=== PATIENT | female | born 1940 | race Caucasian/White ===

== ENCOUNTER → 2018-04-28 14:23 | Outpatient (CLI) | payer MEDICARE, OTHER, SELFPAY ==
[2018-04-28 14:47] LABS: Appearance Urine UA SL CLOUDY; Bilirubin Urine UA NEGATIVE (NEGATIVE); Color Urine UA YELLOW; Glucose Urine UA TRACE g/dL (Normal); Ketones Urine UA TRACE (NEGATIVE); Leukocyte Esterase Urine UA NEGATIVE (NEGATIVE); Nitrite Urine UA Negative (Negative); Occult Blood Urine UA NEGATIVE (Negative); Protein Urine UA NEGATIVE (Negative); Specific Gravity Urine UA 1.025 (1.000-1.035); Urobilinogen Urine UA 0.2 E.U./dL (0.2)
== END ==
PROVIDERS: PCP Family Medicine; Visit Provider Family Medicine
DX: R30.0 Dysuria (principal)
CPT/HCPCS: 81003

== ENCOUNTER → 2018-08-02 07:48 | Outpatient (CLI) | payer MEDICARE, OTHER, SELFPAY ==
[2018-08-02 08:56] LABS: Add Manual Diff / Slide Review NO; Basophils Percent Auto 0.6 % (0-2); Eosinophils Percent Auto 3.1 % (2-4); Hematocrit 37.8 % (36-46); Hemoglobin 12.5 g/dL (12.0-16.0); Lymphocytes Percent Auto 33.2 % (25-40); Mean Corpuscular Hemoglobin 28.1 PG (26-34); Mean Corpuscular Volume 85.1 fL (80-100); Monocytes Percent Auto 11.8 % (3-14); Neutrophils Absolute Auto 3000 /uL (1500-7000); Neutrophils Percent Auto 51.3 % (50-75); Platelet Count 242 X10^3/uL (150-400); Red Blood Cell Count 4.44 X10^6/uL (4.0-5.2); White Blood Cell Count 5.8 X10^3/uL (4.5-11.0)
[2018-08-02 09:06] LABS: Alanine Aminotransferase 23 IU/L (9-52); Albumin 4.1 g/dL (3.5-5.0); Albumin Globulin Ratio 1.4 (1.0-2.8); Alkaline Phosphatase 49 U/L (38-126); Aspartate Aminotransferase 19 IU/L (14-36); BUN Creatinine Ratio 24.3 (6-22); Bilirubin Total 0.5 mg/dL (0.2-1.3); Blood Urea Nitrogen 17 mg/dL (7-17); Calcium 9.8 mg/dL (8.4-10.2); Carbon Dioxide 26 mmol/L (22-32); Chloride 106 mmol/L (98-107); Cholesterol 139 mg/dL (140-199); Estimated Glomerular Filt Rate > 60.0 mL/min (>60); Glucose 128 mg/dL (80-110); HDL Cholesterol 55 mg/dL (40-60); HEMOLYSIS < 15 (0-50); LDL Cholesterol Calculated 70 mg/dL (<100); Sodium 141 mmol/L (137-145); Total Protein 7.1 g/dL (6.3-8.2); Triglycerides 71 mg/dL (35-150)
[2018-08-02 09:40] LABS: TSH w/ Reflex to FT4 4.67 uIU/mL (0.47-4.68)
[2018-08-05 08:57] LABS: Hemoglobin A1C% w Est Avg Glu 7.1 % (4.0-6.0)
== END ==
PROVIDERS: Family Provider Family Medicine; PCP Family Medicine; Visit Provider Family Medicine
DX: E11.9 Type 2 diabetes mellitus without complications (principal); E78.2 Mixed hyperlipidemia; I10 Essential (primary) hypertension
CPT/HCPCS: 36415; 80053; 80061; 83036; 84443; 85025

== ENCOUNTER → 2019-04-04 16:21 | Outpatient (CLI) | payer MEDICARE, OTHER, SELFPAY ==
--- NOTE | 2019-04-04 16:25 | DI.RAD.S_ITS ---
PROCEDURE: XR CHEST 2V INDICATIONS: back pain TECHNIQUE: 2 views of the chest were acquired. COMPARISON: [facility], , XR LUMBAR SPINE 2-3V, 04/04/2019, 16:23. [facility], , CHEST 2 VIEW, 03/19/2012, 19:27. [facility], , L-SPINE 2-3 VIEWS, 09/28/2017, 14:16. [facility], , CHEST 1 VIEW, 07/07/2014, 8:19. FINDINGS: Surgical changes and devices: Cholecystectomy clips. Lungs and pleura: Lungs are clear. No pleural effusions or pneumothorax. Mediastinum: Mediastinal contours are normal. Heart size is normal. Bones and chest wall: No suspicious bony abnormalities. Soft tissues appear unremarkable. Bones are diffusely osteopenic. Lower thoracic vertebral bodies at the level of T9 and T10 are felt to be suboptimally evaluated secondary to osteopenia and overlying soft tissues. IMPRESSION: T9/T10 are suboptimally evaluated secondary to patient body habitus and osteopenia. Compression fracture cannot be excluded. Matthews views of this region is recommended if clinically indicated or CT for further evaluation. Dictated by: Lianna Williamson M.D. on 04/04/2019 at 17:26 Approved by: Lianna Williamson M.D. on 04/04/2019 at 17:29
--- NOTE | 2019-04-04 16:25 | DI.RAD.S_ITS ---
PROCEDURE: XR LUMBAR SPINE 2-3V INDICATIONS: back pain TECHNIQUE: 3 views of the lumbar spine were acquired. COMPARISON: [facility], , L-SPINE 2-3 VIEWS, 09/28/2017, 14:16. FINDINGS: Bones: 5 [id number] vertebrae are present. There is normal bony alignment. No vertebral body compression fractures. No suspicious bony lesions. Vertebral bodies T10-L5 tendon strain no visualized compression fracture. T9 is only partially visualized. Multilevel degenerative disc space narrowing is present most severe at L5-S1. Moderate to severe foraminal narrowing is also noted L5-S1. Soft tissues: Overlying bowel gas pattern is normal. No suspicious soft tissue calcifications. IMPRESSION: Degenerative changes most severe at L5-S1. Dictated by: Lianna Williamson M.D. on 04/04/2019 at 17:29 Approved by: Lianna Williamson M.D. on 04/04/2019 at 17:31
== END ==
PROVIDERS: Family Provider Family Medicine; PCP Family Medicine; Visit Provider Family Medicine
DX: R05 Cough (principal); M54.5 Low back pain; M85.88 Other specified disorders of bone density and structure, other site; M47.817 Spondylosis without myelopathy or radiculopathy, lumbosacral region
CPT/HCPCS: 71046; 72100

== ENCOUNTER → 2019-04-26 13:32 | Outpatient (CLI) | payer MEDICARE, OTHER, SELFPAY | PROVIDERS: PCP Family Medicine; Visit Provider Family Medicine | DX: M85.852 Other specified disorders of bone density and structure, left thigh (principal); Z78.0 Asymptomatic menopausal state; E11.9 Type 2 diabetes mellitus without complications; Z90.722 Acquired absence of ovaries, bilateral; Z82.62 Family history of osteoporosis | CPT/HCPCS: 36415; 77080; 83036 ==

== ENCOUNTER → 2019-10-07 11:57 | Outpatient (CLI) | payer MEDICARE, OTHER, SELFPAY ==
[2019-10-07 12:03] LABS: RBC Urine None Seen (0-5/HPF)
[2019-10-07 12:31] LABS: Appearance Urine UA CLOUDY; Bilirubin Urine UA NEGATIVE (NEGATIVE); Color Urine UA YELLOW; Glucose Urine UA TRACE g/dL (Negative); Ketones Urine UA NEGATIVE (NEGATIVE); Leukocyte Esterase Urine UA 3+ (NEGATIVE); Nitrite Urine UA NEGATIVE (Negative); Occult Blood Urine UA TRACE-INTACT (Negative); Protein Urine UA 1+ (Negative); Specific Gravity Urine UA 1.025 (1.000-1.035); Urobilinogen Urine UA 0.2 E.U./dL (0.2)
[2019-10-07 12:39] LABS: Bacteria Urine Many (>30); Culture Indicated Urine Cult Not Indicated; Squamous Epithelial Cell Urine >30 /HPF (0-5/HPF); WBC Urine >100/HPF (0-5/HPF)
== END ==
PROVIDERS: Family Medicine; PCP Family Medicine; Referring Provider Family Medicine; Visit Provider Family Medicine
DX: R30.0 Dysuria (principal); R35.0 Frequency of micturition
CPT/HCPCS: 81001

== ENCOUNTER → 2020-03-13 08:58 | Outpatient (CLI) | payer MEDICARE, OTHER, SELFPAY ==
[2020-03-13 09:58] LABS: Hemoglobin A1C% w Est Avg Glu 7.7 % (4.0-6.0)
[2020-03-13 09:59] LABS: Blood Urea Nitrogen 24 mg/dL (7-17); Calcium 9.7 mg/dL (8.4-10.2); Carbon Dioxide 26 mmol/L (22-32); Chloride 104 mmol/L (98-107); Estimated Glomerular Filt Rate 56.2 mL/min (>60); Glucose 240 mg/dL (80-110); HEMOLYSIS < 15 (0-50); Potassium 4.7 mmol/L (3.4-5.1); Sodium 138 mmol/L (137-145)
[2020-03-13 11:18] LABS: Appearance Urine UA SL CLOUDY; Bilirubin Urine UA NEGATIVE (NEGATIVE); Color Urine UA YELLOW; Glucose Urine UA 1+ g/dL (Negative); Ketones Urine UA NEGATIVE (NEGATIVE); Leukocyte Esterase Urine UA 3+ (NEGATIVE); Nitrite Urine UA NEGATIVE (Negative); Occult Blood Urine UA 1+ (Negative); Protein Urine UA NEGATIVE (Negative); Specific Gravity Urine UA <=1.005 (1.000-1.035); Urobilinogen Urine UA 0.2 E.U./dL (0.2); pH Urine UA 5.5 (4.5-8.0)
[2020-03-13 11:25] LABS: Bacteria Urine Moderate (10-30); Culture Indicated Urine Cult Not Indicated; RBC Urine 5-10/HPF (0-5/HPF); Squamous Epithelial Cell Urine 5-10 /HPF (0-5/HPF); WBC Urine 10-30/HPF (0-5/HPF)
== END ==
PROVIDERS: PCP Family Medicine; Referring Provider Family Medicine; Visit Provider Family Medicine
DX: M81.0 Age-related osteoporosis without current pathological fracture (principal); S22.000A Wedge compression fracture of unspecified thoracic vertebra, initial encounter for closed fracture; E11.9 Type 2 diabetes mellitus without complications; R30.0 Dysuria; R35.0 Frequency of micturition; R39.15 Urgency of urination; R82.90 Unspecified abnormal findings in urine
CPT/HCPCS: 80048; 81001; 82565; 83036; 84520; 87077; 87086

== ENCOUNTER → 2020-10-05 14:22 | Outpatient (CLI) | payer MEDICARE, OTHER, SELFPAY ==
[2020-10-05 15:37] LABS: Add Manual Diff / Slide Review NO; Basophils Absolute Auto 0 /uL (0-100); Basophils Percent Auto 0.7 % (0-2); Eosinophils Absolute Auto 100 /uL (0-450); Eosinophils Percent Auto 2.3 % (2-4); Hemoglobin 11.9 g/dL (12.0-16.0); Lymphocytes Absolute Auto 2000 /uL (1100-4500); Lymphocytes Percent Auto 36.5 % (25-40); Mean Corpuscular HGB Conc 32.1 % (30-36); Mean Corpuscular Hemoglobin 27.5 PG (26-34); Mean Corpuscular Volume 85.7 fL (80-100); Monocytes Absolute Auto 600 /uL (0-900); Monocytes Percent Auto 11.2 % (3-14); Neutrophils Absolute Auto 2800 /uL (1500-7000); Neutrophils Percent Auto 49.3 % (50-75); Platelet Count 224 X10^3/uL (150-400); Red Blood Cell Count 4.32 X10^6/uL (4.0-5.2); Red Cell Distribution Width 14.7 % (11.6-14.8); White Blood Cell Count 5.6 X10^3/uL (4.5-11.0)
[2020-10-05 15:47] LABS: Hemoglobin A1C% w Est Avg Glu 7.9 % (4.0-6.0)
[2020-10-05 15:53] LABS: Alanine Aminotransferase 16 IU/L (<35); Albumin 4.1 g/dL (3.5-5.0); Albumin Globulin Ratio 1.3 (1.0-2.8); Alkaline Phosphatase 53 U/L (38-126); Aspartate Aminotransferase 23 IU/L (14-36); BUN Creatinine Ratio 21.3 (6-22); Bilirubin Total 0.2 mg/dL (0.2-1.3); Blood Urea Nitrogen 17 mg/dL (7-17); Calcium 9.6 mg/dL (8.4-10.2); Carbon Dioxide 26 mmol/L (22-32); Chloride 105 mmol/L (98-107); Cholesterol 158 mg/dL (140-199); Estimated Glomerular Filt Rate > 60.0 mL/min (>60); Globulin 3.1 g/dL (1.7-4.1); Glucose 186 mg/dL (80-110); HDL Cholesterol 51 mg/dL (40-60); HEMOLYSIS < 15 (0-50); LDL Cholesterol Calculated 75 mg/dL (<100); Sodium 139 mmol/L (137-145); Total Protein 7.2 g/dL (6.3-8.2); Triglycerides 159 mg/dL (35-150)
[2020-10-05 15:54] LABS: Creatinine Urine Random 105.8 mg/dL
[2020-10-05 16:04] LABS: Microalbumin Urine Random < 0.6 mg/dL (0-1.6)
[2020-10-05 16:23] LABS: TSH w/ Reflex to FT4 2.43 uIU/mL (0.47-4.68)
== END ==
PROVIDERS: PCP Family Medicine; Referring Provider Family Medicine; Visit Provider Family Medicine
DX: E11.9 Type 2 diabetes mellitus without complications (principal); E78.2 Mixed hyperlipidemia; I10 Essential (primary) hypertension
CPT/HCPCS: 36415; 80053; 80061; 82043; 82570; 83036; 84443; 85025

== ENCOUNTER → 2020-11-07 15:31 | Outpatient (CLI) | payer MEDICARE, OTHER, SELFPAY ==
[2020-11-07] MEDS: COVID-19 VACC #1, MRNA(MOD) 100 MCG/0.5 ML VIAL IM (15:44)
== END ==
PROVIDERS: PCP Family Medicine; Visit Provider Internal Medicine
DX: Z23 Encounter for immunization (principal)
CPT/HCPCS: 0011A; 91301

== ENCOUNTER → 2020-12-05 10:08 | Outpatient (CLI) | payer MEDICARE, OTHER, SELFPAY ==
[2020-12-05] MEDS: COVID-19 VACC #2, MRNA(MOD) 100 MCG/0.5 ML VIAL IM (10:29)
== END ==
PROVIDERS: PCP Family Medicine; Visit Provider Internal Medicine
DX: Z23 Encounter for immunization (principal)
CPT/HCPCS: 0012A; 91301

== ENCOUNTER → 2021-05-06 10:39 | Outpatient (CLI) | payer MEDICARE, OTHER, SELFPAY ==
[2021-05-06 11:06] LABS: Add Manual Diff / Slide Review NO; Basophils Absolute Auto 0 /uL (0-100); Basophils Percent Auto 0.7 % (0-2); Eosinophils Absolute Auto 100 /uL (0-450); Eosinophils Percent Auto 2.4 % (2-4); Hematocrit 35.5 % (36-46); Hemoglobin 11.5 g/dL (12.0-16.0); Lymphocytes Absolute Auto 2100 /uL (1100-4500); Mean Corpuscular HGB Conc 32.4 % (30-36); Mean Corpuscular Hemoglobin 27.6 PG (26-34); Monocytes Absolute Auto 600 /uL (0-900); Monocytes Percent Auto 10.9 % (3-14); Neutrophils Absolute Auto 3000 /uL (1500-7000); Platelet Count 244 X10^3/uL (150-400); Red Blood Cell Count 4.17 X10^6/uL (4.0-5.2); Red Cell Distribution Width 15.1 % (11.6-14.8); White Blood Cell Count 5.9 X10^3/uL (4.5-11.0)
[2021-05-06 11:24] LABS: Hemoglobin A1C% w Est Avg Glu 7.3 % (4.0-6.0)
[2021-05-06 11:44] LABS: Alanine Aminotransferase 17 IU/L (<35); Albumin Globulin Ratio 1.3 (1.0-2.8); Alkaline Phosphatase 52 U/L (38-126); Aspartate Aminotransferase 24 IU/L (14-36); Bilirubin Total 0.6 mg/dL (0.2-1.3); Blood Urea Nitrogen 20 mg/dL (7-17); Calcium 10.1 mg/dL (8.4-10.2); Carbon Dioxide 27 mmol/L (22-32); Chloride 105 mmol/L (98-107); Cholesterol 137 mg/dL (140-199); Estimated Glomerular Filt Rate > 60.0 mL/min (>60); Glucose 152 mg/dL (80-110); HDL Cholesterol 63 mg/dL (40-60); HEMOLYSIS < 15 (0-50); LDL Cholesterol Calculated 55 mg/dL (<100); Potassium 5.1 mmol/L (3.4-5.1); Sodium 141 mmol/L (137-145); Triglycerides 97 mg/dL (35-150)
== END ==
PROVIDERS: PCP Family Medicine; Referring Provider Family Medicine; Visit Provider Family Medicine
DX: I10 Essential (primary) hypertension (principal); E11.9 Type 2 diabetes mellitus without complications; E78.00 Pure hypercholesterolemia, unspecified
CPT/HCPCS: 36415; 80053; 80061; 83036; 85025

== ENCOUNTER 2021-12-25 14:21 | Inpatient (IN) | payer MEDICARE, OTHER, SELFPAY ==
[2021-12-25] VITALS (14 sets, daily range): BP systolic 111–151; BP diastolic 58–65; PULSE 68–108; RESP 16–25; TEMP 36.3–38.1; O2SAT 95–98; BMI 30.9
--- NOTE | 2021-12-25 14:29 | DI.RAD.S_ITS ---
PROCEDURE: XR CHEST 1V INDICATIONS: suspected sepsis TECHNIQUE: One view of the chest was acquired. COMPARISON: [facility], CR, XR CHEST 2V, 04/04/2019, 16:23. FINDINGS: Surgical changes and devices: None. Lungs and pleura: Lungs are clear. No pleural effusions or pneumothorax. Mediastinum: Mediastinal contours appear normal. Heart size is normal. Bones and chest wall: No suspicious bony lesions. Overlying soft tissues appear unremarkable. IMPRESSION: No acute cardiopulmonary pathology. Dictated by: Rikki Chen M.D. on 12/25/2021 at 15:02 Approved by: Rikki Chen M.D. on 12/25/2021 at 15:02
[2021-12-25 14:38] LABS: Prothrombin Time 11.5 SECONDS (10.1-12.7)
[2021-12-25 14:41] LABS: PTT Partial Thromboplastin Tim 28 SECONDS (26.4-36.2)
[2021-12-25 14:43] LABS: Add Manual Diff / Slide Review NO; Alanine Aminotransferase 18 IU/L (<35); Albumin 4.2 g/dL (3.5-5.0); Albumin Globulin Ratio 1.1 (1.0-2.8); Alkaline Phosphatase 62 U/L (38-126); Aspartate Aminotransferase 24 IU/L (14-36); BUN Creatinine Ratio 20.9 (6-22); Basophils Absolute Auto 0 /uL (0-100); Basophils Percent Auto 0.4 % (0-2); Bilirubin Total 0.5 mg/dL (0.2-1.3); Blood Urea Nitrogen 18 mg/dL (7-17); Calcium 9.4 mg/dL (8.4-10.2); Carbon Dioxide 20 mmol/L (22-32); Chloride 107 mmol/L (98-107); Eosinophils Absolute Auto 0 /uL (0-450); Eosinophils Percent Auto 0.3 % (2-4); Estimated Glomerular Filt Rate > 60 mL/min (>60); Globulin 3.8 g/dL (1.7-4.1); Glucose 212 mg/dL (80-110); HEMOLYSIS < 15 (0-50); Hematocrit 35.7 % (36-46); Hemoglobin 11.8 g/dL (12.0-16.0); Lactate (Lactic Acid) 3.2 mmol/L (0.7-2.1); Lipase 131 U/L (23-300); Lymphocytes Absolute Auto 1100 /uL (1100-4500); Mean Corpuscular HGB Conc 33.1 % (30-36); Mean Corpuscular Hemoglobin 27.7 PG (26-34); Mean Corpuscular Volume 83.8 fL (80-100); Monocytes Absolute Auto 800 /uL (0-900); Monocytes Percent Auto 10.6 % (3-14); Neutrophils Absolute Auto 6000 /uL (1500-7000); Neutrophils Percent Auto 74.7 % (50-75); Platelet Count 258 X10^3/uL (150-400); Potassium 4.2 mmol/L (3.4-5.1); Red Blood Cell Count 4.26 X10^6/uL (4.0-5.2); Red Cell Distribution Width 15.6 % (11.6-14.8); Sodium 138 mmol/L (137-145)
[2021-12-25] MEDS: SODIUM CHLORIDE 0.9% 1,000 ML 1000 ML IV (14:55)
[2021-12-25 14:59] LABS: Procalcitonin 0.08 ng/mL (<0.5)
[2021-12-25 15:08] LABS: COVID19 -Nasal RAPID POSITIVE (Negative)
[2021-12-25] MEDS: ACETAMINOPHEN 325 MG TABLET 650 MG PO (15:19)
[2021-12-25 15:49] LABS: Lactate (Lactic Acid) 2.5 mmol/L (0.7-2.1)
[2021-12-25 16:33] LABS: Reflexed Lactate in 2 Hours Y
--- NOTE | 2021-12-25 17:22 | ED_ITS ---
HPI - Neuro Symptoms/Deficit General Chief Complaint: Neuro Symptoms/Deficit Stated Complaint: Altered mental status Time Seen by Provider: 12/25/21 14:59 Source: patient Mode of arrival: EMS Limitations: no limitations History of Present Illness HPI Narrative: This is an 81-year-old female with history of diabetes, hypertension and dyslipidemia. Has been feeling unwell for the past several days and her describes her as being quite weak and having difficulty even ambulating to the bathroom. Patient has a fever here in the department. She has had some nasal congestion and cough. She denies chest pain or pressure, no shortness of breath, she denies any vomiting but has been nauseated. She denies abdominal pain, no dysuria, urgency or frequency. Denies any issues with diarrhea constipation. No rash or skin changes. Patient has not passed out. She has had prior kidney stones and lithotripsy, prior total hysterectomy, cholecystectomy appendectomy. Her primary care physician is Dr. Crook. She normally lives independently with her and ambulates with a walker. Related Data Home Medications Medication Instructions Recorded Confirmed MULTIVITAMIN (One Daily 1 tab PO Q DAY #0 11/13/11 10/10/21 Multivitamin) Previous Rx's Medication Instructions Recorded DISABLED PARKING PERMIT #1 each 02/28/20 insulin NPH isoph U-100 human 100 35 unit (0.35 mL) SUBCUT QDAY #10 03/29/20 unit/mL subcutaneous suspension ml (Novolin N NPH U-100 Insulin isophane) estradiol 0.5 mg tablet 0.5 mg PO QDAY #90 tab 10/11/20 lisinopril 10 mg tablet 10 mg PO QDAY #90 tab 03/04/21 metformin 1,000 mg tablet 1,000 mg PO BID #180 tab 03/04/21 simvastatin 20 mg tablet See Rx Instructions .ROUTE 04/02/21 .COMPLEX #90 tab valacyclovir 1 gram tablet 2,000 mg PO BID #30 tab 05/14/21 blood sugar diagnostic (Contour See Rx Instructions .ROUTE 12/25/21 Test Strips) .COMPLEX #200 ea Allergies Allergy/AdvReac Type Severity Reaction Status Date / Time No Known Drug Allergies Allergy Verified 12/25/21 14:30 Review of Systems Review of Systems ROS Unobtainable: All systems reviewed & are unremarkable except as noted in HPI and below Patient History Medical History (Updated 12/25/21 @ 18:52 by Margot Tran DO) Anemia Chicken pox Chronic cough Diabetes mellitus Fibroids Frequent UTI Headache Heart failure Heavy menstrual period History of recurrent ear infection History of urinary incontinence Hyperlipidemia Hypertension Hypothyroidism Irregular menstrual cycle Kidney disease Kidney stones Migraines Mumps Rheumatic fever Sarcoidosis Surgical History Anesthesia History of lithotripsy Status post appendectomy Status post cholecystectomy Status post hysterectomy with oophorectomy Status post tubal ligation Family History Brother Diabetes mellitus Father Heart disease Mother Heart disease Social History marital status: Smoking Status: Never smoker alcohol intake: never substance use type: does not use Smoking Status: Never smoker Substance Use Type: does not use Exam Narrative Exam Narrative: GENERAL: Alert and oriented, elderly female in mild distress. HEENT: Head normocephalic, atraumatic, EOMI, pupils reactive, face symmetric, moist mucous membranes, no facial droop. NECK: Supple, full range of motion CARDIOVASCULAR: Regular rate and rhythm without murmurs, rubs or gallops. No JVD or edema. RESPIRATORY: Breath sounds equal bilaterally, no wheezes rales or rhonchi. No tachypnea or accessory muscle use. ABDOMEN: Soft, nontender. Normoactive bowel sounds all 4 quadrants. No guarding or rebound, rigidity, no mass : No CVA tenderness EXTREMITIES: Normal range of motion, no clubbing or edema. Neurovascularly intact. NEUROLOGICAL: Cranial nerves II through XII grossly intact. Moving all extremities. Patient has significant difficulty standing attempting to ambulate. SKIN: Warm, dry, no petechiae, no rashes or lesions. Initial Vital Signs Initial Vital Signs: Vital Signs Pulse Rate 105 H 12/25/21 14:28 Pulse Oximetry 97 12/25/21 14:28 Course Orders Ordered: ED Orders 12/25/21 14:24 COVID19 -Nasal RAPID/Pre-Proc Stat 12/25/21 14:29 XR chest 1V Stat EKG-12 Lead Stat RT Consult Eval and Treat NOW 12/25/21 14:33 Complete Blood Count AUTO DIFF Stat Comprehensive Metabolic Panel Stat Lactate (Lactic Acid) Stat Lipase Stat Partial Thromboplastin Time Stat Procalcitonin Stat Prothrombin Time INR Stat 12/25/21 14:42 Blood Culture Stat Lactate (Lactic Acid) Stat 12/25/21 18:13 Urinalysis and Microscopic Stat Sodium Chloride (Normal Saline 0.9%) 1,000 mls @ 150 mls/hr IV CONT SANGEETHA Discontinued Medications Acetaminophen (Acetaminophen 325 Mg Tablet) 650 mg PO NOW ONE Stop: 12/25/21 15:02 Last Admin: 12/25/21 15:19 Dose: 650 mg Documented by: NATALYA Sodium Chloride (Normal Saline 0.9%) 1,000 mls @ 1,000 mls/hr IV BOLUS ONE Stop: 12/25/21 15:28 Last Infusion: 12/25/21 17:50 Dose: 0 mls/hr Documented by: Admin: 12/25/21 14:55 Dose: 1,000 mls/hr Documented by: SANDI Sodium Chloride (Normal Saline 0.9%) 1,503 mls @ 501 mls/hr 30 ml/kg infuse over 3 hr (1503 ml) IV NOW ONE Stop: 12/25/21 18:00 Last Admin: 12/25/21 17:45 Dose: 501 mls/hr Documented by: SANDI Ondansetron HCl (Ondansetron 4 Mg/2 Ml Inj) 4 mg IV NOW ONE Stop: 12/25/21 17:24 Last Admin: 12/25/21 17:47 Dose: 4 mg Documented by: SANDI Consultations Consultation #1: Dr. Wesley, reviewed patient's findings today. Patient accepted for observation. Time: 18:50 Vital Signs Vital signs: Vital Signs - 8 hr 12/25/21 14:28 12/25/21 14:30 12/25/21 15:00 Temperature 100.5 F H Pulse Rate 105 H 105 H 104 H Respiratory Rate 16 25 H Blood Pressure 140/63 136/63 Pulse Oximetry 97 96 95 12/25/21 15:30 12/25/21 16:00 12/25/21 16:30 Temperature 98.2 F Pulse Rate 104 H 101 H 100 H Respiratory Rate 23 21 23 Blood Pressure 135/61 146/65 H 129/61 Pulse Oximetry 97 98 98 12/25/21 17:00 12/25/21 17:30 12/25/21 18:00 Temperature 98.8 F Pulse Rate 98 H 95 H 101 H Respiratory Rate 20 19 20 Blood Pressure 128/60 112/58 L Pulse Oximetry 98 98 95 MDM - Neuro Symptoms/Deficit Lab Data Result diagrams: 12/25/21 14:33 12/25/21 14:33 Labs: Lab Results 12/25/21 12/25/21 12/25/21 Range/Units 14:24 14:33 14:33 WBC 8.0 (4.5-11.0) X10^3/uL RBC 4.26 (4.0-5.2) X10^6/uL Hgb 11.8 L (12.0-16.0) g/dL Hct 35.7 L (36-46) % MCV 83.8 (80-100) fL MCH 27.7 (26-34) PG MCHC 33.1 (30-36) % RDW 15.6 H (11.6-14.8) % Plt Count 258 (150-400) X10^3/uL Neut % (Auto) 74.7 (50-75) % Lymph % (Auto) 14.0 L (25-40) % [place] % (Auto) 10.6 (3-14) % Eos % (Auto) 0.3 L (2-4) % Baso % (Auto) 0.4 (0-2) % Neut # (Auto) 6000 (3677-4174) /uL Lymph # (Auto) 1100 (9160-8400) /uL [place] # (Auto) 800 (0-900) /uL Eos # (Auto) 0 (0-450) /uL Baso # (Auto) 0 (0-100) /uL PT 11.5 (10.1-12.7) SECONDS INR 1.0 (0.9-1.3) APTT 28 (26.4-36.2) SECONDS Sodium (137-145) mmol/L Potassium (3.4-5.1) mmol/L Chloride (98-107) mmol/L Carbon Dioxide (22-32) mmol/L BUN (7-17) mg/dL Creatinine (0.52-1.04) mg/dL Estimated GFR (>60) mL/min BUN/Creatinine Ratio (6-22) Glucose (80-110) mg/dL Lactate (0.7-2.1) mmol/L Calcium (8.4-10.2) mg/dL Total Bilirubin (0.2-1.3) mg/dL AST (14-36) IU/L ALT (<35) IU/L Alkaline Phosphatase (38-126) U/L Total Protein (6.3-8.2) g/dL Albumin (3.5-5.0) g/dL Globulin (1.7-4.1) g/dL Albumin/Globulin Ratio (1.0-2.8) Lipase (23-300) U/L Procalcitonin (<0.5) ng/mL SARS-CoV-2 (PCR) Positive H (Negative) 12/25/21 12/25/21 12/25/21 Range/Units 14:33 14:33 14:42 WBC (4.5-11.0) X10^3/uL RBC (4.0-5.2) X10^6/uL Hgb (12.0-16.0) g/dL Hct (36-46) % MCV (80-100) fL MCH (26-34) PG MCHC (30-36) % RDW (11.6-14.8) % Plt Count (150-400) X10^3/uL Neut % (Auto) (50-75) % Lymph % (Auto) (25-40) % [place] % (Auto) (3-14) % Eos % (Auto) (2-4) % Baso % (Auto) (0-2) % Neut # (Auto) (3697-4214) /uL Lymph # (Auto) (1826-8754) /uL [place] # (Auto) (0-900) /uL Eos # (Auto) (0-450) /uL Baso # (Auto) (0-100) /uL PT (10.1-12.7) SECONDS INR (0.9-1.3) APTT (26.4-36.2) SECONDS Sodium 138 (137-145) mmol/L Potassium 4.2 (3.4-5.1) mmol/L Chloride 107 (98-107) mmol/L Carbon Dioxide 20 L (22-32) mmol/L BUN 18 H (7-17) mg/dL Creatinine 0.86 (0.52-1.04) mg/dL Estimated GFR > 60 (>60) mL/min BUN/Creatinine Ratio 20.9 (6-22) Glucose 212 H (80-110) mg/dL Lactate 3.2 H 2.5 H (0.7-2.1) mmol/L Calcium 9.4 (8.4-10.2) mg/dL Total Bilirubin 0.5 (0.2-1.3) mg/dL AST 24 (14-36) IU/L ALT 18 (<35) IU/L Alkaline Phosphatase 62 (38-126) U/L Total Protein 8.0 (6.3-8.2) g/dL Albumin 4.2 (3.5-5.0) g/dL Globulin 3.8 (1.7-4.1) g/dL Albumin/Globulin Ratio 1.1 (1.0-2.8) Lipase 131 (23-300) U/L Procalcitonin 0.08 (<0.5) ng/mL SARS-CoV-2 (PCR) (Negative) Imaging Data Chest x-ray: Radiologist's Impression: [place] [address] XRay Report Signed Patient: Netta Mahmood MR#: [id number] : 1940 Acct:[id number] Age/Sex: 81 / F Date of Service: 12/25/21 Loc: Accession Number: [id number] ?? Procedure: XR chest 1V Ordering Provider: Margot Tran D.O. PROCEDURE:? XR CHEST 1V ? INDICATIONS:? suspected sepsis ? TECHNIQUE:? One view of the chest was acquired.? ? COMPARISON:? [facility], , XR CHEST 2V, 04/04/2019, 16:23. ? FINDINGS:? ? Surgical changes and devices:? None.? ? Lungs and pleura:? Lungs are clear.? No pleural effusions or pneumothorax.? ? Mediastinum:? Mediastinal contours appear normal.? Heart size is normal.? ? Bones and chest wall:? No suspicious bony lesions.? Overlying soft tissues appear unremarkable.? ? IMPRESSION:? No acute cardiopulmonary pathology. ? ? Dictated by: Rikki Chen M.D. on 12/25/2021 at 15:02 ? ? Approved by: Rikki Chen M.D. on 12/25/2021 at 15:02?? ECG Data Attestation: I personally reviewed and interpreted this ECG as follows: Interpretation: Sinus tachycardia rate of 104 [place] 166 QRS of [address] No acute [address] elevation depression noted. MDM Narrative Medical decision making narrative: Reviewed patient's findings today, she is COVID positive, her lactate is elevated at 3.2 trending down to 2.5 but not completely normalized.? Her glucose is 212 with a BUN 18.? Cultures were obtained, patient had 30 cc/kilos fluid bolus tachycardia improved.? Patient would potentially be a candidate for paxlovid but requires hospitalization for weakness.? She is not a candidate for dexamethasone or remdesivir she has not been hypoxic at any point.??Spoke with her primary care team who accepts for observation. Urine sample is pending. Discharge Plan Departure Patient Disposition: Admitted as Observation Clinical Impression: COVID-19 virus infection, Weakness Admit Date/Time: 12/25/21 18:23 Admit Provider: Billie Wesley
[2021-12-25 17:40] LABS: Reflexed Lactate in 2 Hours Y
[2021-12-25] MEDS: SODIUM CHLORIDE 0.9% 1,503 ML 501 ML IV (17:45)
[2021-12-25] MEDS: ONDANSETRON 4 MG/2 ML INJ IV (17:47)
--- NOTE | 2021-12-25 18:15 | PC.NURSE ---
straight cath urine for sample 450 cc obtained cloudy urine
[2021-12-25 18:38] LABS: Appearance Urine UA CLEAR; Bilirubin Urine UA NEGATIVE (NEGATIVE); Color Urine UA YELLOW; Glucose Urine UA TRACE g/dL (Negative); Ketones Urine UA TRACE (NEGATIVE); Leukocyte Esterase Urine UA NEGATIVE (NEGATIVE); Nitrite Urine UA NEGATIVE (Negative); Occult Blood Urine UA NEGATIVE (Negative); Protein Urine UA NEGATIVE (Negative); Specific Gravity Urine UA 1.025 (1.000-1.035); Urobilinogen Urine UA 0.2 E.U./dL (0.2)
[2021-12-25 18:53] LABS: RBC Urine None Seen (0-5/HPF); Squamous Epithelial Cell Urine None Seen (0-5/HPF); WBC Urine None Seen (0-5/HPF)
[2021-12-25 18:54] LABS: Bacteria Urine Many (>30); Culture Indicated Urine Cult Not Indicated
--- NOTE | 2021-12-25 19:12 | PC.NURSE ---
shi merchant to call for report once able and done with report he is currently in report on other patients and not yet aware he is getting a patient.
[2021-12-25] MEDS: valACYclovir 500 MG TABLET 2000 MG PO (21:51)
[2021-12-25] MEDS: ATORVASTATIN 20 MG TABLET 10 MG PO (21:51)
[2021-12-26 04:16] VITALS: BP 125/63; PULSE 83; RESP 16; TEMP 36.7; O2SAT 95
--- NOTE | 2021-12-26 07:13 | P.HP_ITS ---
History of Present Illness History of Present Illness Date Patient Seen: 12/26/21 Time Patient Seen: 07:27 Chief complaint: Altered mental status Narrative: 81-year-old female with a past medical history of diabetes hypertension hyperlipidemia osteoporosis and anxiety is admitted to the hospital with weakness and not feeling well who is COVID positive. Patient is seen And evaluated this morning. Patient states she is not feeling well. Patient states symptoms started on . Where she fell increasing week. Patient has a general history of weakness. In addition to feeling weak she has had progressive symptoms of a fever. She has had headache she has had a cough she has not had shortness of breath. She has had some mild abdominal pain and nausea. She does not complain of loss of sense of taste and smell. Patient states that as she is having normal bowel movements. Normal urination. Patient states she is hungry this morning and would like a cup of coffee. Patient states he just does not feel well. She knows she is here at [facility]. She lives at home with her . And is generally fairly independent despite her limitations due to her generalized weakness. Patient History Medical History Anemia Chicken pox Chronic cough Diabetes mellitus Fibroids Frequent UTI Headache Heart failure Heavy menstrual period History of recurrent ear infection History of urinary incontinence Hyperlipidemia Hypertension Hypothyroidism Irregular menstrual cycle Kidney disease Kidney stones Migraines Mumps Rheumatic fever Sarcoidosis Surgical History Anesthesia History of lithotripsy Status post appendectomy Status post cholecystectomy Status post hysterectomy with oophorectomy Status post tubal ligation Family & Social History Family History Brother Diabetes mellitus Father Heart disease Mother Heart disease Safety & Behavioral: Feels Safe in Current Yes Environment Been Physically Hurt or No Threatened By a Person Tobacco & Substance use: Smoking Status Never smoker alcohol intake never Substance Use Type does not use Meds Home Medications and Allergies Home Medications Medication Instructions Recorded Confirmed Type MULTIVITAMIN (One Daily 1 tab PO Q DAY #0 11/13/11 10/10/21 History Multivitamin) DISABLED PARKING PERMIT #1 each 02/28/20 10/10/21 Rx insulin NPH isoph U-100 human 100 35 unit (0.35 mL) SUBCUT QDAY #10 03/29/20 10/10/21 Rx unit/mL subcutaneous suspension ml (Novolin N NPH U-100 Insulin isophane) estradiol 0.5 mg tablet 0.5 mg PO QDAY #90 tab 10/11/20 10/10/21 Rx lisinopril 10 mg tablet 10 mg PO QDAY #90 tab 03/04/21 10/10/21 Rx metformin 1,000 mg tablet 1,000 mg PO BID #180 tab 03/04/21 10/10/21 Rx simvastatin 20 mg tablet See Rx Instructions .ROUTE 04/02/21 10/10/21 Rx .COMPLEX #90 tab valacyclovir 1 gram tablet 2,000 mg PO BID #30 tab 05/14/21 10/10/21 Rx blood sugar diagnostic (Contour See Rx Instructions .ROUTE 12/25/21 Rx Test Strips) .COMPLEX #200 ea Allergies Allergy/AdvReac Type Severity Reaction Status Date / Time No Known Drug Allergies Allergy Verified 12/25/21 14:30 Exam Vital Signs (past 8 hours): - 12/26/21 04:16 Temperature 98.1 F Pulse Rate 83 Respiratory Rate 16 Blood Pressure 125/63 Pulse Oximetry 95 Oxygen Delivery Method Room Air Oxygen Flow Rate 0 Narrative Exam Narrative: Gen.: Alert oriented to person place and time says she is not feeling well HEENT: Pupils equal round and reactive or mucosa is moist neck is supple Cardio: S1-S2 regular rate and rhythm Respiratory: Lungs are clear no wheezes or crackles normal respiratory effort Abdomen: Soft obese no distention rebound or guarding Extremities: Warm dry perfused. Full range of motion Neurologic: No neurological deficits Objective Labs Result Diagrams: 12/25/21 14:33 12/25/21 14:33 Labs: Laboratory Results - last 24 hr 12/25/21 12/25/21 12/25/21 14:24 14:33 14:33 WBC 8.0 RBC 4.26 Hgb 11.8 L Hct 35.7 L MCV 83.8 MCH 27.7 MCHC 33.1 RDW 15.6 H Plt Count 258 Neut % (Auto) 74.7 Lymph % (Auto) 14.0 L Daniels % (Auto) 10.6 Eos % (Auto) 0.3 L Baso % (Auto) 0.4 Neut # (Auto) 6000 Lymph # (Auto) 1100 Daniels # (Auto) 800 Eos # (Auto) 0 Baso # (Auto) 0 PT 11.5 INR 1.0 APTT 28 Sodium Potassium Chloride Carbon Dioxide BUN Creatinine Estimated GFR BUN/Creatinine Ratio Glucose Lactate Calcium Total Bilirubin AST ALT Alkaline Phosphatase Total Protein Albumin Globulin Albumin/Globulin Ratio Lipase Procalcitonin Urine Color Urine Appearance Urine pH Ur Specific [place] Urine Protein Urine Glucose (UA) Urine Ketones Urine Occult Blood Urine Nitrate Urine Bilirubin Urine Urobilinogen Ur Leukocyte Esterase Urine RBC Urine WBC Ur Squamous Epith Cells Urine Bacteria Ur Culture Indicated? SARS-CoV-2 (PCR) Positive H 12/25/21 12/25/21 12/25/21 14:33 14:33 14:42 WBC RBC Hgb Hct MCV MCH MCHC RDW Plt Count Neut % (Auto) Lymph % (Auto) Daniels % (Auto) Eos % (Auto) Baso % (Auto) Neut # (Auto) Lymph # (Auto) Daniels # (Auto) Eos # (Auto) Baso # (Auto) PT INR APTT Sodium 138 Potassium 4.2 Chloride 107 Carbon Dioxide 20 L BUN 18 H Creatinine 0.86 Estimated GFR > 60 BUN/Creatinine Ratio 20.9 Glucose 212 H Lactate 3.2 H 2.5 H Calcium 9.4 Total Bilirubin 0.5 AST 24 ALT 18 Alkaline Phosphatase 62 Total Protein 8.0 Albumin 4.2 Globulin 3.8 Albumin/Globulin Ratio 1.1 Lipase 131 Procalcitonin 0.08 Urine Color Urine Appearance Urine pH Ur Specific [place] Urine Protein Urine Glucose (UA) Urine Ketones Urine Occult Blood Urine Nitrate Urine Bilirubin Urine Urobilinogen Ur Leukocyte Esterase Urine RBC Urine WBC Ur Squamous Epith Cells Urine Bacteria Ur Culture Indicated? SARS-CoV-2 (PCR) 12/25/21 18:00 WBC RBC Hgb Hct MCV MCH MCHC RDW Plt Count Neut % (Auto) Lymph % (Auto) Daniels % (Auto) Eos % (Auto) Baso % (Auto) Neut # (Auto) Lymph # (Auto) Daniels # (Auto) Eos # (Auto) Baso # (Auto) PT INR APTT Sodium Potassium Chloride Carbon Dioxide BUN Creatinine Estimated GFR BUN/Creatinine Ratio Glucose Lactate Calcium Total Bilirubin AST ALT Alkaline Phosphatase Total Protein Albumin Globulin Albumin/Globulin Ratio Lipase Procalcitonin Urine Color Yellow Urine Appearance Clear Urine pH 5.0 Ur Specific [place] 1.025 Urine Protein Negative Urine Glucose (UA) Trace H Urine Ketones Trace H Urine Occult Blood Negative Urine Nitrate Negative Urine Bilirubin Negative Urine Urobilinogen 0.2 Ur Leukocyte Esterase Negative Urine RBC None seen Urine WBC None seen Ur Squamous Epith Cells None seen Urine Bacteria Many (>30) H Ur Culture Indicated? Cult not indicated SARS-CoV-2 (PCR) Assessment & Plan Assessment and plan (1) COVID-19 virus infection: Status: Acute (2) Weakness: Status: Acute Plan COVID-19 patient of into the hospital with a symptomatic significant weakness and viral symptoms due to COVID-19. She has clear lung exam and a normal x-ray. No signs or symptoms of significant pneumonia she is not hypoxic. Patient was febrile little bit tachycardic. She received fluid res[facility] room and over night received fluids as well will go ahead and stop those this morning. Based on the most recent recommendations of COVID-19 treatment for a hospitalized patient without hypoxia the recommendations are for remdesivir based on up-to-date. We will go ahead and start that this morning. They do not recommend steroids. Reviewed this with the patient. Will continue with the frequent vital signs. Ambulate with help with physical therapy. Start remdesivir monitor vital signs and provide diet as tolerated will have a physical therapy evaluation. The patient will hopefully be stable enough to discharge within 24-48 hours. Monitoring closely for worsening signs of symptoms of pneumonia and respiratory distress. Insulin-dependent diabetes. Patient has diabetes will go ahead and place her on her home insulin dosing with insulin sliding scale coverage and blood sugar ch ecks per protocol. Patient will have a diabetic diet. Hypertension. Patient's blood pressure will be monitored. She has normal renal function blood pressure looks good today and will be continued on her antihypertensive medication Hyperlipidemia. Patient will be continued on her statin medication. Disposition and plan. PT evaluation. Monitor with hospitalization because of significant weakness due to COVID. Hopefully we can improve that over the next 24-48 hours and patient can be stable for discharge home Assessment & Plan narrative: For most hospitalized patients who do not need oxygen supplementation, our approach to management depends on whether they have clinical ) or laboratory risk factors associated with progression to more severe disease and the reason for hospitalization.For those with risk factors for severe disease who were hospitalized for COVID-19, we suggest?remdesivir Trial data suggest that remdesivir may improve time to recovery in such patients, although the magnitude of effect is uncertain ]. We suggest not using?dexamethasone , which may be associated with worse outcomes in such patients Time Spent With Patient Critical Care time: I spent a total of [] minutes of critical care time on this patient's care today; this time is exclusive of procedural time.
[2021-12-26 08:07] VITALS: O2SAT 95
[2021-12-26] MEDS: REMDESIVIR 200 MG in SODIUM CHLORIDE 0.9% 210 ML 250 MG IV (09:40)
[2021-12-26] MEDS: valACYclovir 500 MG TABLET 2000 MG PO ×2 (09:55→21:23)
[2021-12-26] MEDS: ENOXAPARIN 40 MG/0.4 ML SYRINGE SUBCUT (09:55)
[2021-12-26] MEDS: lisinopriL 10 MG TABLET PO (09:55)
[2021-12-26] MEDS: estradioL 1 MG TABLET 0.5 MG PO (09:56)
[2021-12-26 10:00] VITALS: BP 116/60; PULSE 112; RESP 20; TEMP 37.9; O2SAT 94
[2021-12-26] MEDS: INSULIN NPH 100 UNIT/ML VIAL 35 UNIT SUBCUT (10:07)
[2021-12-26] MEDS: INSULIN LISPRO 100 UNIT/ML 3ML VIAL SUBCUT ×3 (10:08→17:34)
--- NOTE | 2021-12-26 11:40 | PT.IIE ---
Current Diagnoses Weakness (12/25/21) COVID-19 (12/25/21) Surgical History (Last Reviewed 12/26/21 @ 07:29 by Cruz Crook MD) Anesthesia History of lithotripsy Status post appendectomy Status post cholecystectomy Status post hysterectomy with oophorectomy Status post tubal ligation Medical History (Last Reviewed 12/26/21 @ 07:29 by Cruz Crook MD) Anemia Chicken pox Chronic cough Diabetes mellitus Fibroids Frequent UTI Headache Heart failure Heavy menstrual period History of recurrent ear infection History of urinary incontinence Hyperlipidemia Hypertension Hypothyroidism Irregular menstrual cycle Kidney disease Kidney stones Migraines Mumps Rheumatic fever Sarcoidosis Physical Therapy Inpatient Evaluation/Re-Eval M1 PT/OT-IP Prior Functional Status Start: 12/26/21 13:22 Freq: NEEDED Status: Active Protocol: Document 12/26/21 11:40 AB (Rec: 12/26/21 13:33 AB [email or web address]) Medical Review Prior Functional Status Medical History Reviewed Yes Communication with confusion; able to follow and answer questions inconsistently Mobility and Gait pt stated that she is modified independent with all mobilities and ambulation using FWW Social History Household Members spouse Number of Floors (Floors) Two Floors Number of Stairs To Enter/Railing? pt stays on main level of the house 6 steps to enter 1 rail Home Environment Standard Height Toilet,Walk in Shower Home Equipment Front Wheel Walker,Shower Seat without Backrest,Hand Held Shower,Grab Bars In Shower M2 PT-IP Current Condition Start: 12/26/21 13:22 Freq: NEEDED Status: Active Protocol: Document 12/26/21 11:40 AB (Rec: 12/26/21 13:33 AB [email or web address]) Physical Therapy Current Condition Current Condition Evaluation Date 12/26/21 Treatment Diagnosis Covid; difficulty in walking Onset Date 12/25/21 M3 PT-IP Subjective Start: 12/26/21 13:22 Freq: NEEDED Status: Active Protocol: Document 12/26/21 11:40 AB (Rec: 12/26/21 13:33 AB [email or web address]) Subjective Physical Therapy Visit Type Type Initial Evaluation Visit Start Time 11:40 Visit Stop Time 12:25 Total Visit Minutes 45 Number of GAS CONTROLLER Visits 0 Physical Therapy Visit Comments Patient Comments agreed to do PT M4 PT-IP Mobility and Gait Start: 12/26/21 13:22 Freq: NEEDED Status: Active Protocol: Document 12/26/21 11:40 AB (Rec: 12/26/21 13:33 AB [email or web address]) PT-Bed Mobility Assessment Supine to Sit Supine to Sit Maximum Assistance,2 Person Assistance,Head of Bed Elevated,Bedrails Sit to Supine Sit to Supine Maximum Assistance,Total Assistance,2 Person Assistance PT-Transfer Assessment Sit to and From Stand Sit to and from Stand Maximum Assistance,Total Assistance,2 Person Assistance ,Use of Upper Extremities Equipment Transfer Assistive Device Gait Belt,Front Wheeled Walker Orthotic/Prosthetic Devices or Brace: No Comments Mobility Comments completed supine to sit max A x 2 with 3 attempts to sit up. pt with increase posterior pushing during supine to sit with cervical and trunk rigidity noted. pt with confusion and has difficulty following directions. mod to max A for sitting on EOB. completed sit to stand x2 max A x 2 to total A x 2 with pt leaning against the bed with her LE. required several attempts before able to stand up. pt unable to move LE to transfer to chair. assisted back to bed max A x 2 to total A x 2. positioned pt in bed total A x 2 and max cues. call light and table placed within reach. Gait Assessment Comments Gait Comments unable PT-Balance Assessment Sitting Balance and Reactions Static Sitting Balance Ability Poor Dynamic Sitting Balance Ability Poor Standing Balance and Reactions Static Standing Balance Ability Poor Dynamic Standing Balance Ability Poor Device Used FWW M5 PT-IP Objective Assessments Start: 12/26/21 13:22 Freq: NEEDED Status: Active Protocol: Document 12/26/21 11:40 AB (Rec: 12/26/21 13:33 AB [email or web address]) Orientation Orientation/Cognition Level of Alertness Confusional State Orientation Name Safety Awareness Decreased Safety Awareness Memory Description Short Term Impaired,Desizing Machine Operator Impaired Gross Range of Motion Lower Extremity ROM Assessment Within Functional Limits Strength Lower Extremity Strength Assessment Bilaterally Impaired Comments Strength Comments LLE: 4-/5 RLE 3+/5 M6 PT-IP Treatment Start: 12/26/21 13:22 Freq: NEEDED Status: Active Protocol: Document 12/26/21 11:40 AB (Rec: 12/26/21 13:33 AB [email or web address]) Physical Therapy Treatment Education Education Provided Safety M7 PT-IP Assessment and Plan Start: 12/26/21 13:22 Freq: NEEDED Status: Active Protocol: Document 12/26/21 11:40 AB (Rec: 12/26/21 13:33 AB [id number]) PT Summary Assessment and Plan Potential Rehabilitation Potential Fair Status of Condition at Evaluation Evolving Summary Impairments Pain,ROM,Strength,Balance, Coordination,Sensation,Tone, Cognition,Bed Mobility, Transfers,Gait,Activity Tolerance Assessment Summary Pt requiring max A x 2 to total A x 2 and unable to complete transfer to chair despite max A x 2 provided. pt with increase posterior leaning and trunk rigidity during mobility. pt also has confusion affecting direction following and safety awareness . at this time, pt will require SNF rehab but will continue to assess progress for continued safe d/c planning. Goals Bed Mobility Goal Minimal Assistance Transfer Goal Minimal Assistance,Front Wheeled Walker Gait Goal Minimal Assistance,Front Wheel Walker Gait Distance 50 Other Goals improve bed mobility and transfers using FWW SBA improve ambulation using FWW 100 ft SBA up/down 6 steps 1 rail CGA Days to Meet Goals 10 Frequency of Treatment Frequency Of Treatment Once a Day Treatment Plan Physical Therapy Treatment Plan Bed Mobility Training,Transfer Training,Gait Training, Therapeutic Exercise,Balance Retraining,Discharge Planning, Hot or Cold Pack,Neuromuscular Re-ed,Coordination Retraining ,Manual Therapy Recommendations To Nursing Amount of Assist Needed Mechanical Lift Discharge Recommendations PT Discharge Recommendations SNF Rehab Transportation Needs at Discharge Wheelchair/Cabulance,Stretcher /Ambulance
[2021-12-26 12:35] VITALS: BP 105/55; PULSE 93; RESP 20; TEMP 37.3; O2SAT 95
[2021-12-26] MEDS: ACETAMINOPHEN 325 MG TABLET 650 MG PO ×2 (13:13→17:37)
--- NOTE | 2021-12-26 13:58 | CM.DANOTE ---
Initial DCP Assessment Note Pt is an 81yo female, resident [facility], arrives with altered mental status, weakness, C19+ PCP: Cruz Crook Payer: KRISHAN/Giov[employer] Reviewed chart, pt discussed w/Delisa PT who currently is recommending SNF; patient remains confused today, PT recommendation may change depending on progression and mental status clearing In general; there are limited- no available SNFs that will consider someone that is COVID+. Plan: DC likely home w/spouse and HH once medically cleared; mental status improvement and additional sessions w/PT Will plan to discuss DCP options w/spouse and will remain available to address DC planning questions and concerns that might arise [place] [facility] Discharge Planning/Care Management CM Discharge Assessment Start: 12/26/21 13:54 Freq: Status: Active Protocol: Document 12/26/21 13:55 XIMENA (Rec: 12/26/21 13:58 XIMENA [id number]) Discharge Planning Assessment Assigned Glazing Machine Operator [place] DPOA/Assigned Designee Name Gilson Mahmood, spouse Contact Information [phone] Advance Directives? No History Provided By Medical Record Prior Living Arrangements House Household Members spouse Type of transporation used prior to Relies on Others admit Independent with ADL's Yes: Mod Indp w/FWW Is patient alert and oriented? No: Confusion today per record Needs Assistance With Bathing,Home Chores / Shopping Patient/Family Preference Home with Home Health Barriers to Discharge Yes Comment C19+, weakness Discharge Plan Home with Home Health Transportation Arrangement Family Referrals Initiated Home Health Additional Comment Will need new HH referral if patient and spouse ar agreeable
[2021-12-26 16:50] VITALS: BP 104/55; PULSE 81; RESP 20; TEMP 36.5; O2SAT 95
--- NOTE | 2021-12-26 17:12 | PC.NURSE ---
Day shift: After phone conversation with Pt's Daughter (Pt's Hx of being hospitalized in the past) Dr Crook was called and asked about an anti-anxiety medication. Per Dr Crook: At this point we will just wait.
[2021-12-26 21:00] VITALS: BP 96/49; PULSE 75; RESP 14; TEMP 36.7; O2SAT 95
[2021-12-26] MEDS: ATORVASTATIN 20 MG TABLET 10 MG PO (21:23)
[2021-12-27 01:45] VITALS: BP 120/60; PULSE 73; RESP 16; TEMP 36.9; O2SAT 97
[2021-12-27 06:49] LABS: Hematocrit 29.8 % (36-46); Mean Corpuscular HGB Conc 33.7 % (30-36); Mean Corpuscular Hemoglobin 27.9 PG (26-34); Mean Corpuscular Volume 82.8 fL (80-100); Platelet Count 149 X10^3/uL (150-400); Red Cell Distribution Width 15.4 % (11.6-14.8); White Blood Cell Count 4.3 X10^3/uL (4.5-11.0)
[2021-12-27 06:52] LABS: Add Manual Diff / Slide Review YES; Alanine Aminotransferase 25 IU/L (<35); Alkaline Phosphatase 45 U/L (38-126); Aspartate Aminotransferase 61 IU/L (14-36); BUN Creatinine Ratio 21.3 (6-22); Bilirubin Total 0.2 mg/dL (0.2-1.3); Blood Urea Nitrogen 19 mg/dL (7-17); Calcium 7.9 mg/dL (8.4-10.2); Carbon Dioxide 23 mmol/L (22-32); Chloride 110 mmol/L (98-107); Estimated Glomerular Filt Rate > 60 mL/min (>60); Glucose 128 mg/dL (80-110); HEMOLYSIS < 15 (0-50); Potassium 3.7 mmol/L (3.4-5.1); Sodium 138 mmol/L (137-145)
[2021-12-27 07:36] LABS: Neutrophils Absolute Manual 2064 /uL (3000-5900); Total Cells Counted 100
[2021-12-27 07:38] LABS: Poikilocytosis 1+
[2021-12-27 08:00] VITALS: BP 125/71; PULSE 73; RESP 20; O2SAT 96
--- NOTE | 2021-12-27 08:37 | PM.PN.1 ---
Subjective Subjective Date Patient Seen: 12/27/21 Time Patient Seen: 08:37 Interval history: Patient seen and evaluated this morning. Patient will anxious and tearful. She says she is doing well still feeling quite ill. Very weak yesterday difficult time getting out of bed. Complaining of cough muscle aches headache patient afebrile for the last 12 hours. Patient doing okay with appetite eating. Bowel movements urination stable. No significant symptoms of shortness of breath or chest pain. Reviewed care with nursing staff. Exam Vital Signs (past 8 hours): - 12/27/21 01:45 Temperature 98.5 F Pulse Rate 73 Respiratory Rate 16 Blood Pressure 120/60 Pulse Oximetry 97 Oxygen Delivery Method Room Air Oxygen Flow Rate 0 Narrative Exam Narrative: Gen.: Alert no apparent distress oriented to person place and time. Good historian HEENT: Pupils equal round and reactive neck is supple oral mucosa is moist Cardio: Regular rate and rhythm no systolic murmur appreciated. Respiratory: Lungs are clear normal respiratory effort no wheezes or crackles Abdomen: Soft nontender obese no guarding Extremities: Full range of motion warm dry perfused Neurologic: Grossly intact. Objective Labs Result Diagrams: 12/27/21 06:14 12/27/21 06:14 Labs: Laboratory Results - last 24 hr 12/27/21 12/27/21 06:14 06:14 WBC 4.3 L RBC 3.60 L Hgb 10.0 L Hct 29.8 L MCV 82.8 MCH 27.9 MCHC 33.7 RDW 15.4 H Plt Count 149 L Neut % (Auto) Not Reportable Lymph % (Auto) Not Reportable [place] % (Auto) Not Reportable Eos % (Auto) Not Reportable Baso % (Auto) Not Reportable Lymph # (Auto) Not Reportable [place] # (Auto) Not Reportable Baso # (Auto) Not Reportable Total Counted 100 Seg Neutrophils % 42.0 Band Neutrophils % 6.0 Lymphocytes % (Manual) 33.0 Monocytes % (Manual) 17.0 H Eosinophils % (Manual) 2.0 Neutrophils # (Manual) 2064 L RBC Morphology See below Poikilocytosis 1+ H Sodium 138 Potassium 3.7 Chloride 110 H Carbon Dioxide 23 BUN 19 H Creatinine 0.89 Estimated GFR > 60 BUN/Creatinine Ratio 21.3 Glucose 128 H Calcium 7.9 L Total Bilirubin 0.2 AST 61 H ALT 25 Alkaline Phosphatase 45 Total Protein 6.0 L Albumin 3.0 L Globulin 3.0 Albumin/Globulin Ratio 1.0 PFSH Medical History Anemia Chicken pox Chronic cough Diabetes mellitus Fibroids Frequent UTI Headache Heart failure Heavy menstrual period History of recurrent ear infection History of urinary incontinence Hyperlipidemia Hypertension Hypothyroidism Irregular menstrual cycle Kidney disease Kidney stones Migraines Mumps Rheumatic fever Sarcoidosis Surgical History Anesthesia History of lithotripsy Status post appendectomy Status post cholecystectomy Status post hysterectomy with oophorectomy Status post tubal ligation Family History Brother Diabetes mellitus Father Heart disease Mother Heart disease Social History marital status: household members: spouse Smoking Status: Never smoker alcohol intake: never substance use type: does not use Assessment & Plan Assessment and plan (1) COVID-19 virus infection: Status: Acute (2) Weakness: Status: Acute Plan COVID-19 infection. Patient vaccinated x2 not boost heard. Main symptoms at this point or weakness. Blood counts stable laboratories good patient is afebrile for 24 hours still weak. No signs of respiratory distress or hypoxia. Patient was unable to ambulate yesterday. Patient will work with physical therapy today. Patient would love to go home. If we can arrange for safe discharge home she does have a walker and a wheelchair available and a and a daughter who can help take care of her. She has had 1 dose of remdesivir today yesterday and 1 dose today. When discharged she will not need further medication. She is on appropriate DVT prophylaxis at this point. Insulin-dependent diabetes.? Patient on insulin here in the hospital. Getting long-acting and short-acting insulin blood sugars have been reasonably well controlled. She is doing well with her diet although she says food does not taste well. Hypertension.? Patient's blood pressure will be monitored.? Home antihypertensives are started. Blood pressure stable at this point. Hyperlipidemia.? Patient will be continued on her statin medication.? Anxiety. Patient little bit tearful and anxious. Disposition and plan.? PT evaluation today. With PT evaluation is good patient can ambulate patient will be discharged home with home health. Discussed discharge plan with patient today. If she is not as strong enough to be able to ambulate then discharge tomorrow home. Time Spent With Patient Critical Care time: I spent a total of [] minutes of critical care time on this patient's care today; this time is exclusive of procedural time.
[2021-12-27 08:56] VITALS: O2SAT 97
[2021-12-27] MEDS: INSULIN NPH 100 UNIT/ML VIAL 35 UNIT SUBCUT (09:10)
[2021-12-27] MEDS: INSULIN LISPRO 100 UNIT/ML 3ML VIAL SUBCUT ×3 (09:11→21:46)
[2021-12-27] MEDS: estradioL 1 MG TABLET 0.5 MG PO (09:12)
[2021-12-27] MEDS: lisinopriL 10 MG TABLET PO (09:19)
[2021-12-27] MEDS: valACYclovir 500 MG TABLET 2000 MG PO (09:20)
[2021-12-27] MEDS: ENOXAPARIN 40 MG/0.4 ML SYRINGE SUBCUT (09:20)
[2021-12-27] MEDS: REMDESIVIR 100 MG in SODIUM CHLORIDE 0.9% 230 ML 250 MG IV (09:23)
[2021-12-27] MEDS: ACETAMINOPHEN 325 MG TABLET 650 MG PO ×3 (09:35→17:25)
--- NOTE | 2021-12-27 09:35 | PT.IPTN ---
Current Diagnoses Weakness (12/25/21) COVID-19 (12/25/21) Physical Therapy Treatment Note M2 PT-IP Current Condition Start: 12/26/21 13:22 Freq: NEEDED Status: Active Protocol: Document 12/26/21 11:40 AB (Rec: 12/26/21 13:33 AB [id number]) Physical Therapy Current Condition Current Condition Evaluation Date 12/26/21 Treatment Diagnosis Covid; difficulty in walking Onset Date 12/25/21 M3 PT-IP Subjective Start: 12/26/21 13:22 Freq: NEEDED Status: Active Protocol: Document 12/27/21 09:35 AB (Rec: 12/27/21 11:21 AB [id number]) Subjective Physical Therapy Visit Type Type Treatment Note Visit Start Time 09:35 Visit Stop Time 10:00 Total Visit Minutes 25 Number of DISPOSAL WORKER Visits 0 Physical Therapy Visit Comments Patient Comments agreeable to do PT Therapy Pain Assessment Pain When Pain Assessed At Rest Pain Present Pain Present Pain Reported Location Back Scale Used pain scale not stated Pain Behaviors Crying,Facial Grimacing, Guarding,Wincing Pain Management Techniques Distraction,Modification of Treatment,Re-positioning, Timing of Activity with Medications M4 PT-IP Mobility and Gait Start: 12/26/21 13:22 Freq: NEEDED Status: Active Protocol: Document 12/27/21 09:35 AB (Rec: 12/27/21 11:21 AB [id number]) PT-Bed Mobility Assessment Supine to Sit Supine to Sit Maximum Assistance,1 Person Assistance,Head of Bed Elevated,Bedrails PT-Transfer Assessment Sit to and From Stand Sit to and from Stand Moderate Assistance,Maximum Assistance,1 Person Assistance ,Use of Upper Extremities Equipment Transfer Assistive Device Gait Belt,Front Wheeled Walker Orthotic/Prosthetic Devices or Brace: No Transfers Transfer Destination Chair Transfer Technique Stand Step Pivot Transfer Ability Level of Assist Moderate Assistance,1 Person Assistance,Use of Upper Extremities Comments Mobility Comments completed supine to sit max A and cues with HOB elevated and used bed rail. pt with c/o back pain. instructed to do log roll bed mobility. pt able to sit on EOB CGA. completed sit to stand mod to max a and max cues and step transfer to chair using FWW mod A. pt rested. completed sit to stand from the chair mod to max A and ambulated ~ 8 ft using FWW mod A. chair follow needed. pt rested again. pt completed sit to stand from the chair mod to max A and step transfer to bedside commode mod A. Left pt with OT. Gait Assessment Gait Gait Assistance Required: Moderate Assistance Distance (Feet) 8 Able to Maintain Weight Bearing Status No During Gait Assistive Devices Assistive Device Gait Belt,Front Wheeled Walker Orthotic/Prosthetic Devices or Brace: No Gait Deviations General Gait Pattern Decreased Stride Length, Decreased Feet Clearance,Step- to Gait Factors Limiting Gait Function Factors Limiting Gait Function Decreased Activity Tolerance, Decreased Strength,Difficulty Following Directions,Pain,Poor Balance,Poor Safety Awareness M5 PT-IP Objective Assessments Start: 12/26/21 13:22 Freq: NEEDED Status: Active Protocol: Document 12/26/21 11:40 AB (Rec: 12/26/21 13:33 AB [email or web address]) Orientation Orientation/Cognition Level of Alertness Confusional State Orientation Name Safety Awareness Decreased Safety Awareness Memory Description Short Term Impaired,Residential Impaired Gross Range of Motion Lower Extremity ROM Assessment Within Functional Limits Strength Lower Extremity Strength Assessment Bilaterally Impaired Comments Strength Comments LLE: 4-/5 RLE 3+/5 M6 PT-IP Treatment Start: 12/26/21 13:22 Freq: NEEDED Status: Active Protocol: Document 12/27/21 09:35 AB (Rec: 12/27/21 11:21 AB [email or web address]) Physical Therapy Treatment Education Education Provided Safety M7 PT-IP Assessment and Plan Start: 12/26/21 13:22 Freq: NEEDED Status: Active Protocol: Document 12/27/21 09:35 AB (Rec: 12/27/21 11:21 AB [id number]) PT Summary Assessment and Plan Potential Rehabilitation Potential Fair Summary Impairments Pain,ROM,Strength,Balance, Coordination,Sensation,Tone, Cognition,Bed Mobility, Transfers,Gait,Activity Tolerance Progress Towards Goals Slow Progress due to Pain,Slow Progress due to Medical Issues,Slow Progress due to Activity Tolerance Assessment Summary pt improving slowly with mobility but continues to require mod to max A and max cues and has decrease activity tolerance requiring frequent rest breaks in between activities. d/c plan depending on progress but at this time still requires SNF rehab. will continue to assess. Goals Bed Mobility Goal Minimal Assistance Transfer Goal Minimal Assistance,Front Wheeled Walker Gait Goal Minimal Assistance,Front Wheel Walker Gait Distance 50 Other Goals improve bed mobility and transfers using FWW SBA improve ambulation using FWW 100 ft SBA up/down 6 steps 1 rail CGA Days to Meet Goals 10 Frequency of Treatment Frequency Of Treatment Once a Day Treatment Plan Physical Therapy Treatment Plan Bed Mobility Training,Transfer Training,Gait Training, Therapeutic Exercise,Balance Retraining,Discharge Planning, Hot or Cold Pack,Neuromuscular Re-ed,Coordination Retraining ,Manual Therapy Precautions Other Precautions falls Recommendations To Nursing Amount of Assist Needed 1 Person Assist Discharge Recommendations PT Discharge Recommendations Home with 16/02 Assist Available,Home Health,SNF Rehab,Home vs SNF Transportation Needs at Discharge Private Vehicle,Wheelchair/ Cabulance
--- NOTE | 2021-12-27 10:11 | OT.IP.EVAL ---
Current Diagnoses Weakness (12/25/21) COVID-19 (12/25/21) Past Medical History (Last Reviewed 12/26/21 @ 07:29 by Cruz Crook MD) Anemia Chicken pox Chronic cough Diabetes mellitus Fibroids Frequent UTI Headache Heart failure Heavy menstrual period History of recurrent ear infection History of urinary incontinence Hyperlipidemia Hypertension Hypothyroidism Irregular menstrual cycle Kidney disease Kidney stones Migraines Mumps Rheumatic fever Sarcoidosis Surgical History (Last Reviewed 12/26/21 @ 07:29 by Cruz Crook MD) Anesthesia History of lithotripsy Status post appendectomy Status post cholecystectomy Status post hysterectomy with oophorectomy Status post tubal ligation Occupational Therapy Inpatient Evaluation/Re-Eval M1 PT/OT-IP Prior Functional Status Start: 12/26/21 13:22 Freq: NEEDED Status: Active Protocol: Document 12/27/21 09:35 [facility] (Rec: 12/27/21 12:49 [facility] [id number]) Medical Review Prior Functional Status Medical History Reviewed Yes Communication with confusion; able to follow and answer questions inconsistently Mobility and Gait pt stated that she is modified independent with all mobilities and ambulation using FWW Activities of Daily Living and IADL's Pt states that she just wears gown and underwear at home and barefooted in the house. Pt states her usually assist with whatever she needs . Pt states prior only able to stand for 10 minutes at a time before having to sit. Social History Household Members spouse Living Arrangements House Number of Floors (Floors) Two Floors Number of Stairs To Enter/Railing? pt stays on main level of the house 6 steps to enter 1 rail Home Environment Standard Height Toilet,Walk in Shower Home Equipment Front Wheel Walker,Manual Wheelchair,Shower Seat without Backrest,Hand Held Shower, Lift Recliner,Grab Bars In Shower M2 OT-IP Current Condition Start: 12/27/21 12:30 Freq: Status: Active Protocol: Document 12/27/21 09:35 [facility] (Rec: 12/27/21 12:49 [facility] [id number]) Occupational Therapy Current Condition Current Condition Evaluation Date 12/27/21 Treatment Diagnosis COVID +, weakness Diagnosis Onset Date 12/25/21 M3 OT- IP Subjective and Pain Start: 12/27/21 12:30 Freq: Status: Active Protocol: Document 12/27/21 09:35 [facility] (Rec: 12/27/21 12:49 [facility] [id number]) OT- Subjective Occupational Therapy Visit Comments Patient Comments Pt agreed to get up and wanting to use the BSC. Patient/Caregiver Goals To go home. OT Pain Assessment Pain When Pain Assessed At Rest Pain Present Pain Present Pain Reported Location Back Pain Behaviors Facial Grimacing,Holding Area M4 OT- IP ADL's Start: 12/27/21 12:30 Freq: Status: Active Protocol: Document 12/27/21 09:35 [facility] (Rec: 12/27/21 12:49 [facility] [id number]) OT [id number] Comments OT Self-Feeding Comments NOt at meal time. OT ADL-Grooming Comments OT Grooming Comments NOt performed. OT ADL-Dressing General Eval Lower Body Dressing Ability Maximum Assistance Comments OT Dressing Comments Assist to kaden socks and for brief change. OT ADL-Toileting General Evaluation Toileting Ability Maximum Assistance Areas Needing Assistance Manage Clothing,Perform Perineal Hygiene Devices Toileting Assistive Devices Commode Comments OT Toileting Comments After MIN/MODA to stand. Pt able to stand with one person assist CGA with FWW and nursing aid assist for hygiene needs. Suggested pt get a BSC for home use. Pt states will just transfer to her wc and then roll down to her bathroom which is 50ft away at home. OT ADL-Bathing Comments OT Bathing Comments Sponge bath more appropriate at this time due to decreased balance and activity tolerance . M5 OT- IP IADL's Start: 12/27/21 12:30 Freq: Status: Active Protocol: Document 12/27/21 09:35 [facility] (Rec: 12/27/21 12:49 [facility] [id number]) OT-Instrumental Activities of Daily Living Home Safety Awareness Awareness of Need for Assistance at Home Good Awareness Money Management Money Management Caregiver Provides Assistance Meal Preparation Meal Preparation Caregiver Provides Assist Internal Revenue Agent Internal Revenue Agent Caregiver Provides Assist M6 OT- IP Functional Cognition Start: 12/27/21 12:30 Freq: Status: Active Protocol: Document 12/27/21 09:35 [facility] (Rec: 12/27/21 12:49 [facility] [id number]) Cognitive Factors Limiting Selfcare Function Cognitive Ability Level of Alertness Alert Patient Orientation Name,Place,Situation Attention Span Ability Capable of Focused Attention, Capable of Sustained Attention Ability to Follow Commands Able to Follow One Step Commands Cognitive Comments Cognitive Assessment Comments Pt needing lots of encouragement and cues for hand placement and FWW safety . OT- Vision and Hearing OT- Hearing Assessment OT- Hearing Assessment WFL M7 OT- IP Mobility and Balance Start: 12/27/21 12:30 Freq: Status: Active Protocol: Document 12/27/21 09:35 [facility] (Rec: 12/27/21 12:49 [facility] [id number]) OT- Bed Mobility Assessment Supine to Sit Supine to Sit Assist Maximum Assistance OT-Transfer Assessment Sit to and From Stand Sit to and from Stand Moderate Assistance,Maximum Assistance,1 Person Assistance Transfers Transfer Ability Minimal Assistance,Moderate Assistance,1 Person Assistance Technique Transfer Destination Bed,Bedside Commode,Chair Transfer Technique Stand Step Pivot Devices Transfer Assistive Devices Gait Belt,Front Wheeled Walker Comments Mobility Comments Pt MAXA to help get out of the bed, to clarify with pt if she sleep in her recliner or sleeps in a bed at home. MODA/ MAX AX to stand to FWW , and from the higher surface of BSC needing MIN/MOD to stand and ADRIANA for transfer with FWW. As pt tires needs MODA with FWW. OT- Balance Assessment Sitting Balance and Reactions Static Sitting Balance Ability Good Dynamic Sitting Balance Ability Fair Standing Balance and Reactions Static Standing Balance Ability Fair M8 OT- IP Objective Assessments Start: 12/27/21 12:30 Freq: Status: Active Protocol: Document 12/27/21 09:35 [facility] (Rec: 12/27/21 12:49 [facility] [id number]) OT Gross Range of Motion Upper Extremity Range of Motion Assessment Bilaterally Impaired OT Strength Comments Strength Comments WFL for elbow to distal BUE strength. OT-Muscle Tone Assessment Muscle Tone WNL Yes M9 OT- IP Assessment and Plan Start: 12/27/21 12:30 Freq: Status: Active Protocol: Document 12/27/21 09:35 [facility] (Rec: 12/27/21 12:49 [facility] [id number]) OT Summary Assessment and Plan Potential Rehabilitation Potential Good Analytic Complexity at Evaluation Moderate Summary OT Impairments Pain,Balance,Functional Mobility,Grooming,Dressing, Toileting,Bathing,Toilet Transfers,Shower Transfers, Activity Tolerance Progress Towards Goals Slow Progress due to Medical Issues,Slow Progress due to Activity Tolerance Assessment Summary Pt MOD complexity and needing assist for all ADl and mobility needs due to decreased balance and endurance. Pt states has a supportive at home to assist with her needs. Pt would benefit from skilled rehab versus home with 24/7 assist and home health. Suggested pt get a BSC as per pt having to walk 50ft to get to the bathroom, at this time pt getting tired and only able to walk around 8 ft. Pt hopefully to go home with 24/7 assist and home health when medically stable. Goals Grooming Goal Independent Dressing Goal Minimal Assistance Toileting Goal Minimal Assistance Bathing Goal Moderate Assistance Toilet Transfer Goal Minimal Assistance Shower Transfer Goal Minimal Assistance Days to Meet Goals 5 Frequency of Treatment Frequency Of Treatment Once a Day Treatment Plan OT Treatment Plan ADL Training,Functional Mobility,Patient/Family Education,Discharge Planning Other Treatment Recommendations and Next stand with FWW for grooming Treatment Focus needs while at the sink Discharge Recommendations OT Discharge Recommendations Home with Assistance,Home with 24/7 Assist Available,SNF Rehab,Home vs SNF Other Discharge Recommendations Mostly likely pt will improve so able to go home with 24/7 assist and home health Home Equipment Needs BSC Transportation Needs at Discharge Private Vehicle,Wheelchair/ Cabulance
--- NOTE | 2021-12-27 13:47 | PC.NURSE ---
Day shift: Pt more energy and stronger today. Able to feed herself and take medication without issue. She was able to stand and pivot to BSC when working w/ PT/OT. 2 person assist at this time. She is calm and cooperative. RA 96% with an intermittent cough. Does endorse back back at times. Tylenol per SEP. She is also more sharp and answered questions with ease today. Uses call light proper. Bed alarm is on and fall precautions in place. Door would be open but Covid19 precautions prevent this intervention. Pt checks about evry 15 minutes. She is not confused or impulsive. Per discussion with Dr Crook this AM the discharge was d/c'd after Pt seen by PT/OT and not safe to go home yet. Will continue with plan of care.
--- NOTE | 2021-12-27 14:43 | PC.NURSE ---
Day shift: Spoke with Dr Crook via telephone and he was updated on Pt at this time.
[2021-12-27 19:55] VITALS: O2SAT 96
[2021-12-27 19:57] VITALS: BP 116/75; PULSE 96; RESP 18; O2SAT 96
[2021-12-27] MEDS: ATORVASTATIN 20 MG TABLET 10 MG PO (21:43)
[2021-12-27] MEDS: SODIUM CHLORIDE 0.9% FLUSH 10 ML IV (21:47)
[2021-12-28] MEDS: ACETAMINOPHEN 325 MG TABLET 650 MG PO (00:38)
[2021-12-28 08:39] VITALS: BP 128/64; PULSE 74; RESP 16; TEMP 36.2; O2SAT 93
[2021-12-28] MEDS: ENOXAPARIN 40 MG/0.4 ML SYRINGE SUBCUT (09:33)
[2021-12-28 09:34] VITALS: BP 128/64; PULSE 74
[2021-12-28] MEDS: lisinopriL 10 MG TABLET PO (09:34)
[2021-12-28] MEDS: REMDESIVIR 100 MG in SODIUM CHLORIDE 0.9% 230 ML 250 MG IV (09:34)
[2021-12-28] MEDS: estradioL 1 MG TABLET 0.5 MG PO (09:35)
[2021-12-28] MEDS: INSULIN NPH 100 UNIT/ML VIAL 35 UNIT SUBCUT (09:36)
[2021-12-28 11:23] VITALS: O2SAT 93
--- NOTE | 2021-12-28 11:23 | OT.IP.TRT ---
Current Diagnoses Weakness (12/25/21) COVID-19 (12/25/21) Occupational Therapy Treatment Note M2 OT-IP Current Condition Start: 12/27/21 12:30 Freq: Status: Active Protocol: Document 12/27/21 09:35 [facility] (Rec: 12/27/21 12:49 [facility] [id number]) Occupational Therapy Current Condition Current Condition Evaluation Date 12/27/21 Treatment Diagnosis COVID +, weakness Diagnosis Onset Date 12/25/21 M3 OT- IP Subjective and Pain Start: 12/27/21 12:30 Freq: Status: Active Protocol: Document 12/28/21 10:55 [facility] (Rec: 12/28/21 12:47 [facility] [id number]) OT- Subjective Occupational Therapy Visit Type Type Treatment Note Visit Start Time 10:55 Visit Stop Time 11:23 Total Visit Minutes 28 Occupational Therapy Visit Comments Patient Comments Pt wanting to use the bathroom . Patient/Caregiver Goals To go home. OT Pain Assessment Pain When Pain Assessed At Rest Pain Present Pain Present Denied Pain M4 OT- IP ADL's Start: 12/27/21 12:30 Freq: Status: Active Protocol: Document 12/28/21 10:55 [facility] (Rec: 12/28/21 12:47 [facility] [id number]) OT [id number] Comments OT Self-Feeding Comments NOt at meal time. OT ADL-Grooming General Evaluation Grooming Ability Standby Assistance Comments OT Grooming Comments while seated OT ADL-Oral Care General Eval Oral Care Ability Standby Assistance OT ADL-Dressing General Eval Lower Body Dressing Ability Moderate Assistance Comments OT Dressing Comments Assist to kaden brief over her feet and assist to help pull up over her hips. OT ADL-Toileting General Evaluation Toileting Ability Moderate Assistance Areas Needing Assistance Manage Clothing,Perform Perineal Hygiene Devices Toileting Assistive Devices Grab Bars Comments OT Toileting Comments Pt able to walk in to the bathroom with CGA and FWW. Pt needing assist for brief and hygiene for completeness. OT ADL-Bathing Comments OT Bathing Comments Sponge bath more appropriate at this time due to activity tolerance. M5 OT- IP IADL's Start: 12/27/21 12:30 Freq: Status: Active Protocol: Document 12/27/21 09:35 [facility] (Rec: 12/27/21 12:49 [facility] [id number]) OT-Instrumental Activities of Daily Living Home Safety Awareness Awareness of Need for Assistance at Home Good Awareness Money Management Money Management Caregiver Provides Assistance Meal Preparation Meal Preparation Caregiver Provides Assist Planning Supervisor Planning Supervisor Caregiver Provides Assist M6 OT- IP Functional Cognition Start: 12/27/21 12:30 Freq: Status: Active Protocol: Document 12/28/21 10:55 [facility] (Rec: 12/28/21 12:47 [facility] [id number]) Cognitive Factors Limiting Selfcare Function Cognitive Ability Level of Alertness Alert Patient Orientation Name,Place,Situation Attention Span Ability Capable of Focused Attention, Capable of Sustained Attention Ability to Follow Commands Able to Follow One Step Commands Cognitive Comments Cognitive Assessment Comments Pt still needing encouragement and vc to keep her hands on the FWW as pt tends to reach out to the grab bars or support. M7 OT- IP Mobility and Balance Start: 12/27/21 12:30 Freq: Status: Active Protocol: Document 12/28/21 10:55 [facility] (Rec: 12/28/21 12:47 [facility] [id number]) OT-Transfer Assessment Sit to and From Stand Sit to and from Stand Minimal Assistance,1 Person Assistance Transfers Transfer Ability Contact Guard Assistance,1 Person Assistance Technique Transfer Destination Chair,Toilet Transfer Technique Stand Step Pivot Devices Transfer Assistive Devices Gait Belt,Front Wheeled Walker Comments Mobility Comments Pt ADRIANA to stand and CGA to ADRIANA with FWW as she tires needing more assist. OT- Balance Assessment Sitting Balance and Reactions Static Sitting Balance Ability Good Dynamic Sitting Balance Ability Good Standing Balance and Reactions Static Standing Balance Ability Fair M8 OT- IP Objective Assessments Start: 12/27/21 12:30 Freq: Status: Active Protocol: Document 12/27/21 09:35 [facility] (Rec: 12/27/21 12:49 [facility] [id number]) OT Gross Range of Motion Upper Extremity Range of Motion Assessment Bilaterally Impaired OT Strength Comments Strength Comments WFL for elbow to distal BUE strength. OT-Muscle Tone Assessment Muscle Tone WNL Yes M9 OT- IP Assessment and Plan Start: 12/27/21 12:30 Freq: Status: Active Protocol: Document 12/28/21 10:55 [facility] (Rec: 12/28/21 12:47 [facility] [id number]) OT Summary Assessment and Plan Potential Rehabilitation Potential Good Analytic Complexity at Evaluation Moderate Summary OT Impairments Pain,Balance,Functional Mobility,Grooming,Dressing, Toileting,Bathing,Toilet Transfers,Shower Transfers, Activity Tolerance Progress Towards Goals Progressing Toward Goals,Slow Progress due to Activity Tolerance Assessment Summary Pt able to tolerate walking to and from the bathroom today however feels much better. Pt doing much better but will still need assist from her at home for ADl and mobility needs. Pt to go home when medically stable. Pt would benefit from home health . Goals Grooming Goal Independent Dressing Goal Minimal Assistance Toileting Goal Minimal Assistance Bathing Goal Moderate Assistance Toilet Transfer Goal Standby Assistance Shower Transfer Goal Standby Assistance Days to Meet Goals 2 Frequency of Treatment Frequency Of Treatment Once a Day Treatment Plan OT Treatment Plan ADL Training,Functional Mobility,Patient/Family Education,Discharge Planning Other Treatment Recommendations and Next shower if still here Treatment Focus Discharge Recommendations OT Discharge Recommendations Home with 16/02 Assist Available,Home Health Transportation Needs at Discharge Private Vehicle
[2021-12-28] MEDS: INSULIN LISPRO 100 UNIT/ML 3ML VIAL SUBCUT (11:40)
[2021-12-28] MEDS: SODIUM CHLORIDE 0.9% FLUSH 10 ML IV (11:42)
--- NOTE | 2021-12-28 12:49 | P.DS_ITS ---
History of Present Illness History of Present Illness Date Patient Seen: 12/28/21 Time Patient Seen: 12:49 Chief complaint: Altered mental status Narrative: Patient admitted due to COVID-19 illness with severe weakness and inability to perform activities of daily living. Patient was treated with from demonstrate air for approximately 3 days and is in improved condition. She is ambulating and able to toilet and move without assistance other than standby assistance. She is anxious to go home. Discharge Providers Provider Date of admission: 12/25/21 18:23 Discharge Date: 12/28/21 Primary care physician: Cruz Crook MD Consults: 12/25/21 20:36 Consult to Physical Therapy Evaluate & Treat Comment: Physician Instructions: Evaluate and Treat 12/26/21 14:11 Consult to Occupational Therapy Evaluate & Treat Comment: Physician Instructions: Evaluate and treat 12/26/21 17:03 Consult to Pastoral Services Routine Comment: Would like to pray with netsuite developer if possible Discharge provider: Rae Brunner MD Summary Hospital Course Discharge Diagnosis: COVID-19 illness, stable on room air without significant respiratory difficulties Weakness and dehydration improved with hospitalization and physical therapy Insulin-dependent diabetes, sugars well controlled during hospitalization Hypertension well controlled Hyperlipidemia Hospital Course: Patient admitted due to COVID-19 illness with severe weakness and inability to perform activities of daily living. Patient was treated with from demonstrate air for approximately 3 days and is in improved condition. She is ambulating and able to toilet and move without assistance other than standby assistance. She is anxious to go home. There up no other changes to her outpatient care plan during the hospitalization. Patient is discharged home in improved condition. She will continue on her outpatient medications and follow up with her primary care provider, Dr. Vila in 2 weeks. Status at Discharge Cognitive/behavioral status at discharge: oriented Functional status at discharge: uses cane/walker Overall status at discharge: patient is progressing back to baseline Exam Vital Signs (past 8 hours): - 12/28/21 08:39 12/28/21 09:34 12/28/21 11:23 Temperature 97.2 F L Pulse Rate 74 74 Respiratory Rate 16 Blood Pressure 128/64 128/64 Pulse Oximetry 93 93 Oxygen Delivery Method Room Air Oxygen Flow Rate 0 Narrative Exam Narrative: Patient is afebrile, vital signs are stable. O2 sats are normal on room air. Patient is standing at bedside when I 1st went in the room. She is alert and oriented x3 in no apparent distress Neck: Supple Chest: Clear to auscultation without wheezes rhonchi or crackles. She is seizing several times while I am in the room. Cor: Regular rate and rhythm without a murmur, distant S1-S2 Abdomen: Obese, positive bowel sounds, soft, nontender, nondistended Extremities: No edema, pulses intact Neurologic exam nonfocal Psych: Slightly anxious Objective Labs Result Diagrams: 12/27/21 06:14 12/27/21 06:14 [facility] Medical History Anemia Chicken pox Chronic cough Diabetes mellitus Fibroids Frequent UTI Headache Heart failure Heavy menstrual period History of recurrent ear infection History of urinary incontinence Hyperlipidemia Hypertension Hypothyroidism Irregular menstrual cycle Kidney disease Kidney stones Migraines Mumps Rheumatic fever Sarcoidosis Surgical History Anesthesia History of lithotripsy Status post appendectomy Status post cholecystectomy Status post hysterectomy with oophorectomy Status post tubal ligation Family History Brother Diabetes mellitus Father Heart disease Mother Heart disease Social History marital status: household members: spouse Smoking Status: Never smoker alcohol intake: never substance use type: does not use Discharge Assessment & Plan Assessment and Plan Assessment: COVID-19 illness, stable on room air without significant respiratory difficulties Weakness and dehydration improved with hospitalization and physical therapy Insulin-dependent diabetes, sugars well controlled during hospitalization Hypertension well controlled Hyperlipidemia Plan of Treatment: Discharge home with home health And his same outpatient medications, including insulin Follow-up with Dr. Crook in 2 weeks Discharge Plan Discharge Plan Patient Disposition: Home Discharge orders & Medications Prescriptions: Continued Novolin N NPH U-100 Insulin 100 unit/mL suspension 35 unit SUBCUT QDAY Qty: 10 0RF MULTIVITAMIN (One Daily Multivitamin) 1 tab PO Q DAY Qty: 0 0RF (DME) DISABLED PARKING PERMIT See Rx Instructions .ROUTE .MEDSUPPLY Qty: 1 0RF Rx Instructions: I find this patient to be medically disabled and qualified for disabled parking as indicated, and signed, on the accompanying Disabled Parking Application for Individuals. estradiol 0.5 mg tablet 0.5 mg PO QDAY Qty: 90 3RF lisinopril 10 mg tablet 10 mg PO QDAY Qty: 90 3RF metformin 1,000 mg tablet 1,000 mg PO BID Qty: 180 3RF Rx Instructions: Please call for an appointment with simvastatin 20 mg tablet See Rx Instructions .ROUTE .COMPLEX Qty: 90 2RF Dose Instruction: TAKE 1 TABLET BY MOUTH AT BEDTIME Rx Instructions: TAKE 1 TABLET BY MOUTH AT BEDTIME Contour Test Strips Strip See Rx Instructions .ROUTE .COMPLEX Qty: 200 3RF Dose Instruction: USE 1 STRIP TO CHECK GLUCOSE TWICE DAILY (E11.9) Rx Instructions: USE 1 STRIP TO CHECK GLUCOSE TWICE DAILY (E11.9) Follow up/Referrals: Cruz Crook MD [Primary Care Provider] - Discharge Health Status Multidrug resistant organism: No MDRO Diet/Activity/Treatments Diet: Carb-consistent/Diabetic Skin/Wound/Dressing Care Report to your healthcare provider any signs of infection, such as:: chills, fever, night sweats, increased pain, unusual drainage and unusual redness Discharge Data Primary Care Provider: Cruz Crook
--- NOTE | 2021-12-28 13:35 | PC.NURSE ---
Pt independent in room Continues w/ cough Received D/C orders, HL discontinued intact. Home instructions given w/understanding. Pt escorted by staff via W/C to waiting vehicle D/C in stable condition,
--- NOTE | 2021-12-28 14:47 | CM.DPNOTE ---
DC Note DC home w/family today and [facility] RN/PT/OT/DIE REPAIRER FORGING per spouse's request Faxed new referral to [facility] to include HH order, completed and signed F2F, H+P and DC Summary JW
== END 2021-12-28 13:37 | disposition home health service (06) | DRG 179 ==
LOC: ED 15:37 → AC 18:52
PROVIDERS: Nurse Practitioner Critical Care Medicine; Admitting Provider Family Medicine; Emergency Provider Emergency Medicine; PCP Family Medicine; Referring Provider Emergency Medicine; Visit Provider Family Medicine
DX: U07.1 COVID-19 (principal); R53.1 Weakness; E86.0 Dehydration; E11.9 Type 2 diabetes mellitus without complications; I10 Essential (primary) hypertension; E78.5 Hyperlipidemia, unspecified; Z79.4 Long term (current) use of insulin; Z79.84 Long term (current) use of oral hypoglycemic drugs
CPT/HCPCS: 36415; 51701; 71045; 80053; 81001; 82962; 83605; 83690; 84145; 85007; 85025; 85610; 85730; 87040; 87635; 93005; 94762; 96361; 96374; 97162; 97166; 97530; 97535; 99223; 99232; 99284; 99285; C9803; J1650; J1815; J2405

== ENCOUNTER → 2022-01-30 12:45 | Outpatient (CLI) | payer MEDICARE, OTHER, SELFPAY ==
[2021-12-25 19:36] VITALS: BMI 30.9
[2022-01-30 13:30] LABS: Add Manual Diff / Slide Review NO; Basophils Absolute Auto 0 /uL (0-100); Basophils Percent Auto 0.8 % (0-2); Eosinophils Absolute Auto 200 /uL (0-450); Eosinophils Percent Auto 3.2 % (2-4); Hematocrit 35.1 % (36-46); Hemoglobin 11.6 g/dL (12.0-16.0); Lymphocytes Absolute Auto 2100 /uL (1100-4500); Lymphocytes Percent Auto 36.4 % (25-40); Mean Corpuscular Hemoglobin 27.6 PG (26-34); Mean Corpuscular Volume 83.6 fL (80-100); Monocytes Absolute Auto 700 /uL (0-900); Monocytes Percent Auto 12.7 % (3-14); Neutrophils Absolute Auto 2700 /uL (1500-7000); Neutrophils Percent Auto 46.9 % (50-75); Platelet Count 278 X10^3/uL (150-400); Red Cell Distribution Width 16.2 % (11.6-14.8); White Blood Cell Count 5.7 X10^3/uL (4.5-11.0)
[2022-01-30 13:53] LABS: HEMOLYSIS < 15 (0-50); Iron 59 ug/dL (37-170)
[2022-01-30 14:03] LABS: Percent Iron Saturation 17 % (15-50); Total Iron Binding Capacity 340 ug/dL (265-497); Transferrin 255 mg/dL (206-381)
[2022-01-31 04:08] LABS: Folate > 20.0 ng/mL (2.76-20.0); Vitamin B12 300 pg/mL (239-931)
[2022-01-31 08:01] LABS: Ferritin 7 ng/mL (11-264)
== END ==
PROVIDERS: PCP Family Medicine; Referring Provider Family Medicine; Visit Provider Family Medicine
DX: D64.9 Anemia, unspecified (principal)
CPT/HCPCS: 36415; 82607; 82728; 82746; 83540; 83550; 85025

== ENCOUNTER 2022-12-05 15:44 | Emergency (ER) | payer MEDICARE, OTHER, SELFPAY ==
[2021-12-25 19:36] VITALS: BMI 30.9
[2022-12-05] VITALS (7 sets, daily range): BP systolic 132–152; BP diastolic 61–70; PULSE 80–86; RESP 16–22; TEMP 36.6; O2SAT 96–98; BMI 29.0
--- NOTE | 2022-12-05 16:09 | DI.RAD.S_ITS ---
PROCEDURE: XR CHEST 1V INDICATIONS: Shortness of breath TECHNIQUE: One view of the chest was acquired. COMPARISON: [facility], , CHEST 2 VIEW, 05/24/2008, 12:14. [facility], , XR CHEST 1V, 12/25/2021, 14:38. [facility], , XR CHEST 2V, 04/04/2019, 16:23. FINDINGS: Surgical changes and devices: None. Lungs and pleura: Lungs are clear except for a small chronic calcified granuloma right lower lobe just above the diaphragm with associated inferior right hilar calcified nodes. No pleural effusions or pneumothorax. Mediastinum: Mediastinal contours appear normal. Heart size is normal. Calcified subcarinal lymph nodes noted. Bones and chest wall: No suspicious bony lesions. Overlying soft tissues appear unremarkable. IMPRESSION: Reduced inspiratory volume, no definite acute disease. Calcified granuloma right lower lobe, inferior right hilar calcified lymph nodes and also subcarinal lymph nodes have been previously present. Dictated by: Hill Wills M.D. on 12/05/2022 at 16:32 Approved by: Hill Wills M.D. on 12/05/2022 at 16:34
[2022-12-05 16:32] LABS: Add Manual Diff / Slide Review NO; Basophils Absolute Auto 100 /uL (0-100); Basophils Percent Auto 1.1 % (0-2); Eosinophils Absolute Auto 200 /uL (0-450); Eosinophils Percent Auto 2.9 % (2-4); Hematocrit 39.3 % (36-46); Hemoglobin 13.6 g/dL (12.0-16.0); Lymphocytes Absolute Auto 2600 /uL (1100-4500); Lymphocytes Percent Auto 40.9 % (25-40); Mean Corpuscular HGB Conc 34.6 % (30-36); Mean Corpuscular Hemoglobin 31.9 PG (26-34); Mean Corpuscular Volume 92.3 fL (80-100); Monocytes Absolute Auto 700 /uL (0-900); Monocytes Percent Auto 11.6 % (3-14); Neutrophils Absolute Auto 2700 /uL (1500-7000); Neutrophils Percent Auto 43.5 % (50-75); Platelet Count 220 X10^3/uL (150-400); Red Blood Cell Count 4.26 X10^6/uL (4.0-5.2); White Blood Cell Count 6.3 X10^3/uL (4.5-11.0)
[2022-12-05 16:38] LABS: INR 1.1 (0.9-1.3); Prothrombin Time 12.3 SECONDS (10.1-12.7)
[2022-12-05 16:41] LABS: Alanine Aminotransferase 20 IU/L (<35); Albumin 3.8 g/dL (3.5-5.0); Albumin Globulin Ratio 1.2 (1.0-2.8); Alkaline Phosphatase 50 U/L (38-126); Aspartate Aminotransferase 22 IU/L (14-36); BUN Creatinine Ratio 21.3 (6-22); Bilirubin Total 0.6 mg/dL (0.2-1.3); Blood Urea Nitrogen 16 mg/dL (7-17); Calcium 9.4 mg/dL (8.4-10.2); Carbon Dioxide 24 mmol/L (22-32); Chloride 106 mmol/L (98-107); Creatine Kinase 51 U/L (30-135); Estimated Glomerular Filt Rate > 60 mL/min (>60); Globulin 3.3 g/dL (1.7-4.1); Glucose 151 mg/dL (80-110); HEMOLYSIS 15 (0-50); Potassium 4.2 mmol/L (3.4-5.1); Sodium 139 mmol/L (137-145); Total Protein 7.1 g/dL (6.3-8.2)
[2022-12-05 16:42] LABS: Lactate (Lactic Acid) 2.9 mmol/L (0.7-2.1)
[2022-12-05 16:53] LABS: NT-proBNP (BNP-Adult 18+) 29 pg/mL (<450); Troponin I < 0.012 ng/mL (0.01-0.034)
[2022-12-05 16:59] LABS: COVID19 -Nasal RAPID Negative (Negative)
--- NOTE | 2022-12-05 18:24 | ED_ITS ---
HPI - Arrhythmia/Palpitations General Chief Complaint: Shortness of Breath/Dyspnea Stated Complaint: Heart problem, Arrhythmia Time Seen by Provider: 12/05/22 17:59 Source: patient Mode of arrival: Ambulatory History of Present Illness HPI narrative: Patient 82-year-old female history of insulin-dependent diabetes hypertension presents today with episodes of bradycardia at. She reports that throughout the week she has been monitoring her heart rate pulse oximeter. She reports heart rate ranging from 30s to 80s. She says that when is in a 30 she feels dizzy lightheaded generally fatigued and weak. She never passes out or loses co nsciousness. Today it went as low as 27 in his high as 86. She currently is in a sinus rhythm with a heart rate of 82 on a monitor. She is not on any beta- sheridan or calcium channel sheridan she takes lisinopril daily. She says this has never happened to her previously. No nausea vomiting abdominal pain chest pain shortness of breath or other symptoms. Related Data Home Medications Medication Instructions Recorded Confirmed MULTIVITAMIN (One Daily 1 tab PO Q DAY ##0 11/13/11 01/30/22 Multivitamin) Previous Rx's Medication Instructions Recorded DISABLED PARKING PERMIT #1 ea 02/28/20 insulin NPH isoph U-100 human 100 35 unit (0.35 mL) SUBCUT QDAY #10 03/29/20 unit/mL subcutaneous suspension mL (Novolin N NPH U-100 Insulin isophane) simvastatin 20 mg tablet See Rx Instructions .Route 04/02/21 .COMPLEX #90 tabs blood sugar diagnostic (Contour See Rx Instructions .Route 01/08/22 Test Strips) .COMPLEX #200 ea lisinopril 10 mg tablet See Rx Instructions .Route 03/17/22 .COMPLEX #90 tabs metformin 1,000 mg tablet See Rx Instructions .Route 03/17/22 .COMPLEX #180 tabs estradiol 0.5 mg tablet See Rx Instructions .Route 06/23/22 .COMPLEX #90 tabs Allergies Allergy/AdvReac Type Severity Reaction Status Date / Time No Known Drug Allergies Allergy Verified 12/05/22 16:06 Review of Systems Review of Systems ROS Unobtainable: All systems reviewed & are unremarkable except as noted in HPI and below Patient History Medical History (Updated 12/05/22 @ 19:13 by Kelli Tran DO) Anemia Chicken pox Chronic cough Diabetes mellitus Fibroids Frequent UTI Headache Heart failure Heavy menstrual period History of recurrent ear infection History of urinary incontinence Hyperlipidemia Hypertension Hypothyroidism Irregular menstrual cycle Kidney disease Kidney stones Migraines Mumps Rheumatic fever Sarcoidosis Surgical History Anesthesia History of lithotripsy Status post appendectomy Status post cholecystectomy Status post hysterectomy with oophorectomy Status post tubal ligation Family History Brother Diabetes mellitus Father Heart disease Mother Heart disease Social History marital status: household members: spouse Smoking Status: Never smoker alcohol intake: never substance use type: does not use Smoking Status: Never smoker Substance Use Type: does not use Exam Initial Vital Signs Initial Vital Signs: Vital Signs Temperature 98 F 12/05/22 16:03 Pulse Rate 86 12/05/22 16:03 Respiratory Rate 18 12/05/22 16:03 Blood Pressure 150/70 H 12/05/22 16:03 Pulse Oximetry 97 12/05/22 16:03 Oxygen Delivery Method Room Air 12/05/22 16:03 GENERAL: Alert pleasant well-appearing 82-year-old female HEENT: Head atraumatic,EOMI, pupils reactive, face symmetric, moist mucous membranes CARDIOVASCULAR: Regular rate and rhythm without murmurs, rubs or gallops. RESPIRATORY: Breath sounds equal bilaterally, no wheezes rales or rhonchi. ABDOMEN: Soft, nontender. Normoactive bowel sounds all 4 quadrants. No gua rding or rebound. EXTREMITIES: Normal range of motion, no clubbing or edema. Neurovascularly intact NEUROLOGICAL: Alert and oriented x4. SKIN: Warm, dry, no laceration, no petechiae, no rashes or lesions. Course Orders Ordered: ED Orders 12/05/22 21:10 Lactate (Lactic Acid) Stat Discontinued Medications Sodium Chloride (Normal Saline 0.9%) 1,000 mls @ 1,000 mls/hr IV BOLUS ONE Stop: 12/05/22 20:22 Last Infusion: 12/05/22 20:28 Dose: 0 mls/hr Documented By: Admin: 12/05/22 19:36 Dose: 1,000 mls/hr Documented By: SB Vital Signs Vital signs: Vital Signs - 8 hr 12/05/22 22:20 Pulse Rate 86 Respiratory Rate 18 Blood Pressure 136/64 Pulse Oximetry 96 Oxygen Delivery Method Room Air MDM - Arrhythmia/Palpitations Lab Data 12/05/22 16:20 12/05/22 16:20 Labs: Lab Results 12/05/22 12/05/22 12/05/22 Range/Units 16:10 16:20 16:20 WBC 6.3 (4.5-11.0) X10^3/uL RBC 4.26 (4.0-5.2) X10^6/uL Hgb 13.6 (12.0-16.0) g/dL Hct 39.3 (36-46) % MCV 92.3 (80-100) fL MCH 31.9 (26-34) PG MCHC 34.6 (30-36) % RDW 13.0 (11.6-14.8) % Plt Count 220 (150-400) X10^3/uL Neut % (Auto) 43.5 L (50-75) % Lymph % (Auto) 40.9 H (25-40) % Desha % (Auto) 11.6 (3-14) % Eos % (Auto) 2.9 (2-4) % Baso % (Auto) 1.1 (0-2) % Neut # (Auto) 2700 (9162-1159) /uL Lymph # (Auto) 2600 (4280-0981) /uL Desha # (Auto) 700 (0-900) /uL Eos # (Auto) 200 (0-450) /uL Baso # (Auto) 100 (0-100) /uL PT 12.3 (10.1-12.7) SECONDS INR 1.1 (0.9-1.3) Sodium (137-145) mmol/L Potassium (3.4-5.1) mmol/L Chloride (98-107) mmol/L Carbon Dioxide (22-32) mmol/L BUN (7-17) mg/dL Creatinine (0.52-1.04) mg/dL Estimated GFR (>60) mL/min BUN/Creatinine Ratio (6-22) Glucose (80-110) mg/dL Lactate (0.7-2.1) mmol/L Calcium (8.4-10.2) mg/dL Total Bilirubin (0.2-1.3) mg/dL AST (14-36) IU/L ALT (<35) IU/L Alkaline Phosphatase (38-126) U/L Total Creatine Kinase (30-135) U/L CK-MB (CK-2) CK-MB (CK-2) Rel Index Troponin I (0.01-0.034) ng/mL NT-Pro-B Natriuret Pep (<450) pg/mL Total Protein (6.3-8.2) g/dL Albumin (3.5-5.0) g/dL Globulin (1.7-4.1) g/dL Albumin/Globulin Ratio (1.0-2.8) Procalcitonin (<0.5) ng/mL SARS-CoV-2 (PCR) Negative (Negative) 12/05/22 12/05/22 12/05/22 Range/Units 16:20 16:20 16:20 WBC (4.5-11.0) X10^3/uL RBC (4.0-5.2) X10^6/uL Hgb (12.0-16.0) g/dL Hct (36-46) % MCV (80-100) fL MCH (26-34) PG MCHC (30-36) % RDW (11.6-14.8) % Plt Count (150-400) X10^3/uL Neut % (Auto) (50-75) % Lymph % (Auto) (25-40) % Desha % (Auto) (3-14) % Eos % (Auto) (2-4) % Baso % (Auto) (0-2) % Neut # (Auto) (2306-1973) /uL Lymph # (Auto) (5695-5445) /uL Desha # (Auto) (0-900) /uL Eos # (Auto) (0-450) /uL Baso # (Auto) (0-100) /uL PT (10.1-12.7) SECONDS INR (0.9-1.3) Sodium 139 (137-145) mmol/L Potassium 4.2 (3.4-5.1) mmol/L Chloride 106 (98-107) mmol/L Carbon Dioxide 24 (22-32) mmol/L BUN 16 (7-17) mg/dL Creatinine 0.75 (0.52-1.04) mg/dL Estimated GFR > 60 (>60) mL/min BUN/Creatinine Ratio 21.3 (6-22) Glucose 151 H (80-110) mg/dL Lactate 2.9 H (0.7-2.1) mmol/L Calcium 9.4 (8.4-10.2) mg/dL Total Bilirubin 0.6 (0.2-1.3) mg/dL AST 22 (14-36) IU/L ALT 20 (<35) IU/L Alkaline Phosphatase 50 (38-126) U/L Total Creatine Kinase 51 (30-135) U/L CK-MB (CK-2) TNP CK-MB (CK-2) Rel Index TNP Troponin I < 0.012 (0.01-0.034) ng/mL NT-Pro-B Natriuret Pep 29 (<450) pg/mL Total Protein 7.1 (6.3-8.2) g/dL Albumin 3.8 (3.5-5.0) g/dL Globulin 3.3 (1.7-4.1) g/dL Albumin/Globulin Ratio 1.2 (1.0-2.8) Procalcitonin 0.05 (<0.5) ng/mL SARS-CoV-2 (PCR) (Negative) 12/05/22 12/05/22 Range/Units 18:53 21:10 WBC (4.5-11.0) X10^3/uL RBC (4.0-5.2) X10^6/uL Hgb (12.0-16.0) g/dL Hct (36-46) % MCV (80-100) fL MCH (26-34) PG MCHC (30-36) % RDW (11.6-14.8) % Plt Count (150-400) X10^3/uL Neut % (Auto) (50-75) % Lymph % (Auto) (25-40) % Desha % (Auto) (3-14) % Eos % (Auto) (2-4) % Baso % (Auto) (0-2) % Neut # (Auto) (7711-0535) /uL Lymph # (Auto) (2228-3736) /uL Desha # (Auto) (0-900) /uL Eos # (Auto) (0-450) /uL Baso # (Auto) (0-100) /uL PT (10.1-12.7) SECONDS INR (0.9-1.3) Sodium (137-145) mmol/L Potassium (3.4-5.1) mmol/L Chloride (98-107) mmol/L Carbon Dioxide (22-32) mmol/L BUN (7-17) mg/dL Creatinine (0.52-1.04) mg/dL Estimated GFR (>60) mL/min BUN/Creatinine Ratio (6-22) Glucose (80-110) mg/dL Lactate 3.2 H 2.9 H (0.7-2.1) mmol/L Calcium (8.4-10.2) mg/dL Total Bilirubin (0.2-1.3) mg/dL AST (14-36) IU/L ALT (<35) IU/L Alkaline Phosphatase (38-126) U/L Total Creatine Kinase (30-135) U/L CK-MB (CK-2) CK-MB (CK-2) Rel Index Troponin I (0.01-0.034) ng/mL NT-Pro-B Natriuret Pep (<450) pg/mL Total Protein (6.3-8.2) g/dL Albumin (3.5-5.0) g/dL Globulin (1.7-4.1) g/dL Albumin/Globulin Ratio (1.0-2.8) Procalcitonin (<0.5) ng/mL SARS-CoV-2 (PCR) (Negative) Imaging Data Chest x-ray: Radiologist's Impresson: PROCEDURE:? XR CHEST 1V ? INDICATIONS:? Shortness of breath ? TECHNIQUE:? One view of the chest was acquired.? ? COMPARISON:? [facility], CHEST 2 VIEW, 05/24/2008, 12:14.? [facility], XR CHEST 1V, 12/25/2021, 14:38.? [facility], XR CHEST 2V, 04/04/2019, 16:23. ? FINDINGS:? ? Surgical changes and devices:? None.? ? Lungs and pleura:? Lungs are clear except for a small chronic calcified granul juan right lower lobe just above the diaphragm with associated inferior right hilar calcified nodes. ?No pleural effusions or pneumothorax.? ? Mediastinum:? Mediastinal contours appear normal.? Heart size is normal.? Calcified subcarinal lymph nodes noted. ? Bones and chest wall:? No suspicious bony lesions.? Overlying soft tissues appear unremarkable.? ? IMPRESSION:? Reduced inspiratory volume, no definite acute disease.? Calcified granuloma right lower lobe, inferior right hilar calcified lymph nodes and also subcarinal lymph nodes have been previously present. ? ? Dictated by: Hill Wills M.D. on 12/05/2022 at 16:32 ? ? ECG Data Interpretation: Sinus rhythm rate 85 MA interval 166 QRS [address] changes or T-wave inversions MDM Narrative Medical decision making narrative: 82-year-old female history of insulin-dependent diabetes hypertension presenting with episodes of bradycardia at home without actual syncope. In the emergency department on a monitor for about 3 hours heart rate remains in the 80s and no episodes of bradycardia. She is not on any beta-sheridan calcium channel sheridan. Definitely needs a Holter monitor and to return if symptoms continue. At this time no evidence of leukocytosis anemia, electrolyte abnormality no evidence of DKA. Lactate is noted to be 2.9 with out sepsis symptoms vitals. Repeat lactate increase to 3.2 she was given a L fluid and then it went back down to 2.9. She has previously had a mildly elevated lactate. Possibly due bradycardia/hypotension but Re time lactate has been checked it has been elevated and this is within a normal range for her. Again no evidence or signs or symptoms of an infection. She is monitored in the ER for about 6 hours on the monitor no sign of bradycardia. I feel this is very reasonable to discharge home with an outpatient Holter monitor. Both she and understand to return if she passes the must return. Chest x-ray does have calcified granuloma in the right lower lobe. Discharge Plan Departure Patient Disposition: Home Clinical Impression: Bradycardia Instructions: DI for Sick Sinus Syndrome, DI for Bradycardia Activity Restrictions/Additional Instructions: *You have been diagnosed with bradycardia *What to do: At this time you definitely need further workup and monitoring. A emailed Dr. Crook for further evaluation. You will need a Holter monitor possibly cardiology consultation. However at this time in the emergency department your heart rate has been in the 80s. Please stay hydrated *Continue to take medications as directed *Follow up with your primary care provider in 2-3 days or call [phone] *Return to ER if you should have passing out persistent low heart rate, dizziness lightheadedness [or] any new, worsening or concerning symptoms Prescriptions: No Action Novolin N NPH U-100 Insulin 100 unit/mL suspension 35 unit SUBCUT QDAY Qty: 10 0RF MULTIVITAMIN (One Daily Multivitamin) 1 tab PO Q DAY Qty: 0 (DME) DISABLED PARKING PERMIT See Rx Instructions .ROUTE .MEDSUPPLY Qty: 1 0RF Rx Instructions: I find this patient to be medically disabled and qualified for disabled parking as indicated, and signed, on the accompanying Disabled Parking Application for Individuals. simvastatin 20 mg tablet See Rx Instructions .ROUTE .COMPLEX Qty: 90 2RF Dose Instruction: TAKE 1 TABLET BY MOUTH AT BEDTIME Rx Instructions: TAKE 1 TABLET BY MOUTH AT BEDTIME Contour Test Strips Strip See Rx Instructions .ROUTE .COMPLEX Qty: 200 3RF Dose Instruction: USE 1 STRIP TO CHECK GLUCOSE TWICE DAILY (E11.9) Rx Instructions: USE 1 STRIP TO CHECK GLUCOSE TWICE DAILY (E11.9) metformin 1,000 mg tablet See Rx Instructions .ROUTE .COMPLEX Qty: 180 3RF Dose Instruction: TAKE 1 TABLET TWICE DAILY (NEED MD APPOINTMENT) Rx Instructions: TAKE 1 TABLET TWICE DAILY lisinopril 10 mg tablet See Rx Instructions .ROUTE .COMPLEX Qty: 90 3RF Dose Instruction: TAKE 1 TABLET EVERY DAY Rx Instructions: TAKE 1 TABLET EVERY DAY estradiol 0.5 mg tablet See Rx Instructions .ROUTE .COMPLEX Qty: 90 0RF Dose Instruction: TAKE 1 TABLET (0.5 MG) DAILY Rx Instructions: TAKE 1 TABLET (0.5 MG) DAILY Referrals: Cruz Crook MD [Primary Care Provider] - Stand Alone Forms: Patient Portal/API
[2022-12-05 18:25] LABS: Reflexed Lactate in 2 Hours Y
[2022-12-05 19:13] LABS: Lactate 2HR (Lactic Acid Rflx) 3.2 mmol/L (0.7-2.1)
[2022-12-05] MEDS: SODIUM CHLORIDE 0.9% 1,000 ML 1000 ML IV (19:36)
[2022-12-05 21:08] LABS: Procalcitonin 0.05 ng/mL (<0.5)
[2022-12-05 21:40] LABS: Lactate (Lactic Acid) 2.9 mmol/L (0.7-2.1)
[2022-12-05 23:15] LABS: Reflexed Lactate in 2 Hours Y
== END 2022-12-05 22:19 | disposition home or self-care (01) ==
PROVIDERS: Emergency Medicine; Emergency Provider Emergency Medicine; PCP Family Medicine
DX: R00.1 Bradycardia, unspecified (principal); R06.02 Shortness of breath; Z79.899 Other long term (current) drug therapy; Z20.822 Contact with and (suspected) exposure to COVID-19
CPT/HCPCS: 36415; 71045; 80053; 82550; 83605; 83880; 84145; 84484; 85025; 85610; 87635; 93005; 99284; C9803

== ENCOUNTER → 2022-12-17 14:55 | Outpatient (CLI) | payer MEDICARE, OTHER, SELFPAY ==
[2021-12-25 19:36] VITALS: BMI 30.9
== END ==
PROVIDERS: PCP Family Medicine; Referring Provider Family Medicine; Visit Provider Family Medicine
DX: R00.1 Bradycardia, unspecified (principal)
CPT/HCPCS: 93246

== ENCOUNTER → 2023-03-13 10:17 | Outpatient (CLI) | payer MEDICARE, OTHER, SELFPAY ==
[2021-12-25 19:36] VITALS: BMI 30.9
[2023-03-13 10:39] LABS: Add Manual Diff / Slide Review NO; Basophils Absolute Auto 0 /uL (0-100); Basophils Percent Auto 0.7 % (0-2); Eosinophils Absolute Auto 200 /uL (0-450); Eosinophils Percent Auto 3.8 % (2-4); Hematocrit 40.1 % (36-46); Hemoglobin 13.8 g/dL (12.0-16.0); Lymphocytes Absolute Auto 2100 /uL (1100-4500); Lymphocytes Percent Auto 35.1 % (25-40); Mean Corpuscular HGB Conc 34.4 % (30-36); Mean Corpuscular Hemoglobin 31.5 PG (26-34); Mean Corpuscular Volume 91.7 fL (80-100); Monocytes Absolute Auto 600 /uL (0-900); Monocytes Percent Auto 10.6 % (3-14); Neutrophils Absolute Auto 3000 /uL (1500-7000); Neutrophils Percent Auto 49.8 % (50-75); Platelet Count 222 X10^3/uL (150-400); Red Blood Cell Count 4.38 X10^6/uL (4.0-5.2); Red Cell Distribution Width 12.9 % (11.6-14.8); White Blood Cell Count 5.9 X10^3/uL (4.5-11.0)
[2023-03-13 10:55] LABS: Hemoglobin A1C% w Est Avg Glu 7.2 % (4.0-6.0)
[2023-03-13 10:59] LABS: Alanine Aminotransferase 17 IU/L (<35); Albumin 3.8 g/dL (3.5-5.0); Albumin Globulin Ratio 1.2 (1.0-2.8); Alkaline Phosphatase 55 U/L (38-126); Aspartate Aminotransferase 22 IU/L (14-36); BUN Creatinine Ratio 24.3 (6-22); Bilirubin Total 0.7 mg/dL (0.2-1.3); Blood Urea Nitrogen 18 mg/dL (7-17); Calcium 9.2 mg/dL (8.4-10.2); Carbon Dioxide 19 mmol/L (22-32); Chloride 109 mmol/L (98-107); Estimated Glomerular Filt Rate > 60 mL/min (>60); Globulin 3.1 g/dL (1.7-4.1); Glucose 238 mg/dL (80-110); HEMOLYSIS < 15 (0-50); Potassium 4.3 mmol/L (3.4-5.1); Sodium 139 mmol/L (137-145); Total Protein 6.9 g/dL (6.3-8.2)
[2023-03-13 11:14] LABS: Creatinine Urine Random 140.4 mg/dL
[2023-03-13 11:19] LABS: Microalbumi Creatinin Ratio Ur 4.9 ug/mg CR (<30); Microalbumin Urine Random 0.7 mg/dL (0-1.6)
== END ==
PROVIDERS: PCP Family Medicine; Referring Provider Family Medicine; Visit Provider Family Medicine
DX: D50.9 Iron deficiency anemia, unspecified (principal); E11.9 Type 2 diabetes mellitus without complications; E78.2 Mixed hyperlipidemia; I10 Essential (primary) hypertension
CPT/HCPCS: 36415; 80053; 82043; 82570; 83036; 85025

== ENCOUNTER → 2023-08-05 11:27 | Outpatient (CLI) | payer MEDICARE, OTHER, SELFPAY ==
[2023-03-19 09:16] VITALS: BMI 30.9
--- NOTE | 2023-08-05 11:28 | DI.RAD.S_ITS ---
PROCEDURE: XR HIP W PEL IF DONE CARO MIN 4V INDICATIONS: Fall; severe L hip pain; concern for fx TECHNIQUE: AP pelvis with lateral view(s) of the bilateral hip(s). COMPARISON: [facility], , [id number] W PEL IF PERFORMED, 08/26/2017, 13:54. FINDINGS: Bones: No fractures or dislocations. Pelvic ring appears intact. No suspicious bony lesions. Soft tissues: The visualized bowel gas pattern is normal. No suspicious soft tissue calcifications. IMPRESSION: No acute bony abnormality. If pain persists, followup imaging in 5-7 days is recommended to exclude occult fracture. Dictated by: Nanette Banegas M.D. on 08/05/2023 at 13:01 Approved by: Nanette Banegas M.D. on 08/05/2023 at 13:02
--- NOTE | 2023-08-05 11:28 | DI.RAD.S_ITS ---
PROCEDURE: XR LUMBAR SPINE 2-3V INDICATIONS: Fall; severe L hip pain possible fracture TECHNIQUE: 3 views of the lumbar spine were acquired. COMPARISON: [facility], , XR LUMBAR SPINE 2-3V, 04/04/2019, 16:23. FINDINGS: Bones: 5 [id number] vertebrae are present. There is normal bony alignment. No vertebral body compression fractures. No suspicious bony lesions. Degenerative changes are present including diffuse intervertebral disc space narrowing, endplate sclerosis and osteophytosis. The degree of degenerative changes is increased at L1-2 and L3-4 when compared with the study dated April 04, 2019. Soft tissues: Overlying bowel gas pattern is normal. No suspicious soft tissue calcifications. IMPRESSION: Degenerative change, increased from the prior study. No compression deformities. Dictated by: Nanette Banegas M.D. on 08/05/2023 at 13:02 Approved by: Nanette Banegas M.D. on 08/05/2023 at 13:03
== END ==
PROVIDERS: PCP Family Medicine; Referring Provider Physician Assistant; Visit Provider Physician Assistant
DX: M25.552 Pain in left hip (principal); M81.0 Age-related osteoporosis without current pathological fracture
CPT/HCPCS: 72100; 73522

== ENCOUNTER → 2023-08-06 10:07 | Outpatient (CLI) | payer MEDICARE, OTHER, SELFPAY ==
[2023-03-19 09:16] VITALS: BMI 30.9
--- NOTE | 2023-08-06 10:08 | DI.CT.S_ITS ---
PROCEDURE: CT HIP LEFT WITHOUT CON INDICATIONS: severe left hip pain TECHNIQUE: Noncontrast 3 mm axial sections acquired through the bony pelvis. Additional 3 mm axial sections acquired through the symptomatic hip joint, with coronal and sagittal reformats. COMPARISON: [facility], CR, XR HIP W PEL IF DONE CARO 3TO4V, 08/05/2023, 11:56. FINDINGS: Image quality: Excellent. Bones: Pelvic ring is intact. No acute pelvic or hip fracture. No hip dislocation. [id number] bilateral hip joint osteoarthritic changes are seen. Osteoarthritic changes also noted in bilateral sacroiliac joints and symphysis pubis. No evidence of avascular necrosis of femoral head. No suspicious bony lesions. The visualized lower lumbar spine shows no acute compression fracture. Soft tissues: There is no gross soft tissue mass or drainable fluid collection. No significant left hip joint effusion. No abnormal soft tissue calcifications. There is no pelvic free fluid or free air. Bladder wall thickness is normal. Bowel wall thickness is normal. IMPRESSION: 1. Osteoarthritic changes throughout bony pelvis. No acute fracture or dislocation. No evidence of avascular necrosis of femoral head. No suspicious bony lesions. 2. No gross pelvic soft tissue abnormalities. No soft tissue mass or drainable fluid collection. No pelvic free fluid or free air. No abnormal soft tissue calcifications. Dictated by: iRkki Chen M.D. on 08/06/2023 at 16:14 Approved by: Rikki Chen M.D. on 08/06/2023 at 16:17
== END ==
LOC: CT 10:08
PROVIDERS: PCP Family Medicine; Referring Provider Physician Assistant; Visit Provider Physician Assistant
DX: M25.552 Pain in left hip (principal)
CPT/HCPCS: 73700

== ENCOUNTER 2024-02-22 20:12 | Emergency (ER) | payer MEDICARE, OTHER, SELFPAY ==
[2023-03-19 09:16] VITALS: BMI 30.9
[2024-02-22 20:16] VITALS: BP 162/85; PULSE 106; O2SAT 94
[2024-02-22 20:24] VITALS: BP 162/85; PULSE 106; RESP 16; TEMP 37; O2SAT 95; BMI 27.6
[2024-02-22 20:30] VITALS: BP 156/74; PULSE 104; O2SAT 95
[2024-02-22 21:00] VITALS: BP 146/65; PULSE 102; O2SAT 96
[2024-02-22] MEDS: HYDROMORPHONE 0.5 MG INJ IV (21:08)
[2024-02-22 21:30] VITALS: BP 162/79; PULSE 106; O2SAT 96
[2024-02-22 22:00] VITALS: BP 167/79; PULSE 106; O2SAT 96
--- NOTE | 2024-02-22 22:14 | DI.CT.S_ITS ---
PROCEDURE: CT LUMBAR SPINE WO CON INDICATIONS: acute on chronic pain TECHNIQUE: Noncontrast 3 mm thick sections acquired from the T12 level to the sacrum. Sagittal and coronal reformats were constructed. For radiation dose reduction, the following was used: automated exposure control. COMPARISON: [facility], CR, XR LUMBAR SPINE 2-3V, 08/05/2023, 11:56. FINDINGS: Image quality: Excellent. Bones: There is mild dextroconvex curvature of the lumbar spine. No acute vertebral body compression fractures. No suspicious lytic or blastic bony lesions. No pars defects. Degenerative changes are seen at the sacroiliac joints bilaterally. T12-L1: No significant spinal canal stenosis or neural foraminal narrowing. L1-L2: Loss of disc space height with circumferential disc bulging. Findings result in mild narrowing of the spinal canal as well as ekqn-kz-[id number] right and mild left neural foraminal narrowing. L2-L3: Loss of disc space height with circumferential disc bulging, mild facet hypertrophy, and buckling of the ligamentum flavum. Findings result in mild to moderate narrowing of the spinal canal and [id number]-[id number] bilateral neural foraminal narrowing. L3-L4: Loss of disc space height with circumferential disc bulging, bilateral facet hypertrophy, buckling of the ligamentum flavum. Findings result in moderate narrowing of the spinal canal as well as moderate left and espq-xo-qluvwtrj right neural foraminal narrowing. L4-L5: Loss of disc space height with circumferential disc bulging, bilateral facet hypertrophy, buckling of the ligamentum flavum. Findings result in moderate narrowing of the spinal canal with effacement of the lateral recesses that appears to be greater on the right as well as moderate right and xeia-vn-voplftnw left neural foraminal narrowing. L5-S1: Loss of disc space height with circumferential disc bulging as well as bilateral facet hypertrophy and mild buckling of the ligamentum flavum. Findings result in mild narrowing of the spinal canal as well as moderate to severe left and moderate right neural foraminal narrowing. Soft tissues: No retroperitoneal masses or hematomas. Visualized aorta is normal in caliber. Multiple coarse calcifications in the spleen are likely the sequela of prior granulomatous disease. Status post cholecystectomy. IMPRESSION: 1. No acute osseous fracture. 2. Moderate multilevel degenerative disc disease and facet hypertrophy as described in detail in the body report. No high-grade spinal canal stenosis. 3. Moderate to severe neural foraminal narrowing at the L5-S1 level on the left. No additional high-grade neural foraminal narrowing is seen. 1. Approved by: Teodoro Abraham M.D. on 02/22/2024 at 23:01
[2024-02-22 22:26] LABS: Add Manual Diff / Slide Review NO; Basophils Absolute Auto 0 /uL (0-100); Basophils Percent Auto 0.5 % (0-2); Eosinophils Absolute Auto 100 /uL (0-450); Eosinophils Percent Auto 1.1 % (2-4); Hematocrit 41.7 % (36-46); Hemoglobin 14.3 g/dL (12.0-16.0); Lymphocytes Absolute Auto 1800 /uL (1100-4500); Lymphocytes Percent Auto 26.5 % (25-40); Mean Corpuscular HGB Conc 34.3 % (30-36); Mean Corpuscular Hemoglobin 32.5 PG (26-34); Mean Corpuscular Volume 94.6 fL (80-100); Monocytes Absolute Auto 900 /uL (0-900); Monocytes Percent Auto 12.8 % (3-14); Neutrophils Absolute Auto 4100 /uL (1500-7000); Neutrophils Percent Auto 59.1 % (50-75); Platelet Count 232 X10^3/uL (150-400)
--- NOTE | 2024-02-22 22:29 | ED_ITS ---
HPI - Back Pain/Injury General Chief Complaint: Back Pain/Injury Stated Complaint: Back pain Time Seen by Provider: 02/22/24 22:01 Source: patient and EMS History of Present Illness HPI Narrative: Patient is 83-year-old female history of diabetes, frequent UTIs, heart failure chronic back pain presenting today with worsening back pain. He denies any falls or injury. She normally takes Tylenol for her back pain however it was not working today. She required EMS transport she was given fentanyl in route which did help some. She reports she would chronically as urinary incontinence she has no new weakness. No fevers or chills. Although both her and her has been report that she has been quite fatigued and just not feeling quite right she denies any chest pain or cough. Related Data Home Medications Medication Instructions Recorded Confirmed MULTIVITAMIN (One Daily 1 tab PO Q DAY ##0 11/13/11 09/17/23 Multivitamin) insulin NPH isoph U-100 human 100 25 unit SUBCUT QDAY 03/19/23 09/17/23 unit/mL subcutaneous suspension (Novolin N NPH U-100 Insulin isophane) Previous Rx's Medication Instructions Recorded hydrocodone 5 mg-acetaminophen 325 1 tab PO Q6HP PRN pain #30 tabs 08/27/17 mg tablet DISABLED PARKING PERMIT #1 ea 02/28/20 simvastatin 20 mg tablet See Rx Instructions .Route 04/02/21 .COMPLEX #90 tabs lisinopril 10 mg tablet 10 mg PO DAILY #90 tabs 04/06/23 metformin 1,000 mg tablet 1,000 mg PO BID #180 tabs 04/06/23 estradiol 0.5 mg tablet 0.5 mg PO DAILY #90 tabs 05/21/23 blood sugar diagnostic (Contour See Rx Instructions .Route 08/19/23 Test Strips) .COMPLEX #200 ea sertraline 25 mg tablet 25 mg PO DAILY #90 tabs 09/29/23 hydrocodone 5 mg-acetaminophen 325 1 tab PO Q6H PRN pain #10 tabs 02/22/24 mg tablet Allergies Allergy/AdvReac Type Severity Reaction Status Date / Time No Known Drug Allergies Allergy Verified 09/17/23 10:08 Patient History Medical History (Updated 02/22/24 @ 23:13 by Kelli Tran DO) Anemia Weakness COVID-19 virus infection Sarcoidosis Chronic cough Migraines Headache Rheumatic fever Mumps Chicken pox Anemia History of recurrent ear infection Irregular menstrual cycle Heavy menstrual period Fibroids History of urinary incontinence Kidney stones Kidney disease Frequent UTI Hypothyroidism Diabetes mellitus Hypertension Hyperlipidemia Heart failure Surgical History Anesthesia Status post tubal ligation History of lithotripsy Status post hysterectomy with oophorectomy Status post cholecystectomy Status post appendectomy Family History Brother Diabetes mellitus Father Heart disease Mother Heart disease Social History marital status: household members: spouse Smoking Status: Never smoker alcohol intake: never substance use type: does not use Smoking Status: Never smoker Substance Use Type: does not use Exam Initial Vital Signs Initial Vital Signs: Vital Signs Pulse Rate 106 H 02/22/24 20:16 Blood Pressure 162/85 H 02/22/24 20:16 Pulse Oximetry 94 02/22/24 20:16 GENERAL: Patient 83-year-old female appears uncomfortable HEENT: Head atraumatic,EOMI, pupils reactive, face symmetric, moist mucous membranes CARDIOVASCULAR: Regular rate and rhythm without murmurs, rubs or gallops. RESPIRATORY: Breath sounds equal bilaterally, no wheezes rales or rhonchi. ABDOMEN: Soft, nontender. Normoactive bowel sounds all 4 quadrants. No guarding or rebound. BACK: Lower lumbar pain L 3/4 area EXTREMITIES: Normal range of motion, no clubbing or edema. Neurovascularly intact NEUROLOGICAL: Alert and oriented x4. French Edge Operator strength equal bilaterally lower extremity weakness left leg greater than right leg SKIN: Warm, dry, no laceration, no petechiae, no rashes or lesions. Course Orders Ordered: ED Orders 02/22/24 22:00 CBC Auto Diff [Complete Blood Count AUTO DIFF] Stat CMP [Comprehensive Metabolic Panel] Stat 02/22/24 22:14 CT lumbar spine wo con Stat 02/22/24 22:31 Ictotest Urine Stat Urinalysis and Microscopic Stat Discontinued Medications Hydrocodone Bitart/Acetaminophen (Hydrocodone/Acet 5/325 Prepack) 1 bottle MISC DIRECTED ONE Stop: 02/22/24 23:25 Last Admin: 02/22/24 23:35 Dose: 1 bottle Documented By: AB Hydromorphone HCl (Hydromorphone 0.5 Mg Inj) 0.5 mg IV NOW ONE Stop: 02/22/24 20:57 Last Admin: 02/22/24 21:08 Dose: 0.5 mg Documented By: GLORIA Vital Signs Vital signs: Vital Signs - 8 hr 02/22/24 20:16 02/22/24 20:16 02/22/24 20:24 Temperature 98.6 F Pulse Rate 106 H 106 H Respiratory Rate 16 Blood Pressure 162/85 H 162/85 H Pulse Oximetry 94 95 Oxygen Delivery Method Room Air 02/22/24 20:30 02/22/24 20:30 02/22/24 21:00 Temperature Pulse Rate 104 H 102 H Respiratory Rate Blood Pressure 156/74 H Pulse Oximetry 95 96 Oxygen Delivery Method 02/22/24 21:00 02/22/24 21:30 02/22/24 21:30 Temperature Pulse Rate 106 H Respiratory Rate Blood Pressure 146/65 H 162/79 H Pulse Oximetry 96 Oxygen Delivery Method 02/22/24 22:00 02/22/24 22:00 Temperature Pulse Rate 106 H Respiratory Rate Blood Pressure 167/79 H Pulse Oximetry 96 Oxygen Delivery Method MDM - Back Pain/Injury Lab Data 02/22/24 22:00 02/22/24 22:00 Labs: Lab Results 02/22/24 02/22/24 Range/Units 22:00 22:31 WBC 7.0 (4.5-11.0) X10^3/uL RBC 4.40 (4.0-5.2) X10^6/uL Hgb 14.3 (12.0-16.0) g/dL Hct 41.7 (36-46) % MCV 94.6 (80-100) fL MCH 32.5 (26-34) PG MCHC 34.3 (30-36) % RDW 13.0 (11.6-14.8) % Plt Count 232 (150-400) X10^3/uL Neut % (Auto) 59.1 (50-75) % Lymph % (Auto) 26.5 (25-40) % [place] % (Auto) 12.8 (3-14) % Eos % (Auto) 1.1 L (2-4) % Baso % (Auto) 0.5 (0-2) % Neut # (Auto) 4100 (9780-1525) /uL Lymph # (Auto) 1800 (2260-2901) /uL [place] # (Auto) 900 (0-900) /uL Eos # (Auto) 100 (0-450) /uL Baso # (Auto) 0 (0-100) /uL Sodium 139 (137-145) mmol/L Potassium 3.9 (3.4-5.1) mmol/L Chloride 110 H (98-107) mmol/L Carbon Dioxide 21 L (22-32) mmol/L BUN 16 (7-17) mg/dL Creatinine 0.65 (0.52-1.04) mg/dL Estimated GFR > 60 (>60) mL/min BUN/Creatinine Ratio 24.6 H (6-22) Glucose 186 H (80-110) mg/dL Calcium 9.4 (8.4-10.2) mg/dL Total Bilirubin 0.5 (0.2-1.3) mg/dL AST 41 H (14-36) IU/L ALT 19 (<35) IU/L Alkaline Phosphatase 71 (38-126) U/L Total Protein 7.4 (6.3-8.2) g/dL Albumin 3.9 (3.5-5.0) g/dL Globulin 3.5 (1.7-4.1) g/dL Albumin/Globulin Ratio 1.1 (1.0-2.8) Urine Color Yellow Urine Appearance Clear Urine pH 5.5 (4.5-8.0) Ur Specific Grants >=1.030 H (1.000-1.035) Urine Protein Negative (Negative) Urine Glucose (UA) Trace H (Negative) g/dL Urine Ketones Trace H (NEGATIVE) Urine Occult Blood Negative (Negative) Urine Nitrate Negative (Negative) Urine Bilirubin Negative (NEGATIVE) Ur Bilirubin Confirm Negative (Negative) Urine Urobilinogen 1.0 (0.2) E.U./dL Ur Leukocyte Esterase Negative (NEGATIVE) Urine RBC None seen (0-5/HPF) Urine WBC None seen (0-5/HPF) Ur Squamous Epith Cells 10-30 /hpf H D (0-5/HPF) Urine Bacteria Moderate (10-30) H (None) Urine Mucus 1+ H (Negative) Ur Culture Indicated? Cult not indicated Vol Urine Centrifuged 10ml (spun) Urine Dip Bedside Urine Glucose 100 mg/dl Bedside Urine Bilirubin + 1 Bedside Urine Ketone - Negative Urine Specific [place] 1.025 Bedside Urine Occult Blood - Negative Bedside Urine pH 5.0 Bedside Urine Protein - Negative Bedside Urine Urobilinogen - Negative Bedside Urine Nitrite - Negative Bedside Urine Leukocytes - Negative Esterase Imaging Data CT lumbar: Radiologist's Impression: PROCEDURE: CT LUMBAR SPINE WO CON INDICATIONS: acute on chronic pain TECHNIQUE: Noncontrast 3 mm thick sections acquired from the T12 level to the sacrum. Sagittal and coronal reformats were constructed. For radiation dose reduction, the following was used: automated exposure control. COMPARISON: [facility], CR, XR LUMBAR SPINE 2-3V, 08/05/2023, 11:56. FINDINGS: Image quality: Excellent. Bones: There is mild dextroconvex curvature of the lumbar spine. No acute vertebral body compression fractures. No suspicious lytic or blastic bony lesions. No pars defects. Degenerative changes are seen at the sacroiliac joints bilaterally. T12-L1: No significant spinal canal stenosis or neural foraminal narrowing. L1-L2: Loss of disc space height with circumferential disc bulging. Findings result in mild narrowing of the spinal canal as well as [id number] right and mild left neural foraminal narrowing. L2-L3: Loss of disc space height with circumferential disc bulging, mild facet hypertrophy, and buckling of the ligamentum flavum. Findings result in mild to moderate narrowing of the spinal canal and [id number] bilateral neural foraminal narrowing. L3-L4: Loss of disc space height with circumferential disc bulging, bilateral facet hypertrophy, buckling of the ligamentum flavum. Findings result in moderate narrowing of the spinal canal as well as moderate left and [id number] right neural foraminal narrowing. L4-L5: Loss of disc space height with circumferential disc bulging, bilateral facet hypertrophy, buckling of the ligamentum flavum. Findings result in moderate narrowing of the spinal canal with effacement of the lateral recesses that appears to be greater on the right as well as moderate right and [id number] left neural foraminal narrowing. L5-S1: Loss of disc space height with circumferential disc bulging as well as bilateral facet hypertrophy and mild buckling of the ligamentum flavum. Findings result in mild narrowing of the spinal canal as well as moderate to severe left and moderate right neural foraminal narrowing. Soft tissues: No retroperitoneal masses or hematomas. Visualized aorta is normal in caliber. Multiple coarse calcifications in the spleen are likely the sequela of prior granulomatous disease. Status post cholecystectomy. IMPRESSION: 1. No acute osseous fracture. 2. Moderate multilevel degenerative disc disease and facet hypertrophy as described in detail in the body report. No high-grade spinal canal stenosis. 3. Moderate to severe neural foraminal narrowing at the L5-S1 level on the left. No additional high-grade neural foraminal narrowing is seen. 1. Approved by: Teodoro Abraham M.D. on 02/22/2024 at 23:01 [facility] Narrative Medical decision making narrative: Patient 83-year-old female with history of chronic back pain presenting today with acute back pain. No injury. She does have significant left leg lower extremity weakness. She is chronic urinary incontinence. She is complaining of some worsening fatigue. Blood work has been reviewed she has no significant abnormalities no leukocytosis anemia or electrolyte abnormality no UTI CT imaging does not show any acute fracture finding but does show significant stenosis Patient was given Dilaudid here in the ED which did seem to help quite a bit. She does get around by wheelchair and walker home. I suspect this is just acute on chronic back pain. No concern for cauda equina at this time chronic urinary incontinence. He is given prepack of Vancleave and prescription for Vancleave here in the ED overall feeling better she and her felt ready able to go home Discharge Plan Departure Patient Disposition: Home Clinical Impression: Acute on chronic back pain Instructions: DI for Back Strain or Sprain Activity Restrictions/Additional Instructions: *You have been diagnosed with acute on chronic back pain *What to do: At this time blood work is overall reassuring no evidence of bladder infection CT does not show any broken bones. May air further MRI *Continue to take medications as directed Vancleave 1 tablet every 6 hours if needed for severe pain *Follow up with your primary care provider in 2-3 days or call [phone] *Return to ER if you should have increasing pain weakness or any new, worsening or concerning symptoms CONTROLLED SUBSTANCE DISCHARGE (Narcotoic/benzodiazepine/Flexeril/Phenergan) 1. You have been prescribed narcotic medications, it does have acetaminophen/Tylenol/paracetamol in it, DO NOT TAKE MORE THAN 4,00mg in 24 hours of Tylenol. TRAMADOL DOES NOT CONTAIN TYLENOL 2. Please understand that we cannot provide further refills of narcotics, benzodiazepines or controlled substances through the ED and her pain management will need to be through your provider. 3. While on these medications you cannot drive or operate heavy machinery. 4. You cannot sign legal documents or perform any duties such as this. 5. As long as you're taking opiate pain medications he should also be taking a stool softener such as Colace, Dulcolax, MiraLAX or prune juice, to help avoid constipation. Prescriptions: New hydrocodone-acetaminophen 5-325 mg tablet 1 tab PO Q6H PRN (Reason: pain) Qty: 10 0RF No Action Novolin N NPH U-100 Insulin 100 unit/mL suspension 25 unit SUBCUT QDAY MULTIVITAMIN (One Daily Multivitamin) 1 tab PO Q DAY Qty: 0 (DME) DISABLED PARKING PERMIT See Rx Instructions .ROUTE .MEDSUPPLY Qty: 1 0RF Rx Instructions: I find this patient to be medically disabled and qualified for disabled parking as indicated, and signed, on the accompanying Disabled Parking Application for Individuals. simvastatin 20 mg tablet See Rx Instructions .ROUTE .COMPLEX Qty: 90 2RF Dose Instruction: TAKE 1 TABLET BY MOUTH AT BEDTIME Rx Instructions: TAKE 1 TABLET BY MOUTH AT BEDTIME metformin 1,000 mg tablet 1,000 mg PO BID Qty: 180 3RF lisinopril 10 mg tablet 10 mg PO DAILY Qty: 90 3RF estradiol 0.5 mg tablet 0.5 mg PO DAILY Qty: 90 3RF Contour Test Strips Strip See Rx Instructions .ROUTE .COMPLEX Qty: 200 3RF Dose Instruction: USE 1 STRIP TO CHECK GLUCOSE TWICE DAILY (E11.9) Rx Instructions: USE 1 STRIP TO CHECK GLUCOSE TWICE DAILY (E11.9) sertraline 25 mg tablet 25 mg PO DAILY Qty: 90 1RF hydrocodone-acetaminophen 5-325 mg tablet 1 tab PO Q6HP PRN (Reason: pain) Qty: 30 0RF Referrals: Cruz Crook MD [Primary Care Provider] - Stand Alone Forms: Patient Portal/API
[2024-02-22 22:34] LABS: Alanine Aminotransferase 19 IU/L (<35); Albumin 3.9 g/dL (3.5-5.0); Albumin Globulin Ratio 1.1 (1.0-2.8); Alkaline Phosphatase 71 U/L (38-126); Aspartate Aminotransferase 41 IU/L (14-36); BUN Creatinine Ratio 24.6 (6-22); Bilirubin Total 0.5 mg/dL (0.2-1.3); Blood Urea Nitrogen 16 mg/dL (7-17); Calcium 9.4 mg/dL (8.4-10.2); Carbon Dioxide 21 mmol/L (22-32); Chloride 110 mmol/L (98-107); Estimated Glomerular Filt Rate > 60 mL/min (>60); Globulin 3.5 g/dL (1.7-4.1); Glucose 186 mg/dL (80-110); HEMOLYSIS 24 (0-50); Potassium 3.9 mmol/L (3.4-5.1); Sodium 139 mmol/L (137-145); Total Protein 7.4 g/dL (6.3-8.2)
[2024-02-22 22:52] LABS: Appearance Urine UA CLEAR; Bilirubin Urine UA NEGATIVE (NEGATIVE); Color Urine UA YELLOW; Glucose Urine UA TRACE g/dL (Negative); Ketones Urine UA TRACE (NEGATIVE); Leukocyte Esterase Urine UA NEGATIVE (NEGATIVE); Nitrite Urine UA NEGATIVE (Negative); Occult Blood Urine UA NEGATIVE (Negative); Protein Urine UA NEGATIVE (Negative); Specific Gravity Urine UA >=1.030 (1.000-1.035)
[2024-02-22 22:57] LABS: pH Urine UA 5.5 (4.5-8.0)
[2024-02-22 23:06] LABS: Bacteria Urine Moderate (10-30); Ictotest Urine Negative (Negative); RBC Urine None Seen (0-5/HPF); Squamous Epithelial Cell Urine 10-30 /HPF (0-5/HPF); Urine Volume 10mL (spun); WBC Urine None Seen (0-5/HPF)
[2024-02-22 23:07] LABS: Culture Indicated Urine Cult Not Indicated; Mucus Urine 1+ (Negative)
[2024-02-22] MEDS: HYDROCODONE/ACET 5/325 PREPACK 1 BOTTLE MISC (23:35)
== END 2024-02-22 23:53 | disposition home or self-care (01) ==
PROVIDERS: Emergency Provider Emergency Medicine; PCP Family Medicine
DX: M54.9 Dorsalgia, unspecified (principal); G89.29 Other chronic pain
CPT/HCPCS: 72131; 80053; 81001; 81003; 85025; 99283; J1170

== ENCOUNTER 2024-02-23 00:57 | Observation (INO) | payer MEDICARE, OTHER, SELFPAY ==
[2023-03-19 09:16] VITALS: BMI 30.9
[2024-02-23] VITALS (7 sets, daily range): BP systolic 116–138; BP diastolic 55–64; PULSE 71–108; RESP 16–18; TEMP 36.6–36.9; O2SAT 95–96; BMI 26.5
--- NOTE | 2024-02-23 01:13 | ED.BACK ---
HPI - Back Pain/Injury <Margot Perez MD - Last Filed: 02/23/24 20:16> General Chief Complaint: Extremity Problem,Nontraumatic Stated Complaint: can't walk was seen earlier Time Seen by Provider: 02/23/24 00:59 History of Present Illness HPI Narrative: 83-year-old female with history of diabetes, heart failure, chronic lumbar back and left hip pain presents for back pain, inability to walk due to her pain. Patient is seen just a few hours prior, she was discharged after undergoing CT lumbar spine and CT hip that showed only degenerative changes. states that he drove the patient to the house, but was unable to take the patient more than 4 steps from the car. She was unable to ambulate even with assistance and so put her back in the car and brought her back to the ER. states that he is unable to care for the patient at home and is requesting admission for observation and possible rehab placement. Record review shows that patient has had ongoing left-sided hip pain and mobility issues since at least July of this year. Related Data Home Medications Medication Instructions Recorded Confirmed insulin NPH isoph U-100 human 100 25 unit SUBCUT QDAY 03/19/23 02/23/24 unit/mL subcutaneous suspension (Novolin N NPH U-100 Insulin isophane) estradiol 0.5 mg tablet 0.5 mg PO DAILY 02/23/24 02/23/24 lisinopril 10 mg tablet 10 mg PO DAILY 02/23/24 02/23/24 metformin 1,000 mg tablet 1,000 mg PO BID 02/23/24 02/23/24 Previous Rx's Medication Instructions Recorded DISABLED PARKING PERMIT #1 ea 02/28/20 sertraline 25 mg tablet 25 mg PO DAILY #90 tabs 09/29/23 Allergies Allergy/AdvReac Type Severity Reaction Status Date / Time No Known Drug Allergies Allergy Verified 09/17/23 10:08 Patient History <Margot Perez MD - Last Filed: 02/23/24 20:16> Medical History (Updated 02/23/24 @ 14:57 by Margot Tran DO) Anemia Weakness COVID-19 virus infection Sarcoidosis Chronic cough Migraines Headache Rheumatic fever Mumps Chicken pox Anemia History of recurrent ear infection Irregular menstrual cycle Heavy menstrual period Fibroids History of urinary incontinence Kidney stones Kidney disease Frequent UTI Hypothyroidism Diabetes mellitus Hypertension Hyperlipidemia Heart failure Surgical History Anesthesia Status post tubal ligation History of lithotripsy Status post hysterectomy with oophorectomy Status post cholecystectomy Status post appendectomy Family History Brother Diabetes mellitus Father Heart disease Mother Heart disease Social History marital status: household members: spouse Smoking Status: Never smoker alcohol intake: never substance use type: does not use Smoking Status: Never smoker Substance Use Type: does not use Exam <Margot Perez MD - Last Filed: 02/23/24 20:16> Initial Vital Signs Initial Vital Signs: Vital Signs Temperature 98.4 F 02/23/24 01:10 Pulse Rate 108 H 02/23/24 01:10 Respiratory Rate 18 02/23/24 01:10 Blood Pressure 136/63 02/23/24 01:10 Pulse Oximetry 96 02/23/24 01:10 Oxygen Delivery Method Room Air 02/23/24 01:10 <Margot Tran DO - Last Filed: 02/23/24 14:57> Initial Vital Signs Initial Vital Signs: Vital Signs Temperature 98.4 F 02/23/24 01:10 Pulse Rate 108 H 02/23/24 01:10 Respiratory Rate 18 02/23/24 01:10 Blood Pressure 136/63 02/23/24 01:10 Pulse Oximetry 96 02/23/24 01:10 Oxygen Delivery Method Room Air 02/23/24 01:10 Course <Margot Perez MD - Last Filed: 02/23/24 20:16> Orders Ordered: ED Orders 02/23/24 12:25 XR hip w pel if done RT 2V Stat Acetaminophen (Acetaminophen 325 Mg Tablet) 650 mg PO Q6H PRN PRN Reason: Fever/Mild Pain (1-3) Hydrocodone Bitart/Acetaminophen (Hydrocodone/Acet 5/325 Tablet) 1 tab PO Q4H PRN PRN Reason: Pain, Moderate (4-6) Enoxaparin Sodium (Enoxaparin 40 Mg/0.4 Ml Syringe) 40 mg SUBCUT DAILY [facility] Hydromorphone HCl (Hydromorphone 0.5 Mg Inj) 0.5 mg IV Q2H PRN PRN Reason: Pain, Severe (7-10) Dextrose (D10w) 100 mls @ 999 mls/hr IV PRN PRN PRN Reason: Hypoglycemia Sodium Chloride (Normal Saline 0.9%) 500 mls @ 21 mls/hr IV CONT [facility] Last Admin: 02/23/24 16:53 Dose: 21 mls/hr Documented By: LDV Insulin Human Lispro (Insulin Lispro 100 Unit/Ml 3ml Vial) 0 unit SUBCUT ACHS [facility]; Protocol Last Admin: 02/23/24 17:19 Dose: Not Given Documented By: LDV Insulin Human NPH (Insulin Nph 100 Unit/Ml 10ml Vial) 25 unit SUBCUT DAILY [facility] Lisinopril (Lisinopril 10 Mg Tablet) 10 mg PO DAILY [facility] Magnesium Hydroxide (Magnesium Hydroxide 30 Ml Udc) 30 ml PO DAILY PRN PRN Reason: Constipation Naloxone HCl (Naloxone 0.4 Mg/Ml Vial) 0.2 mg IV Q2MIN PRN PRN Reason: Opiate Reversal Sertraline HCl (Sertraline 50 Mg Tablet) 25 mg PO DAILY [facility] Discontinued Medications Acetaminophen (Acetaminophen 325 Mg Tablet) 975 mg PO Q8H [facility] Last Admin: 02/23/24 10:58 Dose: 975 mg Documented By: Insulin Human NPH (Insulin Nph 100 Unit/Ml 10ml Vial) 25 unit SUBCUT NOW ONE Stop: 02/23/24 10:04 Last Admin: 02/23/24 11:03 Dose: 25 unit Documented By: Co-signed By: ES Oxycodone HCl (Oxycodone Ir 5 Mg Tablet) 10 mg PO NOW ONE Stop: 02/23/24 10:16 Last Admin: 02/23/24 10:58 Dose: 10 mg Documented By: Vital Signs Vital signs: Vital Signs - 8 hr 02/23/24 13:16 Temperature 97.9 F Pulse Rate 77 Respiratory Rate 16 Blood Pressure 126/60 Pulse Oximetry 95 Oxygen Delivery Method Room Air <Margot Tran, - Last Filed: 02/23/24 14:57> Orders Ordered: ED Orders 02/23/24 12:25 XR hip w pel if done RT 2V Stat Acetaminophen (Acetaminophen 325 Mg Tablet) 650 mg PO Q6H PRN PRN Reason: Fever/Mild Pain (1-3) Hydrocodone Bitart/Acetaminophen (Hydrocodone/Acet 5/325 Tablet) 1 tab PO Q4H PRN PRN Reason: Pain, Moderate (4-6) Enoxaparin Sodium (Enoxaparin 40 Mg/0.4 Ml Syringe) 40 mg SUBCUT DAILY [facility] Hydromorphone HCl (Hydromorphone 0.5 Mg Inj) 0.5 mg IV Q2H PRN PRN Reason: Pain, Severe (7-10) Dextrose (D10w) 100 mls @ 999 mls/hr IV PRN PRN PRN Reason: Hypoglycemia Sodium Chloride (Normal Saline 0.9%) 500 mls @ 21 mls/hr IV [facility] Last Admin: 02/23/24 16:53 Dose: 21 mls/hr Documented By: LDV Insulin Human Lispro (Insulin Lispro 100 Unit/Ml 3ml Vial) 0 unit SUBCUT [facility]; Protocol Last Admin: 02/23/24 17:19 Dose: Not Given Documented By: LDV Insulin Human NPH (Insulin Nph 100 Unit/Ml 10ml Vial) 25 unit SUBCUT DAILY [facility] Lisinopril (Lisinopril 10 Mg Tablet) 10 mg PO DAILY [facility] Magnesium Hydroxide (Magnesium Hydroxide 30 Ml Udc) 30 ml PO DAILY PRN PRN Reason: Constipation Naloxone HCl (Naloxone 0.4 Mg/Ml Vial) 0.2 mg IV Q2MIN PRN PRN Reason: Opiate Reversal Sertraline HCl (Sertraline 50 Mg Tablet) 25 mg PO DAILY [facility] Discontinued Medications Acetaminophen (Acetaminophen 325 Mg Tablet) 975 mg PO Q8H [facility] Last Admin: 02/23/24 10:58 Dose: 975 mg Documented By: Insulin Human NPH (Insulin Nph 100 Unit/Ml 10ml Vial) 25 unit SUBCUT NOW ONE Stop: 02/23/24 10:04 Last Admin: 02/23/24 11:03 Dose: 25 unit Documented By: Co-signed By: ES Oxycodone HCl (Oxycodone Ir 5 Mg Tablet) 10 mg PO NOW ONE Stop: 02/23/24 10:16 Last Admin: 02/23/24 10:58 Dose: 10 mg Documented By: Vital Signs Vital signs: Vital Signs - 8 hr 02/23/24 13:16 Temperature 97.9 F Pulse Rate 77 Respiratory Rate 16 Blood Pressure 126/60 Pulse Oximetry 95 Oxygen Delivery Method Room Air MDM - Back Pain/Injury <Margot Perez MD - Last Filed: 02/23/24 20:16> Lab Data Labs: Point of Care Testing Glucose POC 227 [facility] Narrative Medical decision making narrative: Dr. Perez -patient returning due to inability to ambulate due to pain. Recent workup that was unremarkable for any acute findings. Patient had laboratory work done less than 2 hours prior, we will not repeat at this time. Imaging from previous stay reviewed. PT and OUTSIDE MACHINIST consult ordered for the morning. 02/23/2024: Dr. Tran. Patient signed out to myself by Dr. Perez. Patient seen and evaluated by myself. Patient was here with complaint of hip and back pain acute on chronic with a history of chronic urinary incontinence no new weakness. No fevers or chills. Patient notes she has had chronic back pain, it seems to be little bit more located on the left did not posterior. She states it does not radiate down her leg she has pain with movement of her leg. She was walking up and down the stairs regularly because she likes to so in the basement but no traumas falls or injuries otherwise. States it just sort of flared. Until this point she was taking Tylenol regularly for pain management twice daily. Patient does have weakness when she tries to lift her leg but some of this maybe related to pain she does have normal dorsiflexion plantar flexion no foot drop. She has pain with passive range of motion in her back when I lift. Reviewed all patient's findings with her from earlier. She miss her morning insulin dose so this was ordered as well as regular Tylenol and some oral narcotic pain medication. Patient had CT L-spine shows no acute osseous fracture multilevel degenerative disc disease and facet hydro for PE no high-grade canal spinal stenosis. Moderate to severe foraminal narrowing L5-S1 no additional high-grade neural foraminal narrowing. Patient tender over hip but does have pain when I flex. Hip x-ray ordered and shows Patient had labs proximally 12 hours ago which showed a normal CBC, chemistries showed chloride of 110 CO2 of 21 normal renal function glucose of 186, AST was 41 but otherwise appropriate. UA showed trace glucose and ketones, 10-30 squamous moderate bacteria 1+ mucus. Patient does not appear to have any other acute medical changes they are requesting assistance with placement for rehab patient was discharged home able to walk a few steps but was too painful they felt they could not care for her at home. PT and OUTSIDE MACHINIST consults are in place. Patient met with PT, recommends SNF. OUTSIDE MACHINIST met with patient and family patient would much prefer to return home but has been states he has not able to care for her at this time. Patient did have Tylenol scheduled regularly with some p.o. oxycodone somewhat helpful but still had quite a bit of difficulty. Spoke with Dr. Crook who kindly accepts for admission with goal for placement with the acute on chronic back pain. <Margot Tran, - Last Filed: 02/23/24 14:57> Lab Data Labs: Point of Care Testing Glucose POC 227 Imaging Data Extremity x-ray #1: Radiologist's Impression: [address] [address] XRay Report Signed Patient: Netta Mahmood MR#: [id number] : 1940 Acct:[id number] Age/Sex: 83 / F Date of Service: 02/23/24 Loc: ED Accession Number: [id number] Procedure: XR hip w pel if done RT 2V Ordering Provider: Margot Tran D.O. PROCEDURE: XR HIP W PEL IF DONE RT 2V INDICATIONS: right back/hip pain TECHNIQUE: AP pelvis with lateral view(s) of the right hip(s). COMPARISON: [facility], EN, XR HIP W PEL IF DONE CARO 3TO4V, 08/05/2023, 11:56. FINDINGS: Bones: No fractures or dislocations. Pelvic ring appears intact. No suspicious bony lesions. Soft tissues: Allowing for differences in obliquity, no change in soft tissue radiodensity adjacent to the greater trochanter of the right proximal femur. The visualized bowel gas pattern is normal. No suspicious soft tissue calcifications. IMPRESSION: No acute fracture. No osseous lesion. If symptoms and/or clinical suspicion for pathology persist, further assessment with repeat, or advanced imaging (e.g., CT, MRI, or bone scan) may be helpful for further assessment Dictated by: Paulina Cotto M.D. on 02/23/2024 at 13:54 Approved by: Paulina Cotto M.D. on 02/23/2024 at 13:55 [facility] Narrative Medical decision making narrative: 02/23/2024: Dr. Tran. Patient signed out to myself by Dr. Perez. Patient seen and evaluated by myself. Patient was here with complaint of hip and back pain acute on chronic with a history of chronic urinary incontinence no new weakness. No fevers or chills. Patient notes she has had chronic back pain, it seems to be little bit more located on the left did not posterior. She states it does not radiate down her leg she has pain with movement of her leg. She was walking up and down the stairs regularly because she likes to so in the basement but no traumas falls or injuries otherwise. States it just sort of flared. Until this point she was taking Tylenol regularly for pain management twice daily. Patient does have weakness when she tries to lift her leg but some of this maybe related to pain she does have normal dorsiflexion plantar flexion no foot drop. She has pain with passive range of motion in her back when I lift. Reviewed all patient's findings with her from earlier. She miss her morning insulin dose so this was ordered as well as regular Tylenol and some oral narcotic pain medication. Patient had CT L-spine shows no acute osseous fracture multilevel degenerative disc disease and facet hydro for PE no high-grade canal spinal stenosis. Moderate to severe foraminal narrowing L5-S1 no additional high-grade neural foraminal narrowing. Patient tender over hip but does have pain when I flex. Hip x-ray ordered and shows Patient had labs proximally 12 hours ago which showed a normal CBC, chemistries showed chloride of 110 CO2 of 21 normal renal function glucose of 186, AST was 41 but otherwise appropriate. UA showed trace glucose and ketones, 10-30 squamous moderate bacteria 1+ mucus. Patient does not appear to have any other acute medical changes they are requesting assistance with placement for rehab patient was discharged home able to walk a few steps but was too painful they felt they could not care for her at home. PT and OUTSIDE MACHINIST consults are in place. Patient met with PT, recommends SNF. OUTSIDE MACHINIST met with patient and family patient would much prefer to return home but has been states he has not able to care for her at this time. Patient did have Tylenol scheduled regularly with some p.o. oxycodone somewhat helpful but still had quite a bit of difficulty. Spoke with Dr. Crook who kindly accepts for admission with goal for placement with the acute on chronic back pain. Discharge Plan Departure Patient Disposition: Admitted As Inpatient Clinical Impression: Acute exacerbation of chronic low back pain Admit Date/Time: 02/23/24 14:31 Admit Provider: Cruz Crook
--- NOTE | 2024-02-23 05:59 | PC.NURSE ---
Allowed pt to sleep. Completing hourly checks until pt wakes. Call light within reach.
--- NOTE | 2024-02-23 08:25 | PC.NURSE ---
This RN attempted to turn on lights after breakfast to promote a day schedule. Pt declined and would prefer to continue to sleep at this time.
[2024-02-23] MEDS: ACETAMINOPHEN 325 MG TABLET 975 MG PO (10:58)
[2024-02-23] MEDS: OXYCODONE IR 5 MG TABLET 10 MG PO (10:58)
[2024-02-23] MEDS: INSULIN NPH 100 UNIT/ML 10ML VIAL 25 UNIT SUBCUT (11:03)
--- NOTE | 2024-02-23 11:40 | PT.IIE ---
Surgical History (Last Reviewed 12/05/22 @ 18:38 by Kelli Tran DO) Anesthesia History of lithotripsy Status post appendectomy Status post cholecystectomy Status post hysterectomy with oophorectomy Status post tubal ligation Medical History (Last Updated 03/19/23 @ 13:30 by Matthew Robison) Anemia Anemia Chicken pox Chronic cough COVID-19 virus infection Diabetes mellitus Fibroids Frequent UTI Headache Heart failure Heavy menstrual period History of recurrent ear infection History of urinary incontinence Hyperlipidemia Hypertension Hypothyroidism Irregular menstrual cycle Kidney disease Kidney stones Migraines Mumps Rheumatic fever Sarcoidosis Weakness Physical Therapy Inpatient Evaluation/Re-Eval M1 PT/OT-IP Prior Functional Status Start: 02/23/24 13:20 Freq: Status: Active Protocol: Document 02/23/24 11:40 AB (Rec: 02/23/24 13:37 AB [id number]) Medical Review Prior Functional Status Medical History Reviewed Yes Communication able to make needs known Mobility and Gait spouse in room and provided most of pt's PLOF and home set up spouse stated that he has been assisting pt for a long time: bed mobility assist, sit<> stand assist and ambulation using FWW but stated that one pt is up, pt is was able to walk using a FWW without much assistance but only inside the house/short distances due to back pain. stated that he provided PATROL OFFICER to pt for ambulation in tight spaces: toilet. pt also uses a manual w/c for outdoor mobility Social History Household Members spouse Living Arrangements House Number of Floors (Floors) Two Floors Number of Stairs To Enter/Railing? 3 steps L rail to enter: spouse stated that he positioned a few grab bars as well for more support has 16 steps descending L rail to get to basement level where pt does her quilting Home Environment Standard Height Toilet,Walk in Shower Home Equipment Front Wheel Walker,Straight Cane,Manual Wheelchair,Hand Held Shower,Grab Bars Near Toilet,Grab Bars In Shower Additional Social History Comment pt stated that she has a shower chair but does not like it and does not want to use it M2 PT-IP Current Condition Start: 02/23/24 13:20 Freq: Status: Active Protocol: Document 02/23/24 11:40 AB (Rec: 02/23/24 13:37 AB [id number]) Physical Therapy Current Condition Current Condition Evaluation Date 02/23/24 Treatment Diagnosis back pain; difficulty in walking Onset Date 02/23/24 M3 PT-IP Subjective Start: 02/23/24 13:20 Freq: Status: Active Protocol: Document 02/23/24 11:40 AB (Rec: 02/23/24 13:37 AB [id number]) Subjective Physical Therapy Visit Type Type Initial Evaluation Visit Start Time 11:40 Visit Stop Time 12:25 Number of SUPERVISOR CARTOGRAPHY Visits 0 Physical Therapy Visit Comments Patient Comments needs encouragement to move Therapy Pain Assessment Pain When Pain Assessed At Rest Pain Present Pain Present Pain Reported Location Left Hip Intensity 6 Scale Used Numeric (0 - 10) Pain Management Techniques Distraction,Modification of Treatment,Re-positioning, Timing of Activity with Medications Back Intensity 6 Scale Used Numeric (0 - 10) Pain Management Techniques Distraction,Modification of Treatment,Re-positioning, Timing of Activity with Medications M4 PT-IP Mobility and Gait Start: 02/23/24 13:20 Freq: Status: Active Protocol: Document 02/23/24 11:40 AB (Rec: 02/23/24 13:37 AB [id number]) PT-Bed Mobility Assessment Rolling Type of Rolling Log Rolling Level of Assist Maximal Assistance,1 Person Assistance,2 Person Assistance Supine to Sit Supine to Sit Maximum Assistance,1 Person Assistance,2 Person Assistance Sit to Supine Sit to Supine Maximum Assistance,1 Person Assistance,2 Person Assistance PT-Transfer Assessment Sit to and From Stand Sit to and from Stand Maximum Assistance,1 Person Assistance,2 Person Assistance ,Use of Upper Extremities Equipment Transfer Assistive Device Gait Belt,Front Wheeled Walker Orthotic/Prosthetic Devices or Brace: No Comments Mobility Comments pt supine in bed and spouse in room. obtained PLOF and home set up. spouse provided most of the info. pt completed log roll supine to sit max A x 1- 2 and max cues. increase posterior leaning in sitting on EOB requiring mod A but able to sit CGA after repositioning. pt requires max cues for all tasks. pt with increase fear of falling and increase guarding during movement. pt needs encouragement to move and will say I can't even before trying. completed sit to tand max A x 1-2 and max cues. increase LE pushing against bed for support. max A and max cues for repositioning to upright posture as pt unable to reposition. increase overall trunk tightness. instructed to march in place and pt only able to complete 1x with max A x 1-2 and needing max A for standing balance and weight shifting. pt sat back on EOB. completed sit to supine max A x 1-2 and max cues. positioned pt in bed. call light and table placed within reach. Gait Assessment Comments Gait Comments unable at this time PT-Balance Assessment Sitting Balance and Reactions Static Sitting Balance Ability Fair Dynamic Sitting Balance Ability Poor Standing Balance and Reactions Static Standing Balance Ability Poor Dynamic Standing Balance Ability Poor Device Used FWW M5 PT-IP Objective Assessments Start: 02/23/24 13:20 Freq: Status: Active Protocol: Document 02/23/24 11:40 AB (Rec: 02/23/24 13:37 AB [id number]) Orientation Orientation/Cognition Level of Alertness Confusional State Orientation Name Safety Awareness Decreased Safety Awareness Memory Description Short Term Impaired,[facility] Impaired Strength Lower Extremity Strength Assessment Bilaterally Impaired Comments Strength Comments LLE: 3-/5 RLE 3+/5 M6 PT-IP Treatment Start: 02/23/24 13:20 Freq: Status: Active Protocol: Document 02/23/24 11:40 AB (Rec: 02/23/24 13:37 AB [id number]) Physical Therapy Treatment Exercises Exercises Heel Slides Education Education Provided Safety M7 PT-IP Assessment and Plan Start: 02/23/24 13:20 Freq: Status: Active Protocol: Document 02/23/24 11:40 AB (Rec: 02/23/24 13:37 AB [id number]) PT Summary Assessment and Plan Potential Rehabilitation Potential Fair Status of Condition at Evaluation Evolving Summary Impairments Pain,ROM,Strength,Balance, Coordination,Sensation,Tone, Cognition,Bed Mobility, Transfers,Gait,Activity Tolerance Assessment Summary pt is an 83 y/o F who has chronic back pain. pt presented to the ED due to back pain and imaging is negative for fx. pt was sent home but pt unable to get up and walk to the house and went back to the ED. pt requiring max A x 1-2 and max cues with mobility and unable to ambulate at this time. pt will require SNF rehab to improve overall strength and function. purchasing manager/sales informed regarding pt's mobility level and SNF recommendation. Goals Bed Mobility Goal Minimal Assistance Transfer Goal Minimal Assistance,Front Wheeled Walker Gait Goal Minimal Assistance,Front Wheel Walker Gait Distance 25 Other Goals improve bed mobility, transfers, ambulation using FWW CGA 50 ft up/down 3 steps L rail ascending CGA Days to Meet Goals 10 Frequency of Treatment Frequency Of Treatment Once a Day Treatment Plan Physical Therapy Treatment Plan Bed Mobility Training,Transfer Training,Gait Training, Therapeutic Exercise,Balance Retraining,Discharge Planning, Hot or Cold Pack,Neuromuscular Re-ed,Coordination Retraining ,Manual Therapy Precautions Lumbar Precautions Log Roll,No Twisting,Limit Bending,Lifting Restriction of 10 lbs Recommendations To Nursing Amount of Assist Needed Mechanical Lift Discharge Recommendations PT Discharge Recommendations SNF Rehab Transportation Needs at Discharge Wheelchair/Cabulance,Stretcher /Ambulance
--- NOTE | 2024-02-23 12:25 | DI.RAD.S_ITS ---
PROCEDURE: XR HIP W PEL IF DONE RT 2V INDICATIONS: right back/hip pain TECHNIQUE: AP pelvis with lateral view(s) of the right hip(s). COMPARISON: Located Within [facility], , XR HIP W PEL IF DONE CARO 3TO4V, 08/05/2023, 11:56. FINDINGS: Bones: No fractures or dislocations. Pelvic ring appears intact. No suspicious bony lesions. Soft tissues: Allowing for differences in obliquity, no change in soft tissue radiodensity adjacent to the greater trochanter of the right proximal femur. The visualized bowel gas pattern is normal. No suspicious soft tissue calcifications. IMPRESSION: No acute fracture. No osseous lesion. If symptoms and/or clinical suspicion for pathology persist, further assessment with repeat, or advanced imaging (e.g., CT, MRI, or bone scan) may be helpful for further assessment Dictated by: Paulina Cotto M.D. on 02/23/2024 at 13:54 Approved by: Paulina Cotto M.D. on 02/23/2024 at 13:55
--- NOTE | 2024-02-23 15:44 | CM.IDA ---
Initial DCP Assessment Note Patient is 83 y/o female who presents to ED for the second time in 12 hours due to concern for back and hip pain and inability to walk. Patient's spouse states that she could only walk four steps upon initial d/c from ED yesterday so he brought her back to the ED. Patient's PCP is Dr. Cruz Crook, Patient has [employer] [facility] and [facility] insurance. Patient has hx of Type 2 Diabetes, Acute exacerbation of chronic low back pain, essential hypertension, mixed hyperlididemia, ANNA, thoracic compression fracture and hx of falls. PT evaluates patient and recommends SNF rehab as patient is requiring max assist 1-2 and max cues, unable to ambulate currently. OFFSET PRINTING OPERATOR enters room to meet with patient, present in room is patient's spouse. Patient presents as A/Ox4. It is reported that patient's spouse has been assisting her with ADLs but patient's increase in recent back pain has been a barrier to ambulation and managing ADLs. Patient was previously able to ambulate at home with FWW with some assistance. Patient resides with spouse in [place], daughter lives in [place]. Patient states she can cook but her spouse typically assists with most of her ADLs, assisting with getting her in and out of bed, patient has had recent difficulty getting to the bathroom in time and showers with grab bars present. Patient states she stopped driving four years ago and her spouse drives. Patient endorses preference for home with Home health and caregiver, patient's spouse and family preference is SNF rehab. Patient is agreeable to SNF rehab if it is close by so her spouse can visit regularly. OFFSET PRINTING OPERATOR provides spouse with Senior resource guide, list of Private pay caregivers and Medicare list of SNF rehabs to review. If patient discharges to home, patient denies HH preference and denies hx of HH. Per EMR, patient has hx of referral with [facility] from 2021. OFFSET PRINTING OPERATOR calls Jaylene at [facility] for review based on patient's [employer] insurance and location, OFFSET PRINTING OPERATOR faxes clinicals for review. ED provider informs OFFSET PRINTING OPERATOR that after speaking with PCP Dr. Crook he would like to admit patient due to concern for acute exacerbation of chronic low back pain with plan to pursue SNF rehab for patient. Plan: patient admitted to acute care, DCP to f/u with PT, f/u with SNF referrals at [facility]. Plan A: SNF rehab, plan B: Home with HH and caregivers. PIERO Lama Discharge Planning/Care Management CM Discharge Assessment Start: 02/23/24 14:42 Freq: Status: Active Protocol: Document 02/23/24 14:42 LN (Rec: 02/23/24 14:52 LN [id number]) Discharge Planning Assessment Assigned Automotive Starter Repairer PIERO Isbell DPOA/Assigned Designee Name Gilson Mahmood, Spouse Contact Information [phone] Advance Directives? No Advance Directives on File No History Provided By Patient,Significant Other, Medical Record Has Patient been admitted in last 30 No days? Prior Living Arrangements House Household Members spouse Type of transporation used prior to Relies on Others admit Independent with ADL's No Needs Assistance With Bathing,Grooming,Toileting, Home Chores / Shopping DME Already Rented / Owned Bath Bench,Wheelchair,FWW / Walker,Cane,Other Comment Patient has grab bars near toilet and grab bars in shower , patient has shower chair but does not use it. Comment Spouse and family preference is SNF rehab, patient preference is Home with Home Health Comment weakness Referrals Initiated Prison Medicare Choice List Provided Yes SNF/HH Preference Closet to home is family and patient preference. Unfortunately [facility] does not take [employer] Contact Name/Phone Jaylene at [facility] contacted and referral faxed Has Agency SNF been contacted Yes Review Status In Process Please Provide Date Initial DC 02/23/24 Assessment Was Performed
--- NOTE | 2024-02-23 16:18 | PM.HP.1 ---
History of Present Illness History of Present Illness Date Patient Seen: 02/23/24 Time Patient Seen: 16:18 Chief complaint: Back and hip pain Narrative: 83-year-old female with a past medical history of sarcoidosis migraine headaches frequent urinary tract infections with urinary incontinence diabetes hypertension hyperlipidemia. Patient lives at home with her here in [place]. She has had decreasing mobility over the last year or so. She has known history of arthritis arthritis particularly in her spine and it in her hip. She gets along well with a walker and a cane in her house. She does have a wheelchair on occasion she uses this when she goes outside of the home. She has had increasing difficulty with back pain. In last 48 hours she has had significant hip pain. She denies any recent injury to the area or falls. She says she can stand up but the pain is severe. She feels like she is going to lose her balance. And she has now not mobile because of the syrup beer pain in her hip. Patient was brought to the emergency department yesterday for similar complaints of back and hip pain. Patient received IV pain medication was discharged back home after thorough evaluation. Patient comes in today brought in again by her because of pain and unable to ambulate. Patient had laboratory tests x-ray imaging done. Patient also had a social services coordinator evaluation consultation to discuss best next steps as far as care goes. She was admitted to the hospital for observation for further evaluation diagnosis and help with next steps as far as care goes. [facility] Medical History (Updated 02/23/24 @ 14:57 by Margot Tran DO) Anemia Weakness COVID-19 virus infection Sarcoidosis Chronic cough Migraines Headache Rheumatic fever Mumps Chicken pox Anemia History of recurrent ear infection Irregular menstrual cycle Heavy menstrual period Fibroids History of urinary incontinence Kidney stones Kidney disease Frequent UTI Hypothyroidism Diabetes mellitus Hypertension Hyperlipidemia Heart failure Surgical History Anesthesia Status post tubal ligation History of lithotripsy Status post hysterectomy with oophorectomy Status post cholecystectomy Status post appendectomy Family History Brother Diabetes mellitus Father Heart disease Mother Heart disease Social History marital status: household members: spouse Smoking Status: Never smoker alcohol intake: never substance use type: does not use Meds Home Medications and Allergies Home Medications Medication Instructions Recorded Confirmed Type DISABLED PARKING PERMIT #1 ea 02/28/20 09/17/23 Rx insulin NPH isoph U-100 human 100 25 unit SUBCUT QDAY 03/19/23 02/23/24 History unit/mL subcutaneous suspension (Novolin N NPH U-100 Insulin isophane) sertraline 25 mg tablet 25 mg PO DAILY #90 tabs 09/29/23 02/23/24 Rx estradiol 0.5 mg tablet 0.5 mg PO DAILY 02/23/24 02/23/24 History lisinopril 10 mg tablet 10 mg PO DAILY 02/23/24 02/23/24 History metformin 1,000 mg tablet 1,000 mg PO BID 02/23/24 02/23/24 History Allergies Allergy/AdvReac Type Severity Reaction Status Date / Time No Known Drug Allergies Allergy Verified 09/17/23 10:08 Exam Vital Signs (past 8 hours): - 02/23/24 13:16 02/23/24 16:07 Temperature 97.9 F 98.3 F Pulse Rate 77 71 Respiratory Rate 16 18 Blood Pressure 126/60 129/55 L Pulse Oximetry 95 96 Oxygen Delivery Method Room Air Oxygen Delivery Method Room Air Narrative Exam Narrative: Gen.: Alert oriented good historian HEENT: Pupils equal round and reactive or mucosa is moist neck is supple Cardio: S1-S2 regular rate and rhythm Respiratory: Normal respiratory effort lungs are clear Abdomen: Soft nontender Extremities: Warm dry perfused generalized weakness some trace edema in the lower extremitiees. Assessment & Plan Assessment and plan (1) Acute exacerbation of chronic low back pain: Status: Acute (2) Acute on chronic back pain: Status: Acute Plan Degenerative disc disease of lumbar spine with severe neuroforaminal narrowing at L5-S1 consistent with spinal stenosis. Patient having moderate to severe back pain. With difficulty with ambulating. No acute neurological symptoms such as fevers or chills on CT no signs of osteomyelitis no signs of cauda equina. Concerning ongoing chronic spinal stenosis symptoms. But it 83 with her current health problems spinal decompression seems like a bad idea at this point. Will try to optimize pain control and improve mobility with physical therapy. Will meet with social services coordinator and evaluate for physical therapy and rehabilitation with retirement facility. Would consider evaluation with Interventional pain for better control of back and hip pain. No signs of acute fracture or osseous lesion Osteoarthritis of hip. Patient with hip osteoarthritis. She is complaining of hip pain. Which maybe concomitant from back and hip pain. Patient should benefit from exercise with physical therapy. Think mainly her hip pain is coming from her back. I do not think a corticosteroid injection in the hip will be helpful. No signs of acute fracture or osseous lesion. Type 2 diabetes insulin dependent. Patient will be placed back on her insulin. She will have insulin sliding scale her metformin will be held. Hypertension. Patient will be started back on her lisinopril. We will monitor her blood pressure and adjust medication as needed. Generalized anxiety disorder. Patient is on sertraline 25 mg a day we will continue with this Hyperlipidemia. Patient known to have elevated LDL cholesterol. In the past patient states that she can not take statin medications because of myalgias. DVT prophylaxis with Lovenox Impression and plan physical therapy social services coordinator evaluation pain management for her back pain. Appropriately monitoring her blood sugars a with a diabetic diet. Discuss placement options with patient and Time-Based Coding :: [TOTAL MINUTES] spent with patient and on the chart (including review of chart, obtaining history, exam, reviewing outside data, placing orders, documenting exam and treatment plan, and counseling patient) on [DATE]. Quality VTE Deep Vein Thrombosis/Pulmonary Embolism Present on Admission: No
[2024-02-23] MEDS: SODIUM CHLORIDE 0.9% 500 ML 21 ML IV (16:53)
[2024-02-23] MEDS: INSULIN LISPRO 100 UNIT/ML 3ML VIAL SUBCUT (21:25)
[2024-02-23] MEDS: ACETAMINOPHEN 325 MG TABLET 650 MG PO (21:32)
[2024-02-24] MEDS: HYDROCODONE/ACET 5/325 TABLET 1 TAB PO ×3 (01:11→21:01)
[2024-02-24 02:00] VITALS: BP 150/62; PULSE 75; RESP 19; TEMP 37.6; O2SAT 97
[2024-02-24 04:24] LABS: Add Manual Diff / Slide Review NO; Basophils Absolute Auto 0 /uL (0-100); Basophils Percent Auto 0.9 % (0-2); Eosinophils Absolute Auto 0 /uL (0-450); Eosinophils Percent Auto 0.7 % (2-4); Hematocrit 37.1 % (36-46); Hemoglobin 12.8 g/dL (12.0-16.0); Lymphocytes Absolute Auto 1000 /uL (1100-4500); Lymphocytes Percent Auto 23.1 % (25-40); Mean Corpuscular HGB Conc 34.4 % (30-36); Mean Corpuscular Hemoglobin 32.3 PG (26-34); Mean Corpuscular Volume 93.9 fL (80-100); Monocytes Absolute Auto 500 /uL (0-900); Monocytes Percent Auto 12.8 % (3-14); Neutrophils Absolute Auto 2700 /uL (1500-7000); Neutrophils Percent Auto 62.5 % (50-75); Platelet Count 156 X10^3/uL (150-400); Red Blood Cell Count 3.96 X10^6/uL (4.0-5.2); White Blood Cell Count 4.2 X10^3/uL (4.5-11.0)
[2024-02-24 05:03] LABS: Blood Urea Nitrogen 19 mg/dL (7-17); Calcium 8.4 mg/dL (8.4-10.2); Carbon Dioxide 25 mmol/L (22-32); Chloride 106 mmol/L (98-107); Estimated Glomerular Filt Rate > 60 mL/min (>60); Glucose 169 mg/dL (80-110); HEMOLYSIS < 15 (0-50); Potassium 3.8 mmol/L (3.4-5.1); Sodium 135 mmol/L (137-145)
[2024-02-24] MEDS: INSULIN NPH 100 UNIT/ML 10ML VIAL 25 UNIT SUBCUT (08:26)
[2024-02-24] MEDS: ENOXAPARIN 40 MG/0.4 ML SYRINGE SUBCUT (08:26)
[2024-02-24] MEDS: INSULIN LISPRO 100 UNIT/ML 3ML VIAL SUBCUT ×3 (08:26→16:53)
[2024-02-24 08:27] VITALS: BP 126/62; PULSE 82
[2024-02-24] MEDS: lisinopriL 10 MG TABLET PO (08:27)
[2024-02-24] MEDS: SERTRALINE 50 MG TABLET 25 MG PO (08:28)
[2024-02-24 08:48] VITALS: BP 126/62; PULSE 87; TEMP 36.8; O2SAT 94
--- NOTE | 2024-02-24 09:28 | P.PN_ITS ---
Subjective Subjective Date Patient Seen: 02/24/24 Time Patient Seen: 09:28 Interval history: Patient seen and evaluated this morning. Patient says she did not sleep well last night still having some back pain. Pain medication was helpful. Vital signs were stable. Blood sugar was initially in the 200s this morning 160. She is getting insulin. Two person assist for standing walking and toileting. Patient complaining of back and hip pain. Exam Vital Signs (past 8 hours): - 02/24/24 02:00 02/24/24 08:27 02/24/24 08:48 Temperature 99.6 F 98.3 F Pulse Rate 75 82 87 Respiratory Rate 19 Blood Pressure 150/62 H 126/62 126/62 Pulse Oximetry 97 94 Oxygen Flow Rate 0 Oxygen Delivery Method Room Air Oxygen Flow Rate 0 Narrative Exam Narrative: Gen.: Alert complaining of back hip pain HEENT: Pupils equal round and reactive or mucosa is moist Cardio: Regular rate and rhythm Respiratory: Normal respiratory effort Abdomen: Soft nontender Extremities: Trace edema Objective Labs 02/24/24 04:15 02/24/24 04:15 Labs: Laboratory Results - last 24 hr 02/24/24 04:15 WBC 4.2 L RBC 3.96 L Hgb 12.8 Hct 37.1 MCV 93.9 MCH 32.3 MCHC 34.4 RDW 13.0 Plt Count 156 Neut % (Auto) 62.5 Lymph % (Auto) 23.1 L [place] % (Auto) 12.8 Eos % (Auto) 0.7 L Baso % (Auto) 0.9 Neut # (Auto) 2700 Lymph # (Auto) 1000 L [place] # (Auto) 500 Eos # (Auto) 0 Baso # (Auto) 0 Sodium 135 L Potassium 3.8 Chloride 106 Carbon Dioxide 25 BUN 19 H Creatinine 0.76 Estimated GFR > 60 BUN/Creatinine Ratio 25.0 H Glucose 169 H Calcium 8.4 PFSH Medical History (Updated 02/23/24 @ 14:57 by Margot Tran DO) Anemia Weakness COVID-19 virus infection Sarcoidosis Chronic cough Migraines Headache Rheumatic fever Mumps Chicken pox Anemia History of recurrent ear infection Irregular menstrual cycle Heavy menstrual period Fibroids History of urinary incontinence Kidney stones Kidney disease Frequent UTI Hypothyroidism Diabetes mellitus Hypertension Hyperlipidemia Heart failure Surgical History Anesthesia Status post tubal ligation History of lithotripsy Status post hysterectomy with oophorectomy Status post cholecystectomy Status post appendectomy Family History Brother Diabetes mellitus Father Heart disease Mother Heart disease Social History marital status: household members: spouse Smoking Status: Never smoker alcohol intake: never substance use type: does not use Assessment & Plan Assessment and plan (1) Acute on chronic back pain: Status: Acute Plan Degenerative disc disease of lumbar spine with severe neuroforaminal narrowing at L5-S1 consistent with spinal stenosis. Patient is still having a lot of pain which is precluding safe ambulation. Continue with pain medication working with physical therapy with ambulation. Pain regimen with scheduled Tylenol. And as needed hydrocodone. Patient would be a good candidate for shelter facility although she may not meet inpatient criteria and long term may not be covered by insurance. Osteoarthritis of hip. Patient with hip osteoarthritis. Hip pain with hip arthritis. Think more likely referred pain from her back. Continue with pain management. Type 2 diabetes insulin dependent. Patient on insulin 25 units last night. Will increase to 35 units. Continue with insulin sliding scale coverage. Diabetic diet. Hypertension. Blood pressure looks good continue with lisinopril. Generalized anxiety disorder. Patient on sertraline Hyperlipidemia. DVT prophylaxis no Lovenox Physical therapy pain control. Working with discharge planning on safe discharge plan. Time-Based Coding :: [TOTAL MINUTES] spent with patient and on the chart (including review of chart, obtaining history, exam, reviewing outside data, placing orders, documenting exam and treatment plan, and counseling patient) on [DATE]. Quality VTE Deep Vein Thrombosis/Pulmonary Embolism Present on Admission: No PROFEE Charge codes Subsequent inpatient/observation care: 29419
--- NOTE | 2024-02-24 11:20 | PT.IPTN ---
Current Diagnoses Other chronic pain (02/23/24) Low back pain, unspecified (02/23/24) Dorsalgia, unspecified (02/23/24) Physical Therapy Treatment Note M2 PT-IP Current Condition Start: 02/23/24 13:20 Freq: Status: Active Protocol: Document 02/23/24 11:40 AB (Rec: 02/23/24 13:37 AB [id number]) Physical Therapy Current Condition Current Condition Evaluation Date 02/23/24 Treatment Diagnosis back pain; difficulty in walking Onset Date 02/23/24 M3 PT-IP Subjective Start: 02/23/24 13:20 Freq: Status: Active Protocol: Document 02/24/24 12:29 TS (Rec: 02/24/24 12:36 TS [id number]) Subjective Physical Therapy Visit Type Type Treatment Note Visit Start Time 11:20 Visit Stop Time 11:58 Number of SPECIAL PROGRAMS DIRECTOR Visits 1 Physical Therapy Visit Comments Patient Comments Pt found resting in bed, fearful to move, she is agreeable to PT. Son-in-law reports family may potentially pay privately for a SNF. Therapy Pain Assessment Pain When Pain Assessed At Rest Pain Present Pain Present Pain Reported M4 PT-IP Mobility and Gait Start: 02/23/24 13:20 Freq: Status: Active Protocol: Document 02/24/24 12:29 TS (Rec: 02/24/24 12:36 TS [id number]) PT-Bed Mobility Assessment Rolling Type of Rolling Log Rolling Level of Assist Maximal Assistance,1 Person Assistance Supine to Sit Supine to Sit Maximum Assistance,1 Person Assistance Sit to Supine Sit to Supine Maximum Assistance,2 Person Assistance Scooting Scooting to Edge of Bed Maximum Assistance Scooting Up and Down in Bed Maximum Assistance PT-Transfer Assessment Sit to and From Stand Sit to and from Stand Maximum Assistance,1 Person Assistance Equipment Transfer Assistive Device Gait Belt,Front Wheeled Walker Orthotic/Prosthetic Devices or Brace: No Comments Mobility Comments Logroll to L side MaxA with max cues for sequencing. Supine to sit MaxA and max cues for BUE support, pt is fearful to move. STS from bed x2 MaxA with FWW. Pt attempted to take a step but could not clear feet from ground. Pt requested back to bed. Sit to supine MaxA x2 with nursing. Pt was left in bed, all needs met. Gait Assessment Comments Gait Comments unable at this time PT-Balance Assessment Sitting Balance and Reactions Static Sitting Balance Ability Fair Dynamic Sitting Balance Ability Poor Standing Balance and Reactions Static Standing Balance Ability Poor Dynamic Standing Balance Ability Poor Device Used FWW M5 PT-IP Objective Assessments Start: 02/23/24 13:20 Freq: Status: Active Protocol: Document 02/23/24 11:40 AB (Rec: 02/23/24 13:37 AB [id number]) Orientation Orientation/Cognition Level of Alertness Confusional State Orientation Name Safety Awareness Decreased Safety Awareness Memory Description Short Term Impaired,Prison Impaired Strength Lower Extremity Strength Assessment Bilaterally Impaired Comments Strength Comments LLE: 3-/5 RLE 3+/5 M6 PT-IP Treatment Start: 02/23/24 13:20 Freq: Status: Active Protocol: Document 02/24/24 12:29 TS (Rec: 02/24/24 12:36 TS [id number]) Physical Therapy Treatment Education Education Provided Safety M7 PT-IP Assessment and Plan Start: 02/23/24 13:20 Freq: Status: Active Protocol: Document 02/24/24 12:29 TS (Rec: 02/24/24 12:36 TS [id number]) PT Summary Assessment and Plan Potential Rehabilitation Potential Fair Summary Impairments Pain,ROM,Strength,Balance, Coordination,Sensation,Tone, Cognition,Bed Mobility, Transfers,Gait,Activity Tolerance Progress Towards Goals Slow Progress due to Pain Assessment Summary Pt continues to make slow progress with her mobility. She is MaxA for all bed mobility 1-2PA. She performed STS x2 with FWW MaxA, she has poor balance in standing. She did not progress to taking a step today. She remains fearful to move and to fall. PT continues to recommend SNF. Goals Bed Mobility Goal Minimal Assistance Transfer Goal Minimal Assistance,Front Wheeled Walker Gait Goal Minimal Assistance,Front Wheel Walker Gait Distance 25 Other Goals improve bed mobility, transfers, ambulation using FWW CGA 50 ft up/down 3 steps L rail ascending CGA Days to Meet Goals 10 Frequency of Treatment Frequency Of Treatment Once a Day Treatment Plan Physical Therapy Treatment Plan Bed Mobility Training,Transfer Training,Gait Training, Therapeutic Exercise,Balance Retraining,Discharge Planning, Hot or Cold Pack,Neuromuscular Re-ed,Coordination Retraining ,Manual Therapy Precautions Lumbar Precautions Log Roll,No Twisting,Limit Bending,Lifting Restriction of 10 lbs Recommendations To Nursing Amount of Assist Needed Mechanical Lift Discharge Recommendations PT Discharge Recommendations SNF Rehab Transportation Needs at Discharge Wheelchair/Cabulance,Stretcher /Ambulance
--- NOTE | 2024-02-24 11:23 | CM.DPNOTE ---
Addendum entered by Stacy Gonzáles [place] 02/24/24 16:33: Per Stanley at [facility], able to accept. Per Samia at , able to accept PP. Someone from family/pt would have to call front office to sign ppwk/pay over phone prior to admission. Attempted to review plan with pt, pt sleeping soundly. allowed to rest. PASRR needed P: anticipate dc tomorrow to [facility]. CM team will continue to follow closely Addendum entered by Stacy Gonzáles MOLASSES PREPARER 02/24/24 12:12: Per NURSE EXECUTIVE Felix, family in room and interested in discussing PP for SNF placement. MOLASSES PREPARER met with EMILY Hoff ([phone]) and pt in room. EMILY and Dtr Zunilda ([phone]) interested in helping pay privately for SNF rehab. Agreeable to $462/day cost, acknowledge 30 days up front required and will be reimbursed if uses less days. EMILY reports himself and Dtr will be very involved in formulating LTC plan whether that be increased CGs at home or transition to [facility]/LTC facility. Pt in agreement with plan. EMILY nad Pt interested in [facility] in home after dc from SNF if able to take pt home. MOLASSES PREPARER lvm with Samia from and emailed her with current details of the situation. Acceptance pending. P: hopeful for SNF dc to tomorrow PP acceptance pending. CM team will continue to follow closely Stacy Gonzáles [place] Original Note: DCP note MOLASSES PREPARER reviewed EMR. Currently pt under OBS status at this time. Per chart, pt has straight Medicare as primary and [employer] supplemental. no fractures identified from x-rays. With current medical need and ins criteria, pt will not qualify to have SNF rehab payed for by ins. MOLASSES PREPARER called Jaylene at [facility]. Cancelled referral. Appreciative of update. MOLASSES PREPARER met with Dr. Crook. Reviewed currently dcp options. Likely dc tomorrow with HH and spouse support/hired CGs with increased equipt. MOLASSES PREPARER met with pt in room. Reviewed current barriers to SNF placement. Pt does not wish to pay privately for SNF. Pt reports they are working on hiring CG in home for two days a week at this moment. Agreeable to HH, no preference. Hopeful for RN/PT/OT/SPRAYER AUTOMATIC SPRAY MACHINE/MOLASSES PREPARER. Spouse is working on getting more equipt from [employer]. Report already having a walker/wheelchair/cane. Trying to get hospital bed and bedside commode. MOLASSES PREPARER placed referral with [facility] based on rotating vendor calendar. Stanley kindly agreed to review for RN/PT/OT/SPRAYER AUTOMATIC SPRAY MACHINE/MOLASSES PREPARER. MOLASSES PREPARER completed f2f and order. MOLASSES PREPARER reviewed dcp with [facility] [place], will continue to treat and will arrange CG training for spouse, P: anticipate DC home tomorrow with [facility] to follow pending acceptance, spouse support, increased equip from [employer], and PP CG support. CM team will continue to follow closely. [place] Griffith
[2024-02-24 12:00] VITALS: BP 125/55; PULSE 77; RESP 18; TEMP 36.6; O2SAT 95
[2024-02-24 18:00] VITALS: BP 127/57; PULSE 75; TEMP 37.1; O2SAT 97
[2024-02-24 20:00] VITALS: BP 135/66; PULSE 95; RESP 17; TEMP 36.7; O2SAT 96
[2024-02-25 02:00] VITALS: BP 132/54; PULSE 67; RESP 16; TEMP 36.9; O2SAT 96
[2024-02-25 08:00] VITALS: BP 140/73; PULSE 90; RESP 18; TEMP 37; O2SAT 96
[2024-02-25] MEDS: lisinopriL 10 MG TABLET PO (08:14)
[2024-02-25] MEDS: SERTRALINE 50 MG TABLET 25 MG PO (08:14)
[2024-02-25] MEDS: ENOXAPARIN 40 MG/0.4 ML SYRINGE SUBCUT (08:14)
[2024-02-25] MEDS: INSULIN LISPRO 100 UNIT/ML 3ML VIAL SUBCUT ×2 (08:14→12:17)
[2024-02-25] MEDS: INSULIN NPH 100 UNIT/ML 10ML VIAL 35 UNIT SUBCUT (08:16)
--- NOTE | 2024-02-25 08:25 | PM.DS.1 ---
History of Present Illness History of Present Illness Chief complaint: Back and hip pain Narrative: 83-year-old female with a past medical history of sarcoidosis migraine headaches frequent urinary tract infections with urinary incontinence diabetes hypertension hyperlipidemia. Patient lives at home with her here in [place]. She has had decreasing mobility over the last year or so. She has known history of arthritis arthritis particularly in her spine and it in her hip. She gets along well with a walker and a cane in her house. She does have a wheelchair on occasion she uses this when she goes outside of the home. She has had increasing difficulty with back pain. In last 48 hours she has had significant hip pain. She denies any recent injury to the area or falls. She says she can stand up but the pain is severe. She feels like she is going to lose her balance. And she has now not mobile because of the syrup beer pain in her hip. Patient was brought to the emergency department yesterday for similar complaints of back and hip pain. Patient received IV pain medication was discharged back home after thorough evaluation. Patient comes in today brought in again by her because of pain and unable to ambulate. Patient had laboratory tests x-ray imaging done. Patient also had a social group worker evaluation consultation to discuss best next steps as far as care goes. She was admitted to the hospital for observation for further evaluation diagnosis and help with next steps as far as care goes. Discharge Providers Provider Date of admission: 02/23/24 14:31 Discharge Date: 02/25/24 Primary care physician: Cruz Crook MD Consults: 02/23/24 01:12 Consult to FOAM CUTTING SUPERVISOR - Field Crops Harvest Machine Operator Stat Comment: Field Crops Harvest Machine Operator Consult needed for:: Unable to care for self Comment: Can't walk due to back/hip pain. CT shows arthritis/degenerative changes only. unable to care for at home, interested in rehab? Consult to Physical Therapy Evaluate & Treat Comment: Physician Instructions: Evaluate and Treat 02/23/24 16:29 Consult to Discharge Planning Routine Comment: Consult to Physical Therapy Evaluate & Treat Comment: Physician Instructions: Evaluate and Treat 02/24/24 11:38 Consult to Home Health Routine Comment: Reason For Exam: RN/PT/OT/HEALTH RECORDS TECHNOLOGY TEACHER/FOAM CUTTING SUPERVISOR Discharge provider: Cruz Crook MD Summary Hospital Course Discharge Diagnosis: Intractable back pain due to degenerative disc disease of lumbar spine with spinal stenosis with patient unable to ambulate Osteoarthritis of lumbar spine number Osteoarthritis of hip Insulin-dependent diabetes Hypertension Generalized anxiety disorder Hyperlipidemia Hospital Course: Degenerative disc disease of lumbar spine with severe neuroforaminal narrowing at L5-S1 consistent with spinal stenosis. Patient was in the emergency room twice. For back pain. Patient unable to go home due to difficulty with ambulating. Her who is frail and elderly could no longer move the patient. Patient was admitted for further pain management and social group worker evaluation for safe discharge plan. Ultimately patient was deemed adequate pain control. She had limited success with physical therapy. Plan will be [facility]. Osteoarthritis of hip. Patient was given Tylenol and hydrocodone for pain. Type 2 diabetes insulin dependent. Patient's blood sugars were managed with insulin Hypertension. Blood pressure looks good continue with lisinopril. Generalized anxiety disorder. Patient on sertraline Hyperlipidemia. DVT prophylaxis no Lovenox Exam Vital Signs (past 8 hours): - 02/25/24 02:00 Temperature 98.5 F Pulse Rate 67 Respiratory Rate 16 Blood Pressure 132/54 L Pulse Oximetry 96 Oxygen Flow Rate 0 Oxygen Delivery Method Room Air Oxygen Flow Rate 0 Objective Labs 02/24/24 04:15 02/24/24 04:15 [facility] Medical History (Updated 02/23/24 @ 14:57 by Margot Tran DO) Anemia Weakness COVID-19 virus infection Sarcoidosis Chronic cough Migraines Headache Rheumatic fever Mumps Chicken pox Anemia History of recurrent ear infection Irregular menstrual cycle Heavy menstrual period Fibroids History of urinary incontinence Kidney stones Kidney disease Frequent UTI Hypothyroidism Diabetes mellitus Hypertension Hyperlipidemia Heart failure Surgical History Anesthesia Status post tubal ligation History of lithotripsy Status post hysterectomy with oophorectomy Status post cholecystectomy Status post appendectomy Family History Brother Diabetes mellitus Father Heart disease Mother Heart disease Social History marital status: household members: spouse Smoking Status: Never smoker alcohol intake: never substance use type: does not use Discharge Plan Discharge Plan Patient Disposition: Home Transfer to: [facility] Provider Discharge Comment: For skilled rehabilitation Discharge orders & Medications Prescriptions: New hydrocodone-acetaminophen 5-325 mg Tablet 1 tab PO BID Qty: 30 0RF acetaminophen 325 mg Tablet 650 mg PO Q6H PRN (Reason: Fever/Mild Pain (1-3)) Qty: 30 0RF Continued Novolin N NPH U-100 Insulin 100 unit/mL suspension 25 unit SUBCUT QDAY (DME) DISABLED PARKING PERMIT See Rx Instructions .ROUTE .MEDSUPPLY Qty: 1 0RF Rx Instructions: I find this patient to be medically disabled and qualified for disabled parking as indicated, and signed, on the accompanying Disabled Parking Application for Individuals. sertraline 25 mg tablet 25 mg PO DAILY Qty: 90 1RF Rx Instructions: takes at 1400 metformin 1,000 mg tablet 1,000 mg PO BID Rx Instructions: takes at 1400 and 1800 lisinopril 10 mg tablet 10 mg PO DAILY estradiol 0.5 mg tablet 0.5 mg PO DAILY Follow up/Referrals: Cruz Crook MD [Primary Care Provider] - Visit Report/Discharge Packet Stand Alone Forms: Patient Portal/API, Stroke Signs & Symptoms Discharge Data Primary Care Provider: Cruz Crook Attending Provider: Cruz Crook Admit Date/Time: 02/23/24 14:31 Quality VTE Deep Vein Thrombosis/Pulmonary Embolism Present on Admission: No IH PROFEE Charge Codes Discharge inpatient/observation: [id number]
--- NOTE | 2024-02-25 11:11 | CM.DPNOTE ---
DCP Note CHEESE COOK reviewed EMR. Per Armaan, pt cleared to dc to SNF today. CHEESE COOK completed PASRR. CHEESE COOK gave PASRR/signed med list to CC Serena, who kindly agreed to send to [facility] with remaining dc information. Per Marylou at , need family to come sign paperwork and pay for services prior to being able to accept. Can p/u pt between 2-2:30pm. CHEESE COOK updated RN/FACILITY SECURITY OFFICER/gave RN report number. CHEESE COOK met with pt and spouse in room. Remain in agreement with plan. Acknowledge it will be private pay and is in agreement to pay 30 day cost up front. Spouse reports he went to their office and already completed paperwork and payment. CHEESE COOK emailed [facility] with updated plan to dc to . [facility] appreciates update. P: dc today to [facility] between 2-2:30pm. CM team will continue to follow as needed CLEVELAND Griffith
--- NOTE | 2024-02-25 11:41 | PT.IPTN ---
Current Diagnoses Other chronic pain (02/23/24) Low back pain, unspecified (02/23/24) Dorsalgia, unspecified (02/23/24) Physical Therapy Treatment Note M2 PT-IP Current Condition Start: 02/23/24 13:20 Freq: Status: Active Protocol: Document 02/23/24 11:40 AB (Rec: 02/23/24 13:37 AB [id number]) Physical Therapy Current Condition Current Condition Evaluation Date 02/23/24 Treatment Diagnosis back pain; difficulty in walking Onset Date 02/23/24 M3 PT-IP Subjective Start: 02/23/24 13:20 Freq: Status: Active Protocol: Document 02/25/24 12:19 TS (Rec: 02/25/24 12:31 TS [id number]) Subjective Physical Therapy Visit Type Type Treatment Note Visit Start Time 11:41 Visit Stop Time 12:07 Number of CERTIFIED TOWER CLIMBER Visits 2 Physical Therapy Visit Comments Patient Comments Pt found resting in bed, reports she's been sleeping most of the day, feels her pain might be a little better. She is agreeable to PT. Therapy Pain Assessment Pain When Pain Assessed At Rest Pain Present Pain Present Pain Reported Location Left Hip Intensity 4 Scale Used Numeric (0 - 10) Back Intensity 6 Scale Used Numeric (0 - 10) Description Aching Pain Management Techniques Distraction,Modification of Treatment,Re-positioning, Timing of Activity with Medications M4 PT-IP Mobility and Gait Start: 02/23/24 13:20 Freq: Status: Active Protocol: Document 02/25/24 12:19 TS (Rec: 02/25/24 12:31 TS [id number]) PT-Bed Mobility Assessment Rolling Type of Rolling Log Rolling Level of Assist Maximal Assistance,1 Person Assistance Supine to Sit Supine to Sit Maximum Assistance,1 Person Assistance Scooting Scooting to Edge of Bed Maximum Assistance PT-Transfer Assessment Sit to and From Stand Sit to and from Stand Minimal Assistance,1 Person Assistance Equipment Transfer Assistive Device Gait Belt,Front Wheeled Walker Orthotic/Prosthetic Devices or Brace: No Transfers Transfer Destination Chair Transfer Technique Stand Step Pivot Transfer Ability Level of Assist Moderate Assistance,1 Person Assistance Comments Mobility Comments Supine to sit MaxA with cues for sequencing and logroll technique. STS from bed Malissa with FWW, pt reports pain wbering on LLE. She performs stand step pivot to chair with small shuffling steps and use of FWW, she requries extra time to complete transfer. Pt was left in chair, all needs met. Gait Assessment Comments Gait Comments Stand step pivot to chair PT-Balance Assessment Sitting Balance and Reactions Static Sitting Balance Ability Fair Dynamic Sitting Balance Ability Poor Standing Balance and Reactions Static Standing Balance Ability Fair Dynamic Standing Balance Ability Poor Comments Other Balance Tests/Deviations/Treatment Has a posterior lean sitting : EOB at times and requires use of handrails to maintain balance. M5 PT-IP Objective Assessments Start: 02/23/24 13:20 Freq: Status: Active Protocol: Document 02/23/24 11:40 AB (Rec: 02/23/24 13:37 AB [id number]) Orientation Orientation/Cognition Level of Alertness Confusional State Orientation Name Safety Awareness Decreased Safety Awareness Memory Description Short Term Impaired,Snf Impaired Strength Lower Extremity Strength Assessment Bilaterally Impaired Comments Strength Comments LLE: 3-/5 RLE 3+/5 M6 PT-IP Treatment Start: 02/23/24 13:20 Freq: Status: Active Protocol: Document 02/25/24 12:19 TS (Rec: 02/25/24 12:31 TS [id number]) Physical Therapy Treatment Education Education Provided Safety M7 PT-IP Assessment and Plan Start: 02/23/24 13:20 Freq: Status: Active Protocol: Document 02/25/24 12:19 TS (Rec: 02/25/24 12:31 TS [id number]) PT Summary Assessment and Plan Potential Rehabilitation Potential Fair Summary Impairments Pain,ROM,Strength,Balance, Coordination,Sensation,Tone, Cognition,Bed Mobility, Transfers,Gait,Activity Tolerance Progress Towards Goals Slow Progress due to Pain Assessment Summary Netta continues to make slow progress with her mobility. She continues to require MaxA with max cues for bed mobility. She completed a stand step pivot transfer to the chair ModA. Pain in her back and L hip continue to be her biggest limitations. She is also fearful to move. PT continues to recommend SNF. Goals Bed Mobility Goal Minimal Assistance Transfer Goal Minimal Assistance,Front Wheeled Walker Gait Goal Minimal Assistance,Front Wheel Walker Gait Distance 25 Other Goals improve bed mobility, transfers, ambulation using FWW CGA 50 ft up/down 3 steps L rail ascending CGA Days to Meet Goals 10 Frequency of Treatment Frequency Of Treatment Once a Day Treatment Plan Physical Therapy Treatment Plan Bed Mobility Training,Transfer Training,Gait Training, Therapeutic Exercise,Balance Retraining,Discharge Planning, Hot or Cold Pack,Neuromuscular Re-ed,Coordination Retraining ,Manual Therapy Precautions Lumbar Precautions Log Roll,No Twisting,Limit Bending,Lifting Restriction of 10 lbs Recommendations To Nursing Amount of Assist Needed 2 Person Assist Discharge Recommendations PT Discharge Recommendations SNF Rehab Transportation Needs at Discharge Wheelchair/Cabulance
[2024-02-25 12:00] VITALS: BP 113/63; PULSE 82; RESP 18; O2SAT 95
== END 2024-02-25 14:19 ==
LOC: ED 07:23 → AC 14:56
PROVIDERS: Admitting Provider Family Medicine; Emergency Provider Emergency Medicine; PCP Family Medicine; Referring Provider Emergency Medicine; Visit Provider Family Medicine
DX: M16.11 Unilateral primary osteoarthritis, right hip (principal); M54.50 Low back pain, unspecified; G89.29 Other chronic pain; E11.9 Type 2 diabetes mellitus without complications; I10 Essential (primary) hypertension; F41.9 Anxiety disorder, unspecified; E78.5 Hyperlipidemia, unspecified; Z79.4 Long term (current) use of insulin
CPT/HCPCS: 36415; 72131; 73502; 80048; 80053; 81001; 81003; 82962; 85025; 96372; 96374; 97163; 97530; 99283; 99284; G0378; J1170; J1650; J1815

== ENCOUNTER → 2024-09-23 10:29 | Outpatient (CLI) | payer MEDICARE, OTHER, SELFPAY ==
[2024-02-23 14:41] VITALS: BMI 26.5
[2024-09-23 12:06] LABS: Add Manual Diff / Slide Review NO; Basophils Absolute Auto 0 /uL (0-100); Basophils Percent Auto 0.7 % (0-2); Eosinophils Absolute Auto 100 /uL (0-450); Eosinophils Percent Auto 2.3 % (2-4); Hemoglobin 13.1 g/dL (12.0-16.0); Lymphocytes Absolute Auto 1800 /uL (1100-4500); Lymphocytes Percent Auto 32.8 % (25-40); Mean Corpuscular HGB Conc 33.6 % (30-36); Mean Corpuscular Hemoglobin 31.9 PG (26-34); Mean Corpuscular Volume 94.8 fL (80-100); Monocytes Absolute Auto 600 /uL (0-900); Monocytes Percent Auto 11.3 % (3-14); Neutrophils Absolute Auto 2900 /uL (1500-7000); Neutrophils Percent Auto 52.9 % (50-75); Platelet Count 237 X10^3/uL (150-400); Red Blood Cell Count 4.12 X10^6/uL (4.0-5.2); White Blood Cell Count 5.4 X10^3/uL (4.5-11.0)
[2024-09-23 12:33] LABS: Alanine Aminotransferase 18 IU/L (<35); Albumin 3.8 g/dL (3.5-5.0); Albumin Globulin Ratio 1.4 (1.0-2.8); Alkaline Phosphatase 54 U/L (38-126); Aspartate Aminotransferase 23 IU/L (14-36); BUN Creatinine Ratio 24.7 (6-22); Bilirubin Total 0.6 mg/dL (0.2-1.3); Blood Urea Nitrogen 19 mg/dL (7-17); Calcium 9.4 mg/dL (8.4-10.2); Carbon Dioxide 23 mmol/L (22-32); Chloride 105 mmol/L (98-107); Estimated Glomerular Filt Rate > 60 mL/min (>60); Globulin 2.8 g/dL (1.7-4.1); Glucose 192 mg/dL (80-110); HEMOLYSIS 15 (0-50); Potassium 4.6 mmol/L (3.4-5.1); Sodium 137 mmol/L (137-145); Total Protein 6.6 g/dL (6.3-8.2)
[2024-09-23 12:35] LABS: Hemoglobin A1C% w Est Avg Glu 6.4 % (4.0-6.0)
[2024-09-23 13:02] LABS: TSH w/ Reflex to FT4 1.59 uIU/mL (0.47-4.68)
== END ==
PROVIDERS: PCP Family Medicine; Referring Provider Family Medicine; Visit Provider Family Medicine
DX: E11.9 Type 2 diabetes mellitus without complications (principal); I10 Essential (primary) hypertension; E78.2 Mixed hyperlipidemia
CPT/HCPCS: 36415; 80053; 83036; 84443; 85025

== ENCOUNTER 2024-09-27 11:16 | Inpatient (IN) | payer MEDICARE, OTHER, SELFPAY ==
[2024-02-23 14:41] VITALS: BMI 26.5
[2024-09-27] VITALS (13 sets, daily range): BP systolic 132–177; BP diastolic 61–84; PULSE 98–114; RESP 14–20; TEMP 36.8–37.6; O2SAT 92–97; BMI 28.1
--- NOTE | 2024-09-27 11:21 | DI.RAD.S_ITS ---
PROCEDURE: XR CHEST 1V INDICATIONS: preop TECHNIQUE: One view of the chest was acquired. COMPARISON: [facility], CR, XR CHEST 1V, 12/05/2022, 16:16. FINDINGS: Surgical changes and devices: Cholecystectomy clips. Lungs and pleura: Lungs are clear. Stable right basilar calcified granuloma. No pleural effusions or pneumothorax. Mediastinum: Mediastinal contours appear normal. Heart size is normal. Bones and chest wall: No suspicious bony lesions. Overlying soft tissues appear unremarkable. IMPRESSION: No acute cardiopulmonary abnormality is seen. Dictated by: Lucia Lentz MD, PhD on 09/27/2024 at 11:57 Approved by: Lucia Lentz MD, PhD on 09/27/2024 at 11:58
--- NOTE | 2024-09-27 11:21 | DI.RAD.S_ITS ---
PROCEDURE: XR HIP W PEL IF DONE RT 2V INDICATIONS: hip fracture suspected TECHNIQUE: AP pelvis with lateral view(s) of the right hip(s). COMPARISON: [facility], CR, XR HIP W PEL IF DONE RT 2V, 02/23/2024, 13:00. FINDINGS: Bones: Comminuted, displaced, angulated right femur intertrochanteric fracture. Soft tissues: The visualized bowel gas pattern is normal. No suspicious soft tissue calcifications. IMPRESSION: Right femur intertrochanteric fracture. Dictated by: Lucia Lentz MD, PhD on 09/27/2024 at 11:57 Approved by: Lucia Lentz MD, PhD on 09/27/2024 at 11:57
[2024-09-27] MEDS: ONDANSETRON 4 MG/2 ML INJ IV (11:26)
[2024-09-27] MEDS: HYDROMORPHONE 0.5 MG INJ IV ×2 (11:27→12:56)
--- NOTE | 2024-09-27 11:38 | EKG_ITS ---
[address] [address] Test Date: 2024-09-27 Pat Name: Netta Mahmood Department: [facility] Room: Gender: Female Hotel Engineer: MICKY : 1940 Requested By: Order Number: [id number] Reading MD: Sixto Felix Measurements Intervals [place] Rate: 108 P: 40 IN: 156 QRS: 3 QRSD: 62 T: 8 QT: 354 QTc: 474 Interpretive Statements Sinus tachycardia Possible Inferior infarct , age undetermined Electronically Signed On 09-27-2024 18:29:16 PST by Sixto Felix
[2024-09-27 12:04] LABS: Add Manual Diff / Slide Review NO; Basophils Absolute Auto 0 /uL (0-100); Basophils Percent Auto 0.3 % (0-2); Eosinophils Absolute Auto 200 /uL (0-450); Eosinophils Percent Auto 2.8 % (2-4); Hematocrit 37.6 % (36-46); Lymphocytes Absolute Auto 2000 /uL (1100-4500); Lymphocytes Percent Auto 29.8 % (25-40); Mean Corpuscular HGB Conc 34.6 % (30-36); Mean Corpuscular Hemoglobin 32.3 PG (26-34); Mean Corpuscular Volume 93.3 fL (80-100); Monocytes Absolute Auto 600 /uL (0-900); Monocytes Percent Auto 9.6 % (3-14); Neutrophils Absolute Auto 3800 /uL (1500-7000); Neutrophils Percent Auto 57.5 % (50-75); Platelet Count 239 X10^3/uL (150-400); Red Blood Cell Count 4.03 X10^6/uL (4.0-5.2); White Blood Cell Count 6.7 X10^3/uL (4.5-11.0)
[2024-09-27 12:10] LABS: INR 1.1 (0.9-1.3); Prothrombin Time 12.3 SECONDS (9.4-12.5)
[2024-09-27 12:17] LABS: Alanine Aminotransferase 20 IU/L (<35); Albumin 3.9 g/dL (3.5-5.0); Albumin Globulin Ratio 1.3 (1.0-2.8); Alkaline Phosphatase 65 U/L (38-126); Aspartate Aminotransferase 27 IU/L (14-36); BUN Creatinine Ratio 28.8 (6-22); Bilirubin Total 0.7 mg/dL (0.2-1.3); Blood Urea Nitrogen 19 mg/dL (7-17); Calcium 8.6 mg/dL (8.4-10.2); Carbon Dioxide 19 mmol/L (22-32); Chloride 107 mmol/L (98-107); Estimated Glomerular Filt Rate > 60 mL/min (>60); Globulin 3.1 g/dL (1.7-4.1); Glucose 213 mg/dL (80-110); HEMOLYSIS 27 (0-50); Potassium 4.5 mmol/L (3.4-5.1); Sodium 139 mmol/L (137-145)
--- NOTE | 2024-09-27 12:35 | ED.FALL ---
HPI - Fall General Chief Complaint: Fall Stated Complaint: GLF with potential R hip fx Time Seen by Provider: 09/27/24 11:21 Mode of arrival: EMS History of Present Illness HPI Narrative: this is an 84-year-old female with a history of type 2 diabetes brought in by ambulance after a ground level fall. Patient was seen for right hip pain with clinical findings to suggest hip fracture. States that she was in her normal state of health before this happened. Denies fevers chest pain shortness of breath. Related Data Home Medications Medication Instructions Recorded Confirmed insulin NPH isoph U-100 human 100 24 unit SUBCUT QDAY 03/19/23 09/27/24 unit/mL subcutaneous suspension (Novolin N NPH U-100 Insulin isophane) Previous Rx's Medication Instructions Recorded acetaminophen 325 mg tablet 650 mg (2 x 325 mg) PO Q6H PRN 02/25/24 Fever/Mild Pain (1-3) #30 tabs hydrocodone 5 mg-acetaminophen 325 1 tab PO BID #30 tabs 02/25/24 mg tablet lisinopril 10 mg tablet 10 mg PO DAILY #90 tabs 04/06/24 metformin 1,000 mg tablet 1,000 mg PO BID #180 tabs 04/06/24 estradiol 0.5 mg tablet 0.5 mg PO DAILY #90 tabs 05/23/24 valacyclovir 1 gram tablet 2,000 mg (2 x 1 gram) PO BID PRN 09/15/24 cold sores #30 tabs sertraline 25 mg tablet 25 mg PO DAILY #90 tabs 09/20/24 Allergies Allergy/AdvReac Type Severity Reaction Status Date / Time No Known Drug Allergies Allergy Verified 09/27/24 11:23 Patient History Medical History Anemia Weakness COVID-19 virus infection Sarcoidosis Chronic cough Migraines Headache Rheumatic fever Mumps Chicken pox Anemia History of recurrent ear infection Irregular menstrual cycle Heavy menstrual period Fibroids History of urinary incontinence Kidney stones Kidney disease Frequent UTI Hypothyroidism Diabetes mellitus Hypertension Hyperlipidemia Heart failure Surgical History Anesthesia Status post tubal ligation History of lithotripsy Status post hysterectomy with oophorectomy Status post cholecystectomy Status post appendectomy Family History Brother Diabetes mellitus Father Heart disease Mother Heart disease Social History marital status: household members: spouse Smoking Status: Never smoker alcohol intake: never substance use type: does not use Smoking Status: Never smoker Exam Initial Vital Signs Initial Vital Signs: Vital Signs Temperature 98.2 F 09/27/24 11:16 Pulse Rate 104 H 09/27/24 11:16 Respiratory Rate 14 09/27/24 11:16 Blood Pressure 173/74 H 09/27/24 11:16 Pulse Oximetry 95 09/27/24 11:16 Oxygen Delivery Method Room Air 09/27/24 11:16 Const General: cooperative and No acute distress HENMT Head: normocephalic and atraumatic Mouth: moist mucous membranes Eyes Pupils: PERRL EOM: EOM intact bilaterally Neck Neck: supple Chest Chest: normal inspection of the chest Resp Effort & Inspection: normal respiratory effort Auscultation: clear to auscultation bilaterally Cardio Rate: regular rate Rhythm: regular rhythm Heart Sounds: no murmurs Back/Spine/Pelvis Back: normal to inspection Skin General: no rashes or lesions noted and warm Neuro General: patient alert, patient oriented x3 and moves all extremities Speech: speech normal Extrem Other: Tender over the right hip. Call this is stable. Shortening and rotation of the right lower extremity she has intact light touch sensation capillary refill in the right foot dorsalis pedis pulses present Course Orders Ordered: ED Orders 09/27/24 11:21 Chest [XR chest 1V] Stat XR hip w pel if done RT 2V Stat EKG-12 Lead Stat 09/27/24 11:54 CBC Auto Diff [Complete Blood Count AUTO DIFF] Stat CMP [Comprehensive Metabolic Panel] Stat PT [Prothrombin Time INR] Stat Estradiol (Estradiol 1 Mg Tablet) 0.5 mg PO DAILY SANGEETHA Hydromorphone HCl (Hydromorphone 0.5 Mg Inj) 0.5 mg IV Q2H PRN PRN Reason: Pain, Severe (7-10) Dextrose (D10w) 100 mls @ 999 mls/hr IV PRN PRN PRN Reason: Hypoglycemia Insulin Human Lispro (Insulin Lispro 100 Unit/Ml 3ml Vial) 0 unit SUBCUT ACHS SANGEETHA; Protocol Last Admin: 09/27/24 17:20 Dose: 3 unit Documented By: SHASTA Co-signed By: HERON Insulin Human NPH (Insulin Nph 100 Unit/Ml 10ml Vial) 12 unit SUBCUT DAILY [facility] Lisinopril (Lisinopril 10 Mg Tablet) 10 mg PO DAILY [facility] Metformin HCl (Metformin Hcl 500 Mg Tablet) 1,000 mg PO BID [facility] Naloxone HCl (Naloxone 0.4 Mg/Ml Vial) 0.2 mg IV Q2MIN PRN PRN Reason: Opiate Reversal Ondansetron HCl (Ondansetron 4 Mg Odt) 4 mg PO Q8HR PRN PRN Reason: Nausea And Vomiting Oxycodone HCl (Oxycodone Ir 5 Mg Tablet) 5 mg PO Q3H PRN PRN Reason: Pain, Moderate (4-6) Last Admin: 09/27/24 15:15 Dose: 5 mg Documented By: SHASTA Sennosides (Sennosides 8.6 Mg Tablet) 17.2 mg PO BEDTIME PRN PRN Reason: constipation Sertraline HCl (Sertraline 50 Mg Tablet) 25 mg PO BEDTIME SANGEETHA Discontinued Medications Hydrocodone Bitart/Acetaminophen (Hydrocodone/Acet 5/325 Tablet) 1 tab PO BID [facility] Hydromorphone HCl (Hydromorphone 0.5 Mg Inj) 0.5 mg IV NOW ONE Stop: 09/27/24 11:22 Last Admin: 09/27/24 11:27 Dose: 0.5 mg Documented By: TANIKA Hydromorphone HCl (Hydromorphone 0.5 Mg Inj) 0.5 mg IV NOW ONE Stop: 09/27/24 12:49 Last Admin: 09/27/24 12:56 Dose: 0.5 mg Documented By: GLORIA Ondansetron HCl (Ondansetron 4 Mg/2 Ml Inj) 4 mg IV NOW ONE Stop: 09/27/24 11:22 Last Admin: 09/27/24 11:26 Dose: 4 mg Documented By: TANIKA Consultations Consultation #1: discussed with Orthopedics, Dr. Calvert, will consult, no surgery planned today Consultation #2: discussed with Dr. Bennett, on-call for the patient's primary care provider, accepts admission Vital Signs Vital signs: Vital Signs - 8 hr 09/27/24 11:16 09/27/24 11:22 09/27/24 11:22 Temperature 98.2 F Pulse Rate 104 H 107 H Respiratory Rate 14 Blood Pressure 173/74 H 173/74 H Pulse Oximetry 95 93 Oxygen Delivery Method Room Air 09/27/24 11:30 09/27/24 11:30 09/27/24 11:54 Temperature Pulse Rate 98 H 105 H Respiratory Rate Blood Pressure 163/70 H Pulse Oximetry 96 96 Oxygen Delivery Method Room Air 09/27/24 11:54 09/27/24 12:00 09/27/24 12:00 Temperature Pulse Rate 109 H Respiratory Rate Blood Pressure 177/79 H 176/84 H Pulse Oximetry 97 Oxygen Delivery Method 09/27/24 12:30 09/27/24 12:30 09/27/24 13:00 Temperature Pulse Rate 101 H 107 H Respiratory Rate Blood Pressure 158/70 H Pulse Oximetry 93 94 Oxygen Delivery Method Room Air 09/27/24 13:00 Temperature Pulse Rate Respiratory Rate Blood Pressure 140/62 Pulse Oximetry Oxygen Delivery Method - Fall Lab Data Lab results narrative: CBC with differential is unremarkable, glucose is elevated, CMP is otherwise unremarkable,, INR is normal 09/27/24 11:54 09/27/24 11:54 Labs: Lab Results 09/27/24 Range/Units 11:54 WBC 6.7 (4.5-11.0) X10^3/uL RBC 4.03 (4.0-5.2) X10^6/uL Hgb 13.0 (12.0-16.0) g/dL Hct 37.6 (36-46) % MCV 93.3 (80-100) fL MCH 32.3 (26-34) PG MCHC 34.6 (30-36) % RDW 13.0 (11.6-14.8) % Plt Count 239 (150-400) X10^3/uL Neut % (Auto) 57.5 (50-75) % Lymph % (Auto) 29.8 (25-40) % Murray % (Auto) 9.6 (3-14) % Eos % (Auto) 2.8 (2-4) % Baso % (Auto) 0.3 (0-2) % Neut # (Auto) 3800 (3885-3406) /uL Lymph # (Auto) 2000 (8678-3569) /uL Murray # (Auto) 600 (0-900) /uL Eos # (Auto) 200 (0-450) /uL Baso # (Auto) 0 (0-100) /uL PT 12.3 (9.4-12.5) SECONDS INR 1.1 (0.9-1.3) Sodium 139 (137-145) mmol/L Potassium 4.5 (3.4-5.1) mmol/L Chloride 107 (98-107) mmol/L Carbon Dioxide 19 L (22-32) mmol/L BUN 19 H (7-17) mg/dL Creatinine 0.66 (0.52-1.04) mg/dL Estimated GFR > 60 (>60) mL/min BUN/Creatinine Ratio 28.8 H (6-22) Glucose 213 H (80-110) mg/dL Calcium 8.6 (8.4-10.2) mg/dL Total Bilirubin 0.7 (0.2-1.3) mg/dL AST 27 (14-36) IU/L ALT 20 (<35) IU/L Alkaline Phosphatase 65 (38-126) U/L Total Protein 7.0 (6.3-8.2) g/dL Albumin 3.9 (3.5-5.0) g/dL Globulin 3.1 (1.7-4.1) g/dL Albumin/Globulin Ratio 1.3 (1.0-2.8) Point of Care Testing Glucose POC 193 Imaging Data Extremity x-ray #1: My Impression: Independently reviewed right hip x-ray, there is a intertrochanteric hip fracture Radiologist's Impression: [address] [address] XRay Report Signed Patient: Netta Mahmood MR#: [id number] : 1940 Acct:[id number] Age/Sex: 84 / F Date of Service: 09/27/24 Loc: ED Accession Number: [id number] Procedure: XR hip w pel if done RT 2V Ordering Provider: Andres Church MD PROCEDURE: XR HIP W PEL IF DONE RT 2V INDICATIONS: hip fracture suspected TECHNIQUE: AP pelvis with lateral view(s) of the right hip(s). COMPARISON: [facility], CR, XR HIP W PEL IF DONE RT 2V, 02/23/2024, 13:00. FINDINGS: Bones: Comminuted, displaced, angulated right femur intertrochanteric fracture. Soft tissues: The visualized bowel gas pattern is normal. No suspicious soft tissue calcifications. IMPRESSION: Right femur intertrochanteric fracture. Dictated by: Lucia Lentz MD, PhD on 09/27/2024 at 11:57 Approved by: Lucia Lentz MD, PhD on 09/27/2024 at 11:57 Chest x-ray: My Impression: independently reviewed chest x-ray, no acute findings. Radiologist's Impression: Radiology report reviewed, no acute abnormality ECG Data Interpretation: ECG shows sinus rhythm at 1:[address] segment changes inferior Q-waves MDM Narrative Medical decision making narrative: 84-year-old female with a ground level fall and right hip fracture. No other injuries apparent. Patient is medically stable otherwise. We will be admitted to the hospitalist service with ortho consulting Discharge Plan Departure Patient Disposition: Admitted As Inpatient Clinical Impression: Ground-level fall Closed fracture of right hip Qualifiers: Encounter type: initial encounter Qualified Code(s): S72.001A - Fracture of unspecified part of neck of right femur, initial encounter for closed fracture Admit Date/Time: 09/27/24 13:20 Admit Provider: Billie Wesley
--- NOTE | 2024-09-27 13:24 | PM.HP.IH.1 ---
History of Present Illness History of Present Illness Date Patient Seen: 09/27/24 Time Patient Seen: 14:57 Chief complaint: GLF with potential R hip fx Narrative: Pt is a 84yo woman with HTN, DM type 2 on insulin, anxiety, hyperlipidemia who presented after ground level fall. The pt reports that she missed a step when trying to get to her walker. She fell to the ground, hitting her right hip and elbow. She had instant pain in her right hip. The pt denies any associated chest pain, SOB, urinary incontinence, biting of her tongue. She was feeling well and at baseline prior to the fall. The pt was brought to the ED via ambulance. She had reassuring labs with stable H/H, negative CXR and EKG. Xray showed hip fracture. [facility] Medical History (Updated 09/27/24 @ 12:45 by Andres Church MD) Anemia Weakness COVID-19 virus infection Sarcoidosis Chronic cough Migraines Headache Rheumatic fever Mumps Chicken pox Anemia History of recurrent ear infection Irregular menstrual cycle Heavy menstrual period Fibroids History of urinary incontinence Kidney stones Kidney disease Frequent UTI Hypothyroidism Diabetes mellitus Hypertension Hyperlipidemia Heart failure Surgical History Anesthesia Status post tubal ligation History of lithotripsy Status post hysterectomy with oophorectomy Status post cholecystectomy Status post appendectomy Family History Brother Diabetes mellitus Father Heart disease Mother Heart disease Social History marital status: household members: spouse Smoking Status: Never smoker alcohol intake: never substance use type: does not use Meds Home Medications and Allergies Home Medications Medication Instructions Recorded Confirmed Type DISABLED PARKING PERMIT #1 ea 02/28/20 09/12/24 Rx insulin NPH isoph U-100 human 100 25 unit SUBCUT QDAY 03/19/23 09/12/24 History unit/mL subcutaneous suspension (Novolin N NPH U-100 Insulin isophane) acetaminophen 325 mg tablet 650 mg (2 x 325 mg) PO Q6H PRN 02/25/24 09/12/24 Rx Fever/Mild Pain (1-3) #30 tabs hydrocodone 5 mg-acetaminophen 325 1 tab PO BID #30 tabs 02/25/24 09/12/24 Rx mg tablet lisinopril 10 mg tablet 10 mg PO DAILY #90 tabs 04/06/24 09/12/24 Rx metformin 1,000 mg tablet 1,000 mg PO BID #180 tabs 04/06/24 09/12/24 Rx estradiol 0.5 mg tablet 0.5 mg PO DAILY #90 tabs 05/23/24 09/12/24 Rx blood sugar diagnostic (Blood #50 ea 07/13/24 09/12/24 Rx Glucose Test strips) valacyclovir 1 gram tablet 2,000 mg (2 x 1 gram) PO BID PRN 09/15/24 Rx cold sores #30 tabs sertraline 25 mg tablet 25 mg PO DAILY #90 tabs 09/20/24 Rx Allergies Allergy/AdvReac Type Severity Reaction Status Date / Time No Known Drug Allergies Allergy Verified 09/27/24 11:23 Exam Vital Signs (past 8 hours): - 09/27/24 11:16 09/27/24 11:22 09/27/24 11:22 Temperature 98.2 F Pulse Rate 104 H 107 H Respiratory Rate 14 Blood Pressure 173/74 H 173/74 H Pulse Oximetry 95 93 Oxygen Delivery Method Room Air 09/27/24 11:30 09/27/24 11:30 09/27/24 11:54 Temperature Pulse Rate 98 H 105 H Respiratory Rate Blood Pressure 163/70 H Pulse Oximetry 96 96 Oxygen Delivery Method Room Air 09/27/24 11:54 09/27/24 12:00 09/27/24 12:00 Temperature Pulse Rate 109 H Respiratory Rate Blood Pressure 177/79 H 176/84 H Pulse Oximetry 97 Oxygen Delivery Method 09/27/24 12:30 09/27/24 12:30 09/27/24 13:00 Temperature Pulse Rate 101 H 107 H Respiratory Rate Blood Pressure 158/70 H Pulse Oximetry 93 94 Oxygen Delivery Method Room Air 09/27/24 13:00 Temperature Pulse Rate Respiratory Rate Blood Pressure 140/62 Pulse Oximetry Oxygen Delivery Method Oxygen Delivery Method Room Air Narrative Exam Narrative: Gen: NAD, resting in bed, appears well HEENT: normocephalic, atraumatic Neck: no JVD CV: RRR, no murmurs Resp: clear to auscultation bilaterally Abd: soft, nontender, nondistended Ext: no edema Neuro: no gross deficits Objective Labs 09/27/24 11:54 09/27/24 11:54 Labs: Laboratory Results - last 24 hr 09/27/24 11:54 WBC 6.7 RBC 4.03 Hgb 13.0 Hct 37.6 MCV 93.3 MCH 32.3 MCHC 34.6 RDW 13.0 Plt Count 239 Neut % (Auto) 57.5 Lymph % (Auto) 29.8 [place] % (Auto) 9.6 Eos % (Auto) 2.8 Baso % (Auto) 0.3 Neut # (Auto) 3800 Lymph # (Auto) 2000 [place] # (Auto) 600 Eos # (Auto) 200 Baso # (Auto) 0 PT 12.3 INR 1.1 Sodium 139 Potassium 4.5 Chloride 107 Carbon Dioxide 19 L BUN 19 H Creatinine 0.66 Estimated GFR > 60 BUN/Creatinine Ratio 28.8 H Glucose 213 H Calcium 8.6 Total Bilirubin 0.7 AST 27 ALT 20 Alkaline Phosphatase 65 Total Protein 7.0 Albumin 3.9 Globulin 3.1 Albumin/Globulin Ratio 1.3 Assessment & Plan Assessment & Plan narrative: Pt is a 84yo woman with HTN, DM type 2 on insulin, anxiety, hyperlipidemia who presented after ground level fall. Found to have right femur intertrochanteric fracture. 1) Right femur intertrochanteric fracture: - Ortho consulted, appreciate ongoing care - Plan for operative management tomorrow - Pain management with oxycodone, dilaudid as needed - Stool softeners as needed due to narcotic pain medication 2) HTN: - Continue home Lisinopril 3) DM Type 2: Last A1C 08/2024 6.4, excellent control - 12 units NPH due to NPO status for surgery - Continue Metformin BID - Lispro sliding scale - ACHS glucose checks while eating, q6hr when NPO 4) Anxiety: - Continue home Sertraline 5) Chronic back pain: - Hold home Hydrocodone while on Oxycodone here DVT ppx: Hold Lovenox due to upcoming surgery, SCDs FEN: Carb control diet until NPO at midnight Dispo: Pending surgical intervention, appropriate PT work after. Pt did not have a good experience at [facility] in the past. Time-Based Coding :: [TOTAL MINUTES] spent with patient and on the chart (including review of chart, obtaining history, exam, reviewing outside data, placing orders, documenting exam and treatment plan, and counseling patient) on [DATE]. PROFEE Environmental Monitoring Technician Document charge(s): No Charge Codes Initial inpatient/observation care: 43819
[2024-09-27] MEDS: OXYCODONE IR 5 MG TABLET PO ×2 (15:15→20:42)
[2024-09-27] MEDS: INSULIN LISPRO 100 UNIT/ML 3ML VIAL SUBCUT ×2 (17:20→20:51)
--- NOTE | 2024-09-27 17:25 | PM.CN ---
History of Present Illness Consult details Date Patient Seen: 09/27/24 Time Patient Seen: 17:26 Chief complaint: GLF with potential R hip fx Narrative: 84-year-old female who earlier today tripped and fell landing on her right side sustaining a right proximal femur fracture. Patient states that she pretty much uses a walker all the time when ambulating throughout the house. We will use a wheelchair when she is outside of the house. She is unsure how exactly she fell but denies any loss of consciousness or syncopal episodes. Sounds like she was walking to her walker when she fell. Denies any other significant injuries from the fall. She did complain of some soreness to the right elbow but that has resolved. Meds Home Medications and Allergies Home Medications Medication Instructions Recorded Confirmed Type insulin NPH isoph U-100 human 100 24 unit SUBCUT QDAY 03/19/23 09/27/24 History unit/mL subcutaneous suspension (Novolin N NPH U-100 Insulin isophane) acetaminophen 325 mg tablet 650 mg (2 x 325 mg) PO Q6H PRN 02/25/24 09/27/24 Rx Fever/Mild Pain (1-3) #30 tabs hydrocodone 5 mg-acetaminophen 325 1 tab PO BID #30 tabs 02/25/24 09/27/24 Rx mg tablet lisinopril 10 mg tablet 10 mg PO DAILY #90 tabs 04/06/24 09/27/24 Rx metformin 1,000 mg tablet 1,000 mg PO BID #180 tabs 04/06/24 09/27/24 Rx estradiol 0.5 mg tablet 0.5 mg PO DAILY #90 tabs 05/23/24 09/27/24 Rx valacyclovir 1 gram tablet 2,000 mg (2 x 1 gram) PO BID PRN 09/15/24 09/27/24 Rx cold sores #30 tabs sertraline 25 mg tablet 25 mg PO DAILY #90 tabs 09/20/24 09/27/24 Rx Allergies Allergy/AdvReac Type Severity Reaction Status Date / Time No Known Drug Allergies Allergy Verified 09/27/24 11:23 Exam Vital Signs (past 8 hours): - 09/27/24 11:16 09/27/24 11:22 09/27/24 11:22 Temperature 98.2 F Pulse Rate 104 H 107 H Respiratory Rate 14 Blood Pressure 173/74 H 173/74 H Pulse Oximetry 95 93 Oxygen Delivery Method Room Air Oxygen Flow Rate 09/27/24 11:30 09/27/24 11:30 09/27/24 11:54 Temperature Pulse Rate 98 H 105 H Respiratory Rate Blood Pressure 163/70 H Pulse Oximetry 96 96 Oxygen Delivery Method Room Air Oxygen Flow Rate 09/27/24 11:54 09/27/24 12:00 09/27/24 12:00 Temperature Pulse Rate 109 H Respiratory Rate Blood Pressure 177/79 H 176/84 H Pulse Oximetry 97 Oxygen Delivery Method Oxygen Flow Rate 09/27/24 12:30 09/27/24 12:30 09/27/24 13:00 Temperature Pulse Rate 101 H 107 H Respiratory Rate Blood Pressure 158/70 H Pulse Oximetry 93 94 Oxygen Delivery Method Room Air Oxygen Flow Rate 09/27/24 13:00 09/27/24 13:30 09/27/24 13:30 Temperature Pulse Rate 105 H Respiratory Rate Blood Pressure 140/62 132/64 Pulse Oximetry 92 Oxygen Delivery Method Room Air Oxygen Flow Rate 09/27/24 14:00 09/27/24 14:00 09/27/24 14:30 Temperature Pulse Rate 107 H Respiratory Rate Blood Pressure 135/61 138/63 Pulse Oximetry 92 Oxygen Delivery Method Oxygen Flow Rate 09/27/24 14:30 09/27/24 14:45 09/27/24 16:00 Temperature 98.2 F 98.4 F Pulse Rate 108 H 113 H 109 H Respiratory Rate 16 15 Blood Pressure 147/84 H 139/74 Pulse Oximetry 92 93 93 Oxygen Delivery Method Oxygen Flow Rate 0 0 Oxygen Delivery Method Room Air Oxygen Flow Rate 0 Narrative Exam Narrative: Elderly female who is alert and oriented x3 in no apparent distress. No sign of any obvious injury to the bilateral upper extremities. Normal range of motion of bilateral upper extremities with no pain with range of motion. Compartments are soft. No sign of any instability to the shoulder elbow wrist bilaterally. Right leg is shortened and rotated but compartments are soft. Skin is intact. Able to dorsiflex and plantar flex the toes and ankle. Palpable pedal pulses. Left leg free of any injury. No sign of any shortening or rotation. Compartments are soft and normal range of motion of the toes and ankle. With palpable pedal pulses. Objective Labs 09/27/24 11:54 09/27/24 11:54 Labs: Laboratory Results - last 24 hr 09/27/24 11:54 WBC 6.7 RBC 4.03 Hgb 13.0 Hct 37.6 MCV 93.3 MCH 32.3 MCHC 34.6 RDW 13.0 Plt Count 239 Neut % (Auto) 57.5 Lymph % (Auto) 29.8 [place] % (Auto) 9.6 Eos % (Auto) 2.8 Baso % (Auto) 0.3 Neut # (Auto) 3800 Lymph # (Auto) 2000 [place] # (Auto) 600 Eos # (Auto) 200 Baso # (Auto) 0 PT 12.3 INR 1.1 Sodium 139 Potassium 4.5 Chloride 107 Carbon Dioxide 19 L BUN 19 H Creatinine 0.66 Estimated GFR > 60 BUN/Creatinine Ratio 28.8 H Glucose 213 H Calcium 8.6 Total Bilirubin 0.7 AST 27 ALT 20 Alkaline Phosphatase 65 Total Protein 7.0 Albumin 3.9 Globulin 3.1 Albumin/Globulin Ratio 1.3 PFSH Medical History Anemia Weakness COVID-19 virus infection Sarcoidosis Chronic cough Migraines Headache Rheumatic fever Mumps Chicken pox Anemia History of recurrent ear infection Irregular menstrual cycle Heavy menstrual period Fibroids History of urinary incontinence Kidney stones Kidney disease Frequent UTI Hypothyroidism Diabetes mellitus Hypertension Hyperlipidemia Heart failure Surgical History Anesthesia Status post tubal ligation History of lithotripsy Status post hysterectomy with oophorectomy Status post cholecystectomy Status post appendectomy Family History Brother Diabetes mellitus Father Heart disease Mother Heart disease Social History marital status: household members: spouse Tobacco & Substance Use Smoking Status: Never smoker alcohol intake: never substance use type: does not use Assessment & Plan Assessment & Plan narrative: Patient is status post fall resulting in a intertrochanteric proximal femur fracture on the right side. This will require surgical treatment to stabilize the fracture. We will plan on doing an intramedullary nail in order to stabilize the fracture. Surgery will be tomorrow on the . Patient will need to be NPO after midnight. The risk, benefits, alternatives, possible complications, operative course, and postop outcomes were discussed. Complications including but not limiting to bleeding, infection, fracture, nerve injury, continued pain postoperatively or instability postoperatively were discussed in detail. Medical complications including but not limited to deep venous thrombosis event, anesthesia complications with excessive bleeding, vascular events or cardiac events and other possible complications were discussed in detail. Need for postoperative rehabilitation and anticipated hospital stay and clinical course were discussed in detail. Patient acknowledges understanding and elects to proceed with surgery. Time-Based Coding :: [TOTAL MINUTES] spent with patient and on the chart (including review of chart, obtaining history, exam, reviewing outside data, placing orders, documenting exam and treatment plan, and counseling patient) on [DATE].
[2024-09-27] MEDS: SERTRALINE 50 MG TABLET 25 MG PO (20:45)
[2024-09-27] MEDS: METFORMIN HCL 500 MG TABLET 1000 MG PO (21:25)
[2024-09-28] VITALS (10 sets, daily range): BP systolic 105–145; BP diastolic 57–82; PULSE 88–119; RESP 12–18; TEMP 36.5–37.2; O2SAT 92–100; BMI 28.1
--- NOTE | 2024-09-28 | DI.RAD.S_ITS ---
PROCEDURE: XR HIP W PEL IF DONE RT 2V INDICATIONS: RIGHT HIP IM NAIL TECHNIQUE: Multiple intraoperative views of the hip were acquired. COMPARISON: [facility], EN, XR HIP W PEL IF DONE RT 2V, 09/27/2024, 11:27. [facility], CR, XR HIP W PEL IF DONE RT 2V, 02/23/2024, 13:00. FINDINGS: Bones: Multiple intraoperative views during right intertrochanteric fracture ORIF. Hardware appears appropriately positioned. Alignment is improved. IMPRESSION: Intraoperative views during intertrochanteric fracture ORIF with improved alignment. Dictated by: Brett Valentino M.D. on 09/28/2024 at 13:52 Approved by: Brett Valentino M.D. on 09/28/2024 at 13:52
[2024-09-28] MEDS: HYDROMORPHONE 0.5 MG INJ IV (01:23)
--- NOTE | 2024-09-28 04:40 | PC.NURSE ---
During NOC, pt confused, throwing covers off of self, and calling out for help. When asked what she needed help with, pt replied, I can't get out of bed. When asked the reason for wanting to get OOB, pt replied I do not know. Pt redirected back to bed. Pt then asked several times for her blood glucose to be measured; reported BG to pt, pt satisfied. Pt expressed anxiety about not being able to eat and timing of surgery; educated pt on NPO and unknown time of surgery but for sometime today (3/5). Provided pt with moist mouth swab. Pt resting comfortably, call light within reach, plan of care continues.
--- NOTE | 2024-09-28 08:40 | PM.PREOP ---
Pre-operative Note Interval Note History & Physical reviewed/Exam performed by Physician: Yes Changes to H&P: No H&P completed within 30 days and has changed as indicated here::
[2024-09-28] MEDS: METFORMIN HCL 500 MG TABLET 1000 MG PO (08:43)
[2024-09-28] MEDS: estradioL 1 MG TABLET 0.5 MG PO (08:43)
[2024-09-28] MEDS: OXYCODONE IR 5 MG TABLET PO ×3 (08:44→21:14)
--- NOTE | 2024-09-28 09:29 | PM.PN.IH.1 ---
Subjective Subjective Date Patient Seen: 09/28/24 Time Patient Seen: 09:29 Interval history: Patient seen and evaluated. Patient states she had no K night. She says she got a little bit confused she thought that she was home. She is complaining of hip pain. Pain medication helps. No complaints of chest pain lightheadedness dizziness or breathing concerns. Exam Vital Signs (past 8 hours): - 09/28/24 04:17 Temperature 97.7 F Pulse Rate 95 H Respiratory Rate 16 Blood Pressure 122/71 Pulse Oximetry 94 Oxygen Flow Rate 0 Oxygen Delivery Method Room Air Oxygen Flow Rate 0 Narrative Exam Narrative: Gen.: Alert oriented to person place and time this morning HEENT: Pupils equal round and reactive or mucosa is dry neck is supple Cardio: S1-S2 regular rate and rhythm no murmurs appreciated. Respiratory: Lungs are clear no wheezes or crackles Abdomen: Soft nontender no rebound or guarding no liver spleen enlargement no appreciable hernias Extremities: Warm dry perfused no edema Neurologic: Grossly intact. Objective Labs 09/27/24 11:54 09/27/24 11:54 Labs: Laboratory Results - last 24 hr 09/27/24 11:54 WBC 6.7 RBC 4.03 Hgb 13.0 Hct 37.6 MCV 93.3 MCH 32.3 MCHC 34.6 RDW 13.0 Plt Count 239 Neut % (Auto) 57.5 Lymph % (Auto) 29.8 [place] % (Auto) 9.6 Eos % (Auto) 2.8 Baso % (Auto) 0.3 Neut # (Auto) 3800 Lymph # (Auto) 2000 [place] # (Auto) 600 Eos # (Auto) 200 Baso # (Auto) 0 PT 12.3 INR 1.1 Sodium 139 Potassium 4.5 Chloride 107 Carbon Dioxide 19 L BUN 19 H Creatinine 0.66 Estimated GFR > 60 BUN/Creatinine Ratio 28.8 H Glucose 213 H Calcium 8.6 Total Bilirubin 0.7 AST 27 ALT 20 Alkaline Phosphatase 65 Total Protein 7.0 Albumin 3.9 Globulin 3.1 Albumin/Globulin Ratio 1.3 PFSH Medical History Anemia Weakness COVID-19 virus infection Sarcoidosis Chronic cough Migraines Headache Rheumatic fever Mumps Chicken pox Anemia History of recurrent ear infection Irregular menstrual cycle Heavy menstrual period Fibroids History of urinary incontinence Kidney stones Kidney disease Frequent UTI Hypothyroidism Diabetes mellitus Hypertension Hyperlipidemia Heart failure Surgical History Anesthesia Status post tubal ligation History of lithotripsy Status post hysterectomy with oophorectomy Status post cholecystectomy Status post appendectomy Family History Brother Diabetes mellitus Father Heart disease Mother Heart disease Social History marital status: household members: spouse Smoking Status: Never smoker alcohol intake: never substance use type: does not use Assessment & Plan Assessment and plan (1) Closed fracture of right hip: Qualifiers: Encounter type: initial encounter Qualified Code(s): S72.001A - Fracture of unspecified part of neck of right femur, initial encounter for closed fracture Status: Acute Plan Right hip fracture patient with ground level fall at home. Sustaining a hip fracture. Orthopedic has seen and evaluated patient. Patient has a past medical history of type 2 diabetes hypertension hyperlipidemia anxiety disorder. Patient's laboratory tests show no acute anemia or chronic kidney disease.Chest x-ray is normal. EKG shows mild sinus tachycardia with no acute ST or T-wave changes. Patient's blood pressures been stable. During her hospital stay patient's blood sugars been a little bit elevated. She is on insulin sliding scale and we will start Lantus. Medications are updated. Patient is medically stable for surgical procedure. Type 2 diabetes with oral medication management at home. Will go ahead and stop patient's metformin. Place patient on Lantus insulin at night and insulin sliding scale coverage. Patient's hemoglobin A1c is 6.4. Patient will have blood sugars per protocol. Insulin sliding scale per protocol and diabetic diet. Hypertension. Patient's blood pressures been stable during her hospital stay. She takes lisinopril for her blood pressure. This will be continued. Generalized anxiety disorder. Patient on sertraline she will continue with 25 mg once daily. Osteoarthritis with low back pain. 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 As outpatient will provide bisphosphonate therapy. DVT prophylaxis SCDs Time-Based Coding :: [TOTAL MINUTES] spent with patient and on the chart (including review of chart, obtaining history, exam, reviewing outside data, placing orders, documenting exam and treatment plan, and counseling patient) on [DATE]. PROFEE [employer]s Document charge(s): Yes Charge Codes Subsequent inpatient/observation care: [id number]
[2024-09-28] MEDS: INSULIN NPH 100 UNIT/ML 10ML VIAL 12 UNIT SUBCUT (09:40)
[2024-09-28] MEDS: SODIUM CHLORIDE 0.9% 1,000 ML 84 ML IV (10:46)
[2024-09-28] MEDS: LACTATED RINGERS 1,000 ML 42 ML IV (11:36)
[2024-09-28] MEDS: CEFAZOLIN 2 GM/100 ML PREMIX 100 ML IV ×2 (12:30→21:13)
--- NOTE | 2024-09-28 12:47 | SUR.OPER ---
Supine on padded [place] table with bilateral legs secured in padded positioning boots and suspended in positioning spars, operative leg in traction per surgeon. Head on one pillow. Arm on non-operative side secured on padded armboard <90 degrees abduction. Arm on operative side padded and resting across chest then secured with tape over sheet. Padded perineal post in place per surgeon.
--- NOTE | 2024-09-28 13:00 | CM.DANOTE ---
Initial DCP Assessment Visit Note Reviewed EMR and team rounds for pt's medical status and updates. Met with pt at bedside to introduce self and role, pt was found to be alert/oriented, but distracted by acute pain and NPO restrictions while she waits for surgery, which is scheduled for later this evening. Pt lives modified independently with her in their own home here in [place]. Her will transport her home once she's medically cleared for home d/c, likely another 2-days. Payor: Medicare PCP: Dr. Crook Pt is a 84 year-old F who presented to the ED via EMS yesterday afternoon following a GLF resulting in a R-hip fracture. Plan was made to admit her to the floor and have Ortho consult for hip fixation surgery. DCP will continue to follow and assist with final d/c assistance/resource recommendations. Discharge Planning/Care Management Advanced directive, confirm from FAMILY Start: 09/27/24 15:18 Freq: Q24H Status: Active Protocol: Document 09/27/24 15:18 LW (Rec: 09/27/24 16:23 LW [id number]) Advance Directive, confirm on record Time 16:22 Person contacted pt Copy received No CM Discharge Assessment Start: 09/28/24 12:58 Freq: Status: Active Protocol: Document 09/28/24 12:58 DPL (Rec: 09/28/24 13:00 DPL [id number]) Discharge Planning Assessment Assigned [employer] [place] Advance Directives? Yes Advance Directives on File No History Provided By Patient,Medical Record Has Patient been admitted in last 30 No days? Prior Living Arrangements House Household Members spouse Type of transporation used prior to Drives own vehicle admit Independent with ADL's No: modified independent with a walker Is patient alert and oriented? Yes Comment N/A Caregiver for Another No DME Already Rented / Owned FWW / Walker Comment Patient has grab bars near toilet and grab bars in shower , patient has shower chair but does not use it. Comment Pending PT/OT evals and recommendations after she has surgery. Barriers to Discharge No Discharge Plan Home Transportation Arrangement Family Referrals Initiated Shelter Additional Comment Will need new HH referral if patient and spouse ar agreeable Whiteboard Updated in Patient Room with Yes name and ext. # of [employer] Review Status In Process Please Provide Date Initial DC 09/28/24 Assessment Was Performed
[2024-09-28] MEDS: BUPIVACAINE 0.25% W/ EPI 30 ML VIAL INJ (13:07)
[2024-09-28] MEDS: TRANEXAMIC ACID 1,000 MG VIAL 1000 MG INJ (13:12)
--- NOTE | 2024-09-28 13:58 | P.OP_ITS ---
Operative Date/Time/Diagnoses Date of procedure: 09/28/24 Time of procedure: 12:59 Pre-op diagnosis: Right intertrochanteric hip fracture Post-op diagnosis: same Procedure & Clinicians Procedure: Open reduction internal fixation right intertrochanteric hip fracture with cephalomedullary vandana CPT code 92459 Same procedure as scheduled: Yes Indications: The patient is an 84-year-old female that sustained a ground level fall onto her right side yesterday and was found to have a displaced intertrochanteric hip fracture. She ambulates with a walker at baseline uses a wheelchair out of the home. She was admitted to the hospital and indicated for fixation of her displaced right hip fracture. The risks and benefits of the procedure have been discussed with the patient and given the opportunity to ask questions. The risks of surgery include but are not limited to infection, malunion, nonunion, persistence of pain, damage to nerves and blood vessels, posttraumatic arthritis, DVT, PE, cardiopulmonary complications and . The patient expressed a thorough understanding of the risks and benefits of surgery and has elected to proceed. Consent was signed Surgeon: Aleshia Call Click Yes if Unassisted: Yes Anesthesia Type: General and Local Operative Notes Findings: Displaced intertrochanteric hip fracture Fracture was reduced with traction and rotation on the fracture table. Closure Type: primary Specimen(s): none sent Prosthetic devices, grafts, tissues, transplants, or devices: Gao and nephew tri Gen InterTAN cephalomedullary vandana 10 x 18 125? 95/90 lag screw compression screw and 5 x 32.5 distal interlock screw Estimated Blood Loss (mL): 200 Blood products transfused: none Tourniquet time (min): 0 Procedure in detail: Procedure cephalomedullary nail intertrochanteric hip fracture the CPT code 53298 Side: Right Implant Gao and Nephew 10 x 18 cm cephalomedullary nail intertan Procedure: The patient was seen and the site of surgery was marked in the preoperative area. This was the right hip. Patient was brought to the operating room and placed on the operative table and general anesthesia was administered. The patient was positioned on the fracture table in standard fashion with a well-padded boots and a padded peroneal post. An SCD was on the contralateral leg. A formal time-out was called to confirm the patient's side and site of surgery administration of preoperative antibiotics. All were in agreement. The operative leg was then gently manipulated under fluoroscopic guidance to obtain a closed reduction in near anatomic alignment. At this point the operative extremity was prepped and draped in the standard sterile manner. The starting point was marked out using fluoroscopic guidance and marked on the skin. A guidewire was placed percutaneously and the starting point was obtained. Incision was made over the guidewire. An opening drill was inserted to the level of the lesser trochanter. The opening Reamer and guidewire were then removed. An 18 cm cephalomedullary nail was selected. The 10 x 18 cm nail was then slid into the canal. The nail was advanced to the proper depth and rotation. The guide for the cephalomedullary screw was then inserted into the external handle. An incision was made and the guide was placed down to the bone. A guidewire was placed to the proper depth into the femoral head and this was confirmed on AP and lateral imaging. The tip apex distance was evaluated and appropriate. This was measured. Next the outer cortex was drilled for the interlocking screw and the anti rotation bar was placed. The cephalomedullary screw length was then measured off the drill again. A 95 mm lag screw was selected and the corresponding interlocking compression screw. A guidewire was then over drilled and the lag screw placed. The anti rotation bar was removed and then the locking compression screws were placed and confirmed on biplanar fluoroscopy. The integrated compression screw was tightened. Attention was turned to the distal interlock. This was placed with the guide in the standard technique. AP and lateral images were captured in the or confirming alignment hardware placement. Wounds were irrigated and closed in layers with 0 Vicryl in the deep fascia. 2- 0 in the subcutaneous tissue and nilson in the skin. 0.25% Marcaine with epinephrine was injected into the incision sites for local anesthetic. Sterile dressings were applied. There no immediate complications. Surgical counts were correct. The patient tolerated the procedure well was taken to recovery room for formal radiographs. Postoperative plan. Weightbear as tolerated to the surgical extremity. Work with physical therapy and occupational therapy. Discharge by primary team. Likely senior living. Monitor hemoglobin and hematocrit postoperatively may require transfusion if needed. Encourage incentive spirometry. SCDs and Lovenox for DVT prophylaxis. Recommend Lovenox 4 weeks for hip fracture. Follow-up [facility] in 2 weeks for wound check and repeat x-rays. May shower with Aquacel dressing. May change of saturated. Complications: none Post-operative Condition: stable Disposition: PACU Plan for aftercare: Weightbear as tolerated with the assistive devices. Lovenox subcu x4 weeks postop for DVT prophylaxis. Follow up in [facility] in 2 weeks for staple removal and repeat x-rays.
[2024-09-28] MEDS: INSULIN REGULAR 100 UNIT/ML 3 ML VIAL IV (14:16)
[2024-09-28] MEDS: LACTATED RINGERS 1,000 ML 100 ML IV (16:47)
[2024-09-28] MEDS: INSULIN LISPRO 100 UNIT/ML 3ML VIAL SUBCUT ×2 (16:47→21:20)
--- NOTE | 2024-09-28 16:51 | PT-IP ANOTE ---
PT eval order received. checked on pt and pt asleep but woke up when PT talked to pt. pt refused PT. stated that it is too soon to move. pt dozing back to sleep. informed pt and family that a PT will check back tomorrow. nurse informed.
[2024-09-28] MEDS: SENNOSIDES 8.6 MG TABLET 17.2 MG PO (21:13)
[2024-09-28] MEDS: DOCUSATE 100 MG CAPSULE PO (21:13)
[2024-09-28] MEDS: SERTRALINE 50 MG TABLET 25 MG PO (21:15)
[2024-09-28] MEDS: ACETAMINOPHEN 325 MG TABLET 650 MG PO (21:16)
[2024-09-28] MEDS: BISACODYL 10 MG SUPP PR (21:16)
[2024-09-29] VITALS (7 sets, daily range): BP systolic 103–125; BP diastolic 50–67; PULSE 91–109; RESP 16–20; TEMP 36.6–37.1; O2SAT 93–96
[2024-09-29] MEDS: CEFAZOLIN 2 GM/100 ML PREMIX 100 ML IV (04:51)
[2024-09-29 06:33] LABS: Add Manual Diff / Slide Review NO; Basophils Absolute Auto 0 /uL (0-100); Basophils Percent Auto 0.2 % (0-2); Eosinophils Absolute Auto 0 /uL (0-450); Hematocrit 25.5 % (36-46); Hemoglobin 8.9 g/dL (12.0-16.0); Lymphocytes Absolute Auto 1600 /uL (1100-4500); Lymphocytes Percent Auto 15.9 % (25-40); Mean Corpuscular HGB Conc 34.8 % (30-36); Mean Corpuscular Hemoglobin 32.7 PG (26-34); Mean Corpuscular Volume 94.1 fL (80-100); Monocytes Absolute Auto 1400 /uL (0-900); Monocytes Percent Auto 14.1 % (3-14); Neutrophils Absolute Auto 6900 /uL (1500-7000); Neutrophils Percent Auto 69.8 % (50-75); Platelet Count 178 X10^3/uL (150-400); Red Blood Cell Count 2.71 X10^6/uL (4.0-5.2); Red Cell Distribution Width 13.4 % (11.6-14.8); White Blood Cell Count 9.9 X10^3/uL (4.5-11.0)
[2024-09-29 06:47] LABS: BUN Creatinine Ratio 28.2 (6-22); Blood Urea Nitrogen 31 mg/dL (7-17); Calcium 7.9 mg/dL (8.4-10.2); Carbon Dioxide 24 mmol/L (22-32); Chloride 103 mmol/L (98-107); Estimated Glomerular Filt Rate 50 mL/min (>60); Glucose 235 mg/dL (80-110); HEMOLYSIS < 15 (0-50); Potassium 4.5 mmol/L (3.4-5.1); Sodium 134 mmol/L (137-145)
[2024-09-29] MEDS: OXYCODONE IR 5 MG TABLET PO ×3 (08:38→15:25)
[2024-09-29] MEDS: ACETAMINOPHEN 325 MG TABLET 650 MG PO ×3 (08:39→20:30)
--- NOTE | 2024-09-29 08:39 | PT-IP ANOTE ---
PT reviews chart and checks in on pt who is eating and nsg states they are about ready to give pt pain medications and recommends PT check back. Will con't PT efforts.
[2024-09-29] MEDS: estradioL 1 MG TABLET 0.5 MG PO (08:41)
[2024-09-29] MEDS: DOCUSATE 100 MG CAPSULE PO ×2 (08:41→20:30)
[2024-09-29] MEDS: ENOXAPARIN 40 MG/0.4 ML SYRINGE SUBCUT (08:43)
[2024-09-29] MEDS: polyethylene glycoL 3350 17 GM POWD.PACK PO (08:43)
[2024-09-29] MEDS: INSULIN LISPRO 100 UNIT/ML 3ML VIAL SUBCUT ×4 (08:43→20:38)
[2024-09-29] MEDS: INSULIN NPH 100 UNIT/ML 10ML VIAL 12 UNIT SUBCUT (08:44)
--- NOTE | 2024-09-29 10:22 | PM.PNPO.1 ---
Subjective Subjective Date Patient Seen: 09/29/24 Time Patient Seen: 10:22 Interval history: Netta is sitting up in bed, talking with friends and family. She says she is comfortable. She has not been OOB w/ PT yet. She uses a walker at baseline and was in fact reaching for her walker when she fell. She is aware she will need SNF rehab prior to going home. Exam Vital Signs (past 8 hours): - 09/29/24 03:17 09/29/24 08:00 09/29/24 08:25 Temperature 98.2 F 98.3 F Pulse Rate 98 H 91 H 92 H Respiratory Rate 18 16 Blood Pressure 103/50 L 106/60 Pulse Oximetry 93 96 Oxygen Flow Rate 0 0 Oxygen Delivery Method Room Air Oxygen Flow Rate 0 Narrative Exam Narrative: 0/5 hip flexors, 3/5 quadriceps and hamstrings, 4/5 DF, PF, EHL on right. Sensation to light touch intact throughout RLE. Calf soft and compressible. Objective Labs 09/29/24 05:40 09/29/24 05:40 Labs: Laboratory Results - last 24 hr 09/29/24 05:40 WBC 9.9 RBC 2.71 L Hgb 8.9 L Hct 25.5 L MCV 94.1 MCH 32.7 MCHC 34.8 RDW 13.4 Plt Count 178 Neut % (Auto) 69.8 Lymph % (Auto) 15.9 L Garrett % (Auto) 14.1 H Eos % (Auto) 0.0 L Baso % (Auto) 0.2 Neut # (Auto) 6900 Lymph # (Auto) 1600 Garrett # (Auto) 1400 H Eos # (Auto) 0 Baso # (Auto) 0 Sodium 134 L Potassium 4.5 Chloride 103 Carbon Dioxide 24 BUN 31 H Creatinine 1.10 H Estimated GFR 50 L BUN/Creatinine Ratio 28.2 H Glucose 235 H Calcium 7.9 L PFSH Medical History Anemia Weakness COVID-19 virus infection Sarcoidosis Chronic cough Migraines Headache Rheumatic fever Mumps Chicken pox Anemia History of recurrent ear infection Irregular menstrual cycle Heavy menstrual period Fibroids History of urinary incontinence Kidney stones Kidney disease Frequent UTI Hypothyroidism Diabetes mellitus Hypertension Hyperlipidemia Heart failure Surgical History Anesthesia Status post tubal ligation History of lithotripsy Status post hysterectomy with oophorectomy Status post cholecystectomy Status post appendectomy Family History Brother Diabetes mellitus Father Heart disease Mother Heart disease Social History marital status: household members: spouse Smoking Status: Never smoker alcohol intake: never substance use type: does not use Assessment & Plan Post-op Assessment and plan (1) Fracture, intertrochanteric, right femur: Assessment and Plan narrative: 1) Currently receiving Lovenox 40mg daily for VTE prophylaxis. Continue for 4 weeks postop. 2) WBAT on RLE, should use walker at all times. 3) Pain control, disposition per hospitalist service. 4) F/u w/ [facility] in 2 weeks for wound check. Postoperative Procedures: Procedures Operation Date: 09/28/24 18:00 Actual Procedure Side Surgeon p ORIF Hip/Intramedullary Hip Screw Right Aleshia Call MD Postoperative day: 1
--- NOTE | 2024-09-29 11:34 | PT.IIE ---
Current Diagnoses Pain in left hip (09/27/24) Fracture of unspecified part of neck of right femur, initial encounter for closed fracture (09/27/24) Unspecified trochanteric fracture of right femur, initial encounter for closed fracture (09/27/24) Displaced intertrochanteric fracture of right femur, initial encounter for closed fracture (09/27/24) Surgery Performed Operation Date: 09/28/24 18:00 Actual Procedures p ORIF Hip/Intramedullary Hip Screw(Right) - Aleshia Call MD Surgical History (Last Reviewed 09/27/24 @ 17:27 by Derrick Calvert MD) Anesthesia History of lithotripsy Status post appendectomy Status post cholecystectomy Status post hysterectomy with oophorectomy Status post tubal ligation Medical History (Last Reviewed 09/27/24 @ 17:27 by Derrick Calvert MD) Anemia Anemia Chicken pox Chronic cough COVID-19 virus infection Diabetes mellitus Fibroids Frequent UTI Headache Heart failure Heavy menstrual period History of recurrent ear infection History of urinary incontinence Hyperlipidemia Hypertension Hypothyroidism Irregular menstrual cycle Kidney disease Kidney stones Migraines Mumps Rheumatic fever Sarcoidosis Weakness Physical Therapy Inpatient Evaluation/Re-Eval M1 PT/OT-IP Prior Functional Status Start: 09/29/24 08:32 Freq: NEEDED Status: Active Protocol: Document 09/29/24 10:45 MB (Rec: 09/29/24 11:34 MB [id number]) Medical Review Prior Functional Status Medical History Reviewed Yes Diet/Fluid Consistency Regular Communication Communicates some history, daughter, Sheyla, provides most, pt with anxiety Mobility and Gait Mod I to assistance from spouse with RW Activities of Daily Living and IADL's Mod I to assistance from spouse for ADLs, likes to quilt and quilting set up in basement and she has not been going down there (16 steps). Daughter reports that her father (pt's ) is having a more difficult time caring for her at home Social History Household Members spouse Living Arrangements House Number of Floors (Floors) Two Floors Number of Stairs To Enter/Railing? 3 steps with one rail on right and grab bar on left to enter OR 4 platform steps without rail to enter, 16 steps with rail to basement in house and does not have to go down there or steep ramp Home Environment Standard Height Toilet,Walk in Shower,Built-In Shower Seat Home Equipment Four Wheel Walker,Straight Cane,Manual Wheelchair,Hand Held Shower,Grab Bars In Shower Employment Status Retired M2 PT-IP Current Condition Start: 09/29/24 08:32 Freq: NEEDED Status: Active Protocol: Document 09/29/24 10:45 MB (Rec: 09/29/24 11:34 MB [id number]) Physical Therapy Current Condition Current Condition Evaluation Date 09/29/24 Treatment Diagnosis Fall and right intramedullary hip fracture s/p vandana M3 PT-IP Subjective Start: 09/29/24 08:32 Freq: NEEDED Status: Active Protocol: Document 09/29/24 10:45 MB (Rec: 09/29/24 11:34 MB [id number]) Subjective Physical Therapy Visit Type Type Initial Evaluation Visit Start Time 10:45 Visit Stop Time 11:15 Number of RAIL LOADER Visits 0 Physical Therapy Visit Comments Patient Comments Pt with anxiety and has trouble answering some questions and daughter assists Therapy Pain Assessment Pain When Pain Assessed At Rest Pain Present Pain Present Pain Reported Location right hip Intensity 6 Scale Used Numeric (0 - 10) M4 PT-IP Mobility and Gait Start: 09/29/24 08:32 Freq: NEEDED Status: Active Protocol: Document 09/29/24 10:45 MB (Rec: 09/29/24 11:34 MB [id number]) PT-Bed Mobility Assessment Rolling Type of Rolling Roll to Right Level of Assist Maximal Assistance,2 Person Assistance Supine to Sit Supine to Sit Total Assistance,2 Person Assistance,Head of Bed Elevated,Bedrails Sit to Supine Sit to Supine Total Assistance,2 Person Assistance Scooting Scooting to Edge of Bed Dependent Scooting Up and Down in Bed Dependent PT-Transfer Assessment Comments Mobility Comments Sitting balance with heavy traditional maori health practitioner of lower bed handle on left and right HOB rail CGA, encouragement and pt with posterior lean. BP and HR in RUE: supine 105/78, 111; pt becomes more anxious and confused EOB and BP and HR 68/ 40, 104. PT-Balance Assessment Sitting Balance and Reactions Static Sitting Balance Ability Poor Dynamic Sitting Balance Ability Poor M5 PT-IP Objective Assessments Start: 09/29/24 08:32 Freq: NEEDED Status: Active Protocol: Document 09/29/24 10:45 MB (Rec: 09/29/24 11:34 MB [id number]) Orientation Orientation/Cognition Level of Alertness Confusional State Orientation Name,Age,Birthday,Month,Year, Day of Week,Place,Situation Safety Awareness Decreased Safety Awareness Memory Description Short Term Impaired,Senior Living Impaired Gross Range of Motion Upper Extremity ROM Impairments Defer to OT Lower Extremity ROM Assessment Bilaterally Impaired Impairments Pt guards ROM both legs, even left leg in supine, and so formal ROM assessment challenging. Decreased ROM and strength B LEs and more so on the right LE and hip Strength Lower Extremity Strength Assessment Bilaterally Impaired Comments Strength Comments See comments above Coordination Assessment Gross Coordination Gross Coordination Impaired Assessment Coordination Comments Not formally tested d/t confusion and anxiety Sensation Assessment Comments Sensation Comments Not formally tested d/t confusion and anxiety M6 PT-IP Treatment Start: 09/29/24 08:32 Freq: NEEDED Status: Active Protocol: Document 09/29/24 10:45 MB (Rec: 09/29/24 11:34 MB [id number]) Physical Therapy Treatment Education Education Provided Weight Bearing Status,Safety Other Treatments Other Treatment Performed Discussion with daughter about family d/c goals for SNF, findings today as far as mobility, decreasing BP and talking with nsg about foul smelling loose stool M7 PT-IP Assessment and Plan Start: 09/29/24 08:32 Freq: NEEDED Status: Active Protocol: Document 09/29/24 10:45 MB (Rec: 09/29/24 11:34 MB [id number]) PT Summary Assessment and Plan Potential Rehabilitation Potential Fair Status of Condition at Evaluation Unstable Summary Impairments Pain,ROM,Strength,Balance, Coordination,Cognition,Bed Mobility,Transfers,Gait, Activity Tolerance Progress Towards Goals Slow Progress due to Medical Issues,Slow Progress due to Activity Tolerance Assessment Summary Pt is an 84 y/o female presenting with confusion and anxiety in setting of right intratrochanteric fracture and vandana placement. Pt with moderately high pain and apprehensive with movement and requiring +2 total assistance for bed mobility today. Upon sitting, pt is severely orthostatic. Pt incontinent of bowel once returned to supine , foul and loose in description and communicated with nsg. Left with OT and SILK SPOTTER . Pt will require SNF placement at d/c. Goals Bed Mobility Goal Contact Guard Assistance Transfer Goal Contact Guard Assistance,Front Wheeled Walker Gait Goal Contact Guard Assistance,Front Wheel Walker Gait Distance 25 Other Goals If pt progresses with gait, increase gait distance goal and attempt stair training with RW: platform step. Days to Meet Goals 5 Frequency of Treatment Frequency Of Treatment Once a Day Treatment Plan Physical Therapy Treatment Plan Bed Mobility Training,Transfer Training,Gait Training, Therapeutic Exercise,Balance Retraining,Post Op Education, Discharge Planning,Hot or Cold Pack,Neuromuscular Re-ed, Coordination Retraining,Manual Therapy Weight Bearing Status Weight Bearing Status Weight Bear as Tolerated Recommendations To Nursing Amount of Assist Needed Mechanical Lift Discharge Recommendations PT Discharge Recommendations SNF Rehab Transportation Needs at Discharge Wheelchair/Cabulance,Stretcher /Ambulance
--- NOTE | 2024-09-29 11:40 | OT.IP.EVAL ---
Current Diagnoses Pain in left hip (09/27/24) Fracture of unspecified part of neck of right femur, initial encounter for closed fracture (09/27/24) Unspecified trochanteric fracture of right femur, initial encounter for closed fracture (09/27/24) Displaced intertrochanteric fracture of right femur, initial encounter for closed fracture (09/27/24) Surgery Performed Operation Date: 09/28/24 18:00 Actual Procedures p ORIF Hip/Intramedullary Hip Screw(Right) - Aleshia Call MD Past Medical History (Last Reviewed 09/27/24 @ 17:27 by Derrick Calvert MD) Anemia Anemia Chicken pox Chronic cough COVID-19 virus infection Diabetes mellitus Fibroids Frequent UTI Headache Heart failure Heavy menstrual period History of recurrent ear infection History of urinary incontinence Hyperlipidemia Hypertension Hypothyroidism Irregular menstrual cycle Kidney disease Kidney stones Migraines Mumps Rheumatic fever Sarcoidosis Weakness Surgical History (Last Reviewed 09/27/24 @ 17:27 by Derrick Calvert MD) Anesthesia History of lithotripsy Status post appendectomy Status post cholecystectomy Status post hysterectomy with oophorectomy Status post tubal ligation Occupational Therapy Inpatient Evaluation/Re-Eval M1 PT/OT-IP Prior Functional Status Start: 09/29/24 08:32 Freq: NEEDED Status: Active Protocol: Document 09/29/24 10:45 MB (Rec: 09/29/24 11:34 MB [id number]) Medical Review Prior Functional Status Medical History Reviewed Yes Diet/Fluid Consistency Regular Communication Communicates some history, daughter, Sheyla, provides most, pt with anxiety Mobility and Gait Mod I to assistance from spouse with RW Activities of Daily Living and IADL's Mod I to assistance from spouse for ADLs, likes to quilt and quilting set up in basement and she has not been going down there (16 steps). Daughter reports that her father (pt's ) is having a more difficult time caring for her at home Social History Household Members spouse Living Arrangements House Number of Floors (Floors) Two Floors Number of Stairs To Enter/Railing? 3 steps with one rail on right and grab bar on left to enter OR 4 platform steps without rail to enter, 16 steps with rail to basement in house and does not have to go down there or steep ramp Home Environment Standard Height Toilet,Walk in Shower,Built-In Shower Seat Home Equipment Four Wheel Walker,Straight Cane,Manual Wheelchair,Hand Held Shower,Grab Bars In Shower Employment Status Retired M1 PT/OT-IP Prior Functional Status Start: 09/29/24 11:20 Freq: NEEDED Status: Active Protocol: Document 09/29/24 11:21 [facility] (Rec: 09/29/24 11:39 [facility] [id number]) Medical Review Prior Functional Status Communication I Mobility and Gait Pt uses FWW inside and outside . Activities of Daily Living and IADL's Pt's having to asisst as needed and having more difficulty to assist her. Social History Household Members spouse Living Arrangements House Number of Stairs To Enter/Railing? 4 platform steps from the garage, they have placed a ramp on the steps before but it was very steep. Home Environment Standard Height Toilet,Walk in Shower Home Equipment Four Wheel Walker,Straight Cane,Manual Wheelchair,Hand Held Shower,Grab Bars Near Toilet,Grab Bars In Shower M2 OT-IP Current Condition Start: 09/29/24 11:20 Freq: Status: Active Protocol: Document 09/29/24 11:21 [facility] (Rec: 09/29/24 11:39 [facility] [id number]) Occupational Therapy Current Condition Current Condition Evaluation Date 09/29/24 Treatment Diagnosis S/P right hip ORIF Diagnosis Onset Date 09/27/24 M3 OT- IP Subjective and Pain Start: 09/29/24 11:20 Freq: Status: Active Protocol: Document 09/29/24 11:21 [facility] (Rec: 09/29/24 11:39 [facility] [id number]) OT- Subjective Occupational Therapy Visit Type Type Initial Evaluation Visit Start Time 10:45 Visit Stop Time 11:20 Occupational Therapy Visit Comments Patient Comments Pt needing lots of encouragement to try to get up from her daughter. Patient/Caregiver Goals TO go home. Family wanting pt to go to skilled rehab. OT Pain Assessment Pain When Pain Assessed At Rest Pain Present Pain Present Pain Reported Location right hip Intensity 6 Scale Used Numeric (0 - 10) M4 OT- IP ADL's Start: 09/29/24 11:20 Freq: Status: Active Protocol: Document 09/29/24 11:21 [facility] (Rec: 09/29/24 11:39 [facility] [id number]) OT ADL-Grooming Comments OT Grooming Comments Pt needing assist to help wash her face. OT ADL-Oral Care Comments Oral Care Comments Not performed OT ADL-Dressing General Eval Lower Body Dressing Ability Total Assistance Areas Needing Assistance Socks OT ADL-Toileting General Evaluation Toileting Ability Total Assistance Areas Needing Assistance Perform Perineal Hygiene Comments OT Toileting Comments Montem[place]or in place. OT ADL-Bathing Comments OT Bathing Comments Sponge bath more appropriate at this time. M6 OT- IP Functional Cognition Start: 09/29/24 11:20 Freq: Status: Active Protocol: Document 09/29/24 11:21 [facility] (Rec: 09/29/24 11:39 [facility] [id number]) Cognitive Factors Limiting Selfcare Function Cognitive Ability Level of Alertness Alert Patient Orientation Name,Age,Birthday,Year,Day of Week,Place,Situation Attention Span Ability Capable of Focused Attention, Capable of Sustained Attention Ability to Follow Commands Able to Follow One Step Commands with Increased Time, Able to Follow One Step Commands with Repetition Cognitive Comments Cognitive Assessment Comments Pt needing lots of encouragement and very hard of hearing. Pt needing step by step directions to follow along with reassurance. Pt's daughter able to encourage pt. OT- Vision and Hearing OT- Hearing Assessment OT- Hearing Assessment Hearing Impaired OT- Vision Assessment Vision Assessment Comments To get more details next visit . Pt is very hard of hearing. M7 OT- IP Mobility and Balance Start: 09/29/24 11:20 Freq: Status: Active Protocol: Document 09/29/24 11:21 [facility] (Rec: 09/29/24 11:39 [facility] [id number]) OT- Bed Mobility Assessment Rolling Type of Rolling Bilateral Level of Assistance Maximum Assistance Supine to Sit Supine to Sit Assist Total Assistance,Head of Bed Elevated,Bedrails Sit to Supine Sit to Supine Assist Total Assistance,2 Person Assistance Scooting Scooting to Edge of Bed Total Assistance,1 Person Assistance OT-Transfer Assessment Comments Mobility Comments MAX AX 2 for rolling and pt able to assist with her RLE to begin to scoot to the edge of the bed and then needing heavy use of the green pad to help get upright. BP 105/78 supine and HOB up and then 68/ 40 once sitting on the edge of the bed . Back into supine 127/64. Pt also having the green pad soiled and called in nursing to assist. Patsy lift for mobility needs if pt having to get up. OT- Balance Assessment Sitting Balance and Reactions Static Sitting Balance Ability Poor Dynamic Sitting Balance Ability Poor M9 OT- IP Assessment and Plan Start: 09/29/24 11:20 Freq: Status: Active Protocol: Document 09/29/24 11:21 [facility] (Rec: 09/29/24 11:39 [facility] [id number]) OT Summary Assessment and Plan Potential Rehabilitation Potential Fair Analytic Complexity at Evaluation Moderate Summary OT Impairments Pain,Range of Motion,Strength, Balance,Functional Cognition, Functional Mobility,Self- Feeding,Grooming,Dressing, Toileting,Bathing,Toilet Transfers,Shower Transfers, Activity Tolerance Progress Towards Goals Slow Progress due to Pain,Slow Progress due to Medical Issues,Slow Progress due to Activity Tolerance,Slow Progress due to Cognition Assessment Summary Pt MOD complexity and main barriers are pain, steps, now dependent x2 for mobility needs. Pt will benefit from skilled rehab. Goals Self-Feeding Goal Independent Grooming Goal Independent Dressing Goal Moderate Assistance Toileting Goal Moderate Assistance Bathing Goal Moderate Assistance Toilet Transfer Goal Moderate Assistance Shower Transfer Goal Moderate Assistance Days to Meet Goals 30 Frequency of Treatment Other frequency 5x/week Treatment Plan OT Treatment Plan ADL Training,Functional Cognition Training,Functional Mobility,Patient/Family Education,Discharge Planning Other Treatment Recommendations and Next Transfer to the [facility] with MAX Treatment Focus AX 2 with FWW. Discharge Recommendations OT Discharge Recommendations SNF Rehab Transportation Needs at Discharge Stretcher/Ambulance
[2024-09-29] MEDS: SODIUM CHLORIDE 0.9% 500 ML 1000 ML IV (12:48)
[2024-09-29] MEDS: SODIUM CHLORIDE 0.9% 1,000 ML 100 ML IV (14:35)
[2024-09-29] MEDS: SERTRALINE 50 MG TABLET 25 MG PO (20:30)
[2024-09-29] MEDS: SENNOSIDES 8.6 MG TABLET 17.2 MG PO (20:30)
[2024-09-30] VITALS (8 sets, daily range): BP systolic 109–140; BP diastolic 62–81; PULSE 74–102; RESP 13–19; TEMP 36.5–37.2; O2SAT 95–97
[2024-09-30] MEDS: SODIUM CHLORIDE 0.9% 1,000 ML 100 ML IV (00:09)
[2024-09-30] MEDS: ACETAMINOPHEN 325 MG TABLET 650 MG PO ×3 (03:08→15:41)
[2024-09-30 05:33] LABS: Hematocrit 21.7 % (36-46); Hemoglobin 7.6 g/dL (12.0-16.0)
[2024-09-30] MEDS: OXYCODONE IR 5 MG TABLET PO (05:55)
--- NOTE | 2024-09-30 08:14 | PM.PN.IH.1 ---
Subjective Subjective Date Patient Seen: 09/30/24 Time Patient Seen: 08:15 Interval history: Patient seen and evaluated this morning. Patient had some orthostatic hypotension yesterday received some additional fluid yesterday blood pressure is better she's sitting in a chair. Has some mild episodes of confusion probably related to pain medication more than anything else. Patient is having normal bowel movements. She's eating breakfast. Patient's baseline at home is with a walker. Ambulation maybe challenging here for a few weeks. It may need fpc facility although she's not happy about that. Hemoglobin hematocrit quite low this morning. Discussed with orthopedics about transfusion. Due to age comorbid risk factors. Maybe appropriate. Exam Vital Signs (past 8 hours): - 09/30/24 04:00 Temperature 97.7 F Pulse Rate 98 H Respiratory Rate 18 Blood Pressure 134/72 Pulse Oximetry 96 Oxygen Flow Rate 0 Oxygen Delivery Method Room Air Oxygen Flow Rate 0 Narrative Exam Narrative: General alert no apparent distress recognizes me unsure if the day of the week. she's knows at [facility]. She's a little bit pale HEENT pupils equal round and reactive or mucosa is moist Cardio S1-S2 regular rate and rhythm slight systolic murmur Respiratory normal respiratory effort no wheezes or crackles Abdomen soft nontender Extremities. Right hip dressing intact some mild blood on the bandage. Not a significant amount of bruising. Not a lot of lower extremity edema warm dry perfused Objective Labs 09/30/24 05:12 09/29/24 05:40 Labs: Laboratory Results - last 24 hr 09/30/24 05:12 Hgb 7.6 L Hct 21.7 L PFSH Medical History Anemia Weakness COVID-19 virus infection Sarcoidosis Chronic cough Migraines Headache Rheumatic fever Mumps Chicken pox Anemia History of recurrent ear infection Irregular menstrual cycle Heavy menstrual period Fibroids History of urinary incontinence Kidney stones Kidney disease Frequent UTI Hypothyroidism Diabetes mellitus Hypertension Hyperlipidemia Heart failure Surgical History Anesthesia Status post tubal ligation History of lithotripsy Status post hysterectomy with oophorectomy Status post cholecystectomy Status post appendectomy Family History Brother Diabetes mellitus Father Heart disease Mother Heart disease Social History marital status: household members: spouse Smoking Status: Never smoker alcohol intake: never substance use type: does not use Assessment & Plan Assessment and plan (1) Osteoporotic hip fracture: Status: Acute Plan Right hip fracture patient with ground level fall at home. Patient uses a walker at home for ambulation. Postop day 2. Pain well controlled Had some hypotension resolved with fluids. Adjust pain medication I think it is causing some mild confusion. Acute blood loss anemia postoperatively hemoglobin less than 8. Due to patient's age comorbid health conditions transfusion may be appropriate I think there is a dilutional component as well. Incision looks good as far as bleeding goes and bruising. Confusion. Patient with metabolic encephalopathy due to patient's age surgery being in the hospital and medication. Patient is easily redirected. Confusion is mild at night. Will adjust pain medication as I think this is a contributing component. Type 2 diabetes with oral medication management at home. Blood sugars look good today. Continue with insulin sliding scale and oral insulin therapy. Hypertension. Patient's blood pressure was held yesterday due to hypotension blood pressure is looking better we will continue with lisinopril. Generalized anxiety disorder. Patient on sertraline she will continue with 25 mg once daily. Osteoarthritis with low back pain. 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 As outpatient will provide bisphosphonate therapy. Disposition and plan. Patient will need fpc facility at discharge. Ambulatory status at baseline is tenuous. Time-Based Coding :: [TOTAL MINUTES] spent with patient and on the chart (including review of chart, obtaining history, exam, reviewing outside data, placing orders, documenting exam and treatment plan, and counseling patient) on [DATE]. PROFEE Bead Wrapper Document charge(s): Yes Charge Codes Subsequent inpatient/observation care: [id number]
[2024-09-30] MEDS: lisinopriL 10 MG TABLET PO (08:30)
[2024-09-30] MEDS: estradioL 1 MG TABLET 0.5 MG PO (08:30)
[2024-09-30] MEDS: ENOXAPARIN 40 MG/0.4 ML SYRINGE SUBCUT (08:30)
[2024-09-30] MEDS: INSULIN LISPRO 100 UNIT/ML 3ML VIAL SUBCUT ×4 (08:31→21:05)
[2024-09-30] MEDS: INSULIN NPH 100 UNIT/ML 10ML VIAL 15 UNIT SUBCUT (08:32)
--- NOTE | 2024-09-30 09:22 | CM.DPNOTE ---
Addendum entered by CLEVELAND Allen 09/30/24 14:33: PASRR initiated, will need MD signature for hospital exempt discharge (Generalized Anxiety Disorder with PO 25mg Sertraline QPM). Placed in red folder and notified MD and MA. DCP spoke with Xiomy at [facility], sent requested clinicals via fax. It is reported an admission date of Thursday, 10/02. PT/OT evaluations recommending BLS/stretcher transport, NWA form completed. Scheduling pending final recommendation when dc imminent. Plan: Anticipating [facility] on Thursday, 10/02 or when medically stable. CM Team will continue to follow for coordination of discharge plans. PIERO Carreno Original Note: DCP Continued: Reviewed EMR and team rounds for pt?s medical status. Per handoff, referral has been sent to [facility], pending acceptance. DCP spoke with Xiomy at [facility] (ph#[phone]), requesting more clinical information about pt, DCP provided. It is reported pt is clinically accepted at [facility] and can transfer when medically stable. DCP notified pt Provider, Dr. Crook. It is reported that pt H/H is low and hypotensive. DCP relayed above to [facility] Admissions, still can accept pt over weekend if stable. Plan: [facility] SNF when medically stable. CM Team will continue to follow for coordination of discharge plans. PIERO Carreno
[2024-09-30] MEDS: TRAMADOL 50 MG TABLET PO ×2 (09:45→15:41)
--- NOTE | 2024-09-30 10:15 | PT.IPTN ---
Current Diagnoses Pain in left hip (09/27/24) Age-related osteoporosis with current pathological fracture, unspecified femur, initial encounter for fracture (09/27/24) Fracture of unspecified part of neck of right femur, initial encounter for closed fracture (09/27/24) Unspecified trochanteric fracture of right femur, initial encounter for closed fracture (09/27/24) Displaced intertrochanteric fracture of right femur, initial encounter for closed fracture (09/27/24) Surgery Performed Operation Date: 09/28/24 18:00 Actual Procedures p ORIF Hip/Intramedullary Hip Screw(Right) - Aleshia Call MD Physical Therapy Treatment Note M2 PT-IP Current Condition Start: 09/29/24 08:32 Freq: NEEDED Status: Active Protocol: Document 09/29/24 10:45 MB (Rec: 09/29/24 11:34 MB [id number]) Physical Therapy Current Condition Current Condition Evaluation Date 09/29/24 Treatment Diagnosis Fall and right intramedullary hip fracture s/p vandana M3 PT-IP Subjective Start: 09/29/24 08:32 Freq: NEEDED Status: Active Protocol: Document 09/30/24 10:15 AB (Rec: 09/30/24 12:28 AB [id number]) Subjective Physical Therapy Visit Type Type Treatment Note Visit Start Time 10:15 Visit Stop Time 11:00 Number of GENERAL ASSEMBLER Visits 0 Physical Therapy Visit Comments Patient Comments agreeable to do PT Therapy Pain Assessment Pain When Pain Assessed At Rest Pain Present Pain Present Pain Reported Location right hip Intensity 5 Scale Used increases with mobility Pain Management Techniques Apply Cold,Distraction, Modification of Treatment,Re- positioning,Timing of Activity with Medications M4 PT-IP Mobility and Gait Start: 09/29/24 08:32 Freq: NEEDED Status: Active Protocol: Document 09/30/24 10:15 AB (Rec: 09/30/24 12:28 AB [id number]) PT-Bed Mobility Assessment Sit to Supine Sit to Supine Total Assistance,2 Person Assistance,Bedrails PT-Transfer Assessment Sit to and From Stand Sit to and from Stand Maximum Assistance,1 Person Assistance,2 Person Assistance ,Use of Upper Extremities Equipment Transfer Assistive Device Gait Belt,Front Wheeled Walker Orthotic/Prosthetic Devices or Brace: No Transfers Transfer Destination Bed Transfer Technique Stand Step Pivot Transfer Ability Level of Assist Maximum Assistance,Total Assistance,2 Person Assistance ,Use of Upper Extremities Comments Mobility Comments pt sitting on the chair and requested to go back to bed. BP: 115/61. sit to stand max A x 2 a d max cues requiring x 3 attempts to stand. pt able to stand max A and max cues. initiated step pivot transfer to bed using fWW initially requiring max A x 2 and max cues but pt let go of FWW and reach for EOB during pivoting requiring total A x 2 to complete transfer. pt requiring max A for weight shifting and for moving BLE. pt required total A x 2 for scooting back on EOB and total A x 2 for sit to supine. total A x 2 for positioning in bed. max A x 1-2 for rolling L<>R. call light and table placed next to pt. Left pt with family in room. BP afer transfers: 126/65 Gait Assessment Comments Gait Comments unable at this time. M5 PT-IP Objective Assessments Start: 09/29/24 08:32 Freq: NEEDED Status: Active Protocol: Document 09/29/24 10:45 MB (Rec: 09/29/24 11:34 MB [id number]) Orientation Orientation/Cognition Level of Alertness Confusional State Orientation Name,Age,Birthday,Month,Year, Day of Week,Place,Situation Safety Awareness Decreased Safety Awareness Memory Description Short Term Impaired,Penitentiary Impaired Gross Range of Motion Upper Extremity ROM Impairments Defer to OT Lower Extremity ROM Assessment Bilaterally Impaired Impairments Pt guards ROM both legs, even left leg in supine, and so formal ROM assessment challenging. Decreased ROM and strength B LEs and more so on the right LE and hip Strength Lower Extremity Strength Assessment Bilaterally Impaired Comments Strength Comments See comments above Coordination Assessment Gross Coordination Gross Coordination Impaired Assessment Coordination Comments Not formally tested d/t confusion and anxiety Sensation Assessment Comments Sensation Comments Not formally tested d/t confusion and anxiety M6 PT-IP Treatment Start: 09/29/24 08:32 Freq: NEEDED Status: Active Protocol: Document 09/30/24 10:15 AB (Rec: 09/30/24 12:28 AB [id number]) Physical Therapy Treatment Education Education Provided Safety M7 PT-IP Assessment and Plan Start: 09/29/24 08:32 Freq: NEEDED Status: Active Protocol: Document 09/30/24 10:15 AB (Rec: 09/30/24 12:28 AB [id number]) PT Summary Assessment and Plan Potential Rehabilitation Potential Fair Summary Impairments Pain,ROM,Strength,Balance, Coordination,Sensation,Tone, Cognition,Bed Mobility, Transfers,Gait,Activity Tolerance Progress Towards Goals Slow Progress due to Pain,Slow Progress due to Activity Tolerance,Slow Progress - Other Assessment Summary pt requiring max A x 2 to total A x 2 for transfers using fWW and unable to ambulate at this time. pt will require SNF rehab to improve overall strength and mobility. Goals Bed Mobility Goal Contact Guard Assistance Transfer Goal Contact Guard Assistance,Front Wheeled Walker Gait Goal Contact Guard Assistance,Front Wheel Walker Gait Distance 25 Days to Meet Goals 10 Frequency of Treatment Frequency Of Treatment Once a Day Treatment Plan Physical Therapy Treatment Plan Bed Mobility Training,Transfer Training,Gait Training, Therapeutic Exercise,Balance Retraining,Post Op Education, Discharge Planning,Hot or Cold Pack,Neuromuscular Re-ed, Coordination Retraining,Manual Therapy Weight Bearing Status Weight Bearing Status Weight Bear as Tolerated Recommendations To Nursing Amount of Assist Needed Mechanical Lift Discharge Recommendations PT Discharge Recommendations SNF Rehab Transportation Needs at Discharge Wheelchair/Cabulance,Stretcher /Ambulance - PT assist max x 2 to total x 2
--- NOTE | 2024-09-30 10:18 | OT.IP.TRT ---
Current Diagnoses Pain in left hip (09/27/24) Age-related osteoporosis with current pathological fracture, unspecified femur, initial encounter for fracture (09/27/24) Fracture of unspecified part of neck of right femur, initial encounter for closed fracture (09/27/24) Unspecified trochanteric fracture of right femur, initial encounter for closed fracture (09/27/24) Displaced intertrochanteric fracture of right femur, initial encounter for closed fracture (09/27/24) Surgery Performed Operation Date: 09/28/24 18:00 Actual Procedures p ORIF Hip/Intramedullary Hip Screw(Right) - Aleshia Call MD Occupational Therapy Treatment Note M2 OT-IP Current Condition Start: 09/29/24 11:20 Freq: Status: Active Protocol: Document 09/29/24 11:21 [facility] (Rec: 09/29/24 11:39 [facility] [id number]) Occupational Therapy Current Condition Current Condition Evaluation Date 09/29/24 Treatment Diagnosis S/P right hip ORIF Diagnosis Onset Date 09/27/24 M3 OT- IP Subjective and Pain Start: 09/29/24 11:20 Freq: Status: Active Protocol: Document 09/30/24 11:57 [facility] (Rec: 09/30/24 12:05 [facility] [id number]) OT- Subjective Occupational Therapy Visit Type Type Treatment Note Visit Start Time 09:05 Visit Stop Time 09:43 Occupational Therapy Visit Comments Patient Comments Pt agreed to try to get up. OT Pain Assessment Pain When Pain Assessed At Rest Pain Present Pain Present Pain Reported Location right hip Intensity 5 Scale Used Numeric (0 - 10) M4 OT- IP ADL's Start: 09/29/24 11:20 Freq: Status: Active Protocol: Document 09/30/24 11:57 [facility] (Rec: 09/30/24 12:05 [facility] [id number]) OT ADL-Dressing General Eval Lower Body Dressing Ability Total Assistance Areas Needing Assistance Socks OT ADL-Toileting General Evaluation Toileting Ability Total Assistance Comments OT Toileting Comments Purewick in place. OT ADL-Bathing Comments OT Bathing Comments Sponge bath more appropriate at this time. M6 OT- IP Functional Cognition Start: 09/29/24 11:20 Freq: Status: Active Protocol: Document 09/30/24 11:57 [facility] (Rec: 09/30/24 12:05 [facility] [id number]) Cognitive Factors Limiting Selfcare Function Cognitive Comments Cognitive Assessment Comments Pt still needing lots of encouragement, simple concrete cues to follow, and reassurance. OT- Vision and Hearing OT- Vision Assessment Vision Assessment Comments Pt wears glasses for reading and distance. NO hearing aids but [place]. M7 OT- IP Mobility and Balance Start: 09/29/24 11:20 Freq: Status: Active Protocol: Document 09/30/24 11:57 [facility] (Rec: 09/30/24 12:05 [facility] [id number]) OT- Bed Mobility Assessment Rolling Type of Rolling Bilateral Level of Assistance Maximum Assistance Sit to Supine Sit to Supine Assist Total Assistance,2 Person Assistance Scooting Scooting to Edge of Bed Maximum Assistance,2 Person Assistance OT-Transfer Assessment Sit to and From Stand Sit to and from Stand Maximum Assistance,2 Person Assistance Transfers Transfer Ability Maximum Assistance,2 Person Assistance Technique Transfer Destination Bed,Chair Devices Transfer Assistive Devices Gait Belt,Front Wheeled Walker Comments Mobility Comments MAX AX 2 to come to stand after several attempts. Pt needing cues to push down on the FWW with her arms, Pt needing tactile and vc to weight shift and slide her feet. Pt also needing assist to help guide the FWW. Having to get the bed closer to her as pt trying to reach for the bed prior to getting all the way turned around with the FWW. AT this time safer to use tom lift on the pt. BP stable today. OT- Balance Assessment Sitting Balance and Reactions Static Sitting Balance Ability Fair Standing Balance and Reactions Static Standing Balance Ability Poor Dynamic Standing Balance Ability Poor M9 OT- IP Assessment and Plan Start: 09/29/24 11:20 Freq: Status: Active Protocol: Document 09/30/24 11:57 [facility] (Rec: 09/30/24 12:05 [facility] [id number]) OT Summary Assessment and Plan Potential Rehabilitation Potential Fair Analytic Complexity at Evaluation Moderate Summary OT Impairments Pain,Range of Motion,Strength, Balance,Functional Cognition, Functional Mobility,Self- Feeding,Grooming,Dressing, Toileting,Bathing,Toilet Transfers,Shower Transfers, Activity Tolerance Progress Towards Goals Slow Progress due to Pain,Slow Progress due to Medical Issues,Slow Progress due to Activity Tolerance,Slow Progress due to Cognition Assessment Summary Pt able to participate in transfer today, but needing extensive skilled assist x2 at this time. Pt to go to skilled rehab when medically stable. Goals Self-Feeding Goal Independent Grooming Goal Independent Dressing Goal Moderate Assistance Toileting Goal Moderate Assistance Bathing Goal Moderate Assistance Toilet Transfer Goal Minimal Assistance Shower Transfer Goal Moderate Assistance Days to Meet Goals 30 Frequency of Treatment Other frequency 5x/week Treatment Plan OT Treatment Plan ADL Training,Functional Cognition Training,Functional Mobility,Patient/Family Education,Discharge Planning Other Treatment Recommendations and Next [place] [facility] [place] AX 2 with FWW. Discharge Recommendations OT Discharge Recommendations SNF Rehab Transportation Needs at Discharge Wheelchair/Cabulance
--- NOTE | 2024-09-30 10:56 | OT.IP.TRT ---
Current Diagnoses Pain in left hip (09/27/24) Age-related osteoporosis with current pathological fracture, unspecified femur, initial encounter for fracture (09/27/24) Fracture of unspecified part of neck of right femur, initial encounter for closed fracture (09/27/24) Unspecified trochanteric fracture of right femur, initial encounter for closed fracture (09/27/24) Displaced intertrochanteric fracture of right femur, initial encounter for closed fracture (09/27/24) Surgery Performed Operation Date: 09/28/24 18:00 Actual Procedures p ORIF Hip/Intramedullary Hip Screw(Right) - Aleshia Call MD Occupational Therapy Treatment Note M2 OT-IP Current Condition Start: 09/29/24 11:20 Freq: Status: Active Protocol: Document 09/29/24 11:21 [facility] (Rec: 09/29/24 11:39 [facility] [id number]) Occupational Therapy Current Condition Current Condition Evaluation Date 09/29/24 Treatment Diagnosis S/P right hip ORIF Diagnosis Onset Date 09/27/24 M3 OT- IP Subjective and Pain Start: 09/29/24 11:20 Freq: Status: Active Protocol: Document 09/30/24 11:57 [facility] (Rec: 09/30/24 12:05 [facility] [id number]) OT- Subjective Occupational Therapy Visit Type Type Treatment Note Visit Start Time 1018 Visit Stop Time 1056 Occupational Therapy Visit Comments Patient Comments Pt agreed to try to get up. OT Pain Assessment Pain When Pain Assessed At Rest Pain Present Pain Present Pain Reported Location right hip Intensity 5 Scale Used Numeric (0 - 10) M4 OT- IP ADL's Start: 09/29/24 11:20 Freq: Status: Active Protocol: Document 09/30/24 11:57 [facility] (Rec: 09/30/24 12:05 [facility] [id number]) OT ADL-Dressing General Eval Lower Body Dressing Ability Total Assistance Areas Needing Assistance Socks OT ADL-Toileting General Evaluation Toileting Ability Total Assistance Comments OT Toileting Comments Purewick in place. OT ADL-Bathing Comments OT Bathing Comments Sponge bath more appropriate at this time. M6 OT- IP Functional Cognition Start: 09/29/24 11:20 Freq: Status: Active Protocol: Document 09/30/24 11:57 [facility] (Rec: 09/30/24 12:05 [facility] [id number]) Cognitive Factors Limiting Selfcare Function Cognitive Comments Cognitive Assessment Comments Pt still needing lots of encouragement, simple concrete cues to follow, and reassurance. OT- Vision and Hearing OT- Vision Assessment Vision Assessment Comments Pt wears glasses for reading and distance. NO hearing aids but [place]. M7 OT- IP Mobility and Balance Start: 09/29/24 11:20 Freq: Status: Active Protocol: Document 09/30/24 11:57 [facility] (Rec: 09/30/24 12:05 [facility] [id number]) OT- Bed Mobility Assessment Rolling Type of Rolling Bilateral Level of Assistance Maximum Assistance Sit to Supine Sit to Supine Assist Total Assistance,2 Person Assistance Scooting Scooting to Edge of Bed Maximum Assistance,2 Person Assistance OT-Transfer Assessment Sit to and From Stand Sit to and from Stand Maximum Assistance,2 Person Assistance Transfers Transfer Ability Maximum Assistance,2 Person Assistance Technique Transfer Destination Bed,Chair Devices Transfer Assistive Devices Gait Belt,Front Wheeled Walker Comments Mobility Comments MAX AX 2 to come to stand after several attempt. Pt needing cues to push down on the FWW, Pt needing tactile and vc to weightbshift and slide her feet. Pt also needing assist to help guide the FWW. Having to get the bed closer to her as pt trying to reach for the bed prior to getting all the way turned around with the FWW. AT this time safer to use tom lift on the pt. BP stable today. OT- Balance Assessment Sitting Balance and Reactions Static Sitting Balance Ability Fair Standing Balance and Reactions Static Standing Balance Ability Poor Dynamic Standing Balance Ability Poor M9 OT- IP Assessment and Plan Start: 09/29/24 11:20 Freq: Status: Active Protocol: Document 09/30/24 11:57 [facility] (Rec: 09/30/24 12:05 [facility] [id number]) OT Summary Assessment and Plan Potential Rehabilitation Potential Fair Analytic Complexity at Evaluation Moderate Summary OT Impairments Pain,Range of Motion,Strength, Balance,Functional Cognition, Functional Mobility,Self- Feeding,Grooming,Dressing, Toileting,Bathing,Toilet Transfers,Shower Transfers, Activity Tolerance Progress Towards Goals Slow Progress due to Pain,Slow Progress due to Medical Issues,Slow Progress due to Activity Tolerance,Slow Progress due to Cognition Assessment Summary Pt able to participate in transfer today, but needing extensive skilled assist x2 at this time. Pt to go to skilled rehab when medically stable. Goals Self-Feeding Goal Independent Grooming Goal Independent Dressing Goal Moderate Assistance Toileting Goal Moderate Assistance Bathing Goal Moderate Assistance Toilet Transfer Goal Minimal Assistance Shower Transfer Goal Moderate Assistance Days to Meet Goals 30 Frequency of Treatment Other frequency 5x/week Treatment Plan OT Treatment Plan ADL Training,Functional Cognition Training,Functional Mobility,Patient/Family Education,Discharge Planning Other Treatment Recommendations and Next Transfer [place] the [facility] [place] Treatment Focus AX 2 with FWW. Discharge Recommendations OT Discharge Recommendations SNF Rehab Transportation Needs at Discharge Wheelchair/Cabulance
--- NOTE | 2024-09-30 12:10 | P.PN_ITS ---
Subjective Subjective Interval history: Netta is a pleasant 84 year old female who is POD#2 s/p open reduction internal fixation right intertrochanteric hip fracture with cephalomedullary vandana by Dr. Call. Patient reports this morning that she is doing better than yesterday. Has not been making much progress w/ PT. She had an episode of orthostatic hypotension yesterday, she subsequently received a fluid bolus w/ an improvement in her BP and sx. She was not hypotensive today during PT but had a hard time WB d/t pain. Fluids were stopped again this AM. Her pain medication was also changes from Oxycodone to Tramadol today w/ improved cognition. Montemayor removed yesterday, now w/ pure wick. Exam Vital Signs (past 8 hours): - 09/30/24 08:00 09/30/24 08:30 09/30/24 12:00 Temperature 98.8 F 98.8 F Pulse Rate 99 H 99 H 88 Respiratory Rate 18 16 Blood Pressure 132/81 132/81 118/66 Pulse Oximetry 95 95 Oxygen Flow Rate 0 0 Oxygen Delivery Method Room Air Oxygen Flow Rate 0 Narrative Exam Narrative: Patient lying comfortably in bed during our interview today. No acute distress. 5/5 strength with DF, PF, EHL bilaterally. Knee flexion and extension intact. Gross sensation intact throughout bilateral lower extremities. Calves soft and non-tender bilaterally. SCDs are on and functioning. Brisk capillary refill, pulses intact. Post-surgical Aquacel dressing intact over the right hip with mild bloody drainage. Objective Labs 09/30/24 14:32 09/29/24 05:40 Labs: Laboratory Results - last 24 hr 09/30/24 05:12 Hgb 7.6 L Hct 21.7 L PFSH Medical History Anemia Weakness COVID-19 virus infection Sarcoidosis Chronic cough Migraines Headache Rheumatic fever Mumps Chicken pox Anemia History of recurrent ear infection Irregular menstrual cycle Heavy menstrual period Fibroids History of urinary incontinence Kidney stones Kidney disease Frequent UTI Hypothyroidism Diabetes mellitus Hypertension Hyperlipidemia Heart failure Surgical History Anesthesia Status post tubal ligation History of lithotripsy Status post hysterectomy with oophorectomy Status post cholecystectomy Status post appendectomy Family History Brother Diabetes mellitus Father Heart disease Mother Heart disease Social History marital status: household members: spouse Smoking Status: Never smoker alcohol intake: never substance use type: does not use Assessment & Plan Post-op Assessment and plan (1) Fracture, intertrochanteric, right femur: Assessment and Plan narrative: 1) Currently receiving Lovenox 40mg daily for VTE prophylaxis. Continue for 4 weeks postop. 2) WBAT on RLE, should use walker at all times. Continue to work w/ PT. 3) Pain control, disposition per hospitalist service. 4) F/u w/ [facility] in 2 weeks for wound check. 5) Possible blood transfusion tomorrow if H&H does not improve/becomes symptomatic. All of the patient and her families questions and concerns were addressed to their satisfaction and they are in agreement w/ the tx plan. (2) Osteoporotic hip fracture: (3) Acute postoperative anemia due to expected blood loss: Postoperative Procedures: Procedures Operation Date: 09/28/24 18:00 Actual Procedure Side Surgeon p ORIF Hip/Intramedullary Hip Screw Right Aleshia Call MD Postoperative day: 2
--- NOTE | 2024-09-30 13:47 | PM.PNPO.1 ---
Subjective Subjective Date Patient Seen: 09/30/24 Time Patient Seen: 13:47 Interval history: Pt sleeping, but woke up during exam. Tells me they changed her pain medication and that she is feeling better now. Said PT tried to have her walk from the bed to the chair today and that was very difficult for her. Exam Vital Signs (past 8 hours): - 09/30/24 08:00 09/30/24 08:30 09/30/24 12:00 Temperature 98.8 F 98.8 F Pulse Rate 99 H 99 H 88 Respiratory Rate 18 16 Blood Pressure 132/81 132/81 118/66 Pulse Oximetry 95 95 Oxygen Flow Rate 0 0 Oxygen Delivery Method Room Air Oxygen Flow Rate 0 Narrative Exam Narrative: 0/5/ hip flexors, 3/5 quadriceps and hamstrings, 5/5 DF, PF, EHL on right. Sensation to light touch intact throughout RLE. Calf soft and compressible. Aquacel dressing w/ bloody drainage at proximal portion, otherwise CDI. Objective Labs 09/30/24 05:12 09/29/24 05:40 Labs: Laboratory Results - last 24 hr 09/30/24 05:12 Hgb 7.6 L Hct 21.7 L PFSH Medical History Anemia Weakness COVID-19 virus infection Sarcoidosis Chronic cough Migraines Headache Rheumatic fever Mumps Chicken pox Anemia History of recurrent ear infection Irregular menstrual cycle Heavy menstrual period Fibroids History of urinary incontinence Kidney stones Kidney disease Frequent UTI Hypothyroidism Diabetes mellitus Hypertension Hyperlipidemia Heart failure Surgical History Anesthesia Status post tubal ligation History of lithotripsy Status post hysterectomy with oophorectomy Status post cholecystectomy Status post appendectomy Family History Brother Diabetes mellitus Father Heart disease Mother Heart disease Social History marital status: household members: spouse Smoking Status: Never smoker alcohol intake: never substance use type: does not use Assessment & Plan Post-op Assessment and plan (1) Osteoporotic hip fracture: Assessment and Plan narrative: 1) Currently receiving Lovenox 40mg daily for VTE prophylaxis. Continue for 4 weeks postop. 2) WBAT on RLE, should use walker at all times. 3) Pain control, disposition per hospitalist service. 4) F/u w/ [facility] in 2 weeks for wound check. (2) Acute postoperative anemia due to expected blood loss: Assessment and Plan narrative: Anemia does not appear to be symptomatic. Per Dr Crook's note, may be dilutional. Monitoring/transfusion per hospitalist service. Can consider holding enoxaparin if H/H lowers/becomes symptomatic. Postoperative Procedures: Procedures Operation Date: 09/28/24 18:00 Actual Procedure Side Surgeon p ORIF Hip/Intramedullary Hip Screw Right Aleshia Call MD Postoperative day: 2
[2024-09-30 14:37] LABS: Hematocrit 24.4 % (36-46); Hemoglobin 8.5 g/dL (12.0-16.0)
[2024-09-30] MEDS: SERTRALINE 50 MG TABLET 25 MG PO (21:01)
[2024-09-30] MEDS: SODIUM CHLORIDE 0.9% FLUSH 10 ML IV (21:02)
[2024-09-30] MEDS: ONDANSETRON 4 MG ODT PO (21:31)
[2024-09-30 22:12] LABS: Appearance Urine UA CLEAR; Bilirubin Urine UA NEGATIVE (NEGATIVE); Color Urine UA YELLOW; Glucose Urine UA TRACE g/dL (Negative); Ketones Urine UA NEGATIVE (NEGATIVE); Leukocyte Esterase Urine UA NEGATIVE (NEGATIVE); Nitrite Urine UA NEGATIVE (Negative); Occult Blood Urine UA NEGATIVE (Negative); Protein Urine UA NEGATIVE (Negative); Specific Gravity Urine UA 1.015 (1.000-1.035)
[2024-09-30 22:27] LABS: pH Urine UA 5.5 (4.5-8.0)
[2024-09-30 22:30] LABS: Bacteria Urine None Seen; Culture Indicated Urine Cult Not Indicated; RBC Urine None Seen (0-5/HPF); Squamous Epithelial Cell Urine None Seen (0-5/HPF); Urine Volume 10mL (spun); WBC Urine None Seen (0-5/HPF)
[2024-10-01] VITALS (7 sets, daily range): BP systolic 99–130; BP diastolic 55–76; PULSE 80–105; RESP 12–18; TEMP 36.4–37.3; O2SAT 94–97
--- NOTE | 2024-10-01 06:51 | PC.NURSE ---
Declined pain medication all night, states I don't need it, no pain if I'm in bed. Will monitor & report to day RN.
[2024-10-01] MEDS: INSULIN LISPRO 100 UNIT/ML 3ML VIAL SUBCUT ×7 (08:02→20:29)
[2024-10-01] MEDS: TRAMADOL 50 MG TABLET PO ×3 (08:05→20:40)
[2024-10-01] MEDS: INSULIN NPH 100 UNIT/ML 10ML VIAL 18 UNIT SUBCUT (08:08)
[2024-10-01] MEDS: DOCUSATE 100 MG CAPSULE PO (08:14)
[2024-10-01] MEDS: estradioL 1 MG TABLET 0.5 MG PO (08:16)
[2024-10-01] MEDS: lisinopriL 10 MG TABLET PO (08:16)
[2024-10-01] MEDS: ENOXAPARIN 40 MG/0.4 ML SYRINGE SUBCUT (08:17)
[2024-10-01] MEDS: polyethylene glycoL 3350 17 GM POWD.PACK PO (08:18)
[2024-10-01] MEDS: SODIUM CHLORIDE 0.9% FLUSH 10 ML IV ×3 (08:24→23:28)
[2024-10-01 09:44] LABS: Hematocrit 24.3 % (36-46); Hemoglobin 8.3 g/dL (12.0-16.0); Mean Corpuscular HGB Conc 34.2 % (30-36); Mean Corpuscular Hemoglobin 32.9 PG (26-34); Mean Corpuscular Volume 96.1 fL (80-100); Platelet Count 180 X10^3/uL (150-400); Red Blood Cell Count 2.53 X10^6/uL (4.0-5.2); Red Cell Distribution Width 13.1 % (11.6-14.8); White Blood Cell Count 8.2 X10^3/uL (4.5-11.0)
--- NOTE | 2024-10-01 09:47 | PM.PN.IH.1 ---
Subjective Subjective Date Patient Seen: 10/01/24 Time Patient Seen: 09:00 Interval history: The pt this morning reports that she remains frustrated by her weakness and inability to move well, but denies any severe pain. She is taking her narcotic pain medication regularly, which is covering her pain well. She was able to have 2 large BMs yesterday. She denies any further lightheadedness/dizziness. Exam Vital Signs (past 8 hours): - 10/01/24 04:00 10/01/24 08:00 10/01/24 08:16 Temperature 97.6 F 99.0 F Pulse Rate 86 87 86 Respiratory Rate 18 16 Blood Pressure 130/66 116/55 L 130/60 Pulse Oximetry 97 95 Oxygen Flow Rate 0 0 Oxygen Delivery Method Room Air Oxygen Flow Rate 0 Narrative Exam Narrative: Gen: NAD, sitting comfortably in bed, pleasantly conversant CV: RRR, no murmurs Resp: clear to auscultation bilaterally Abd: soft, nontender, nondistended Ext: no edema Objective Labs 10/01/24 09:25 09/29/24 05:40 Labs: Laboratory Results - last 24 hr 09/30/24 09/30/24 10/01/24 14:32 21:38 09:25 WBC 8.2 RBC 2.53 L Hgb 8.5 L 8.3 L Hct 24.4 L 24.3 L MCV 96.1 MCH 32.9 MCHC 34.2 RDW 13.1 Plt Count 180 Urine Color Yellow Urine Appearance Clear Urine pH 5.5 Ur Specific [place] 1.015 Urine Protein Negative Urine Glucose (UA) Trace H Urine Ketones Negative Urine Occult Blood Negative Urine Nitrate Negative Urine Bilirubin Negative Urine Urobilinogen 1.0 Ur Leukocyte Esterase Negative Urine RBC None seen Urine WBC None seen Ur Squamous Epith Cells None seen D Urine Bacteria None seen Ur Culture Indicated? Cult not indicated Vol Urine Centrifuged 10ml (spun) [facility] Medical History Anemia Weakness COVID-19 virus infection Sarcoidosis Chronic cough Migraines Headache Rheumatic fever Mumps Chicken pox Anemia History of recurrent ear infection Irregular menstrual cycle Heavy menstrual period Fibroids History of urinary incontinence Kidney stones Kidney disease Frequent UTI Hypothyroidism Diabetes mellitus Hypertension Hyperlipidemia Heart failure Surgical History Anesthesia Status post tubal ligation History of lithotripsy Status post hysterectomy with oophorectomy Status post cholecystectomy Status post appendectomy Family History Brother Diabetes mellitus Father Heart disease Mother Heart disease Social History marital status: household members: spouse Smoking Status: Never smoker alcohol intake: never substance use type: does not use Assessment & Plan Assessment & Plan narrative: Pt is a 84yo woman with HTN, DM type 2 on insulin, anxiety, hyperlipidemia who presented after ground level fall. Found to have right femur intertrochanteric fracture. 1) Right femur intertrochanteric fracture, POD # 3 s/p ORIF: Pain well controlled. Pt remains very weak, not yet out of bed. - Ortho consulted, appreciate ongoing care - Continue Tramadol for pain control - Stool softeners as needed due to narcotic pain medication 2) Acute blood loss anemia: H/H stable now. - Continue to trend 3) HTN: BPs in good range - Continue home Lisinopril 4) DM Type 2: Last A1C 08/2024 6.4, excellent control. BS have been slightly higher than goal here, however not on home insuline regimen - 20 units NPH daily, usually on 25 units - Continue Metformin BID - Lispro sliding scale - ACHS glucose checks while eating, q6hr when NPO 5) Anxiety: - Continue home Sertraline 6) Chronic back pain: Chronic, stable 7) Osteoporosis with fragility fracture: - Consider bisphophonate therapy as an outpatient DVT ppx: Lovenox FEN: Carb control diet Dispo: Stable for d/c. Plan for d/c tomorrow to [facility] for ongoing rehabilitation. Time-Based Coding :: [TOTAL MINUTES] spent with patient and on the chart (including review of chart, obtaining history, exam, reviewing outside data, placing orders, documenting exam and treatment plan, and counseling patient) on [DATE]. PROFEE Print Binding Worker Document charge(s): Yes Charge Codes Subsequent inpatient/observation care: 87118
--- NOTE | 2024-10-01 11:55 | PT.IPTN ---
Current Diagnoses Acute posthemorrhagic anemia (09/27/24) Pain in left hip (09/27/24) Age-related osteoporosis with current pathological fracture, unspecified femur, initial encounter for fracture (09/27/24) Fracture of unspecified part of neck of right femur, initial encounter for closed fracture (09/27/24) Unspecified trochanteric fracture of right femur, initial encounter for closed fracture (09/27/24) Displaced intertrochanteric fracture of right femur, initial encounter for closed fracture (09/27/24) Surgery Performed Operation Date: 09/28/24 18:00 Actual Procedures p ORIF Hip/Intramedullary Hip Screw(Right) - Aleshia Call MD Physical Therapy Treatment Note M2 PT-IP Current Condition Start: 09/29/24 08:32 Freq: NEEDED Status: Active Protocol: Document 09/29/24 10:45 MB (Rec: 09/29/24 11:34 MB [id number]) Physical Therapy Current Condition Current Condition Evaluation Date 09/29/24 Treatment Diagnosis Fall and right intramedullary hip fracture s/p vandana M3 PT-IP Subjective Start: 09/29/24 08:32 Freq: NEEDED Status: Active Protocol: Document 10/01/24 11:55 AB (Rec: 10/01/24 12:47 AB [id number]) Subjective Physical Therapy Visit Type Type Treatment Note Visit Start Time 11:55 Visit Stop Time 12:35 Number of CRATING AND MOVING ESTIMATOR Visits 0 Physical Therapy Visit Comments Patient Comments with confusion Therapy Pain Assessment Pain When Pain Assessed During Mobility Location right hip Scale Used pain scale not stated Pain Management Techniques Distraction,Modification of Treatment,Re-positioning, Timing of Activity with Medications M4 PT-IP Mobility and Gait Start: 09/29/24 08:32 Freq: NEEDED Status: Active Protocol: Document 10/01/24 11:55 AB (Rec: 10/01/24 12:47 AB [id number]) PT-Bed Mobility Assessment Supine to Sit Supine to Sit Maximum Assistance,1 Person Assistance,2 Person Assistance ,Head of Bed Elevated,Bedrails Scooting Scooting to Edge of Bed Dependent PT-Transfer Assessment Sit to and From Stand Sit to and from Stand Maximum Assistance,Total Assistance,2 Person Assistance ,Use of Upper Extremities Equipment Transfer Assistive Device Front Wheeled Walker Orthotic/Prosthetic Devices or Brace: No Transfers Transfer Destination Chair Transfer Technique Squat Pivot Transfer Ability Level of Assist Maximum Assistance,Total Assistance,2 Person Assistance ,Use of Upper Extremities Comments Mobility Comments pt in bed. daughter in room. pt initially refusing but daughter motivated pt . pt agreed to get up. RLE heel slides completed prior to sitting up. completed supine to sit max A x 1-2 and max cues. HOB elevated. pt with increase retro lean requiring max A for sitting balance. pt with decrease cognition affecting following directions . total A for scooting to EOB. sit <>stand x 3 max A x 2 to total A x2. pt unable to use FWW for support despite education and max cues provided. BLE against bed for support and with posterior trunk lean. pt with increase fear of falling exhibiting increase body/trunk extensor guarding and unable to follow cues to correct. assiste pt to chair. squat pivot transfer max A x 2 to total A x 2 with PT in front of pt and nurse behind pt. positioned pt on the chair total A x 2-3 and max cues. call light and table placed next to pt. left pt with daughter in room. M5 PT-IP Objective Assessments Start: 09/29/24 08:32 Freq: NEEDED Status: Active Protocol: Document 09/29/24 10:45 MB (Rec: 09/29/24 11:34 MB [id number]) Orientation Orientation/Cognition Level of Alertness Confusional State Orientation Name,Age,Birthday,Month,Year, Day of Week,Place,Situation Safety Awareness Decreased Safety Awareness Memory Description Short Term Impaired,Usp Impaired Gross Range of Motion Upper Extremity ROM Impairments Defer to OT Lower Extremity ROM Assessment Bilaterally Impaired Impairments Pt guards ROM both legs, even left leg in supine, and so formal ROM assessment challenging. Decreased ROM and strength B LEs and more so on the right LE and hip Strength Lower Extremity Strength Assessment Bilaterally Impaired Comments Strength Comments See comments above Coordination Assessment Gross Coordination Gross Coordination Impaired Assessment Coordination Comments Not formally tested d/t confusion and anxiety Sensation Assessment Comments Sensation Comments Not formally tested d/t confusion and anxiety M6 PT-IP Treatment Start: 09/29/24 08:32 Freq: NEEDED Status: Active Protocol: Document 10/01/24 11:55 AB (Rec: 10/01/24 12:47 AB [id number]) Physical Therapy Treatment Exercises Exercises Heel Slides Education Education Provided Safety M7 PT-IP Assessment and Plan Start: 09/29/24 08:32 Freq: NEEDED Status: Active Protocol: Document 10/01/24 11:55 AB (Rec: 10/01/24 12:47 AB [id number]) PT Summary Assessment and Plan Potential Rehabilitation Potential Fair Summary Impairments Pain,ROM,Strength,Balance, Coordination,Sensation,Tone, Cognition,Bed Mobility, Transfers,Gait,Activity Tolerance Progress Towards Goals Slow Progress due to Pain,Slow Progress - Other Assessment Summary pt continues to require max A x 2 to total A x 2 using fWW and max cues with all tasks. pt with decrease cognitive level and increase fear of falling affecting current level of mobility. pt will require SNF rehab to improve mobility. Goals Bed Mobility Goal Contact Guard Assistance Transfer Goal Contact Guard Assistance,Front Wheeled Walker Gait Goal Contact Guard Assistance,Front Wheel Walker Gait Distance 25 Days to Meet Goals 10 Frequency of Treatment Frequency Of Treatment Once a Day Treatment Plan Physical Therapy Treatment Plan Bed Mobility Training,Transfer Training,Gait Training, Therapeutic Exercise,Balance Retraining,Post Op Education, Discharge Planning,Hot or Cold Pack,Neuromuscular Re-ed, Coordination Retraining,Manual Therapy Weight Bearing Status Weight Bearing Status Weight Bear as Tolerated Recommendations To Nursing Amount of Assist Needed Mechanical Lift Discharge Recommendations PT Discharge Recommendations SNF Rehab Transportation Needs at Discharge Wheelchair/Cabulance,Stretcher /Ambulance - PT assist max x 2 to total x 2
--- NOTE | 2024-10-01 13:09 | PM.PNPO.1 ---
Subjective Subjective Interval history: Netta is a pleasant 84 year old female who is POD#3 s/p open reduction internal fixation right intertrochanteric hip fracture with cephalomedullary vandana by Dr. Call. Patient reports this morning that she is doing better than yesterday. Has not been making much progress w/ PT. She was not hypotensive today during PT but had a hard time WB d/t severe pain w/ movement of the RLE. Her pain medication was changed from Oxycodone to Tramadol yesterday w/ improved cognition. Montemayor removed yesterday, now w/ pure wick. Denies fever, chills, chest pain, SOB, nausea, vomiting. Exam Vital Signs (past 8 hours): - 10/01/24 08:00 10/01/24 08:16 10/01/24 12:00 Temperature 99.0 F 99.2 F Pulse Rate 87 86 90 Respiratory Rate 16 15 Blood Pressure 116/55 L 130/60 113/59 L Pulse Oximetry 95 94 Oxygen Flow Rate 0 0 Oxygen Delivery Method Room Air Oxygen Flow Rate 0 Narrative Exam Narrative: Patient lying comfortably in bed during our interview today. No acute distress. 5/5 strength with DF, PF, EHL bilaterally. Knee flexion and extension intact. Gross sensation intact throughout bilateral lower extremities. Calves soft and non-tender bilaterally. SCDs are on and functioning. Brisk capillary refill, pulses intact. Post-surgical Aquacel dressing intact over the right hip with mild bloody drainage. Objective Labs 10/01/24 09:25 09/29/24 05:40 Labs: Laboratory Results - last 24 hr 09/30/24 09/30/24 10/01/24 14:32 21:38 09:25 WBC 8.2 RBC 2.53 L Hgb 8.5 L 8.3 L Hct 24.4 L 24.3 L MCV 96.1 MCH 32.9 MCHC 34.2 RDW 13.1 Plt Count 180 Urine Color Yellow Urine Appearance Clear Urine pH 5.5 Ur Specific [place] 1.015 Urine Protein Negative Urine Glucose (UA) Trace H Urine Ketones Negative Urine Occult Blood Negative Urine Nitrate Negative Urine Bilirubin Negative Urine Urobilinogen 1.0 Ur Leukocyte Esterase Negative Urine RBC None seen Urine WBC None seen Ur Squamous Epith Cells None seen D Urine Bacteria None seen Ur Culture Indicated? Cult not indicated Vol Urine Centrifuged 10ml (spun) PFSH Medical History Anemia Weakness COVID-19 virus infection Sarcoidosis Chronic cough Migraines Headache Rheumatic fever Mumps Chicken pox Anemia History of recurrent ear infection Irregular menstrual cycle Heavy menstrual period Fibroids History of urinary incontinence Kidney stones Kidney disease Frequent UTI Hypothyroidism Diabetes mellitus Hypertension Hyperlipidemia Heart failure Surgical History Anesthesia Status post tubal ligation History of lithotripsy Status post hysterectomy with oophorectomy Status post cholecystectomy Status post appendectomy Family History Brother Diabetes mellitus Father Heart disease Mother Heart disease Social History marital status: household members: spouse Smoking Status: Never smoker alcohol intake: never substance use type: does not use Assessment & Plan Post-op Assessment and plan (1) Fracture, intertrochanteric, right femur: Assessment and Plan narrative: 1) Currently receiving Lovenox 40mg daily for VTE prophylaxis. Continue for 4 weeks postop. 2) WBAT on RLE, should use walker at all times. Continue to work w/ PT. 3) Pain control, disposition per hospitalist service. 4) F/u w/ [facility] in 2 weeks for wound check. All of the patient and her families questions and concerns were addressed to their satisfaction and they are in agreement w/ the tx plan. (2) Osteoporotic hip fracture: (3) Acute postoperative anemia due to expected blood loss: Postoperative Procedures: Procedures Operation Date: 09/28/24 18:00 Actual Procedure Side Surgeon p ORIF Hip/Intramedullary Hip Screw Right Aleshia Call MD Postoperative day: 2
[2024-10-01] MEDS: ACETAMINOPHEN 325 MG TABLET 650 MG PO ×2 (13:13→20:25)
--- NOTE | 2024-10-01 14:29 | CM.DPC ---
DCP SNF Planning: Per MD and Ortho PA, pt making slow progress but still quite painful and requiring significant assist and likely ready for d/c by tomorrow to SNF. Per PT, pt 2-3PA and unable to mobilize today and recommending SNF via BLS transport. FLORIDALMA called and confirmed that [facility] admissions can still accept tomorrow and prefer admission before 1300 for their staff electronic warfare officer. FLORIDALMA called [facility] and scheduled BLS non emergent transport to [facility] for tomorrow Sun 10/02 at 1130 to [facility] and updated [facility] admissons. FLORIDALMA updated MD on need for signature on PASRR form due to hospital exempted discharge for depression/anxiety. Ekta Wong MSW
[2024-10-01] MEDS: SERTRALINE 50 MG TABLET 25 MG PO (20:24)
[2024-10-01] MEDS: SENNOSIDES 8.6 MG TABLET 17.2 MG PO (20:25)
[2024-10-02] VITALS: BP 110/70; PULSE 87; RESP 19; TEMP 37.1; O2SAT 96
[2024-10-02 04:00] VITALS: BP 115/76; PULSE 67; RESP 19; TEMP 37.2; O2SAT 94
[2024-10-02 08:00] VITALS: BP 117/48; PULSE 76; RESP 12; TEMP 36.7; O2SAT 96
[2024-10-02] MEDS: TRAMADOL 50 MG TABLET PO ×2 (08:39→11:31)
[2024-10-02] MEDS: DOCUSATE 100 MG CAPSULE PO (08:40)
[2024-10-02] MEDS: ENOXAPARIN 40 MG/0.4 ML SYRINGE SUBCUT (08:41)
[2024-10-02] MEDS: lisinopriL 10 MG TABLET PO (08:42)
[2024-10-02] MEDS: INSULIN NPH 100 UNIT/ML 10ML VIAL 24 UNIT SUBCUT (08:54)
[2024-10-02] MEDS: INSULIN LISPRO 100 UNIT/ML 3ML VIAL SUBCUT ×2 (09:00)
[2024-10-02] MEDS: polyethylene glycoL 3350 17 GM POWD.PACK PO (09:05)
[2024-10-02] MEDS: estradioL 1 MG TABLET 0.5 MG PO (09:07)
--- NOTE | 2024-10-02 09:09 | P.DS_ITS ---
History of Present Illness History of Present Illness Chief complaint: GLF with potential R hip fx Narrative: Pt is a 84yo woman with HTN, DM type 2 on insulin, anxiety, hyperlipidemia who presented after ground level fall. The pt reports that she missed a step when trying to get to her walker. She fell to the ground, hitting her right hip and elbow. She had instant pain in her right hip. The pt denies any associated chest pain, SOB, urinary incontinence, biting of her tongue. She was feeling well and at baseline prior to the fall. The pt was brought to the ED via ambulance. She had reassuring labs with stable H/H, negative CXR and EKG. Xray showed hip fracture. Discharge Providers Provider Date of admission: 09/27/24 13:20 Discharge Date: 10/02/24 Primary care physician: Cruz Crook MD Consults: 09/27/24 17:38 Consult to Orthopedic Surgery Routine Comment: Consulting Provider: Derrick Calvert Reason for consultation: Hip fracture Has provider been notified: Yes 09/27/24 19:05 Consult to Orthopedic Surgery Routine Comment: Consulting Provider: Derrick Calvert Reason for consultation: hip fracture R Has provider been notified: Yes 09/28/24 14:36 Consult to Discharge Planning Routine Comment: Consult to Occupational Therapy Evaluate & Treat Comment: wbat with walker Physician Instructions: Evaluate and treat Consult to Physical Therapy Evaluate & Treat Comment: Physician Instructions: Evaluate and Treat Discharge provider: Billie Wesley MD Summary Hospital Course Discharge Diagnosis: Right hip fracture Acute blood loss anemia Confusion Type 2 diabetes Hypertension Generalized anxiety disorder Osteoarthritis with low back pain Osteoporosis Hospital Course: The pt presented with right hip fracture. She underwent ORIF without complications. Postoperatively she was noted to be anemic, however this recovered without transfusion. She had some confusion after surgery, however this improved with transition of her pain medications to Tramadol. She worked with physical therapy in the hospital, but was unable to rise from bed. She will transfer to acute rehab for ongoing care. Her pain was well controlled at the time of discharge, and she was motivated to recover. Status at Discharge Cognitive/behavioral status at discharge: at baseline, oriented Functional status at discharge: bed bound Overall status at discharge: patient is progressing back to baseline Exam Vital Signs (past 8 hours): - 10/02/24 04:00 Temperature 98.9 F Pulse Rate 67 Respiratory Rate 19 Blood Pressure 115/76 Pulse Oximetry 94 Oxygen Flow Rate 0 Oxygen Delivery Method Room Air Oxygen Flow Rate 0 Narrative Exam Narrative: Gen: NAD, sitting comfortably in bed, pleasantly conversant CV: RRR, no murmurs Resp: clear to auscultation bilaterally Abd: soft, nontender, nondistended Ext: no edema Objective Labs 10/01/24 09:25 09/29/24 05:40 Labs: Laboratory Results - last 24 hr 10/01/24 09:25 WBC 8.2 RBC 2.53 L Hgb 8.3 L Hct 24.3 L MCV 96.1 MCH 32.9 MCHC 34.2 RDW 13.1 Plt Count 180 PFSH Medical History Anemia Weakness COVID-19 virus infection Sarcoidosis Chronic cough Migraines Headache Rheumatic fever Mumps Chicken pox Anemia History of recurrent ear infection Irregular menstrual cycle Heavy menstrual period Fibroids History of urinary incontinence Kidney stones Kidney disease Frequent UTI Hypothyroidism Diabetes mellitus Hypertension Hyperlipidemia Heart failure Surgical History Anesthesia Status post tubal ligation History of lithotripsy Status post hysterectomy with oophorectomy Status post cholecystectomy Status post appendectomy Family History Brother Diabetes mellitus Father Heart disease Mother Heart disease Social History marital status: household members: spouse Smoking Status: Never smoker alcohol intake: never substance use type: does not use Discharge Plan Discharge Plan Patient Disposition: SNF Transfer to: [facility] Discharge orders & Medications Prescriptions: New sennosides [senna] 8.6 mg Tablet 17.2 mg PO BEDTIME Qty: 30 0RF tramadol 50 mg Tablet 50 mg PO QID PRN (Reason: Pain, Moderate (4-6)) Qty: 60 0RF docusate sodium 100 mg Capsule 100 mg PO BID Qty: 60 0RF Continued Novolin N NPH U-100 Insulin 100 unit/mL suspension 24 unit SUBCUT QDAY lisinopril 10 mg tablet 10 mg PO DAILY Qty: 90 3RF metformin 1,000 mg tablet 1,000 mg PO BID Qty: 180 3RF estradiol 0.5 mg tablet 0.5 mg PO DAILY Qty: 90 3RF valacyclovir 1 gram tablet 2,000 mg PO BID PRN (Reason: cold sores) Qty: 30 1RF Rx Instructions: Take 2 tablets twice daily for one day sertraline 25 mg tablet 25 mg PO DAILY Qty: 90 3RF acetaminophen 325 mg Tablet 650 mg PO Q6H PRN (Reason: Fever/Mild Pain (1-3)) Qty: 30 0RF Discontinued hydrocodone-acetaminophen 5-325 mg Tablet 1 tab PO BID Qty: 30 0RF Follow up/Referrals: Aleshia Call MD [Physician] - 2 Weeks (Follow up w/ PA or Dr Call at [facility] in 2 weeks for a wound check.) Cruz Crook MD [Primary Care Provider] - Discharge Health Status Multidrug resistant organism: No MDRO Diet/Activity/Treatments Diet: Diet as Tolerated Activity: Weightbearing as tolerated to right leg. Use a walker or other assistive device at all times. Skin/Wound/Dressing Care Report to your healthcare provider any signs of infection, such as:: chills, fever and increased pain Dressing: May shower. If dressings become wet or dirty inside, remove and replace with clean, dry gauze. No bathing or otherwise soaking incisions. Do not apply any creams, lotions, or ointments to incisions. Special Rehabilitation Services Reason for rehabilitation: Post-operative therapy Rehab type: Physical therapy and Occupational therapy Restrictions to mobility: Weightbearing as tolerated to right leg. Use a walker or other assistive device at all times. Visit Report/Discharge Packet Stand Alone Forms: Patient Portal/API Discharge Data Primary Care Provider: Cruz Crook Discharges patient from system. Discharge Date/Time: 10/02/24 11:45 PROFEE Charge Codes Discharge inpatient/observation: [id number]
--- NOTE | 2024-10-02 09:26 | P.PN_ITS ---
Subjective Subjective Interval history: Netta is a pleasant 84 year old female who is POD#4 s/p open reduction internal fixation right intertrochanteric hip fracture with cephalomedullary vandana by Dr. Call. Has not been making much progress w/ PT. Has had a hard time WB d/t severe pain w/ movement of the RLE but she seems motivated to continue trying to make progress. Denies fever, chills, chest pain, SOB, nausea, vomiting. Exam Vital Signs (past 8 hours): - 10/02/24 04:00 Temperature 98.9 F Pulse Rate 67 Respiratory Rate 19 Blood Pressure 115/76 Pulse Oximetry 94 Oxygen Flow Rate 0 Oxygen Delivery Method Room Air Oxygen Flow Rate 0 Narrative Exam Narrative: Patient lying in bed during our interview today. No acute distress. She is currently trying to have a BM. 5/5 strength with DF, PF, EHL bilaterally. Knee flexion and extension intact. Gross sensation intact throughout bilateral lower extremities. Calves soft and non-tender bilaterally. Brisk capillary refill, pulses intact. Post-surgical Aquacel dressing intact over the right hip with moderate bloody drainage. Objective Labs 10/01/24 09:25 09/29/24 05:40 Labs: Laboratory Results - last 24 hr 10/01/24 09:25 WBC 8.2 RBC 2.53 L Hgb 8.3 L Hct 24.3 L MCV 96.1 MCH 32.9 MCHC 34.2 RDW 13.1 Plt Count 180 PFSH Medical History Anemia Weakness COVID-19 virus infection Sarcoidosis Chronic cough Migraines Headache Rheumatic fever Mumps Chicken pox Anemia History of recurrent ear infection Irregular menstrual cycle Heavy menstrual period Fibroids History of urinary incontinence Kidney stones Kidney disease Frequent UTI Hypothyroidism Diabetes mellitus Hypertension Hyperlipidemia Heart failure Surgical History Anesthesia Status post tubal ligation History of lithotripsy Status post hysterectomy with oophorectomy Status post cholecystectomy Status post appendectomy Family History Brother Diabetes mellitus Father Heart disease Mother Heart disease Social History marital status: household members: spouse Smoking Status: Never smoker alcohol intake: never substance use type: does not use Assessment & Plan Post-op Assessment and plan (1) Fracture, intertrochanteric, right femur: Assessment and Plan narrative: 1) Currently receiving Lovenox 40mg daily for VTE prophylaxis. Continue for 4 weeks postop. 2) WBAT on RLE, should use walker at all times. Continue to work w/ PT. 3) Pain control, disposition per hospitalist service. 4) F/u w/ [facility] in 2 weeks for wound check. 5) Recommend Aquacel dressing change prior to d/c, if nursing staff uncomfortable w/ doing this please let me know. All of the patient and her families questions and concerns were addressed to their satisfaction and they are in agreement w/ the tx plan. (2) Osteoporotic hip fracture: (3) Acute postoperative anemia due to expected blood loss: Postoperative Procedures: Procedures Operation Date: 09/28/24 18:00 Actual Procedure Side Surgeon p ORIF Hip/Intramedullary Hip Screw Right Aleshia Call MD Postoperative day: 4
--- NOTE | 2024-10-02 09:38 | CM.DPC ---
DCP Discharge SNF Per MD and Ortho PA, pt medically stable to d/c to SNF today and recommending BLS transport due to pt's pain and 3PA. FLORIDALMA called [facility] admissions and updated on d/c and faxed signed PASRR, signed med list, script, MD orders, and d/c summ to [facility] to review and updated RN, INSTRUMENT AND CONTROL SERVICE PERSON, and canoe maker. FLORIDALMA called [facility] and confirmed transport time of 1130 via BLS transport today to [facility] and BLS form completed and signed by MD and left on chart and notified RN. Pt remains agreeable to d/c to SNF today. Plan: Patient to d/c to [facility] SNF at 1130 via [facility] before safe return home. CLEVELAND Doyle
[2024-10-02] MEDS: BISACODYL 10 MG SUPP PR (09:49)
--- NOTE | 2024-10-02 12:49 | PC.NURSE ---
Patient is A&OX4, VSS,afebrile on RA this a.m. new car sales manager's informed of transport with BLS arranged at 1130 a.m. Patient c/o constipation this a.m. with attempts to sit on bed mckeon. MD Wesley at bedside clearing patient for discharge and writing orders, encouraged to give GA suppository. She is given bisacodyl suppos this a.m. with good effect, having one very large BM. She appears anxious about discharge, reassured patient about SNF and transport. She is given tramadol 50 mg prn for pain. Report given to Charlene at [facility]. EMS [facility] patient via [facility]ney at approximately 1145 a.m.
== END 2024-10-02 11:45 | DRG 480 ==
LOC: ED 12:45 → AC 13:21
PROVIDERS: Orthopaedic Surgery Foot and Ankle Surgery; Physician Assistant Surgical; Admitting Provider Family Medicine; Emergency Provider Emergency Medicine; PCP Family Medicine; Referring Provider Emergency Medicine; Visit Provider Family Medicine
PROC: 0QS606Z Reposition Right Upper Femur with Intramedullary Internal Fixation Device, Open Approach (ICD-10-PCS; CPT 27245; principal; 2024-09-28 18:00)
DX: M80.051A Age-related osteoporosis with current pathological fracture, right femur, initial encounter for fracture (principal); G93.41 Metabolic encephalopathy; E11.9 Type 2 diabetes mellitus without complications; I10 Essential (primary) hypertension; R00.0 Tachycardia, unspecified; F41.1 Generalized anxiety disorder; M47.816 Spondylosis without myelopathy or radiculopathy, lumbar region; I95.1 Orthostatic hypotension; E03.9 Hypothyroidism, unspecified; Z79.84 Long term (current) use of oral hypoglycemic drugs; Z79.4 Long term (current) use of insulin; Z79.890 Hormone replacement therapy
CPT/HCPCS: 36415; 71045; 73502; 76000; 80048; 80053; 81001; 82962; 85014; 85018; 85025; 85027; 85610; 93005; 96374; 96375; 96376; 97162; 97166; 97530; 97535; 99284; C1713; J0330; J0690; J1100; J1171; J1650; J1815; J1885; J2405; J2704; J3010

== ENCOUNTER → 2024-12-01 11:13 | Outpatient (CLI) | payer MEDICARE, OTHER, SELFPAY ==
[2024-09-27 15:06] VITALS: BMI 28.1
[2024-12-01 12:12] LABS: Hematocrit 35.8 % (36-46); Hemoglobin 11.9 g/dL (12.0-16.0)
[2024-12-01 12:37] LABS: HEMOLYSIS < 15 (0-50); Iron 30 ug/dL (37-170)
[2024-12-01 12:48] LABS: Percent Iron Saturation 11 % (15-50); Total Iron Binding Capacity 266 ug/dL (265-497); Transferrin 204 mg/dL (206-381)
[2024-12-01 13:07] LABS: Hemoglobin A1C% w Est Avg Glu 6.1 % (4.0-6.0)
[2024-12-01 13:12] LABS: Ferritin 19 ng/mL (11-264)
== END ==
PROVIDERS: PCP Family Medicine; Referring Provider Family Medicine; Visit Provider Family Medicine
DX: E11.9 Type 2 diabetes mellitus without complications (principal)
CPT/HCPCS: 36415; 82728; 83036; 83540; 83550; 85014; 85018

== ENCOUNTER 2025-02-06 10:44 | Emergency (ER) | payer MEDICARE, OTHER, SELFPAY ==
[2024-09-27 15:06] VITALS: BMI 28.1
[2025-02-06 11:31] VITALS: BP 133/61; PULSE 111; RESP 17; TEMP 37.1; O2SAT 94; BMI 27.4
--- NOTE | 2025-02-06 11:38 | EKG_ITS ---
[facility] [address] [place] [address] Test Date: 2025-02-06 Pat Name: Netta Mahmood Department: [facility] Room: Gender: Female Whiskey Filterer: MICKY : 1940 Requested By: Order Number: [id number] Reading MD: Kevin Betancourt Measurements Intervals [place] Rate: 110 P: 50 CA: 158 QRS: 16 QRSD: 74 T: 64 QT: 336 QTc: 454 Interpretive Statements Critical Test Result: STEMI Sinus tachycardia Inferior infarct , possibly acute Anteroseptal infarct , possibly acute ACUTE MA / STEMI Electronically Signed On 02-08-2025 13:50:11 PDT by Kevin Betancourt
[2025-02-06 11:56] LABS: Add Manual Diff / Slide Review NO; Hematocrit 38.6 % (36-46); Hemoglobin 12.9 g/dL (12.0-16.0); Lymphocytes Absolute Auto 700 /uL (1100-4500); Mean Corpuscular HGB Conc 33.4 % (30-36); Mean Corpuscular Hemoglobin 28.9 PG (26-34); Mean Corpuscular Volume 86.8 fL (80-100); Platelet Count 288 X10^3/uL (150-400)
[2025-02-06 12:17] LABS: Alanine Aminotransferase 45 IU/L (<35); Albumin 4.1 g/dL (3.5-5.0); Albumin Globulin Ratio 1.1 (1.0-2.8); Alkaline Phosphatase 77 U/L (38-126); Blood Urea Nitrogen 19 mg/dL (7-17); Calcium 9.3 mg/dL (8.4-10.2); Carbon Dioxide 19 mmol/L (22-32); Chloride 106 mmol/L (98-107); Estimated Glomerular Filt Rate > 60 mL/min (>60); Globulin 3.7 g/dL (1.7-4.1); Glucose 381 mg/dL (70-99); HEMOLYSIS 49 (0-50); Lipase 54 U/L (23-300); Potassium 5.0 mmol/L (3.4-5.1); Sodium 137 mmol/L (137-145); Total Protein 7.8 g/dL (6.3-8.2)
[2025-02-06 16:07] VITALS: BP 137/62; PULSE 118; O2SAT 96
[2025-02-06 16:09] VITALS: BP 127/59; PULSE 114; RESP 26; O2SAT 96
--- NOTE | 2025-02-06 16:13 | EKG_ITS ---
[facility] [address] [place] [address] Test Date: 2025-02-06 Pat Name: Netta Mahmood Department: Room: Gender: Female Compliance Consultant: : 1940 Requested By: Order Number: [id number] Reading MD: Kevin Betancourt Measurements Intervals [place] Rate: 109 P: 45 [place]: 158 QRS: 21 QRSD: 74 T: 60 QT: 342 QTc: 460 Interpretive Statements Critical Test Result: STEMI Sinus tachycardia Inferior infarct , possibly acute Anteroseptal infarct , possibly acute ACUTE DC / STEMI Electronically Signed On 02-08-2025 13:50:04 PDT by Kevin Betancourt
--- NOTE | 2025-02-06 16:16 | PC.NURSE ---
Addendum entered by Beronica Nash R.N. 02/06/25 16:57: EMS arrived to ED. Pt departed ED with heparin running. Report given to [facility] News Gathering Technician, Wayne Prasad. Pt a&ox4 & stated that cp 5/10 after 2mg morphine. Original Note: Assumed care 0f pt at 1615. 2 person assist from wheelchair to bed. Pt placed on clinical research monitor and ekg done. Dr Bronson called to bedside. Pt c/o 7/10 cp and sob.
--- NOTE | 2025-02-06 16:23 | ED.CHESTPAIN ---
HPI - Chest Pain General Chief Complaint: Abdominal Pain Stated Complaint: Chest pain Time Seen by Provider: 02/06/25 16:14 Source: patient and family Mode of arrival: Wheelchair History of Present Illness HPI narrative: 84-year-old female with a history of congestive heart failure, diabetes presents with severe sharp chest pain on her left side that radiates up into her neck and jaw at times for the past 3 days. The pain has been unrelenting. The pain is about a 7/10 right now but was a 10/10 now in the lobby. Patient has more pain with shortness of breath as well. Related Data Home Medications ?Medication ?Instructions ?Recorded ?Confirmed acetaminophen 500 mg tablet 500 mg PO TID PRN 11/25/24 12/08/24 albuterol sulfate 90 mcg/actuation 1 puff inhalation Q4H 11/25/24 12/08/24 aerosol inhaler diphenhydramine HCl 25 mg tablet 25 mg PO Q6H PRN 11/25/24 12/08/24 (Benadryl Allergy) hydrocortisone 1 % topical cream 1 applic topical BID PRN 11/25/24 12/08/24 (Cortisone (hydrocortisone)) insulin NPH isoph U-100 human 100 27 unit SUBCUT QDAY 11/25/24 12/08/24 unit/mL subcutaneous suspension (Novolin N NPH U-100 Insulin isophane) insulin lispro 100 unit/mL 1 sliding scale dose SUBCUT 11/25/24 12/08/24 subcutaneous solution USEASDIRECTD loratadine 10 mg tablet 10 mg PO DAILY 11/25/24 12/08/24 polyethylene glycol 3350 17 17 g PO DAILY 11/25/24 12/08/24 gram/dose oral powder (Miralax) aspirin 81 mg tablet,delayed 81 mg PO DAILY 12/01/24 12/08/24 release (Adult Low Dose Aspirin) melatonin 5 mg capsule mg PO .qhs 12/01/24 12/08/24 Previous Rx's ?Medication ?Instructions ?Recorded estradiol 0.5 mg tablet 0.5 mg PO DAILY #90 tabs 05/23/24 sertraline 25 mg tablet 25 mg PO DAILY #90 tabs 09/20/24 alendronate 70 mg tablet 70 mg PO QWEEK #14 tabs 12/01/24 insulin NPH isoph U-100 human 100 25 unit (0.25 mL) SUBCUT QAM #15 mL 12/08/24 unit/mL (3 mL) subcutaneous pen (Humulin N NPH U-100 Insulin KwikPen) pen needle, diabetic 31 gauge x #100 ea 12/08/2407/30 (CareFine Pen Needle) Disabled Parking Permit See Rx Instructions .Route 12/28/24 .COMPLEX #1 unit blood sugar diagnostic (Blood #100 ea 12/28/24 Glucose Test strips) blood-glucose meter #1 ea 12/28/24 insulin NPH isoph U-100 human 100 27 unit (0.27 mL) SUBCUT QAM #15 mL 01/02/25 unit/mL (3 mL) subcutaneous pen (Novolin N FlexPen) lisinopril 10 mg tablet 10 mg PO DAILY #90 tabs 01/25/25 metformin 1,000 mg tablet 1,000 mg PO BID #180 tabs 01/25/25 Allergies Allergy/AdvReac Type Severity Reaction Status Date / Time No Known Drug Allergies Allergy Verified 02/06/25 11:31 Review of Systems Review of Systems ROS Unobtainable: All systems reviewed & are unremarkable except as noted in HPI and below Patient History Medical History Anemia Weakness COVID-19 virus infection Sarcoidosis Chronic cough Migraines Headache Rheumatic fever Mumps Chicken pox Anemia History of recurrent ear infection Irregular menstrual cycle Heavy menstrual period Fibroids History of urinary incontinence Kidney stones Kidney disease Frequent UTI Hypothyroidism Diabetes mellitus Hypertension Hyperlipidemia Heart failure Surgical History Anesthesia Status post tubal ligation History of lithotripsy Status post hysterectomy with oophorectomy Status post cholecystectomy Status post appendectomy Family History Brother Diabetes mellitus Father Heart disease Mother Heart disease Social History marital status: household members: spouse Smoking Status: Never smoker alcohol intake: never substance use type: does not use Smoking Status: Never smoker Exam Initial Vital Signs Initial Vital Signs: Vital Signs Temperature 98.8 F 02/06/25 11:31 Pulse Rate 111 H 02/06/25 11:31 Respiratory Rate 17 02/06/25 11:31 Blood Pressure 133/61 02/06/25 11:31 Pulse Oximetry 94 02/06/25 11:31 Oxygen Delivery Method Room Air 02/06/25 11:31 General: in acute distress, able to give some history , in pain HEENT: dry mucous membranes, normal sclera with reactive pupils, Neck: No JVD, supple Respiratory: Lungs are clear to auscultation, no wheezing no rales no rhonchi. Full and symmetrical air movement Cardiac: tachycardia, normal rhythm no murmurs no bruits Abdomen: Soft, nontender, no rebound or guarding, no flank pain Skin: Warm and dry, no rashes Neurologic: Grossly neurologically intact with no obvious asymmetries or abnormalities Extremities: No trauma, well perfused Psych: Cooperative, appropriate insight and affect Course Course Course Narrative: A 4 year female with having a obvious acute coronary syndrome. Her EKG was found to have a STEMI. Orders Ordered: ED Orders 02/06/25 11:38 EKG-12 Lead Stat 02/06/25 11:47 Complete Blood Count AUTO DIFF Stat Comprehensive Metabolic Panel Stat Lipase Stat 02/06/25 16:24 Trop I [Troponin I] Stat Discontinued Medications Heparin Sodium/Dextrose (Heparin Drip) 25,000 unit in 500 mls @ 16.329 mls/hr IV CONT SANGEETHA; Protocol Last Admin: 02/06/25 16:32 Dose: 12 units/kg/hr, 16.329 mls/hr Documented By: LIZA Co-signed By: DIANN Morphine Sulfate (Morphine 2 Mg/Ml Inj) 2 mg IV NOW ONE Stop: 02/06/25 16:23 Last Admin: 02/06/25 16:25 Dose: 2 mg Documented By: LIZA Ondansetron HCl (Ondansetron 4 Mg/2 Ml Inj) 4 mg IV NOW PRN PRN Reason: Nausea And Vomiting Ondansetron HCl (Ondansetron 4 Mg Odt) 4 mg PO NOW PRN PRN Reason: Nausea And Vomiting Consultations Consultation #1: Consulted with Dr. Catherine at [facility] who accepted patient into er Vital Signs Vital signs: Vital Signs - 8 hr 02/06/25 16:07 02/06/25 16:07 02/06/25 16:09 Pulse Rate 118 H Respiratory Rate Blood Pressure 137/62 127/59 L Pulse Oximetry 96 02/06/25 16:09 07/14/25 16:30 02/06/25 16:35 Pulse Rate 114 H 108 H Respiratory Rate 26 H 25 H Blood Pressure 140/64 Pulse Oximetry 96 97 02/06/25 16:35 Pulse Rate 107 H Respiratory Rate 25 H Blood Pressure Pulse Oximetry 91 MDM - Chest Pain Differential Diagnosis Differential diagnosis: Likely pneumothorax, stable angina, unstable angina pectoris, atypical chest pain, st elevation myocardial infarction and costochondritis Condition is:: Inadequately Controlled Condition is at treatment goal?: No Lab Data 02/06/25 11:47 02/06/25 11:47 Labs: Lab Results 02/06/25 02/06/25 Range/Units 11:47 16:24 WBC 15.1 H (4.5-11.0) X10^3/uL RBC 4.45 (4.0-5.2) X10^6/uL Hgb 12.9 (12.0-16.0) g/dL Hct 38.6 (36-46) % MCV 86.8 (80-100) fL MCH 28.9 (26-34) PG MCHC 33.4 (30-36) % RDW 15.8 H (11.6-14.8) % Plt Count 288 (150-400) X10^3/uL Neut % (Auto) 87.0 H (50-75) % Lymph % (Auto) 4.8 L (25-40) % [place] % (Auto) 8.1 (3-14) % Eos % (Auto) 0.0 L (2-4) % Baso % (Auto) 0.1 (0-2) % Neut # (Auto) 19139 H (0968-1667) /uL Lymph # (Auto) 700 L (0006-0843) /uL [place] # (Auto) 1200 H (0-900) /uL Eos # (Auto) 0 (0-450) /uL Baso # (Auto) 0 (0-100) /uL Sodium 137 (137-145) mmol/L Potassium 5.0 (3.4-5.1) mmol/L Chloride 106 (98-107) mmol/L Carbon Dioxide 19 L (22-32) mmol/L BUN 19 H (7-17) mg/dL Creatinine 0.67 (0.52-1.04) mg/dL Estimated GFR > 60 (>60) mL/min BUN/Creatinine Ratio 28.4 H (6-22) Glucose 381 H (70-99) mg/dL Calcium 9.3 (8.4-10.2) mg/dL Total Bilirubin 0.9 (0.2-1.3) mg/dL AST 181 H (14-36) IU/L ALT 45 H (<35) IU/L Alkaline Phosphatase 77 (38-126) U/L Troponin I 21.500 H* (0.01-0.034) ng/mL Total Protein 7.8 (6.3-8.2) g/dL Albumin 4.1 (3.5-5.0) g/dL Globulin 3.7 (1.7-4.1) g/dL Albumin/Globulin Ratio 1.1 (1.0-2.8) Lipase 54 (23-300) U/L ECG Data Interpretation: EKG shows normal axis, sinus tachycardia at 110 beats per minute, normal IA intervals but several ST elevation seen in several leads, anterior/inferior/lateral leads MDM Narrative Medical decision making narrative: An 84-year-old female found to have a STEMI. Patient was started on a heparin drip and given some morphine for her pain, nasal cannula placed. Patient was accepted at [facility] and was transferred immediately. Discharge Plan Departure Patient Disposition: [facility] Clinical Impression: ST elevation (STEMI) myocardial infarction Qualifiers: Involved coronary artery: unspecified coronary artery Qualified Code(s): I21.3 - ST elevation (STEMI) myocardial infarction of unspecified site Prescriptions: No Action Novolin N NPH U-100 Insulin 100 unit/mL suspension 27 unit SUBCUT QDAY estradiol 0.5 mg tablet 0.5 mg PO DAILY Qty: 90 3RF sertraline 25 mg tablet 25 mg PO DAILY Qty: 90 3RF (DME) blood-glucose meter [facility] See Rx Instructions .Route Qty: 1 0RF Rx Instructions: to check blood sugars twice daily (DME) Blood Glucose Test Strip See Rx Instructions .Route Qty: 100 11RF Rx Instructions: To test blood sugar twice daily Disabled Parking Permit See Rx Instructions .ROUTE .COMPLEX Qty: 1 0RF Rx Instructions: I find this patient to be medically disabled and qualify for disabled parking as indicated and signed on the accompanying disabled parking application for individuals. Novolin N FlexPen 100 unit/mL (3 mL) insulin pen 27 unit SUBCUT QAM Qty: 15 3RF metformin 1,000 mg tablet 1,000 mg PO BID Qty: 180 3RF lisinopril 10 mg tablet 10 mg PO DAILY Qty: 90 3RF acetaminophen 500 mg tablet 500 mg PO TID PRN polyethylene glycol 3350 [Miralax] 17 gram/dose powder 17 g PO DAILY diphenhydramine HCl [Benadryl Allergy] 25 mg tablet 25 mg PO Q6H PRN albuterol sulfate 90 mcg/actuation HFA aerosol inhaler 1 puff inhalation Q4H hydrocortisone [Cortisone (hydrocortisone)] 1 % cream 1 applic topical BID PRN insulin lispro 100 unit/mL solution 1 sliding scale dose SUBCUT USEASDIRECTD Rx Instructions: inject subcutaneously before meals as per sliding scale: If 70-120= 0 units; 121-150= 0 units; 151-200= 1 unit; 201-250= 2 units; 251-300= 4 units; 301-350=6 units; 351-400= 8 units; 401-449=12 units, recheck BG in 2 hours. 450+ Call MD. loratadine 10 mg tablet 10 mg PO DAILY alendronate 70 mg tablet 70 mg PO QWEEK Qty: 14 3RF aspirin [Adult Low Dose Aspirin] 81 mg tablet,delayed release (DR/EC) 81 mg PO DAILY melatonin 5 mg capsule PO .qhs Humulin N NPH Insulin KwikPen 100 unit/mL (3 mL) insulin pen 25 unit SUBCUT QAM Qty: 15 3RF (DME) pen needle, diabetic [CareFine Pen Needle] 31 gauge x 1/4 needle See Rx Instructions .Route Qty: 100 0RF Rx Instructions: As directed Referrals: Cruz Crook MD [Primary Care Provider, Family Practice]
[2025-02-06] MEDS: MORPHINE 2 MG/ML INJ IV (16:25)
[2025-02-06 16:30] VITALS: PULSE 108; RESP 25; O2SAT 97
[2025-02-06] MEDS: HEPARIN DRIP 25,000 UNIT/500 ML IV.SOLN 16.329 UNIT IV (16:32)
--- NOTE | 2025-02-06 16:33 | PC.NURSE ---
Per patient was accepted at [facility] ER under and was told to initiate STEMI Transfer protocol. EKG was faxed over to provider at 1618. 911 was called at 1622. Medics arrived at 1635.
[2025-02-06 16:35] VITALS: BP 140/64; PULSE 107; RESP 25; O2SAT 91
[2025-02-06 17:20] LABS: Troponin I 21.500 ng/mL (0.01-0.034)
== END 2025-02-06 16:54 | disposition short-term general hospital (02) ==
PROVIDERS: Emergency Provider Family Medicine; PCP Family Medicine
DX: I21.3 ST elevation (STEMI) myocardial infarction of unspecified site (principal); I10 Essential (primary) hypertension; Z86.79 Personal history of other diseases of the circulatory system
CPT/HCPCS: 36415; 80053; 83690; 84484; 85025; 93005; 96365; 96375; 99284; 99285; J1644; J2270

== ENCOUNTER 2025-07-06 15:11 | Observation (INO) | payer MEDICARE, OTHER, SELFPAY ==
[2024-09-27 15:06] VITALS: BMI 28.1
[2025-07-06 15:13] VITALS: BP 131/58; PULSE 79; RESP 12; TEMP 36.9; O2SAT 99; BMI 25.0
--- NOTE | 2025-07-06 15:22 | PC.NURSE ---
EMS reports patient has had a 40lb weight loss since femur fracture. Decrease appetite and mobility
--- NOTE | 2025-07-06 15:58 | PC.NURSE ---
PT assisted up to wheelchair and to restroom with RNx2 to provide urine sample. urine out was 20ml pink tinged and sent to lab.
[2025-07-06 16:19] LABS: Appearance Urine UA CLOUDY; Bilirubin Urine UA 1+ (NEGATIVE); Color Urine UA RED; Glucose Urine UA 1+ g/dL (Negative); Ketones Urine UA TRACE (NEGATIVE); Leukocyte Esterase Urine UA 2+ (NEGATIVE); Nitrite Urine UA POSITIVE (Negative); Occult Blood Urine UA 3+ (Negative); Protein Urine UA 3+ (Negative); Specific Gravity Urine UA 1.015 (1.000-1.035); Urobilinogen Urine UA 1.0 E.U./dL (0.2)
[2025-07-06 16:21] LABS: pH Urine UA 8.5 (4.5-8.0)
[2025-07-06 16:42] LABS: Ictotest Urine Negative (Negative)
[2025-07-06 16:43] LABS: Culture Indicated Urine Specimen Cultured
[2025-07-06 17:00] LABS: Add Manual Diff / Slide Review NO; Hematocrit 33.5 % (36-46); Hemoglobin 11.5 g/dL (12.0-16.0); Lymphocytes Absolute Auto 2500 /uL (1100-4500); Mean Corpuscular HGB Conc 34.4 % (30-36); Mean Corpuscular Hemoglobin 31.6 PG (26-34); Mean Corpuscular Volume 91.9 fL (80-100); Platelet Count 407 X10^3/uL (150-400)
[2025-07-06 17:03] LABS: Alanine Aminotransferase 12 IU/L (<35); Albumin 3.1 g/dL (3.5-5.0); Albumin Globulin Ratio 0.9 (1.0-2.8); Alkaline Phosphatase 62 U/L (38-126); Blood Urea Nitrogen 22 mg/dL (7-17); Calcium 8.2 mg/dL (8.4-10.2); Carbon Dioxide 17 mmol/L (22-32); Chloride 117 mmol/L (98-107); Estimated Glomerular Filt Rate > 60 mL/min (>60); Globulin 3.5 g/dL (1.7-4.1); Glucose 239 mg/dL (70-99); HEMOLYSIS 85 (0-50); Lipase 79 U/L (23-300); Sodium 143 mmol/L (137-145); Total Protein 6.6 g/dL (6.3-8.2)
[2025-07-06 17:05] LABS: Potassium 2.7 mmol/L (3.4-5.1)
[2025-07-06] MEDS: POTASSIUM CHLORIDE 20 MEQ/15 ML UDC 40 MEQ PO (17:37)
--- NOTE | 2025-07-06 17:40 | ED.FEMALEGU ---
HPI - Female Genitourinary <Harper Chakraborty PA-C - Last Filed: 07/06/25 19:46> General Chief complaint: Urogenital-Female Stated complaint: Catheter, blood and pain Time Seen by Provider: 07/06/25 17:36 Source: EMS Mode of arrival: EMS History of Present Illness HPI Narrative: Ms. Mahmood is a pleasant 85-year-old female with a past medical history of CAD s/p 3 stents, CHF, T2DM, HTN, HLD, prior right femur fracture presents to the emergency department via EMS for pain with urination, blood in urine worsening x 1 month, increased confusion x2 days. Patient had a right femur fracture earlier this year, STEMI in January, right ureteral stent which was exchanged in May. She was discharged from [facility] one week ago. Patient states that she has been having blood in her urine since her stent was exchanged in May however she has been having more painful urination recently. Her home health nurse met with her today and encouraged her to come to the emergency department due to her blood and dysuria. The patient's daughter who is at the bedside also reports that her mom has been intermittently more confused over the last 2 days. Patient reports right-sided abdominal pain. Patient ambulates with a walker but is only able to take a few steps. She reports chronic brown diarrhea for multiple weeks. She reports occasionally feeling short of breath with the exertion like when she walks with a walker. She denies fevers, flu-like symptoms, constipation, chest pain, headache, neck pain. PCP is Dr. Crook, she saw him Thursday and he discontinued her metformin which has improved her diarrhea slightly. Related Data Home Medications ?Medication ?Instructions ?Recorded ?Confirmed acetaminophen 500 mg tablet 500 mg PO TID PRN 11/25/24 07/03/25 albuterol sulfate 90 mcg/actuation 1 puff inhalation Q4H 11/25/24 07/03/25 aerosol inhaler polyethylene glycol 3350 17 17 g PO DAILY 11/25/24 07/03/25 gram/dose oral powder (Miralax) aspirin 81 mg tablet,delayed 81 mg PO DAILY 12/01/24 07/03/25 release (Adult Low Dose Aspirin) ascorbate calcium (vitamin C) 500 500 mg PO DAILY 07/03/25 07/03/25 mg tablet cholecalciferol (vitamin D3) 25 25 mcg PO DAILY 07/03/25 07/03/25 mcg (1,000 unit) capsule ferrous sulfate 325 mg (65 mg 325 mg PO DAILY 07/03/25 07/03/25 iron) tablet insulin NPH isoph U-100 human 100 20 unit SUBCUT BID 07/03/25 07/03/25 unit/mL (3 mL) subcutaneous pen (Humulin N NPH U-100 Insulin KwikPen) metformin 1,000 mg tablet 500 mg PO BID 07/03/25 07/03/25 mirtazapine 7.5 mg tablet 7.5 mg PO BEDTIME 07/03/25 07/03/25 oxycodone 5 mg tablet 5 mg PO QID PRN 07/03/25 07/03/25 Previous Rx's ?Medication ?Instructions ?Recorded sertraline 25 mg tablet 25 mg PO DAILY #90 tabs 09/20/24 pen needle, diabetic 31 gauge x #100 ea 12/08/2407/30 (CareFine Pen Needle) Disabled Parking Permit See Rx Instructions .Route 12/28/24 .COMPLEX #1 unit blood sugar diagnostic (Blood #100 ea 12/28/24 Glucose Test strips) blood-glucose meter #1 ea 12/28/24 alendronate 70 mg tablet 70 mg PO QWEEK #14 tabs 07/03/25 famotidine 20 mg tablet 20 mg PO BID #120 tabs 07/03/25 metoprolol succinate 25 mg 25 mg PO DAILY #90 tabs 07/03/25 tablet,extended release 24 hr ticagrelor 90 mg tablet 90 mg PO BID #180 tabs 07/03/25 Allergies Allergy/AdvReac Type Severity Reaction Status Date / Time No Known Drug Allergies Allergy Verified 07/03/25 09:15 Review of Systems <Harper Chakraborty PA-C - Last Filed: 07/06/25 19:46> Review of Systems ROS Unobtainable: All systems reviewed & are unremarkable except as noted in HPI and below Patient History <Harper Chakraborty PA-C - Last Filed: 07/06/25 19:46> Medical History Anemia Weakness COVID-19 virus infection Sarcoidosis Chronic cough Migraines Headache Rheumatic fever Mumps Chicken pox Anemia History of recurrent ear infection Irregular menstrual cycle Heavy menstrual period Fibroids History of urinary incontinence Kidney stones Kidney disease Frequent UTI Hypothyroidism Diabetes mellitus Hypertension Hyperlipidemia Heart failure Surgical History Anesthesia Status post tubal ligation History of lithotripsy Status post hysterectomy with oophorectomy Status post cholecystectomy Status post appendectomy Family History Brother Diabetes mellitus Father Heart disease Mother Heart disease Exam <Harper Chakraborty PA-C - Last Filed: 07/06/25 19:46> Narrative Exam Narrative: GENERAL: 85 year old patient appears stated age. Deconditioned patient, in no acute distress. HEAD: Atraumatic. Normocephalic. EYES: No scleral icterus. No injection or drainage. NECK: Trachea midline. Cervical ROM intact. CARDIOVASCULAR: Regular rate and rhythm. Systolic murmur. RESPIRATORY: ?Nonlabored respirations. ?Speaking in clear, full sentences. ?Somewhat diminished breath sounds bilateral lower lobes. GASTROINTESTINAL: Abdomen soft, nondistended. Bowel sounds present. Patient reports right lower quadrant tenderness, no rebound or guarding. BACK: No reproducible CVA tenderness. NEURO: Alert and oriented to person, place, time, location. Clear speech. ?Moves all 4 extremities appropriately. SKIN: No rash or erythema of visible areas. Cap refill 2-3 seconds on fingers and toes. Initial Vital Signs Initial Vital Signs: Vital Signs Temperature 98.5 F 07/06/25 15:13 Pulse Rate 79 07/06/25 15:13 Respiratory Rate 12 07/06/25 15:13 Blood Pressure 131/58 L 07/06/25 15:13 Pulse Oximetry 99 07/06/25 15:13 Oxygen Delivery Method Room Air 07/06/25 15:13 <Aguila Hills MD - Last Filed: 07/07/25 04:01> Initial Vital Signs Initial Vital Signs: Vital Signs Temperature 98.5 F 07/06/25 15:13 Pulse Rate 79 07/06/25 15:13 Respiratory Rate 12 07/06/25 15:13 Blood Pressure 131/58 L 07/06/25 15:13 Pulse Oximetry 99 07/06/25 15:13 Oxygen Delivery Method Room Air 07/06/25 15:13 Course <Harper Chakraborty PA-C - Last Filed: 07/06/25 19:46> Orders Ordered: ED Orders 07/06/25 19:56 Blood Culture Stat Acetaminophen (Acetaminophen 325 Mg Tablet) 650 mg PO Q6H PRN PRN Reason: Fever/Mild Pain (1-3) Hydrocodone Bitart/Acetaminophen (Hydrocodone/Acet 5/325 Tablet) 1 tab PO Q4H PRN PRN Reason: Pain, Moderate (4-6) Aspirin (Aspirin Ec 81 Mg Tablet) 81 mg PO DAILY [facility] Famotidine (Famotidine 20 Mg Tablet) 20 mg PO BID [facility] Last Admin: 07/06/25 21:15 Dose: 20 mg Documented By: JUAN Dextrose (D10w) 100 mls @ 999 mls/hr IV PRN PRN PRN Reason: Hypoglycemia Insulin Glargine (Insulin Glargine 100 Unit/Ml 3ml Pen) 32 unit SUBCUT DAILY [facility] Metoprolol Succinate (Metoprolol Er 25 Mg Tablet) 25 mg PO DAILY [facility] Mirtazapine (Mirtazapine 15 Mg Tablet) 7.5 mg PO BEDTIME [facility] Last Admin: 07/06/25 22:07 Dose: 7.5 mg Documented By: Naloxone HCl (Naloxone 0.4 Mg/Ml Vial) 0.2 mg IV Q2MIN PRN PRN Reason: Opiate Reversal Non-Formulary Medication (Ticagrelor) 90 mg PO BID [facility] Last Admin: 07/06/25 22:08 Dose: Not Given Documented By: Ondansetron HCl (Ondansetron 4 Mg/2 Ml Inj) 4 mg IV NOW PRN PRN Reason: Nausea And Vomiting Ondansetron HCl (Ondansetron 4 Mg Odt) 4 mg PO NOW PRN PRN Reason: Nausea And Vomiting Sertraline HCl (Sertraline 50 Mg Tablet) 25 mg PO DAILY [facility] Discontinued Medications Ceftriaxone Sodium 1,000 mg/ (Sodium Chloride) 100 mls @ 200 mls/hr IV NOW ONE Stop: 07/06/25 17:29 Last Infusion: 07/06/25 18:45 Dose: Infused Documented By: Admin: 07/06/25 17:37 Dose: 200 mls/hr Documented By: JUAN Magnesium Sulfate (Magnesium Sulfate) 2 gm in 50 mls @ 120 mls/hr IV NOW ONE Stop: 07/06/25 18:19 Last Infusion: 07/06/25 19:42 Dose: Infused Documented By: JUAN Co-signed By: Admin: 07/06/25 18:25 Dose: 25 mls/hr Documented By: JUAN Co-signed By: DAVID Sodium Chloride (Normal Saline 0.9%) 1,000 mls @ 1,000 mls/hr IV BOLUS ONE Stop: 07/06/25 19:13 Last Infusion: 07/06/25 21:06 Dose: Infused Documented By: Admin: 07/06/25 18:26 Dose: 1,000 mls/hr Documented By: JUAN POTASSIUM CHLORIDE IN WATER (Potassium Cl 10 Meq/100 Ml Larissa) 10 meq in 100 mls @ 100 mls/hr IV Q1H [facility] Stop: 07/06/25 20:14 Last Infusion: 07/06/25 22:08 Dose: Infused Documented By: Admin: 07/06/25 21:02 Dose: 100 mls/hr Documented By: Infusion: 07/06/25 20:57 Dose: Infused Documented By: Admin: 07/06/25 18:45 Dose: 100 mls/hr Documented By: JUAN Potassium Chloride (Potassium Chloride 20 Meq/15 Ml Udc) 40 meq PO NOW ONE Stop: 07/06/25 17:29 Last Admin: 07/06/25 17:37 Dose: 40 meq Documented By: JUAN Vital Signs Vital signs: Vital Signs - 8 hr 07/06/25 15:13 Temperature 98.5 F Pulse Rate 79 Respiratory Rate 12 Blood Pressure 131/58 L Pulse Oximetry 99 Oxygen Delivery Method Room Air <A[place] MD - Last Filed: 07/07/25 04:01> Orders Ordered: ED Orders 07/06/25 19:56 Blood Culture Stat Acetaminophen (Acetaminophen 325 Mg Tablet) 650 mg PO Q6H PRN PRN Reason: Fever/Mild Pain (1-3) Hydrocodone Bitart/Acetaminophen (Hydrocodone/Acet 5/325 Tablet) 1 tab PO Q4H PRN PRN Reason: Pain, Moderate (4-6) Aspirin (Aspirin Ec 81 Mg Tablet) 81 mg PO DAILY [facility] Famotidine (Famotidine 20 Mg Tablet) 20 mg PO BID [facility] Last Admin: 07/06/25 21:15 Dose: 20 mg Documented By: JUAN Dextrose (D10w) 100 mls @ 999 mls/hr IV PRN PRN PRN Reason: Hypoglycemia Insulin Glargine (Insulin Glargine 100 Unit/Ml 3ml Pen) 32 unit SUBCUT DAILY [facility] Metoprolol Succinate (Metoprolol Er 25 Mg Tablet) 25 mg PO DAILY [facility] Mirtazapine (Mirtazapine 15 Mg Tablet) 7.5 mg PO BEDTIME [facility] Last Admin: 07/06/25 22:07 Dose: 7.5 mg Documented By: Naloxone HCl (Naloxone 0.4 Mg/Ml Vial) 0.2 mg IV Q2MIN PRN PRN Reason: Opiate Reversal Non-Formulary Medication (Ticagrelor) 90 mg PO BID [facility] Last Admin: 07/06/25 22:08 Dose: Not Given Documented By: Ondansetron HCl (Ondansetron 4 Mg/2 Ml Inj) 4 mg IV NOW PRN PRN Reason: Nausea And Vomiting Ondansetron HCl (Ondansetron 4 Mg Odt) 4 mg PO NOW PRN PRN Reason: Nausea And Vomiting Sertraline HCl (Sertraline 50 Mg Tablet) 25 mg PO DAILY [facility] Discontinued Medications Ceftriaxone Sodium 1,000 mg/ (Sodium Chloride) 100 mls @ 200 mls/hr IV NOW ONE Stop: 07/06/25 17:29 Last Infusion: 07/06/25 18:45 Dose: Infused Documented By: Admin: 07/06/25 17:37 Dose: 200 mls/hr Documented By: JUAN Magnesium Sulfate (Magnesium Sulfate) 2 gm in 50 mls @ 120 mls/hr IV NOW ONE Stop: 07/06/25 18:19 Last Infusion: 07/06/25 19:42 Dose: Infused Documented By: JUAN Co-signed By: Admin: 07/06/25 18:25 Dose: 25 mls/hr Documented By: JUAN Co-signed By: DAVID Sodium Chloride (Normal Saline 0.9%) 1,000 mls @ 1,000 mls/hr IV BOLUS ONE Stop: 07/06/25 19:13 Last Infusion: 07/06/25 21:06 Dose: Infused Documented By: Admin: 07/06/25 18:26 Dose: 1,000 mls/hr Documented By: JUAN POTASSIUM CHLORIDE IN WATER (Potassium Cl 10 Meq/100 Ml Larissa) 10 meq in 100 mls @ 100 mls/hr IV Q1H SANGE[facility] Stop: 07/06/25 20:14 Last Infusion: 07/06/25 22:08 Dose: Infused Documented By: Admin: 07/06/25 21:02 Dose: 100 mls/hr Documented By: Infusion: 07/06/25 20:57 Dose: Infused Documented By: Admin: 07/06/25 18:45 Dose: 100 mls/hr Documented By: JUAN Potassium Chloride (Potassium Chloride 20 Meq/15 Ml Udc) 40 meq PO NOW ONE Stop: 07/06/25 17:29 Last Admin: 07/06/25 17:37 Dose: 40 meq Documented By: JUAN Vital Signs Vital signs: Vital Signs - 8 hr 07/06/25 15:13 Temperature 98.5 F Pulse Rate 79 Respiratory Rate 12 Blood Pressure 131/58 L Pulse Oximetry 99 Oxygen Delivery Method Room Air MDM - Female Genitourinary <Harper Chakraborty PA-C - Last Filed: 07/06/25 19:46> Medical Records Attestation: I reviewed the patient's medical records. Lab Data 07/06/25 16:21 07/06/25 16:21 Labs: Lab Results 07/06/25 07/06/25 07/06/25 Range/Units 15:50 16:21 19:34 WBC 9.7 (4.5-11.0) X10^3/uL RBC 3.65 L (4.0-5.2) X10^6/uL Hgb 11.5 L (12.0-16.0) g/dL Hct 33.5 L (36-46) % MCV 91.9 (80-100) fL MCH 31.6 (26-34) PG MCHC 34.4 (30-36) % RDW 18.1 H (11.6-14.8) % Plt Count 407 H (150-400) X10^3/uL Neut % (Auto) 61.3 (50-75) % Lymph % (Auto) 25.5 (25-40) % Coke % (Auto) 10.1 (3-14) % Eos % (Auto) 2.7 (2-4) % Baso % (Auto) 0.4 (0-2) % Neut # (Auto) 6000 (5432-3096) /uL Lymph # (Auto) 2500 (6288-6023) /uL Coke # (Auto) 1000 H (0-900) /uL Eos # (Auto) 300 (0-450) /uL Baso # (Auto) 0 (0-100) /uL Sodium 143 (137-145) mmol/L Potassium 2.7 L* (3.4-5.1) mmol/L Chloride 117 H (98-107) mmol/L Carbon Dioxide 17 L (22-32) mmol/L BUN 22 H (7-17) mg/dL Creatinine 0.61 (0.52-1.04) mg/dL Estimated GFR > 60 (>60) mL/min BUN/Creatinine Ratio 36.1 H (6-22) Glucose 239 H (70-99) mg/dL POC Whole Bld Glucose 275 H (70-99) mg/dL Lactate 2.7 H (0.7-2.1) mmol/L Calcium 8.2 L (8.4-10.2) mg/dL Magnesium 1.4 L (1.6-2.3) mg/dL Total Bilirubin 0.6 (0.2-1.3) mg/dL AST 24 (14-36) IU/L ALT 12 (<35) IU/L Alkaline Phosphatase 62 (38-126) U/L NT-Pro-B Natriuret Pep 2230 H (<450) pg/mL Total Protein 6.6 (6.3-8.2) g/dL Albumin 3.1 L (3.5-5.0) g/dL Globulin 3.5 (1.7-4.1) g/dL Albumin/Globulin Ratio 0.9 L (1.0-2.8) Lipase 79 (23-300) U/L Procalcitonin 0.100 (<0.5) ng/mL Urine Color Red Urine Appearance Cloudy Urine pH 8.5 H (4.5-8.0) Ur Specific Bangs 1.015 (1.000-1.035) Urine Protein 3+ H (Negative) Urine Glucose (UA) 1+ H (Negative) g/dL Urine Ketones Trace H (NEGATIVE) Urine Occult Blood 3+ H (Negative) Urine Nitrate Positive H (Negative) Urine Bilirubin 1+ H (NEGATIVE) Ur Bilirubin Confirm Negative (Negative) Urine Urobilinogen 1.0 (0.2) E.U./dL Ur Leukocyte Esterase 2+ H (NEGATIVE) Urine RBC 10-30/hpf H (0-5/HPF) Urine WBC 5-10/hpf H (0-5/HPF) Ur Squamous Epith Cells 1-5 /hpf (0-5/HPF) Urine Bacteria Many (>30) H (None) Ur Culture Indicated? Specimen cultured Vol Urine Centrifuged 10ml (spun) Imaging Data Chest x-ray: Radiologist's Impression: PROCEDURE: XR CHEST 1V INDICATIONS: abd infection TECHNIQUE: One view of the chest was acquired. COMPARISON: [facility], CR, XR CHEST 1V, 09/27/2024, 11:27. FINDINGS: Surgical changes and devices: None. Lungs and pleura: Lungs are clear. No pleural effusions or pneumothorax. Mediastinum: Suggestion of calcified lymph nodes seen in right hilar region. Heart size is normal. Bones and chest wall: No suspicious bony lesions. Overlying soft tissues appear unremarkable. IMPRESSION: No acute cardiopulmonary pathology. No free air under the diaphragm. Dictated by: Rikki Chen M.D. on 07/06/2025 at 19:07 Approved by: Rikki Chen M.D. on 07/06/2025 at 19:08 CT scan - abdomen/pelvis: Radiologist's Impression: PROCEDURE: CT ABDOMEN PELVIS WO CON INDICATIONS: R sided abd pain; hematuria; UTI; stent TECHNIQUE: Axial sections were acquired from the lung bases to the pubic symphysis. Coronal and sagittal reformats were performed. For radiation dose reduction, the following was used: automated exposure control, adjustment of mA and/or kV according to patient size. COMPARISON: [facility], CT, CT ABDOMEN PELVIS WITH CONTRAST, 03/05/2025, 19:13. FINDINGS: Image quality: Diagnostic. Lower Chest: Numerous calcified and solid nodules are again seen in included portion of bilateral lung bases unchanged in overall size and appearance compared to previous study. Largest nodule measures 1 cm in size unchanged from prior study series 3, image 13. Bibasilar scarring/atelectasis are seen. Heart size is enlarged, no pericardial effusion. URINARY: Right Kidney: Presence of a right-sided ureteral stent. No hydronephrosis . Parenchymal calcification in midpole of right kidney is seen unchanged from prior study. Right Ureter: No hydroureter. Left Kidney: Hyperdensity are seen in left renal collecting system extending to left proximal ureter measures 1 x 0.3 cm in size . No definite hydronephrosis is seen. Left Ureter: No hydroureter. Bladder: Partially distended urinary bladder with diffuse bladder wall thickening. No discrete bladder wall mass. ABDOMEN: Liver: No contour-deforming solid mass. Numerous calcified granuloma are seen scattered in hepatic parenchyma. Gallbladder: Gallbladder is surgically absent. Biliary ducts: No biliary dilation. Pancreas: No ductal dilation. Spleen: Size is within normal limits. Calcified granuloma again seen scattered in the splenic parenchyma unchanged from prior study. Adrenal Glands: No adrenal nodules. Stomach and Bowel: There is no bowel obstruction. No abnormal bowel wall thickening or mesenteric fat stranding. Sigmoid diverticulosis without CT evidence of acute diverticulitis. No abscess collection. Peritoneum: No abnormal intraperitoneal fluid. No free air. Ventral Wall: No hernia. Abdominal Nodes: No enlarged retroperitoneal or mesenteric lymph nodes. Vessels: Aorta and inferior vena cava are normal in size. PELVIS: Pelvic Organs: Unremarkable. Pelvic Nodes: Unremarkable. Miscellaneous: No inguinal hernias are seen. Bones: Postsurgical changes are seen in right hip unchanged from prior study. No aggressive appearing bony lesions. IMPRESSION: 1. Interval placement of right-sided ureteral stent without right-sided hydronephrosis or hydroureter. Linear calcification in left renal pelvis extending to left proximal ureter without left-sided hydronephrosis or hydroureter. Nonspecific mild bilateral perinephric fat stranding, infectious or inflammatory pyelonephritis cannot be excluded. 2. Diffuse bladder wall thickening concerning for cystitis. No calcified bladder stones. 3. No bowel obstruction or abnormal bowel wall thickening. No free fluid or free air. 4. Other chronic findings as described above unchanged from prior study. Dictated by: Rikki Chen M.D. on 07/06/2025 at 19:13 Approved by: Rikki Chen M.D. on 07/06/2025 at 19:18 ECG Data Interpretation: EKG reveals normal sinus rhythm with a rate of 92 beats per minute, QTC 489, patient does have some T-wave inversions V2 V3 V4 however we do not have comparison for her recently since having her AK in January of this year, we will try to get records from [facility] Narrative Medical decision making narrative: 85-year-old female with a past medical history of CAD s/p 3 stents, CHF, T2DM, HTN, HLD, prior right femur fracture presents to the emergency department via EMS for pain with urination, blood in urine worsening x 1 month, increased confusion x2 days. Patient had a right femur fracture earlier this year, STEMI in January, right ureteral stent which was exchanged in May. She was discharged from [facility] one week ago. Differential diagnosis includes but is not limited to infected ureteral stent, pyelonephritis, UTI, ureterolithiasis, nephrolithiasis, appendicitis, C diff, infectious diarrhea, etc. On exam the patient is in no acute distress, nontoxic appearing but she is chronically ill-appearing. All vital signs are within normal limits. She has been home for 1 week from rehab and her daughter has noticed that she is doing worse over the last 2 days. She is having blood in her urine, burning with urination, right lower quadrant abdominal pain in addition to generalized weakness, chronic diarrhea. Initial lab work was obtained in triage and patient's urinalysis was positive therefore ceftriaxone was started prior to my evaluation in addition to 40 mEq of oral potassium for hypokalemia. Upon further evaluation of the patient, I will add on a chest x-ray, CT abdomen pelvis without IV contrast, 2 g Mag rider, GI panel, 1 L IVF, EKG. Blood cultures and Procal ordered as well, unfortuantely patient did receive IV abx prior to blood cultures as bacteremia was not initially suspected given normal VS however UTI was identified and treated rapidly. Labs reveal normal WBC count 9.7. Slightly decreased hemoglobin hematocrit 11.5, 33.5. Platelets slightly elevated 407. Normal sodium 143. Hypokalemia with a potassium of 2.7. Chloride slightly elevated 117, carbon dioxide slightly low 17, BUN 22 creatinine 0.61. GFR greater than 60 BUN creatinine ratio is elevated at 36. Glucose elevated 239. Lactate elevated 2.7. Calcium low 8.2. Magnesium low 1.4. Normal LFTs. Normal lipase 79. Urinalysis is nitrite positive, many bacteria, WBCs. Chest x-ray reveals no acute cardiopulmonary pathology. No free air under the diaphragm. CT abdomen and pelvis reveals interval placement of right-sided ureteral stent without right-sided hydronephrosis or hydroureter. Linear calcification in the left renal pelvis extending to the left proximal ureter without left-sided hydronephrosis or hydroureter. Nonspecific mild bilateral perinephric fat stranding, infectious or inflammatory pyelo can not be excluded. Diffuse bladder wall thickening concerning for cystitis. 1924: Discussed the case with the urologist on-call, Dr. Miller. Reviewed with the patient's history, physical exam imaging and lab work findings. Because the patient's stent is working, no obstruction hydronephrosis, he advises treating the patient as normal pyelonephritis, no intervention is needed. He is agreeable to continuing ceftriaxone. 1929: At this time I do suspect patient warrants admission for further monitoring and management of her electrolyte derangements, hypomagnesemia, hypokalemia in the setting of continued diarrhea in addition to treatment for pyelonephritis. Pt is aware and agreeable to admission, all questiosn answered. Gi panel, procal, repeat lactic pending 1943: Discussed case with hospitalist who admits for Dr. Crook, this evening it is Dr. Olson. Discussed the patient case, history, physical exam, lab work, imaging findings and consultation with Urology. He graciously accepts the patient for admission, observation for continued management and treatment of her electrolyte derangements in the setting of diarrhea and pyelonephritis. Patient is aware and agreeable to admission and stable for transfer to the floor at this time. <Aguila Hills MD - Last Filed: 07/07/25 04:01> Lab Data Labs: Lab Results 07/06/25 07/06/25 07/06/25 Range/Units 15:50 16:21 19:34 WBC 9.7 (4.5-11.0) X10^3/uL RBC 3.65 L (4.0-5.2) X10^6/uL Hgb 11.5 L (12.0-16.0) g/dL Hct 33.5 L (36-46) % MCV 91.9 (80-100) fL MCH 31.6 (26-34) PG MCHC 34.4 (30-36) % RDW 18.1 H (11.6-14.8) % Plt Count 407 H (150-400) X10^3/uL Neut % (Auto) 61.3 (50-75) % Lymph % (Auto) 25.5 (25-40) % Coke % (Auto) 10.1 (3-14) % Eos % (Auto) 2.7 (2-4) % Baso % (Auto) 0.4 (0-2) % Neut # (Auto) 6000 (1837-0039) /uL Lymph # (Auto) 2500 (4600-3714) /uL Coke # (Auto) 1000 H (0-900) /uL Eos # (Auto) 300 (0-450) /uL Baso # (Auto) 0 (0-100) /uL Sodium 143 (137-145) mmol/L Potassium 2.7 L* (3.4-5.1) mmol/L Chloride 117 H (98-107) mmol/L Carbon Dioxide 17 L (22-32) mmol/L BUN 22 H (7-17) mg/dL Creatinine 0.61 (0.52-1.04) mg/dL Estimated GFR > 60 (>60) mL/min BUN/Creatinine Ratio 36.1 H (6-22) Glucose 239 H (70-99) mg/dL POC Whole Bld Glucose 275 H (70-99) mg/dL Lactate 2.7 H (0.7-2.1) mmol/L Calcium 8.2 L (8.4-10.2) mg/dL Magnesium 1.4 L (1.6-2.3) mg/dL Total Bilirubin 0.6 (0.2-1.3) mg/dL AST 24 (14-36) IU/L ALT 12 (<35) IU/L Alkaline Phosphatase 62 (38-126) U/L NT-Pro-B Natriuret Pep 2230 H (<450) pg/mL Total Protein 6.6 (6.3-8.2) g/dL Albumin 3.1 L (3.5-5.0) g/dL Globulin 3.5 (1.7-4.1) g/dL Albumin/Globulin Ratio 0.9 L (1.0-2.8) Lipase 79 (23-300) U/L Procalcitonin 0.100 (<0.5) ng/mL Urine Color Red Urine Appearance Cloudy Urine pH 8.5 H (4.5-8.0) Ur Specific Bangs 1.015 (1.000-1.035) Urine Protein 3+ H (Negative) Urine Glucose (UA) 1+ H (Negative) g/dL Urine Ketones Trace H (NEGATIVE) Urine Occult Blood 3+ H (Negative) Urine Nitrate Positive H (Negative) Urine Bilirubin 1+ H (NEGATIVE) Ur Bilirubin Confirm Negative (Negative) Urine Urobilinogen 1.0 (0.2) E.U./dL Ur Leukocyte Esterase 2+ H (NEGATIVE) Urine RBC 10-30/hpf H (0-5/HPF) Urine WBC 5-10/hpf H (0-5/HPF) Ur Squamous Epith Cells 1-5 /hpf (0-5/HPF) Urine Bacteria Many (>30) H (None) Ur Culture Indicated? Specimen cultured Vol Urine Centrifuged 10ml (spun) Discharge Plan Departure Patient Disposition: Admitted as Observation Clinical Impression: Hypokalemia, Ureteral stent present, Hyperglycemia, Hypomagnesemia UTI (urinary tract infection) Qualifiers: Urinary tract infection type: acute pyelonephritis Qualified Code(s): N10 - Acute pyelonephritis Admit Date/Time: 07/06/25 19:45 Admit Provider: Jam Olson ED Sign-out <Aguila Hills MD - Last Filed: 07/07/25 04:01> Cosign ED Attending Cosignature Attestation: I was immediately available in the department for consultation. This documentation has been reviewed and I agree with assessment and plan. Supervised by Aguila Hills MD Sepsis Evaluation (ED) <Harper Chakraborty PA-C - Last Filed: 07/06/25 19:46> Level 1 - Infection Sepsis Infection Criteria Present: Documented Infection Level 3 - Organ Dysfunction Sepsis Organ Dysfunction Criteria Present: Lactic Acid > 2 mmol/L Response It is my opinion that this patient have a likely infectious etiology for meeting sepsis criteria: Does If IVF bolus N/A, rationale: 1L IVF ordered as patient has history of CHF Antibiotics initiated within 1 hr of Sepis dx: Yes Tissue Perfusion Reassessed within 6 hrs of infusion start time: Yes Date of Tissue Perfusion Reassessment completed: 07/06/25 Time Tissue Perfusion Reassessment completed: 19:22
[2025-07-06 17:51] LABS: Lactate (Lactic Acid) 2.7 mmol/L (0.7-2.1); Magnesium 1.4 mg/dL (1.6-2.3)
--- NOTE | 2025-07-06 17:55 | DI.CT.S_ITS ---
PROCEDURE: CT ABDOMEN PELVIS WO CON INDICATIONS: R sided abd pain; hematuria; UTI; stent TECHNIQUE: Axial sections were acquired from the lung bases to the pubic symphysis. Coronal and sagittal reformats were performed. For radiation dose reduction, the following was used: automated exposure control, adjustment of mA and/or kV according to patient size. COMPARISON: [facility], CT, CT ABDOMEN PELVIS WITH CONTRAST, 03/05/2025, 19:13. FINDINGS: Image quality: Diagnostic. Lower Chest: Numerous calcified and solid nodules are again seen in included portion of bilateral lung bases unchanged in overall size and appearance compared to previous study. Largest nodule measures 1 cm in size unchanged from prior study series 3, image 13. Bibasilar scarring/atelectasis are seen. Heart size is enlarged, no pericardial effusion. URINARY: Right Kidney: Presence of a right-sided ureteral stent. No hydronephrosis . Parenchymal calcification in midpole of right kidney is seen unchanged from prior study. Right Ureter: No hydroureter. Left Kidney: Hyperdensity are seen in left renal collecting system extending to left proximal ureter measures 1 x 0.3 cm in size . No definite hydronephrosis is seen. Left Ureter: No hydroureter. Bladder: Partially distended urinary bladder with diffuse bladder wall thickening. No discrete bladder wall mass. ABDOMEN: Liver: No contour-deforming solid mass. Numerous calcified granuloma are seen scattered in hepatic parenchyma. Gallbladder: Gallbladder is surgically absent. Biliary ducts: No biliary dilation. Pancreas: No ductal dilation. Spleen: Size is within normal limits. Calcified granuloma again seen scattered in the splenic parenchyma unchanged from prior study. Adrenal Glands: No adrenal nodules. Stomach and Bowel: There is no bowel obstruction. No abnormal bowel wall thickening or mesenteric fat stranding. Sigmoid diverticulosis without CT evidence of acute diverticulitis. No abscess collection. Peritoneum: No abnormal intraperitoneal fluid. No free air. Ventral Wall: No hernia. Abdominal Nodes: No enlarged retroperitoneal or mesenteric lymph nodes. Vessels: Aorta and inferior vena cava are normal in size. PELVIS: Pelvic Organs: Unremarkable. Pelvic Nodes: Unremarkable. Miscellaneous: No inguinal hernias are seen. Bones: Postsurgical changes are seen in right hip unchanged from prior study. No aggressive appearing bony lesions. IMPRESSION: 1. Interval placement of right-sided ureteral stent without right-sided hydronephrosis or hydroureter. Linear calcification in left renal pelvis extending to left proximal ureter without left-sided hydronephrosis or hydroureter. Nonspecific mild bilateral perinephric fat stranding, infectious or inflammatory pyelonephritis cannot be excluded. 2. Diffuse bladder wall thickening concerning for cystitis. No calcified bladder stones. 3. No bowel obstruction or abnormal bowel wall thickening. No free fluid or free air. 4. Other chronic findings as described above unchanged from prior study. Dictated by: Rikki Chen M.D. on 07/06/2025 at 19:13 Approved by: Rikki Chen M.D. on 07/06/2025 at 19:18
--- NOTE | 2025-07-06 17:55 | DI.RAD.S_ITS ---
PROCEDURE: XR CHEST 1V INDICATIONS: abd infection TECHNIQUE: One view of the chest was acquired. COMPARISON: [facility], CR, XR CHEST 1V, 09/27/2024, 11:27. FINDINGS: Surgical changes and devices: None. Lungs and pleura: Lungs are clear. No pleural effusions or pneumothorax. Mediastinum: Suggestion of calcified lymph nodes seen in right hilar region. Heart size is normal. Bones and chest wall: No suspicious bony lesions. Overlying soft tissues appear unremarkable. IMPRESSION: No acute cardiopulmonary pathology. No free air under the diaphragm. Dictated by: Rikki Chen M.D. on 07/06/2025 at 19:07 Approved by: Rikki Chen M.D. on 07/06/2025 at 19:08
[2025-07-06] MEDS: MAGNESIUM SULFATE 2 GM/50 ML PIGGYBACK IV (18:25)
[2025-07-06] MEDS: SODIUM CHLORIDE 0.9% 1,000 ML 1000 ML IV (18:26)
[2025-07-06] MEDS: POTASSIUM CHLORIDE IN WATER 10 MEQ/100 ML PIGGYBACK 100 MEQ IV ×2 (18:45→21:02)
[2025-07-06 19:19] LABS: Reflexed Lactate in 2 Hours Y
--- NOTE | 2025-07-06 19:23 | EKG_ITS ---
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
[2025-07-06 19:55] LABS: Procalcitonin 0.100 ng/mL (<0.5)
[2025-07-06 20:17] LABS: Lactate 2HR (Lactic Acid Rflx) 2.9 mmol/L (0.7-2.1)
[2025-07-06] MEDS: FAMOTIDINE 20 MG TABLET PO (21:15)
[2025-07-06 21:36] VITALS: PULSE 88; RESP 19; O2SAT 99
[2025-07-06 21:37] VITALS: BP 164/68; PULSE 88; RESP 18; O2SAT 97
--- NOTE | 2025-07-06 21:56 | PC.NURSE ---
Per Dr. Wesley cassidy to DC IV and give po fluids/meds. They will readdress on morning rounds.
[2025-07-06 22:00] VITALS: PULSE 90; RESP 20; O2SAT 98
[2025-07-06] MEDS: MIRTAZAPINE 15 MG TABLET 7.5 MG PO (22:07)
[2025-07-06 22:30] VITALS: PULSE 91; RESP 20; O2SAT 99
[2025-07-06 22:40] LABS: NT-proBNP (BNP-Adult 18+) 2230 pg/mL (<450)
[2025-07-06 23:08] VITALS: BP 127/67; PULSE 94; RESP 18; TEMP 36.7; O2SAT 98
[2025-07-06 23:13] VITALS: BMI 25.0
[2025-07-07 03:55] VITALS: BP 116/65; PULSE 87; RESP 18; TEMP 37.4; O2SAT 98
[2025-07-07 07:40] LABS: Add Manual Diff / Slide Review NO; Hematocrit 29.7 % (36-46); Hemoglobin 10.4 g/dL (12.0-16.0); Lymphocytes Absolute Auto 1200 /uL (1100-4500); Mean Corpuscular HGB Conc 35.1 % (30-36); Mean Corpuscular Hemoglobin 32.4 PG (26-34); Mean Corpuscular Volume 92.3 fL (80-100); Platelet Count 326 X10^3/uL (150-400)
[2025-07-07 07:53] LABS: Lactate (Lactic Acid) 1.5 mmol/L (0.7-2.1)
[2025-07-07 07:54] LABS: Alanine Aminotransferase 11 IU/L (<35); Albumin 2.9 g/dL (3.5-5.0); Albumin Globulin Ratio 0.9 (1.0-2.8); Alkaline Phosphatase 68 U/L (38-126); Blood Urea Nitrogen 16 mg/dL (7-17); Calcium 8.1 mg/dL (8.4-10.2); Carbon Dioxide 18 mmol/L (22-32); Chloride 118 mmol/L (98-107); Estimated Glomerular Filt Rate > 60 mL/min (>60); Globulin 3.3 g/dL (1.7-4.1); Glucose 185 mg/dL (70-99); HEMOLYSIS < 15 (0-50); Magnesium 1.7 mg/dL (1.6-2.3); Potassium 2.8 mmol/L (3.4-5.1); Sodium 145 mmol/L (137-145); Total Protein 6.2 g/dL (6.3-8.2)
[2025-07-07 09:00] VITALS: PULSE 75; O2SAT 97
[2025-07-07] MEDS: SERTRALINE 50 MG TABLET 25 MG PO (09:01)
[2025-07-07] MEDS: FAMOTIDINE 20 MG TABLET PO ×2 (09:01→20:07)
[2025-07-07] MEDS: ASPIRIN EC 81 MG TABLET PO (09:01)
[2025-07-07 09:02] VITALS: BP 111/52; PULSE 78
[2025-07-07] MEDS: METOPROLOL ER 25 MG TABLET PO (09:02)
[2025-07-07] MEDS: INSULIN GLARGINE 100 UNIT/ML 3ML PEN 32 UNIT SUBCUT (09:09)
--- NOTE | 2025-07-07 10:24 | PM.HP.IH.1 ---
History of Present Illness History of Present Illness Date Patient Seen: 07/07/25 Chief complaint: Catheter, blood and pain Narrative: The pt is a 85yo woman with HTN, DM type 2 on insulin, anxiety, hyperlipidemia, hip fracture in September, NSTEMI in January s/p KAY x3, and 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 The pt was discharged from [facility] 2 weeks ago after prolonged rehabilitation from above health issues. Today, she states that she has been having light bleeding in her urine since her stent was replaced in May. She today denies any dysuria, but does endorse mild right lower quadrant abdominal pain. She also reports having diarrhea for several weeks that is very liquidy. She denies any blood in her urine. The pt denies any recent fevers, chills, chest pain, SOB, palpitations, nausea, or vomiting. She had been very happy to have returned home. In the ED, the pts vitals were stable. Labs showed mild anemia without any WBC elevation, hypokalemia, and initially elevated lactate that normalized with fluids. U/A was highly suggestive of UTI. CT abd/pelvis showed signs suggestive of cystitis and possible pyelonephritis. The pt received IV Ceftriaxone. [facility] Medical History Anemia Weakness COVID-19 virus infection Sarcoidosis Chronic cough Migraines Headache Rheumatic fever Mumps Chicken pox Anemia History of recurrent ear infection Irregular menstrual cycle Heavy menstrual period Fibroids History of urinary incontinence Kidney stones Kidney disease Frequent UTI Hypothyroidism Diabetes mellitus Hypertension Hyperlipidemia Heart failure Surgical History Anesthesia Status post tubal ligation History of lithotripsy Status post hysterectomy with oophorectomy Status post cholecystectomy Status post appendectomy Family History Brother Diabetes mellitus Father Heart disease Mother Heart disease Social History marital status: household members: spouse alcohol intake: never substance use type: does not use Meds Home Medications and Allergies Home Medications ?Medication ?Instructions ?Recorded ?Confirmed ?Type sertraline 25 mg tablet 25 mg PO DAILY #90 tabs 09/20/24 07/03/25 Rx acetaminophen 500 mg tablet 500 mg PO TID PRN 11/25/24 07/03/25 History albuterol sulfate 90 mcg/actuation 1 puff inhalation Q4H 11/25/24 07/03/25 History aerosol inhaler polyethylene glycol 3350 17 17 g PO DAILY 11/25/24 07/03/25 History gram/dose oral powder (Miralax) aspirin 81 mg tablet,delayed 81 mg PO DAILY 12/01/24 07/03/25 History release (Adult Low Dose Aspirin) pen needle, diabetic 31 gauge x #100 ea 12/08/24 07/03/25 Rx 1/4 (CareFine Pen Needle) Disabled Parking Permit See Rx Instructions .Route 12/28/24 07/03/25 Rx .COMPLEX #1 unit blood sugar diagnostic (Blood #100 ea 12/28/24 07/03/25 Rx Glucose Test strips) blood-glucose meter #1 ea 12/28/24 07/03/25 Rx alendronate 70 mg tablet 70 mg PO QWEEK #14 tabs 07/03/25 07/03/25 Rx ascorbate calcium (vitamin C) 500 500 mg PO DAILY 07/03/25 07/03/25 History mg tablet cholecalciferol (vitamin D3) 25 25 mcg PO DAILY 07/03/25 07/03/25 History mcg (1,000 unit) capsule famotidine 20 mg tablet 20 mg PO BID #120 tabs 07/03/25 07/03/25 Rx ferrous sulfate 325 mg (65 mg 325 mg PO DAILY 07/03/25 07/03/25 History iron) tablet insulin NPH isoph U-100 human 100 20 unit SUBCUT BID 07/03/25 07/03/25 History unit/mL (3 mL) subcutaneous pen (Humulin N NPH U-100 Insulin KwikPen) metformin 1,000 mg tablet 500 mg PO BID 07/03/25 07/03/25 History metoprolol succinate 25 mg 25 mg PO DAILY #90 tabs 07/03/25 07/03/25 Rx tablet,extended release 24 hr mirtazapine 7.5 mg tablet 7.5 mg PO BEDTIME 07/03/25 07/03/25 History oxycodone 5 mg tablet 5 mg PO QID PRN 07/03/25 07/03/25 History ticagrelor 90 mg tablet 90 mg PO BID #180 tabs 07/03/25 07/03/25 Rx Allergies Allergy/AdvReac Type Severity Reaction Status Date / Time No Known Drug Allergies Allergy Verified 07/03/25 09:15 Exam Vital Signs (past 8 hours): - 07/07/25 03:55 07/07/25 09:02 Temperature 99.4 F Pulse Rate 87 78 Respiratory Rate 18 Blood Pressure 116/65 111/52 L Pulse Oximetry 98 Oxygen Flow Rate 0 Oxygen Delivery Method Room Air Oxygen Flow Rate 0 Narrative Exam Narrative: Gen: NAD, laying comfortably in bed, appears well CV: RRR, grade 2/6 systolic murmur Resp: clear to auscultation bilaterally Abd: soft, mild tenderness RLQ without rebound/guarding/rigidity, normoactive bowel sounds Back: no CVA tenderness Ext: no edema Neuro: no gross deficits Objective Labs 07/07/25 06:35 07/07/25 06:35 Labs: Laboratory Results - last 24 hr 07/06/25 07/06/25 07/06/25 15:50 16:21 19:34 WBC 9.7 RBC 3.65 L Hgb 11.5 L Hct 33.5 L MCV 91.9 MCH 31.6 MCHC 34.4 RDW 18.1 H Plt Count 407 H Neut % (Auto) 61.3 Lymph % (Auto) 25.5 [place] % (Auto) 10.1 Eos % (Auto) 2.7 Baso % (Auto) 0.4 Neut # (Auto) 6000 Lymph # (Auto) 2500 [place] # (Auto) 1000 H Eos # (Auto) 300 Baso # (Auto) 0 Sodium 143 Potassium 2.7 L* Chloride 117 H Carbon Dioxide 17 L BUN 22 H Creatinine 0.61 Estimated GFR > 60 BUN/Creatinine Ratio 36.1 H Glucose 239 H POC Whole Bld Glucose 275 H Lactate 2.7 H Calcium 8.2 L Magnesium 1.4 L Total Bilirubin 0.6 AST 24 ALT 12 Alkaline Phosphatase 62 NT-Pro-B Natriuret Pep 2230 H Total Protein 6.6 Albumin 3.1 L Globulin 3.5 Albumin/Globulin Ratio 0.9 L Lipase 79 Procalcitonin 0.100 Urine Color Red Urine Appearance Cloudy Urine pH 8.5 H Ur Specific [place] 1.015 Urine Protein 3+ H Urine Glucose (UA) 1+ H Urine Ketones Trace H Urine Occult Blood 3+ H Urine Nitrate Positive H Urine Bilirubin 1+ H Ur Bilirubin Confirm Negative Urine Urobilinogen 1.0 Ur Leukocyte Esterase 2+ H Urine RBC 10-30/hpf H Urine WBC 5-10/hpf H Ur Squamous Epith Cells 1-5 /hpf Urine Bacteria Many (>30) H Ur Culture Indicated? Specimen cultured Vol Urine Centrifuged 10ml (spun) 07/06/25 07/07/25 07/07/25 19:56 06:35 07:57 WBC 9.2 RBC 3.22 L Hgb 10.4 L Hct 29.7 L MCV 92.3 MCH 32.4 MCHC 35.1 RDW 17.9 H Plt Count 326 Neut % (Auto) 71.8 Lymph % (Auto) 13.6 L [place] % (Auto) 10.7 Eos % (Auto) 3.6 Baso % (Auto) 0.3 Neut # (Auto) 6600 Lymph # (Auto) 1200 [place] # (Auto) 1000 H Eos # (Auto) 300 Baso # (Auto) 0 Sodium 145 Potassium 2.8 L Chloride 118 H Carbon Dioxide 18 L BUN 16 Creatinine 0.64 Estimated GFR > 60 BUN/Creatinine Ratio 25.0 H Glucose 185 H POC Whole Bld Glucose 232 H Lactate 2.9 H 1.5 Calcium 8.1 L Magnesium 1.7 Total Bilirubin 0.5 AST 17 ALT 11 Alkaline Phosphatase 68 NT-Pro-B Natriuret Pep Total Protein 6.2 L Albumin 2.9 L Globulin 3.3 Albumin/Globulin Ratio 0.9 L Lipase Procalcitonin Urine Color Urine Appearance Urine pH Ur Specific [place] Urine Protein Urine Glucose (UA) Urine Ketones Urine Occult Blood Urine Nitrate Urine Bilirubin Ur Bilirubin Confirm Urine Urobilinogen Ur Leukocyte Esterase Urine RBC Urine WBC Ur Squamous Epith Cells Urine Bacteria Ur Culture Indicated? Vol Urine Centrifuged Assessment & Plan Assessment & Plan narrative: The pt is a 85yo woman with HTN, DM type 2 on insulin, anxiety, hyperlipidemia, hip fracture in September, NSTEMI in January s/p KAY x3, and 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 1) Pyelonephritis: Based on imaging, positive urine culture. However, pt has been afebrile, no CVA tenderness. - Urology consulted from the ED, did not recommend higher potency antibiotics due to stent - Continue Ceftriaxone 2g daily 2) HTN, CAD s/p stenting: - Continue home Lisinopril, Metoprolol, Aspirin 3) DM Type 2: Baseline excellent control - 32 units glargine daily - Hold home Metformin BID - Lispro sliding scale - ACHS glucose 4) Anxiety: - Continue home Sertraline, Mirtazapine 5) Chronic back pain: - Continue home Hydrocodone 6) Hypokalemia: - Potassium replacement as per protocol 7) Diarrhea: Stool test just returned positive for Norovirus - Supportive care - Gentle mIVF DVT ppx: Lovenox FEN: Carb control diet Code: Full Dispo: Pending return of cultures. Potentially ready for d/c tomorrow. Time-Based Coding :: [TOTAL MINUTES] spent with patient and on the chart (including review of chart, obtaining history, exam, reviewing outside data, placing orders, documenting exam and treatment plan, and counseling patient) on [DATE]. PROFEE Electrical Systems Design Engineer Document charge(s): Yes Charge Codes Initial inpatient/observation care: [id number]
[2025-07-07] MEDS: POTASSIUM CHLORIDE IN WATER 10 MEQ/100 ML PIGGYBACK 100 MEQ IV ×6 (10:40→18:04)
[2025-07-07] MEDS: MAGNESIUM SULFATE 2 GM/50 ML PIGGYBACK IV (11:14)
[2025-07-07] MEDS: ENOXAPARIN 40 MG/0.4 ML SYRINGE SUBCUT (12:33)
[2025-07-07] MEDS: INSULIN LISPRO 100 UNIT/ML 3ML VIAL SUBCUT ×2 (12:33→20:04)
[2025-07-07] MEDS: ACETAMINOPHEN 325 MG TABLET 650 MG PO (12:35)
[2025-07-07 14:11] LABS: Clostridium difficile toxin AB Not Detected (Not Detect); Enteroaggregative E.coli Not Detected (Not Detect); Enteropathogenic E.coli Not Detected (Not Detect); Enterotoxigenic E.coli It/st Not Detected (Not Detect); Plesiomonsa shigelloides Not Detected (Not Detect); Shiga-like toxin-prod E.coli Not Detected (Not Detect)
--- NOTE | 2025-07-07 14:46 | CM.DANOTE ---
Initial DCP Assessment Note. Review EMR. Discharged from [facility] one week ago. CM spoke with Xiomy at [facility] to confirm. Per Xiomy, patient was discharged 06/26 to home with [facility]. Stauffer also reported that the patient has had multiple visits this past year: 10/02, 11/23,and 02/14. Patient has used all her Medicare days for SNF. Payor:??[facility] PCP: Dr Crook .? Summary & Plan: 85 y/o female arrived to ED via EMS c/o sanchez catheter pain and blood. Admitted OBS. Dx. pyelo. Plan: IVF and IV abx Discharge Planning/Care Management CM Discharge Assessment Start: 07/06/25 23:07 Freq: Status: Active Protocol: Document 07/07/25 14:41 (Rec: 07/07/25 14:46 [id number]) Discharge Planning Assessment Assigned Discharge Kiesha Clements RN Registered Vascular Technologist (Rvt) Provider Dr. Crook Insurance Medicare Advance Directives? Yes Advance Directives No on File History Provided By Patient,Medical Record Prior Living House Arrangements Household Members spouse Type of Relies on Others transporation used prior to admit Needs Assistance Home Chores / Shopping With Caregiver for No Another Community Services Home Health Aid used prior to admission: Comment Patient has grab bars near toilet and grab bars in shower, patient has shower chair but does not use it. Patient/Family Home with Home Health Preference Comment weakness Discharge Plan Home Transportation Family Arrangement Additional Comment Will need new HH referral if patient and spouse ar agreeable Review Status In Process Please Provide Date 07/07/25 Initial DC Assessment Was Performed Next Review Type Continued Stay Review
--- NOTE | 2025-07-07 15:13 | DIET.CONS ---
Dietary Consultation Note Admission Date: 07/06/2025 19:45 Assessment: 85 y F admitted for treatment of electrolyte derangements. Dietitian screened for low MNA score. Met with pt at bedside. Reports appetite is normal. Unsure of usual intakes. Unsure of any recent weight loss. Unsure of usual weight. Notes she is doing vanilla protein supplement at night. Per EMR review, noted pt has been having persistent diarrhea. Also noted in PCP that pt was recently at SNF and had poor experience with food there. Pt lying down and noted moderate to severe muscle wasting in temples. Unable to assess any other area. Ht: 157.48 cm Wt: 62.142 kg BMI: 25.0 UBW: 02/06/25 68 kg (-9% weight loss in 5 months, notable but non-severe) Last BM: 07/07/25 (07/07/25 13:29) MNA: 7 Salvador Score: 14 Diet: 07/06/25 16:01 NPO Diet Diet Modifications: NPO Type: NPO except for Meds 07/07/25 Breakfast Carbohydrate Consistent Diet Diet Modifications: Carbohydrate level: Medium (3 CHO) Bedtime snack: Yes Reflex DM orders: No Nutrition Percent Meal Consumed 75% 07/07/25 13:29 Labs: RBC 3.22 X10^6/uL (4.0-5.2) L 07/07/25 06:35 Hgb 10.4 g/dL (12.0-16.0) L 07/07/25 06:35 Hct 29.7 % (36-46) L 07/07/25 06:35 Creatinine 0.64 mg/dL (0.52-1.04) 07/07/25 06:35 Lactate 1.5 mmol/L (0.7-2.1) 07/07/25 06:35 NT-Pro-B Natriuret Pep 2230 pg/mL (<450) H 07/06/25 16:21 Nutrition Diagnosis: Unintentional weight loss r/t inadequate oral intake aeb 9% weight loss in 5 months Interventions: Ensure max vanilla BID EER: 1550 kcals (25 kcals/kg per BMI) 60 g protein (1g/kg per age) Monitoring/Evaluations: Monitor PO intakes Electronically Signed by: Lorraine Garcia 07/07/25 15:[address] [address]
--- NOTE | 2025-07-07 16:00 | PC.NURSE ---
Pt arrived to [facility] 208 @ 1430 Alert/oriented KCL rider infusing as per orders. Denies any discomfort labs returned; pt + for norovirus. Call light w/in reach, bed alarm on for pt safety Continue w/plan of care. .
[2025-07-07 16:13] VITALS: BP 122/60; PULSE 79; RESP 14; TEMP 36.4; O2SAT 99
[2025-07-07 20:00] VITALS: BP 108/52; PULSE 67; RESP 16; TEMP 36.2; O2SAT 99
[2025-07-07] MEDS: MIRTAZAPINE 15 MG TABLET 7.5 MG PO (20:06)
[2025-07-07] MEDS: cefTRIAXone 2,000 MG in SODIUM CHLORIDE 0.9% 100 ML 200 MG IV (20:07)
[2025-07-07 23:14] VITALS: BP 108/47; PULSE 86; RESP 16; TEMP 35.8; O2SAT 97
[2025-07-08 04:00] VITALS: BP 109/48; PULSE 62; RESP 16; TEMP 36.1; O2SAT 98
[2025-07-08 06:53] LABS: Add Manual Diff / Slide Review NO; Hematocrit 27.5 % (36-46); Hemoglobin 9.6 g/dL (12.0-16.0); Lymphocytes Absolute Auto 1800 /uL (1100-4500); Mean Corpuscular HGB Conc 34.7 % (30-36); Mean Corpuscular Hemoglobin 32.2 PG (26-34); Mean Corpuscular Volume 92.6 fL (80-100); Platelet Count 292 X10^3/uL (150-400)
[2025-07-08 06:57] LABS: Magnesium 2.0 mg/dL (1.6-2.3)
[2025-07-08 07:00] LABS: Alanine Aminotransferase 9 IU/L (<35); Albumin 2.8 g/dL (3.5-5.0); Albumin Globulin Ratio 0.8 (1.0-2.8); Alkaline Phosphatase 63 U/L (38-126); Blood Urea Nitrogen 19 mg/dL (7-17); Calcium 8.2 mg/dL (8.4-10.2); Carbon Dioxide 16 mmol/L (22-32); Chloride 115 mmol/L (98-107); Estimated Glomerular Filt Rate > 60 mL/min (>60); Globulin 3.3 g/dL (1.7-4.1); Glucose 146 mg/dL (70-99); HEMOLYSIS < 15 (0-50); Potassium 3.4 mmol/L (3.4-5.1); Sodium 140 mmol/L (137-145); Total Protein 6.1 g/dL (6.3-8.2)
[2025-07-08 08:31] VITALS: BP 106/36; PULSE 68; RESP 14; TEMP 36.5; O2SAT 96
--- NOTE | 2025-07-08 10:28 | PT.IIE ---
Surgical History (Last Reviewed 07/06/25 @ 18:03 by Harper Chakraborty PA-C) Anesthesia History of lithotripsy Status post appendectomy Status post cholecystectomy Status post hysterectomy with oophorectomy Status post tubal ligation Medical History (Last Reviewed 07/06/25 @ 18:03 by Harper Chakraborty PA-C) Anemia Anemia Chicken pox Chronic cough COVID-19 virus infection Diabetes mellitus Fibroids Frequent UTI Headache Heart failure Heavy menstrual period History of recurrent ear infection History of urinary incontinence Hyperlipidemia Hypertension Hypothyroidism Irregular menstrual cycle Kidney disease Kidney stones Migraines Mumps Rheumatic fever Sarcoidosis Weakness Physical Therapy Inpatient Evaluation/Re-Eval M1 PT IP Prior Functional Status Start: 07/08/25 10:17 Freq: NEEDED Status: Active Protocol: Document 07/08/25 10:18 KJ (Rec: 07/08/25 10:28 KJ [id number]) Medical Review Prior Functional Status Medical History Yes Reviewed Prior Functional Pt is unable to clearly explain her course of Level (Other details hospitalization and rehab following her September hip fx. ) RN states she used all of her SNF days and has been home since the beginning of June. It is unclear if she was ambulating at home. Social History Household Members spouse Living Arrangements House Number of Stairs To Ramp Enter/Railing? M2 PT-IP Current Condition Start: 07/08/25 10:17 Freq: NEEDED Status: Active Protocol: Document 07/08/25 10:18 KJ (Rec: 07/08/25 10:28 KJ [id number]) Physical Therapy Current Condition Current Condition Evaluation Date 07/08/25 Treatment Diagnosis Impaired mobility Onset Date 10/18 M3 PT-IP Subjective Start: 07/08/25 10:17 Freq: NEEDED Status: Active Protocol: Document 07/08/25 10:18 KJ (Rec: 07/08/25 10:28 KJ [id number]) Subjective Physical Therapy Visit Type Type Initial Evaluation Visit Start Time 08:56 Visit Stop Time 09:43 Therapy Pain Assessment Pain When Pain Assessed During Mobility Pain Present Pain Present Pain Reported M4 PT-IP Mobility and Gait Start: 07/08/25 10:17 Freq: NEEDED Status: Active Protocol: Document 07/08/25 10:18 KJ (Rec: 07/08/25 10:28 KJ [id number]) PT-Bed Mobility Assessment Rolling Type of Rolling Roll to Left Level of Assist Moderate Assistance Supine to Sit Supine to Sit Maximum Assistance Sit to Supine Sit to Supine Maximum Assistance Scooting Scooting to Edge of Dependent Bed Scooting Up and Down Dependent in Bed PT-Transfer Assessment Comments Mobility Comments unable to come to standing. used sit to stand lift to bring pt to bathroom PT-Balance Assessment Sitting Balance and Reactions Static Sitting Good Balance Ability Dynamic Sitting Fair Balance Ability M5 PT-IP Objective Assessments Start: 07/08/25 10:17 Freq: NEEDED Status: Active Protocol: Document 07/08/25 10:18 KJ (Rec: 07/08/25 10:28 KJ [id number]) Orientation Orientation/Cognition Level of Alertness Alert Orientation Name Comments Initially was drowsy, became more alert with activity Gross Range of Motion Upper Extremity ROM Assessment Within Functional Limits Impairments Painful R shoulder with elevation Lower Extremity ROM Assessment Right Impaired Impairments Lacks full knee ext on R Strength Lower Extremity Strength Assessment Right Impaired Knee R knee ext 2/5 Ankle R ankle dorsiflex 4/5 Comments Strength Comments Pain with use of RLE M6 PT-IP Treatment Start: 07/08/25 10:17 Freq: NEEDED Status: Active Protocol: Document 07/08/25 10:18 KJ (Rec: 07/08/25 10:28 KJ [id number]) Physical Therapy Treatment Exercises Exercises Ankle Pumps,Gluteal Sets,Quad Sets,Short Arc Quads Education Education Provided Safety Other Treatments Other Treatment Educated [employer] on use of sit to stand lift Performed M7 PT-IP Assessment and Plan Start: 07/08/25 10:17 Freq: NEEDED Status: Active Protocol: Document 07/08/25 10:18 KJ (Rec: 07/08/25 10:28 KJ [id number]) PT Summary Assessment and Plan Potential Rehabilitation Fair Potential Status of Condition Evolving at Evaluation Summary Impairments Pain,ROM,Strength,Bed Mobility,Transfers Assessment Summary Pt may be at baseline Goals Bed Mobility Goal Contact Guard Assistance Transfer Goal Contact Guard Assistance Gait Goal Contact Guard Assistance Gait Distance 10 Days to Meet Goals 10 Frequency of Treatment Frequency Of Once a Day Treatment Treatment Plan Physical Therapy Bed Mobility Training,Transfer Training,Gait Training, Treatment Plan Therapeutic Exercise Other Work on bed mobility, sitting balance at eob, transfers Recommendations and when a chair is available for her room Next Treatment Focus Recommendations To Nursing Amount of Assist 2 Person Assist,Power Sit-Stand Needed Discharge Recommendations PT Discharge Home with 16/02 Assist Available,Home Health Recommendations - PT assist +1
[2025-07-08] MEDS: ENOXAPARIN 40 MG/0.4 ML SYRINGE SUBCUT (11:19)
[2025-07-08] MEDS: ASPIRIN EC 81 MG TABLET PO (11:19)
[2025-07-08] MEDS: METOPROLOL ER 25 MG TABLET PO (11:19)
[2025-07-08] MEDS: SERTRALINE 50 MG TABLET 25 MG PO (11:21)
[2025-07-08] MEDS: INSULIN GLARGINE 100 UNIT/ML 3ML PEN 32 UNIT SUBCUT (12:20)
[2025-07-08 12:24] VITALS: BP 111/51; PULSE 63; RESP 15; TEMP 36.3; O2SAT 99
[2025-07-08] MEDS: POTASSIUM CHLORIDE 20 MEQ/15 ML UDC 40 MEQ PO (12:30)
[2025-07-08 13:15] VITALS: BP 111/51
--- NOTE | 2025-07-08 13:42 | PM.PN.1 ---
Subjective Subjective Date Patient Seen: 07/08/25 Time Patient Seen: 13:42 Interval history: Reviewed hospitalization and workup thus far. Patient is seen in [facility] for Dr. Crook Patient admitted with UTI and placed on ceftriaxone. Culture showing E coli that is sensitive to ceftriaxone. Patient also with norovirus 12 point review of systems otherwise negative No chest pain or shortness a breath No palpitations No fever No rash Exam Vital Signs (past 8 hours): - 07/08/25 08:31 07/08/25 12:24 07/08/25 13:15 Temperature 97.7 F 97.3 F L Pulse Rate 68 63 Respiratory Rate 14 15 Blood Pressure 106/36 L 111/51 L 111/51 L Pulse Oximetry 96 99 Oxygen Flow Rate 0 0 Oxygen Delivery Method Room Air Oxygen Flow Rate 0 Narrative Exam Narrative: Afebrile vital signs are stable HEENT is unremarkable Neck: Supple Chest: Clear to auscultation without wheezes rhonchi or crackles Cor: Regular rate and rhythm without murmur Abdomen: Positive bowel sounds, soft, right upper quadrant right lower quadrant tenderness but no guarding no rebound no peritoneal signs Extremities no edema pulses intact Objective Labs 07/08/25 05:55 07/08/25 05:55 Labs: Laboratory Results - last 24 hr 07/07/25 07/07/25 07/07/25 07:05 16:26 20:02 WBC RBC Hgb Hct MCV MCH MCHC RDW Plt Count Neut % (Auto) Lymph % (Auto) [place] % (Auto) Eos % (Auto) Baso % (Auto) Neut # (Auto) Lymph # (Auto) [place] # (Auto) Eos # (Auto) Baso # (Auto) Sodium Potassium Chloride Carbon Dioxide BUN Creatinine Estimated GFR BUN/Creatinine Ratio Glucose POC Whole Bld Glucose 180 H 200 H Calcium Magnesium Total Bilirubin AST ALT Alkaline Phosphatase Total Protein Albumin Globulin Albumin/Globulin Ratio Stl C. cayetanensis PCR Not detected Stool Rotavirus (PCR) Not detected Stool Adenovirus (PCR) Not detected Stool Astrovirus (PCR) Not detected Stool Cryptosporidium PCR Not detected Stl E.coli Shiga Tox PCR Not detected St Sh/Enteroin Ecoli PCR Not detected Stl Enterotoxigenic E PCR Not detected Stool EPEC (PCR) Not detected Stl E. histolytica PCR Not detected Stool Giardia Lamblia PCR Not detected Stool Sapovirus (PCR) Not detected Stl P. shigelloides PCR Not detected St Y.enterocolitica PCR Not detected Stool Vibrio (PCR) Not detected Stl Vibrio cholerae PCR Not detected Stl Enteroaggr Ecoli PCR Not detected Stl Norovirus GI/GII PCR Detected Campylobacter (PCR) Not detected C. difficile Tox (PCR) Not detected Salmonella (PCR) Not detected 07/08/25 07/08/25 07/08/25 05:55 08:02 11:44 WBC 6.8 RBC 2.97 L Hgb 9.6 L Hct 27.5 L MCV 92.6 MCH 32.2 MCHC 34.7 RDW 18.0 H Plt Count 292 Neut % (Auto) 55.9 Lymph % (Auto) 27.1 [place] % (Auto) 10.6 Eos % (Auto) 6.1 H Baso % (Auto) 0.3 Neut # (Auto) 3800 Lymph # (Auto) 1800 [place] # (Auto) 700 Eos # (Auto) 400 Baso # (Auto) 0 Sodium 140 Potassium 3.4 Chloride 115 H Carbon Dioxide 16 L BUN 19 H Creatinine 0.69 Estimated GFR > 60 BUN/Creatinine Ratio 27.5 H Glucose 146 H POC Whole Bld Glucose 140 H 219 H Calcium 8.2 L Magnesium 2.0 Total Bilirubin 0.3 AST 17 ALT 9 Alkaline Phosphatase 63 Total Protein 6.1 L Albumin 2.8 L Globulin 3.3 Albumin/Globulin Ratio 0.8 L Stl C. cayetanensis PCR Stool Rotavirus (PCR) Stool Adenovirus (PCR) Stool Astrovirus (PCR) Stool Cryptosporidium PCR Stl E.coli Shiga Tox PCR St Sh/Enteroin Ecoli PCR Stl Enterotoxigenic E PCR Stool EPEC (PCR) Stl E. histolytica PCR Stool Giardia Lamblia PCR Stool Sapovirus (PCR) Stl P. shigelloides PCR St Y.enterocolitica PCR Stool Vibrio (PCR) Stl Vibrio cholerae PCR Stl Enteroaggr Ecoli PCR Stl Norovirus GI/GII PCR Campylobacter (PCR) C. difficile Tox (PCR) Salmonella (PCR) [facility] Medical History Anemia Weakness COVID-19 virus infection Sarcoidosis Chronic cough Migraines Headache Rheumatic fever Mumps Chicken pox Anemia History of recurrent ear infection Irregular menstrual cycle Heavy menstrual period Fibroids History of urinary incontinence Kidney stones Kidney disease Frequent UTI Hypothyroidism Diabetes mellitus Hypertension Hyperlipidemia Heart failure Surgical History Anesthesia Status post tubal ligation History of lithotripsy Status post hysterectomy with oophorectomy Status post cholecystectomy Status post appendectomy Family History Brother Diabetes mellitus Father Heart disease Mother Heart disease Social History marital status: household members: spouse alcohol intake: never substance use type: does not use Assessment & Plan Assessment & Plan narrative: The pt is a 85yo woman with HTN, DM type 2 on insulin, anxiety, hyperlipidemia, hip fracture in September, NSTEMI in January s/p KAY x3, and 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 1) Pyelonephritis: Based on imaging, positive urine culture. However, pt has been afebrile, no CVA tenderness. - Urology consulted from the ED, did not recommend higher potency antibiotics due to stent. Stated it would be treated the same. - Continue Ceftriaxone 2g daily. Patient not significantly improved. Culture shows E coli sensitive to ceftriaxone. Will continue IV antibiotics for another 24 hours. Will recheck labs in the morning. No leukocytosis and patient is afebrile 2) HTN, CAD s/p stenting: - Continue home Lisinopril, Metoprolol, Aspirin. No current symptoms 3) DM Type 2: Baseline excellent control - 32 units glargine daily - Hold home Metformin BID - Lispro sliding scale - ACHS glucose 4) Anxiety: - Continue home Sertraline, Mirtazapine 5) Chronic back pain: - Continue home Hydrocodone 6) Hypokalemia: - Potassium replacement as per protocol. Improved today 7) Diarrhea: Stool positive for Norovirus - Supportive care - Gentle mIVF DVT ppx: Lovenox FEN: Carb control diet Code: Full 52 minutes spent with the patient in reviewing hospitalization thus far meeting with the patient discussing with nursing formulating a plan and documentation Time-Based Coding :: [TOTAL MINUTES] spent with patient and on the chart (including review of chart, obtaining history, exam, reviewing outside data, placing orders, documenting exam and treatment plan, and counseling patient) on [DATE].
[2025-07-08] MEDS: INSULIN LISPRO 100 UNIT/ML 3ML VIAL SUBCUT ×2 (16:57→17:00)
[2025-07-08 17:09] VITALS: BP 126/73; PULSE 66; RESP 16; TEMP 36.6; O2SAT 99
[2025-07-08] MEDS: cefTRIAXone 2,000 MG in SODIUM CHLORIDE 0.9% 100 ML 200 MG IV (17:37)
--- NOTE | 2025-07-08 18:31 | PC.NURSE ---
Relatively uneventful day; condition remains essentially unchanged. Call light w/in each, bed alarm on for pt safety. Continue w/plan of care.
[2025-07-08 20:00] VITALS: BP 116/49; PULSE 71; RESP 19; TEMP 36.1; O2SAT 99
[2025-07-08] MEDS: MIRTAZAPINE 15 MG TABLET 7.5 MG PO (20:59)
[2025-07-08] MEDS: FAMOTIDINE 20 MG TABLET PO (21:00)
[2025-07-09] VITALS (7 sets, daily range): BP systolic 96–135; BP diastolic 48–60; PULSE 57–70; RESP 16–19; TEMP 36.1–36.6; O2SAT 96–100
[2025-07-09 06:03] LABS: Add Manual Diff / Slide Review NO; Hematocrit 27.0 % (36-46); Hemoglobin 9.2 g/dL (12.0-16.0); Lymphocytes Absolute Auto 2100 /uL (1100-4500); Mean Corpuscular HGB Conc 34.2 % (30-36); Mean Corpuscular Hemoglobin 31.8 PG (26-34); Mean Corpuscular Volume 92.9 fL (80-100); Platelet Count 283 X10^3/uL (150-400)
[2025-07-09 06:19] LABS: Alanine Aminotransferase 9 IU/L (<35); Albumin 2.6 g/dL (3.5-5.0); Albumin Globulin Ratio 0.8 (1.0-2.8); Alkaline Phosphatase 58 U/L (38-126); Blood Urea Nitrogen 19 mg/dL (7-17); Calcium 8.1 mg/dL (8.4-10.2); Carbon Dioxide 17 mmol/L (22-32); Chloride 116 mmol/L (98-107); Estimated Glomerular Filt Rate > 60 mL/min (>60); Globulin 3.3 g/dL (1.7-4.1); Glucose 121 mg/dL (70-99); HEMOLYSIS < 15 (0-50); Potassium 3.8 mmol/L (3.4-5.1); Sodium 138 mmol/L (137-145); Total Protein 5.9 g/dL (6.3-8.2)
[2025-07-09] MEDS: ACETAMINOPHEN 325 MG TABLET 650 MG PO ×2 (06:47→11:16)
[2025-07-09] MEDS: INSULIN LISPRO 100 UNIT/ML 3ML VIAL SUBCUT ×5 (08:16→20:42)
[2025-07-09] MEDS: METOPROLOL ER 25 MG TABLET PO (08:23)
[2025-07-09] MEDS: ASPIRIN EC 81 MG TABLET PO (08:23)
[2025-07-09] MEDS: SERTRALINE 50 MG TABLET 25 MG PO (08:23)
[2025-07-09] MEDS: ENOXAPARIN 40 MG/0.4 ML SYRINGE SUBCUT (08:23)
[2025-07-09] MEDS: INSULIN GLARGINE 100 UNIT/ML 3ML PEN 32 UNIT SUBCUT (08:30)
--- NOTE | 2025-07-09 13:33 | P.PN_ITS ---
Subjective Subjective Date Patient Seen: 07/09/25 Time Patient Seen: 13:33 Interval history: Patient had 2 diarrheal stools yesterday and last night but no BM today. She was still having right-sided abdominal pain that she states she has had. Likely this is related to her ureteral stent. She was sitting upright and is attempting to work with physical therapy in attempting to get out of bed. She was unable to do this yesterday. She does use a walker at home. Patient states that she was chronic shortness of breath and this is unchanged Patient has been on telemetry from the ER but has not had any abnormality she has been sinus rhythm with occasional PAC and bradycardia. Twelve point review of system is otherwise negative Patient denies chest pain or palpitations Patient denies cough Exam Vital Signs (past 8 hours): - 07/09/25 07:00 07/09/25 12:00 07/09/25 13:03 Temperature 97 F L 97.5 F L Pulse Rate 57 L 60 60 Respiratory Rate 16 16 Blood Pressure 96/48 L 114/51 L 114/51 L Pulse Oximetry 96 98 Oxygen Delivery Method Room Air Oxygen Flow Rate 0 Narrative Exam Narrative: Patient is alert and oriented and sitting upright on the hospital bed attempting to stand. Afebrile vital signs are stable some low blood pressures. HEENT unremarkable neck is supple Neck: Supple Chest: Clear to auscultation with scattered rhonchi that clear with cough Cor regular rate and rhythm with distant S1-S2 Abdomen positive bowel sounds, soft, no guarding, no rebound, mild tenderness right upper quadrant right lower quadrant slightly improved from yesterday Extremities: No edema Objective Labs 07/09/25 05:45 07/09/25 05:45 Labs: Laboratory Results - last 24 hr 07/08/25 07/08/25 07/09/25 16:48 20:10 05:45 WBC 6.7 RBC 2.90 L Hgb 9.2 L Hct 27.0 L MCV 92.9 MCH 31.8 MCHC 34.2 RDW 17.7 H Plt Count 283 Neut % (Auto) 51.0 Lymph % (Auto) 31.9 [place] % (Auto) 10.7 Eos % (Auto) 6.1 H Baso % (Auto) 0.3 Neut # (Auto) 3400 Lymph # (Auto) 2100 [place] # (Auto) 700 Eos # (Auto) 400 Baso # (Auto) 0 Sodium 138 Potassium 3.8 Chloride 116 H Carbon Dioxide 17 L BUN 19 H Creatinine 0.67 Estimated GFR > 60 BUN/Creatinine Ratio 28.4 H Glucose 121 H POC Whole Bld Glucose 210 H 162 H Calcium 8.1 L Total Bilirubin 0.2 AST 16 ALT 9 Alkaline Phosphatase 58 Total Protein 5.9 L Albumin 2.6 L Globulin 3.3 Albumin/Globulin Ratio 0.8 L 07/09/25 07/09/25 08:02 12:01 WBC RBC Hgb Hct MCV MCH MCHC RDW Plt Count Neut % (Auto) Lymph % (Auto) [place] % (Auto) Eos % (Auto) Baso % (Auto) Neut # (Auto) Lymph # (Auto) [place] # (Auto) Eos # (Auto) Baso # (Auto) Sodium Potassium Chloride Carbon Dioxide BUN Creatinine Estimated GFR BUN/Creatinine Ratio Glucose POC Whole Bld Glucose 147 H 205 H Calcium Total Bilirubin AST ALT Alkaline Phosphatase Total Protein Albumin Globulin Albumin/Globulin Ratio [facility] Medical History Anemia Weakness COVID-19 virus infection Sarcoidosis Chronic cough Migraines Headache Rheumatic fever Mumps Chicken pox Anemia History of recurrent ear infection Irregular menstrual cycle Heavy menstrual period Fibroids History of urinary incontinence Kidney stones Kidney disease Frequent UTI Hypothyroidism Diabetes mellitus Hypertension Hyperlipidemia Heart failure Surgical History Anesthesia Status post tubal ligation History of lithotripsy Status post hysterectomy with oophorectomy Status post cholecystectomy Status post appendectomy Family History Brother Diabetes mellitus Father Heart disease Mother Heart disease Social History marital status: household members: spouse alcohol intake: never substance use type: does not use Assessment & Plan Assessment & Plan narrative: The pt is a 85yo woman with HTN, DM type 2 on insulin, anxiety, hyperlipidemia, hip fracture in September, NSTEMI in January s/p KAY x3, and 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 1) Pyelonephritis: Based on imaging, positive urine culture. However, pt has been afebrile, no CVA tenderness. - Urology consulted from the ED, did not recommend higher potency antibiotics due to stent. Stated it would be treated the same. - Continue Ceftriaxone 2g daily. Patient not significantly improved. Culture shows E coli sensitive to ceftriaxone. Will continue IV antibiotics for another 24 hours. Will recheck labs in the morning. No leukocytosis and patient is afebrile. Likely transition to oral tomorrow 2) HTN, CAD s/p stenting: - Continue home Lisinopril, Metoprolol, Aspirin. No current symptoms, blood pressure slightly low today. We will continue to monitor and continue outpatient medications. Discontinue telemetry 3) DM Type 2: Baseline excellent control - 32 units glargine daily - Hold home Metformin BID - Lispro sliding scale - ACHS glucose 4) Anxiety: - Continue home Sertraline, Mirtazapine 5) Chronic back pain: - Continue home Hydrocodone 6) Hypokalemia: - Potassium replacement as per protocol. Improved today 7) Diarrhea: Stool positive for Norovirus. No further diarrhea over the last 18 hours - Supportive care -DC IV fluids and continues to be stable DVT ppx: Lovenox FEN: Carb control diet Code: Full Disposition: Patient with complicated history this year with hip fracture and then STEMI requiring stent and then patient has used a total of 100 days of skilled care this year and does not have further benefits through Medicare. Hopes would be to get her she stronger so that she can go home with home health. Discuss with both PT and care management 51 minutes spent with the patient in reviewing hospitalization thus far meeting with the patient discussing with nursing formulating a plan and documentation Time-Based Coding :: [TOTAL MINUTES] spent with patient and on the chart (including review of chart, obtaining history, exam, reviewing outside data, placing orders, documenting exam and treatment plan, and counseling patient) on [DATE].
--- NOTE | 2025-07-09 14:55 | PT.IPTN ---
Physical Therapy Treatment Note M2 PT-IP Current Condition Start: 07/08/25 10:17 Freq: NEEDED Status: Active Protocol: Document 07/08/25 10:18 KJ (Rec: 07/08/25 10:28 KJ [id number]) Physical Therapy Current Condition Current Condition Evaluation Date 07/08/25 Treatment Diagnosis Impaired mobility Onset Date 10/18 M3 PT-IP Subjective Start: 07/08/25 10:17 Freq: NEEDED Status: Active Protocol: Document 07/09/25 14:49 KJ (Rec: 07/09/25 14:55 KJ [id number]) Subjective Physical Therapy Visit Type Type Treatment Note Visit Start Time 12:58 Visit Stop Time 13:49 Physical Therapy Visit Comments Patient Comments Still no chair in room - pt has been in bed all morning . Therapy Pain Assessment Location left quadrant Description Aching Pain Behaviors Holding Area M4 PT-IP Mobility and Gait Start: 07/08/25 10:17 Freq: NEEDED Status: Active Protocol: Document 07/09/25 14:49 KJ (Rec: 07/09/25 14:55 KJ [id number]) PT-Bed Mobility Assessment Rolling Type of Rolling Roll to Left Level of Assist Moderate Assistance Supine to Sit Supine to Sit Moderate Assistance Sit to Supine Sit to Supine Moderate Assistance Scooting Scooting to Edge of Dependent Bed Scooting Up and Down Dependent in Bed PT-Transfer Assessment Comments Mobility Comments Pt was unable to scoot to the edge of the bed, even with assistance. She was unable to come to standing. The sit to stand lift was used to assist pt to the bathroom. During this assist the pt was encouraged to stand upright and take weight on her legs. Pt was able to bellstand attendant the lift for 5 minutes. After return to bed pt reported she was exhausted. M5 PT-IP Objective Assessments Start: 07/08/25 10:17 Freq: NEEDED Status: Active Protocol: Document 07/08/25 10:18 KJ (Rec: 07/08/25 10:28 KJ [id number]) Orientation Orientation/Cognition Level of Alertness Alert Orientation Name Comments Initially was drowsy, became more alert with activity Gross Range of Motion Upper Extremity ROM Assessment Within Functional Limits Impairments Painful R shoulder with elevation Lower Extremity ROM Assessment Right Impaired Impairments Lacks full knee ext on R Strength Lower Extremity Strength Assessment Right Impaired Knee R knee ext 2/5 Ankle R ankle dorsiflex 4/5 Comments Strength Comments Pain with use of RLE M6 PT-IP Treatment Start: 07/08/25 10:17 Freq: NEEDED Status: Active Protocol: Document 07/09/25 14:49 KJ (Rec: 07/09/25 14:55 KJ [id number]) Physical Therapy Treatment Exercises Exercises Ankle Pumps,Gluteal Sets,Quad Sets,Heel Slides Other Treatments Other Treatment bridging, deep breathing Performed M7 PT-IP Assessment and Plan Start: 07/08/25 10:17 Freq: NEEDED Status: Active Protocol: Document 07/09/25 14:49 KJ (Rec: 07/09/25 14:55 KJ [id number]) PT Summary Assessment and Plan Potential Rehabilitation Fair Potential Status of Condition Evolving at Evaluation Summary Impairments Strength,Bed Mobility,Transfers,Gait,Activity Tolerance Assessment Summary Pt more alert today. Still not able to come to standing . Treatment Plan Physical Therapy Bed Mobility Training,Transfer Training,Gait Training, Treatment Plan Therapeutic Exercise Other Standing at eob. wt shifting. transfers to chair. Recommendations and Next Treatment Focus Discharge Recommendations PT Discharge Home with Assistance Recommendations Other Discharge Pt has used SNF allocation for the year. Recommendations - PT assist [facility] with OT
--- NOTE | 2025-07-09 15:37 | DI.ECHO.S_ITS ---
[facility] : : [id number] : [place] : : [id number] : : Phone: [phone] Echocardiogram Report + + :Name: ONOFRE CURRIE Study Date: 07/10/2025 Height: 62 in : :[facility] ReadingLocation: Weight: 147 lb : : Gender: Female BSA: 1.7 m2 : :: 1940 Age: 85 yrs BP: 113/49 mmHg: :Reason For Study: VTACH : :Ordering Physician: NIRU, : :DOM Performed By: Cruz Albert : :Referring: DOM MARRUFO : + + Interpretation Summary The ejection fraction is estimated to be 40-45%. LV contractility is slightly less dynamic in comparison to prior echo study. The apical cap, distal anterior wall, distal inferior wall, and the distal septum are akinetic. Compared to the prior exam, the left ventricular wall motion has not changed. Diastolic function is indeterminate. The right ventricle is normal in size and function. The right ventricular systolic pressure is estimated to be at least 43 mmHg based on an estimated right atrial pressure of 15 mm Hg. The left atrium is borderline dilated. There is mild to moderate tricuspid regurgitation. The aortic root is normal size. Procedure: A two-dimensional transthoracic echocardiogram with color flow and Doppler was performed. The study quality was technically good. Comparison is made with the echocardiogram of 03/16/2025. The patient was in normal sinus rhythm during the exam. Left Ventricle: The left ventricle is normal in size. There is normal left ventricular wall thickness. There is no ventricular septal defect visualized. A false chord is noted (normal variant). The ejection fraction is estimated to be 40-45%. The apical cap, distal anterior wall, distal inferior wall, and the distal septum are akinetic. Compared to the prior exam, the left ventricular wall motion has not changed. Diastolic function is indeterminate. Right Ventricle: The right ventricle is normal in size and function. Atria: The left atrium is borderline dilated. Right atrial size is normal. There is no Doppler evidence for an interatrial shunt. Mitral Valve: There is mild mitral annular calcification. The mitral valve leaflets appear mildly thickened. There is trace mitral regurgitation. Aortic Valve: The aortic valve is mildly calcified. There is no hemodynamically significant valvular aortic stenosis. No aortic regurgitation is present. Tricuspid Valve: The tricuspid valve leaflets are thin and pliable. There is mild to moderate tricuspid regurgitation. The right ventricular systolic pressure is estimated to be at least 43 mmHg based on an estimated right atrial pressure of 15 mm Hg. Pulmonic Valve: The pulmonic valve is not well visualized. There is trace pulmonic regurgitation. Great Vessels: The aortic root is normal size. The dimensions of the ascending aorta are normal. The pulmonary is not well visualized. The IVC is dilated (diameter is greater than 2.1 cm) and it collapses less than 50% with a sniff. This suggests a high right atrial pressure of 15 mm Hg. Pericardium/ Pleura There is no pericardial effusion. There is no pleural effusion. MMode/2D Measurements & Calculations LVIDd: 4.2 cm LVOT diam: 1.9 cm LVIDs: 3.2 cm Ao root diam: 3.3 cm FS: 25.1 % asc Aorta Diam: 3.5 cm EPSS: 0.53 cm IVSd: 0.83 cm LVPWd: 0.85 cm LV mott. diameter/BSA (cm/m^2): 2.5 LV sys. diameter/BSA (cm/m^2): 1.9 LA A2 area: 18.0 cm2 RA long axis: 3.7 cm LA A4 area: 18.6 cm2 RA area: 9.6 cm2 LA length (vol): 4.9 cm RA vol: 21.2 ml LA vol: 57.9 ml RA : 12.6 ml/m2 LA vol index: 34.6 ml/m2 IVC diam: 2.4 cm RVD1 (basal): 3.7 cm RVD2 (mid): 3.0 cm TAPSE: 2.3 cm Doppler Measurements & Calculations Ao V2 max: 153.1 cm/sec LVOT Max Emir: 95.2 cm/sec Ao V2 mean: 123.2 cm/sec LV V1 max P.6 mmHg Ao max P.4 mmHg LV V1 VTI: 23.5 cm Ao mean P.5 mmHg LUCINA(I,D): 1.6 cm2 Ao V2 VTI: 40.3 cm LUCINA(V,D): 1.7 cm2 sev ratio: 0.58 LUCINA indexed to BSA (cm^2/m^2): 0.95 MV E max emir: 97.8 cm/sec TR max emir: 267.5 cm/sec MV A max emir: 126.2 cm/sec TR max P.6 mmHg MV E/A: 0.78 PA V2 max: 88.3 cm/sec Med Peak E' Emir: 4.6 cm/sec PA V2 mean: 58.9 cm/sec E/E' med: 21.0 PA mean P.6 mmHg Lat Peak E' Emir: 6.4 cm/sec PA pr(Accel): 20.8 mmHg E/E' lat: 15.4 E/e' average: 18.2 MV dec time: 0.31 sec SV(LVOT): 64.4 ml Reading Physician:05:43 PM
[2025-07-09 16:10] LABS: Magnesium 1.8 mg/dL (1.6-2.3)
[2025-07-09] MEDS: cefTRIAXone 2,000 MG in SODIUM CHLORIDE 0.9% 100 ML 200 MG IV (18:23)
--- NOTE | 2025-07-09 19:37 | PC.NURSE ---
Day shift note: Patient alert, and oriented. Up OOB with PT, utilizing sit to stand power lift. 2P max assist, Q2 turns, pericare provided. X1 loose stool. Mepilex to coccyx area in place. Refused SCDs this evening. Notified Dr. Brunner regarding 12 beat run of Vtach @ 1528. Patient normotensive, VSS and continue on RA 99%. Asymptomatic. New ordersobtained. Calls appropriately for staff assist.
[2025-07-09] MEDS: FAMOTIDINE 20 MG TABLET PO (20:40)
[2025-07-09] MEDS: MIRTAZAPINE 15 MG TABLET 7.5 MG PO (20:40)
[2025-07-10] VITALS: BP 104/44; PULSE 66; RESP 16; TEMP 36.2; O2SAT 97
[2025-07-10 04:00] VITALS: BP 113/49; PULSE 66; RESP 16; TEMP 36.7; O2SAT 98
[2025-07-10 07:03] LABS: Blood Urea Nitrogen 19 mg/dL (7-17); Calcium 8.5 mg/dL (8.4-10.2); Carbon Dioxide 18 mmol/L (22-32); Chloride 114 mmol/L (98-107); Estimated Glomerular Filt Rate > 60 mL/min (>60); Glucose 85 mg/dL (70-99); HEMOLYSIS < 15 (0-50); Potassium 3.8 mmol/L (3.4-5.1); Sodium 139 mmol/L (137-145)
[2025-07-10 08:00] VITALS: BP 116/49; PULSE 70; RESP 18; TEMP 36.6; O2SAT 99
[2025-07-10] MEDS: SERTRALINE 50 MG TABLET 25 MG PO (08:37)
[2025-07-10] MEDS: METOPROLOL ER 25 MG TABLET PO (08:37)
[2025-07-10] MEDS: ASPIRIN EC 81 MG TABLET PO (08:38)
[2025-07-10] MEDS: ENOXAPARIN 40 MG/0.4 ML SYRINGE SUBCUT (08:38)
[2025-07-10] MEDS: INSULIN GLARGINE 100 UNIT/ML 3ML PEN 32 UNIT SUBCUT (08:42)
--- NOTE | 2025-07-10 09:32 | P.PN_ITS ---
Subjective Subjective Interval history: The pt reports overall feeling well today. Her diarrhea returned, but after a large BM this afternoon she reports that her abdominal pain actually improved. Exam Vital Signs (past 8 hours): - 07/10/25 04:00 Temperature 98.1 F Pulse Rate 66 Respiratory Rate 16 Blood Pressure 113/49 L Pulse Oximetry 98 Oxygen Flow Rate 0 Oxygen Delivery Method Room Air Oxygen Flow Rate 0 Narrative Exam Narrative: Gen: NAD, laying comfortably in bed, appears well CV: RRR, grade 2/6 systolic murmur Resp: clear to auscultation bilaterally Abd: soft, mild tenderness RLQ without rebound/guarding/rigidity, normoactive bowel sounds Back: no CVA tenderness Ext: no edema Objective Labs 07/09/25 05:45 07/10/25 06:02 Labs: Laboratory Results - last 24 hr 07/09/25 07/09/25 07/09/25 05:45 12:01 16:36 Sodium Potassium Chloride Carbon Dioxide BUN Creatinine Estimated GFR BUN/Creatinine Ratio Glucose POC Whole Bld Glucose 205 H 230 H Calcium Magnesium 1.8 07/09/25 07/10/25 20:35 06:02 Sodium 139 Potassium 3.8 Chloride 114 H Carbon Dioxide 18 L BUN 19 H Creatinine 0.61 Estimated GFR > 60 BUN/Creatinine Ratio 31.1 H Glucose 85 POC Whole Bld Glucose 222 H Calcium 8.5 Magnesium PFSH Medical History Anemia Weakness COVID-19 virus infection Sarcoidosis Chronic cough Migraines Headache Rheumatic fever Mumps Chicken pox Anemia History of recurrent ear infection Irregular menstrual cycle Heavy menstrual period Fibroids History of urinary incontinence Kidney stones Kidney disease Frequent UTI Hypothyroidism Diabetes mellitus Hypertension Hyperlipidemia Heart failure Surgical History Anesthesia Status post tubal ligation History of lithotripsy Status post hysterectomy with oophorectomy Status post cholecystectomy Status post appendectomy Family History Brother Diabetes mellitus Father Heart disease Mother Heart disease Social History marital status: household members: spouse alcohol intake: never substance use type: does not use Assessment & Plan Assessment & Plan narrative: The pt is a 85yo woman with HTN, DM type 2 on insulin, anxiety, hyperlipidemia, hip fracture in September, NSTEMI in January s/p KAY x3, and 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 1) Pyelonephritis: Based on imaging, positive urine culture. However, pt has been afebrile, no CVA tenderness. - Urology consulted from the ED, did not recommend higher potency antibiotics due to stent. Stated it would be treated the same. - Continue Ceftriaxone 2g daily. Currently Day 4. Will give additional dose tomorrow then transition to PO for total 7 days. 2) HTN, CAD s/p stenting: BP low normal, asymptomatic. - Continue home Lisinopril, Metoprolol, Aspirin. 3) DM Type 2: Baseline excellent control - 32 units glargine daily - Restart home Metformin BID - Lispro sliding scale - ACHS glucose 4) Anxiety: - Continue home Sertraline, Mirtazapine 5) Chronic back pain: - Continue home Hydrocodone 6) Hypokalemia: Normalized 7) Diarrhea: Stool positive for Norovirus. Has resolved, now with loose stool again but not liquidy to necessitate testing. - Continue barrier cream DVT ppx: Lovenox FEN: Carb control diet Code: Full Disposition: Patient with complicated history this year with hip fracture and then STEMI requiring stent and then patient has used a total of 100 days of skilled care this year and does not have further benefits through Medicare. Plan for d/c tomorrow with home health. Time-Based Coding :: [TOTAL MINUTES] spent with patient and on the chart (including review of chart, obtaining history, exam, reviewing outside data, placing orders, documenting exam and treatment plan, and counseling patient) on [DATE]. [employer] Project Manager Document charge(s): Yes Charge Codes Subsequent inpatient/observation care: 16230
--- NOTE | 2025-07-10 11:06 | PT.IPTN ---
Physical Therapy Treatment Note M2 PT-IP Current Condition Start: 07/08/25 10:17 Freq: NEEDED Status: Active Protocol: Document 07/08/25 10:18 KJ (Rec: 07/08/25 10:28 KJ [id number]) Physical Therapy Current Condition Current Condition Evaluation Date 07/08/25 Treatment Diagnosis Impaired mobility Onset Date 10/18 M3 PT-IP Subjective Start: 07/08/25 10:17 Freq: NEEDED Status: Active Protocol: Document 07/10/25 13:53 NW (Rec: 07/10/25 14:00 NW [id number]) Subjective Physical Therapy Visit Type Type Treatment Note Visit Start Time 10:35 Visit Stop Time 11:06 Number of WHAT JOB TITLES MEAN Visits 0 Physical Therapy Visit Comments Patient Comments Pt is found supine in bed. States has not been up. Patient Goals To return home. M4 PT-IP Mobility and Gait Start: 07/08/25 10:17 Freq: NEEDED Status: Active Protocol: Document 07/10/25 13:53 NW (Rec: 07/10/25 14:00 NW [id number]) PT-Bed Mobility Assessment Rolling Type of Rolling Roll to Left Level of Assist Minimal Assistance Supine to Sit Supine to Sit Minimal Assistance Scooting Scooting to Edge of Minimal Assistance Bed PT-Transfer Assessment Sit to and From Stand Sit to and from Minimal Assistance Stand Equipment Transfer Assistive Gait Belt,Front Wheeled Walker Device Transfers Transfer Destination Chair Transfer Technique Stand Step Pivot Transfer Ability Level of Assist Minimal Assistance Comments Mobility Comments Decreased assistance required. Able to perform STS from EOB at CGA and Job from bed side chair x 2. Cues for UE placement and weight shifting. PT-Balance Assessment Sitting Balance and Reactions Static Sitting Good Balance Ability Dynamic Sitting Good Balance Ability Standing Balance and Reactions Static Standing Poor Balance Ability Dynamic Standing Poor Balance Ability Device Used FWW M5 PT-IP Objective Assessments Start: 07/08/25 10:17 Freq: NEEDED Status: Active Protocol: Document 07/08/25 10:18 KJ (Rec: 07/08/25 10:28 KJ [id number]) Orientation Orientation/Cognition Level of Alertness Alert Orientation Name Comments Initially was drowsy, became more alert with activity Gross Range of Motion Upper Extremity ROM Assessment Within Functional Limits Impairments Painful R shoulder with elevation Lower Extremity ROM Assessment Right Impaired Impairments Lacks full knee ext on R Strength Lower Extremity Strength Assessment Right Impaired Knee R knee ext 2/5 Ankle R ankle dorsiflex 4/5 Comments Strength Comments Pain with use of RLE M6 PT-IP Treatment Start: 07/08/25 10:17 Freq: NEEDED Status: Active Protocol: Document 07/10/25 13:53 NW (Rec: 07/10/25 14:00 NW [id number]) Physical Therapy Treatment Education Education Provided Safety Other Treatments Other Treatment Education on breathing with effort. Educated pt on Performed importance to increase time out of bed to maintain strength. Education on increasing caregiver assistance secondary to decrease spousal assistance. M7 PT-IP Assessment and Plan Start: 07/08/25 10:17 Freq: NEEDED Status: Active Protocol: Document 07/10/25 13:53 NW (Rec: 07/10/25 14:00 NW [id number]) PT Summary Assessment and Plan Potential Rehabilitation Fair Potential Status of Condition Evolving at Evaluation Summary Impairments Strength,Bed Mobility,Transfers,Gait,Activity Tolerance Assessment Summary Pt requires decreased assistance and is able to perform stand pivot transfer at Job with FWW. Pt demonstrates adequate weight shifting for side stepping for placement adjustment in the chair. Pt fatigues quickly throughout session. Recommending SNF or home with 24/7 caregiver assistance. Goals Bed Mobility Goal Contact Guard Assistance Transfer Goal Contact Guard Assistance Gait Goal Contact Guard Assistance Gait Distance 10 Days to Meet Goals 10 Frequency of Treatment Frequency Of Once a Day Treatment Treatment Plan Physical Therapy Bed Mobility Training,Transfer Training,Gait Training, Treatment Plan Therapeutic Exercise Other Standing at eob. wt shifting. transfers to chair. Recommendations and Next Treatment Focus Precautions Other Precautions falls risk Recommendations To Nursing Amount of Assist 2 Person Assist Needed Discharge Recommendations PT Discharge Home with 24/7 Assist Available,SNF Rehab,Home vs SNF Recommendations Other Discharge Pt has caregivers present 6 hours a day, rec is to Recommendations increase assistance as unsure condition of spouse. - PT assist 1
[2025-07-10 12:00] VITALS: BP 134/56; PULSE 71; RESP 18; TEMP 36.5; O2SAT 99
[2025-07-10] MEDS: INSULIN LISPRO 100 UNIT/ML 3ML VIAL SUBCUT ×2 (12:29→12:30)
--- NOTE | 2025-07-10 13:53 | OT.IP.EVAL ---
Past Medical History (Last Reviewed 07/06/25 @ 18:03 by Harper Chakraborty PA-C) Anemia Anemia Chicken pox Chronic cough COVID-19 virus infection Diabetes mellitus Fibroids Frequent UTI Headache Heart failure Heavy menstrual period History of recurrent ear infection History of urinary incontinence Hyperlipidemia Hypertension Hypothyroidism Irregular menstrual cycle Kidney disease Kidney stones Migraines Mumps Rheumatic fever Sarcoidosis Weakness Surgical History (Last Reviewed 07/06/25 @ 18:03 by Harper Chakraborty PA-C) Anesthesia History of lithotripsy Status post appendectomy Status post cholecystectomy Status post hysterectomy with oophorectomy Status post tubal ligation Occupational Therapy Inpatient Evaluation/Re-Eval M1 OT IP Prior Functional Status Start: 07/10/25 13:29 Freq: Status: Active Protocol: Document 07/10/25 10:34 XIOMY (Rec: 07/10/25 13:53 ITZELLANATALI Desktop) Medical Review Prior Functional Status Medical History Yes Reviewed Communication Pt able to make needs known. Mobility and Gait Pt used 4WW in home to tf from one surface to another. Activities of Daily Pt was able to dress UB, perform grooming, and bathe. Living and IADL's She required assist from her for all LB dressing. Pt has a CG for 4-5 hrs/6 days a week. Cg and spouse assist with cooking, cleaning, and dtr assists with medication mgmt. Prior Functional Pt is unable to clearly explain her course of Level (Other details hospitalization and rehab following her September hip fx. ) RN states she used all of her SNF days and has been home since the beginning of June. It is unclear if she was ambulating at home. Social History Household Members spouse Living Arrangements House Number of Stairs To Ramp; 16 steps to basement; 3 steps to enter with R Enter/Railing? rail and L grab bar Home Environment Standard Height Toilet,Walk in Shower,Built-In Shower Seat Home Equipment Front Wheel Walker,Straight Cane,Manual Wheelchair, Raised Toilet Seat w/Armrests,Shower Seat with Backrest ,Grab Bars Near Toilet,Grab Bars In Shower M2 OT-IP Current Condition Start: 07/10/25 13:29 Freq: Status: Active Protocol: Document 07/10/25 10:34 XIOMY (Rec: 07/10/25 13:53 [email or web address] Desktop) Occupational Therapy Current Condition Current Condition Evaluation Date 07/10/25 Treatment Diagnosis fall, weakness, confusion, decreased self care Diagnosis Onset Date 07/06/25 Post Operative Precautions Other Precautions falls M3 OT- IP Subjective and Pain Start: 07/10/25 13:29 Freq: Status: Active Protocol: Document 07/10/25 10:34 XIOMY (Rec: 07/10/25 13:53 [facility]- Subjective Occupational Therapy Visit Type Type Initial Evaluation Visit Start Time 10:34 Visit Stop Time 11:13 Notes Pt reclined in bed on entrance of OT/PT for co-eval. Occupational Therapy Visit Comments Patient Comments Pt agreeable to participating in OT eval. Patient/Caregiver I want to be able to walk again and make decisions for Goals myself. OT Pain Assessment Pain Present Pain Present Denied Pain M4 OT- IP ADL's Start: 07/10/25 13:29 Freq: Status: Active Protocol: Document 07/10/25 10:34 XIOMY (Rec: 07/10/25 13:53 [facility]) OT [id number] Comments OT Self-Feeding not a meal time Comments OT ADL-Grooming General Evaluation Grooming Ability Minimal Assistance Comments OT Grooming Comments pt able to brush most of her hair, needs min A for completeness OT ADL-Oral Care General Eval Oral Care Ability Standby Assistance Comments Oral Care Comments performed seated in chair on setup OT ADL-Dressing General Eval Lower Body Dressing Total Assistance Ability Comments OT Dressing Comments Pt attempted to don 1 sock and was unable to reach her LE. Pt reports her spouse performs all LB dressing at baseline. Agreed to learn to use LB AE. OT ADL-Toileting Comments OT Toileting not observed, pt dependent on brief and chris wick at Comments time of eval. OT ADL-Bathing Comments OT Bathing Comments not observed M5 OT- IP IADL's Start: 07/10/25 13:29 Freq: Status: Active Protocol: Document 07/10/25 10:34 XIOMY (Rec: 07/10/25 13:53 [facility]) OT-Instrumental Activities of Daily Living Deficits IADL Deficits No Deficits Identified Home Safety Awareness Awareness of Need Decreased Awareness for Assistance at Home Home Safety Comments Needed heavy encouragement to seek additional support at home for caregiving needs. Pt is somewhat unrealistic about how much assistance she currently needs. Medication Management Medication Caregiver Administers Management Money Management Money Management Caregiver Provides Assistance Meal Preparation Meal Preparation Caregiver Provides Assist Steam Plant Records Clerk Steam Plant Records Clerk Caregiver Provides Assist Driving Driving Caregiver Provides Assist M6 OT- IP Functional Cognition Start: 07/10/25 13:29 Freq: Status: Active Protocol: Document 07/10/25 10:34 XIOMY (Rec: 07/10/25 13:53 [facility] Desktop) Cognitive Factors Limiting Selfcare Function Cognitive Ability Level of Alertness Alert Patient Orientation Name,Place,Situation Attention Span Capable of Focused Attention,Capable of Sustained Ability Attention Ability to Follow Able to Follow Multi-Step Commands Commands Safety Awareness Underestimates Need for Assistance OT- Vision and Hearing OT- Hearing Assessment OT- Hearing WFL Assessment OT- Vision Assessment Visual Acuity WFL,Glasses All The Time M7 OT- IP Mobility and Balance Start: 07/10/25 13:29 Freq: Status: Active Protocol: Document 07/10/25 10:34 XIOMY (Rec: 07/10/25 13:53 [facility]- Bed Mobility Assessment Rolling Type of Rolling Roll to Left Level of Assistance Standby Assistance,Bedrails Supine to Sit Supine to Sit Assist Minimal Assistance,Head of Bed Elevated,Bedrails Scooting Scooting to Edge of Minimal Assistance,Bedrails Bed OT-Transfer Assessment Sit to and From Stand Sit to and from Minimal Assistance,Use of Upper Extremities Stand Transfers Transfer Ability Minimal Assistance Technique Transfer Destination Chair Transfer Technique Stand Step Pivot Devices Transfer Assistive Gait Belt,Front Wheeled Walker Devices Comments Mobility Comments Pt needs vcs for sequencing and to use UE to assist in safety with tf. Pt requires encouragement to take larger steps. Pts BP 134/60 supine and HR 64. OT- Balance Assessment Sitting Balance and Reactions Static Sitting Good Balance Ability Dynamic Sitting Fair Balance Ability Standing Balance and Reactions Static Standing Fair Balance Ability Dynamic Standing Fair Balance Ability M8 OT- IP Objective Assessments Start: 07/10/25 13:29 Freq: Status: Active Protocol: Document 07/10/25 10:34 XIOMY (Rec: 07/10/25 13:53 [facility] Desktop) OT Gross Range of Motion Upper Extremity Range of Motion Assessment Bilaterally Impaired ROM Impairments B shoulder ~90 OT Strength Upper Extremity Strength Assessment Bilaterally Impaired Shoulder 2+ Elbow 3+ Hand 4- Hand Home Care And Home Health Aides Teacher Strength Hand Dominance Right OT-Muscle Tone Assessment Muscle Tone WNL No OT Sensation Assessment Edema Edema Absent M9 OT- IP Assessment and Plan Start: 07/10/25 13:29 Freq: Status: Active Protocol: Document 07/10/25 10:34 XIOMY (Rec: 07/10/25 13:53 ITZELLANATALI Desktop) OT Summary Assessment and Plan Potential Rehabilitation Good Potential Analytic Complexity Moderate at Evaluation Summary OT Impairments Range of Motion,Strength,Balance,Functional Mobility, Grooming,Dressing,Toileting,Bathing,Toilet Transfers, Shower Transfers,Activity Tolerance Progress Towards Progressing Toward Goals,Goals Met Goals Assessment Summary Pt is an 85 yo F who lives with her spouse. Pt had a hip fx September, NSTEMI January, ureteral stricture and stenting 03/07/25 with exchange 06/13/25. Pt presented to ED due to GLF, dysuria, and generalized confusion x 2 days. Pt presents with activity intolerance, muscle weakness, decreased ROM B, decreased functional mobility, impaired BADLs, and impaired balance. Skilled OT services are appropriate to address these deficits and promote return toward PLOF. Recommend home with 24/7 assist (beyond spouse) and HH. Goals Grooming Goal Independent,Adapted Comb/Star Dressing Goal Minimal Assistance,Brand Activation Manager,Sock Aid Toileting Goal Independent Bathing Goal Standby Assistance Toilet Transfer Goal Standby Assistance Shower Transfer Goal Standby Assistance Days to Meet Goals 10 Frequency of Treatment Other frequency 5x/wk Treatment Plan OT Treatment Plan ADL Training,Functional Mobility,Therapeutic Exercises, Patient/Family Education,Discharge Planning Other Treatment LB AE training, ADLs Recommendations and Next Treatment Focus Discharge Recommendations OT Discharge Home with 24/7 Assist Available,Home Health Recommendations Transportation Needs Private Vehicle,Wheelchair/Cabulance at Discharge
[2025-07-10 17:00] VITALS: BP 126/54; PULSE 66; RESP 18; TEMP 36.4; O2SAT 98
--- NOTE | 2025-07-10 17:06 | CM.DPNOTE ---
DCP note STEMMING MACHINE OPERATOR reviewed EMR per Maryjane, stable just pending dispo. per PT/OT, rec home with 24/7 assistance. did much better today. per RN, return of massive BM output/diarrhea (norovirus). per Maryjane no DC today. per therapies, has CGs 6hrs/day already. CM team will f/u about PP CGs increasing hrs/if spouse can help at home. P: potential dc tomorrow pending noro output/when stable. likely HH and increasing in PP CG. will continue to follow closely for DCP Coordination Stacy Gonzáles, STEMMING MACHINE OPERATOR
[2025-07-10] MEDS: cefTRIAXone 2,000 MG in SODIUM CHLORIDE 0.9% 100 ML 200 MG IV (17:34)
[2025-07-10] MEDS: FAMOTIDINE 20 MG TABLET PO (20:51)
[2025-07-10] MEDS: MIRTAZAPINE 15 MG TABLET 7.5 MG PO (20:51)
[2025-07-10 21:00] VITALS: BP 110/46; PULSE 66; RESP 20; TEMP 36.7; O2SAT 96
[2025-07-11] VITALS: BP 119/48; PULSE 61; RESP 20; TEMP 36.9; O2SAT 97
[2025-07-11 04:00] VITALS: BP 118/54; PULSE 60; RESP 20; TEMP 36.3; O2SAT 97
[2025-07-11 08:25] VITALS: BP 127/59; PULSE 67
[2025-07-11] MEDS: SERTRALINE 50 MG TABLET 25 MG PO (08:25)
[2025-07-11] MEDS: ASPIRIN EC 81 MG TABLET PO (08:25)
[2025-07-11] MEDS: METOPROLOL ER 25 MG TABLET PO (08:25)
--- NOTE | 2025-07-11 08:25 | P.DS_ITS ---
History of Present Illness History of Present Illness Date Patient Seen: 07/11/25 Time Patient Seen: 08:00 Chief complaint: Catheter, blood and pain Narrative: The pt is a 85yo woman with HTN, DM type 2 on insulin, anxiety, hyperlipidemia, hip fracture in September, NSTEMI in January s/p KAY x3, and 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 The pt was discharged from [facility] 2 weeks ago after prolonged rehabilitation from above health issues. Today, she states that she has been having light bleeding in her urine since her stent was replaced in May. She today denies any dysuria, but does endorse mild right lower quadrant abdominal pain. She also reports having diarrhea for several weeks that is very liquidy. She denies any blood in her urine. The pt denies any recent fevers, chills, chest pain, SOB, palpitations, nausea, or vomiting. She had been very happy to have returned home. In the ED, the pts vitals were stable. Labs showed mild anemia without any WBC elevation, hypokalemia, and initially elevated lactate that normalized with fluids. U/A was highly suggestive of UTI. CT abd/pelvis showed signs suggestive of cystitis and possible pyelonephritis. The pt received IV Ceftriaxone. Discharge Providers Provider Date of admission: 07/06/25 19:45 Discharge Date: 07/11/25 Primary care physician: Cruz Crook MD Consults: 07/07/25 15:17 Consult to Physical Therapy Evaluate & Treat Comment: Physician Instructions: Evaluate and Treat 07/10/25 09:44 Consult to Occupational Therapy Evaluate & Treat Comment: Physician Instructions: Evaluate and treat 07/10/25 12:13 Consult to Pharmacy Routine Comment: Fall risk Discharge provider: Billie Wesley MD Summary Hospital Course Discharge Diagnosis: Pyelonephritis Norovirus/diarrhea HTN CAD DM type 2 Anxiety Chronic back pain Hypokalemia Hospital Course: The pt presented with confusion and blood in her urine. She was diagnosed with pyelonephritis that was treated with IV Ceftriaxone x5 days. She will continue PO abx as an outpatient for a total of 7 days. Cultures grew E Coli. Her symptoms improved during her hospitalization. She also had significant diarrhea at admission, and tested positive for Norovirus. Her diarrhea was improving at the time of discharge. She worked with PT while in the hospital, and will discharge with home health to continue strengthening. Status at Discharge Cognitive/behavioral status at discharge: oriented Functional status at discharge: uses cane/walker Overall status at discharge: patient is progressing back to baseline Exam Vital Signs (past 8 hours): - 07/11/25 04:00 Temperature 97.3 F L Pulse Rate 60 Respiratory Rate 20 Blood Pressure 118/54 L Pulse Oximetry 97 Oxygen Flow Rate 0 Oxygen Delivery Method Room Air Oxygen Flow Rate 0 Narrative Exam Narrative: Gen: NAD, laying comfortably in bed, appears well CV: RRR, grade 2/6 systolic murmur Resp: clear to auscultation bilaterally Abd: soft, nontender, normoactive bowel sounds Back: no CVA tenderness Ext: no edema Objective Labs 07/09/25 05:45 07/10/25 06:02 Labs: Laboratory Results - last 24 hr 07/07/25 07/07/25 07/10/25 12:00 16:26 11:52 POC Whole Bld Glucose 268 H 180 H 148 H 07/10/25 07/10/25 07/11/25 17:10 19:54 08:19 POC Whole Bld Glucose 76 180 H D 112 H PFSH Medical History Anemia Weakness COVID-19 virus infection Sarcoidosis Chronic cough Migraines Headache Rheumatic fever Mumps Chicken pox Anemia History of recurrent ear infection Irregular menstrual cycle Heavy menstrual period Fibroids History of urinary incontinence Kidney stones Kidney disease Frequent UTI Hypothyroidism Diabetes mellitus Hypertension Hyperlipidemia Heart failure Surgical History Anesthesia Status post tubal ligation History of lithotripsy Status post hysterectomy with oophorectomy Status post cholecystectomy Status post appendectomy Family History Brother Diabetes mellitus Father Heart disease Mother Heart disease Social History marital status: household members: spouse alcohol intake: never substance use type: does not use Discharge Plan Discharge Plan Patient Disposition: Home Discharge orders & Medications Prescriptions: New cefdinir 300 mg capsule 300 mg PO BID Qty: 4 0RF Continued sertraline 25 mg tablet 25 mg PO DAILY Qty: 90 3RF (DME) blood-glucose meter Misc See Rx Instructions .Route Qty: 1 0RF Rx Instructions: to check blood sugars twice daily (DME) Blood Glucose Test Strip See Rx Instructions .Route Qty: 100 11RF Rx Instructions: To test blood sugar twice daily Disabled Parking Permit See Rx Instructions .ROUTE .COMPLEX Qty: 1 0RF Rx Instructions: I find this patient to be medically disabled and qualify for disabled parking as indicated and signed on the accompanying disabled parking application for individuals. acetaminophen 500 mg tablet 500 mg PO TID PRN polyethylene glycol 3350 [Miralax] 17 gram/dose powder 17 g PO DAILY albuterol sulfate 90 mcg/actuation HFA aerosol inhaler 1 puff inhalation Q4H Humulin N NPH Insulin KwikPen 100 unit/mL (3 mL) insulin pen 20 unit SUBCUT BID metformin 1,000 mg tablet 500 mg PO BID ferrous sulfate 325 mg (65 mg iron) tablet 325 mg PO DAILY ascorbate calcium (vitamin C) 500 mg tablet 500 mg PO DAILY oxycodone 5 mg tablet 5 mg PO QID PRN cholecalciferol (vitamin D3) 25 mcg (1,000 unit) capsule 25 mcg PO DAILY mirtazapine 7.5 mg tablet 7.5 mg PO BEDTIME alendronate 70 mg tablet 70 mg PO QWEEK Qty: 14 3RF famotidine 20 mg tablet 20 mg PO BID Qty: 120 3RF metoprolol succinate 25 mg tablet extended release 24 hr 25 mg PO DAILY Qty: 90 3RF ticagrelor 90 mg tablet 90 mg PO BID Qty: 180 3RF aspirin [Adult Low Dose Aspirin] 81 mg tablet,delayed release (DR/EC) 81 mg PO DAILY (DME) pen needle, diabetic [CareFine Pen Needle] 31 gauge x 1/4 needle See Rx Instructions .Route Qty: 100 0RF Rx Instructions: As directed Follow up/Referrals: Cruz Crook MD [Primary Care Provider, Family Practice] - 2 Weeks Diet/Activity/Treatments Diet: Diet as Tolerated and Regular Visit Report/Discharge Packet Stand Alone Forms: Patient Portal/API, Stroke Signs & Symptoms Discharge Data Primary Care Provider: Cruz Crook Attending Provider: Cruz Crook Admit Date/Time: 07/06/25 19:45 [facility] Charge Codes Discharge inpatient/observation: [id number]
[2025-07-11] MEDS: ENOXAPARIN 40 MG/0.4 ML SYRINGE SUBCUT (08:26)
[2025-07-11] MEDS: INSULIN GLARGINE 100 UNIT/ML 3ML PEN 32 UNIT SUBCUT (08:26)
[2025-07-11] MEDS: SODIUM CHLORIDE 0.9% FLUSH 10 ML IV (08:26)
[2025-07-11 10:00] VITALS: BP 116/90; PULSE 65; RESP 16; TEMP 36.2; O2SAT 97
--- NOTE | 2025-07-11 11:47 | CM.DPNOTE ---
DCP note CLOTH EXAMINER MACHINE reviewed EMR per provider no loose Bms overnight, will dc today. CLOTH EXAMINER MACHINE met with pt in room. pt confirms she feels safe to dc home, will ask about increasing her PP CG hours. open to [facility] resumption. spouse will pick her up after lunch. CLOTH EXAMINER MACHINE sent ref to [facility]. Mik can reaccept. RN/PT/OT/PRODUCT MANAGEMENT ANALYST. P: Dc home today with spouse, PP CGs, and [facility]. OP f/u likely. will continue to follow as needed for DCP Coordination [place] Griffith
[2025-07-11] MEDS: INSULIN LISPRO 100 UNIT/ML 3ML VIAL SUBCUT ×2 (12:23→12:25)
--- NOTE | 2025-07-11 13:18 | PC.NURSE ---
D/c packet reviewed with pt. IV and rele removed. Spouse went to [facility] to get medication. Pt exited via w/c with ENVIRONMENTAL OFFICER to private vehicle.
== END 2025-07-11 13:38 | disposition home or self-care (01) ==
LOC: ED 17:36 → AC 19:45 → SSU 23:10 → AC 07-07 13:52
PROVIDERS: Emergency Medicine; Family Medicine; Pharmacist Pharmacist Clinician (PhC)/ Clinical Pharmacy Specialist; Admitting Provider Family Medicine; Emergency Provider Physician Assistant; PCP Family Medicine; Visit Provider Family Medicine
DX: N10 Acute pyelonephritis (principal); I10 Essential (primary) hypertension; I25.10 Atherosclerotic heart disease of native coronary artery without angina pectoris; F41.9 Anxiety disorder, unspecified; E11.65 Type 2 diabetes mellitus with hyperglycemia; G89.29 Other chronic pain; M54.9 Dorsalgia, unspecified; E87.6 Hypokalemia; B96.20 Unspecified Escherichia coli [E. coli] as the cause of diseases classified elsewhere; A08.11 Acute gastroenteropathy due to Norwalk agent; Z79.84 Long term (current) use of oral hypoglycemic drugs; Z95.5 Presence of coronary angioplasty implant and graft; Z96.0 Presence of urogenital implants
CPT/HCPCS: 36415; 71045; 74176; 80048; 80053; 81001; 82962; 83605; 83690; 83735; 83880; 84145; 85025; 87040; 87077; 87086; 87186; 87507; 93005; 93306; 96365; 96366; 96367; 96368; 96372; 97162; 97166; 97530; 99284; G0378; A9270; J0696; J1650; J1815; J3475; J7030; J7050